=== PATIENT | male | born 1935 | race Caucasian/White ===

== ENCOUNTER 2020-02-27 08:34 | Day surgery (SDC) | payer MEDICARE, SELFPAY ==
[2020-02-21 10:44] VITALS: BMI 18.8
--- NOTE | 2020-02-22 | ECG_ITS ---
Test Reason : HERNIA ING Blood Pressure : / mmHG Vent. Rate : 079 BPM Atrial Rate : 079 BPM P-R Int : 136 ms QRS Dur : 104 ms QT Int : 430 ms P-R-T Axes : 079 001 051 degrees QTc Int : 493 ms Sinus rhythm with frequent , and consecutive Premature ventricular complexes Incomplete right bundle branch block Abnormal ECG When compared with ECG of 08-MAR-2018 10:50, Premature ventricular complexes are now more frequent Referred By: Ariane Esquivel Electronically Signed By:STEWART LANDEROS MD
[2020-02-22 12:48] VITALS: BMI 19.2
[2020-02-22 13:00] VITALS: BP 108/63; PULSE 72; RESP 18; O2SAT 95
--- NOTE | 2020-02-22 13:08 | HO.ANESPROP2 ---
HPI - Anesthesia Eval Consult details Narrative: 84yo for L inguinal hernia PMFSH Past Medical History Medical History Arthritis COPD (chronic obstructive pulmonary disease) Elevated cholesterol History of diverticulosis History of headache Hx of irritable bowel syndrome Hx of Legionnaire's disease Hx of renal calculi Urinary frequency Functional capacity: independent ambulation Family History Family history of problems with anesthesia: No Surgical History Surgical History (Updated 02/21/20 @ 11:05 by Glendy Adames) H/O colonoscopy History of hydrocelectomy Hx of appendectomy Hx of cholecystectomy History of Problems with Anesthesia: No Social History Social History Smoking Status: Current every day smoker Packs Per Day: 0.5 Cigarettes Per Day: 10.0 Years Smoked: 68 Meds Allergies Allergy/AdvReac Type Severity Reaction Status Date / Time No Known Allergies Allergy Verified 02/21/20 11:08 [No Known Allergies*] Home Medications Medication Instructions Recorded Confirmed Type PreserVision AREDS-2 1 tab PO BID 02/21/20 02/21/20 History dicyclomine 40 mg PO BID 02/21/20 02/21/20 History omeprazole 20 mg PO DAILY 02/21/20 02/21/20 History simvastatin 40 mg PO BEDTIME 02/21/20 02/21/20 History Exam Exam Date and Time: February 22, 2020 1308 Height,Weight and Vital Signs: Height 5 ft 9 in Weight 58.967 kg Last Vital Signs Pulse 72 02/22/20 13:00 Resp 18 02/22/20 13:00 BP 108/63 02/22/20 13:00 Pulse Ox 95 02/22/20 13:00 Pertinent Lab Results Pertinent Lab Results: Lab Results 02/22/20 02/22/20 Range/Units 13:49 13:49 WBC 5.3 (4.8-10.8) X10*3/uL RBC 4.37 L (4.60-5.80) X10*6/uL Hgb 14.1 (14.0-18.0) g/dl Hct 43.3 (42-52) % MCV 99.1 H (80-98) fL MCH 32.3 (27.0-33.0) pg MCHC 32.6 (31.0-36.0) g/dl RDW 13.0 (11.0-16.0) % Plt Count 162 (160-400) X10*3/uL MPV 12.5 H (9.4-12.4) fL Absolute Nucleated RBC 0.000 (0.0-0.012) X10*3/uL Nucleated RBC % (auto) 0.0 (0.0-0.2) /100WBC Sodium 139 (135-145) mmol/L Potassium 4.4 (3.3-5.1) mmol/l Chloride 102 (96-108) mmol/L Carbon Dioxide 31 H (22-29) mmol/L Anion Gap 10 L (12-20) BUN 18 H (9-16) mg/dL Creatinine 0.74 (0.5-1.4) mg/dL Estim Creat Clear Calc 63.0 Estimated GFR > 60 Random Glucose 113 (60-115) mg/dL Calcium 8.9 (8.4-10.2) mg/dL Narrative Narrative: EKG 02/22/20: SR with Freq Consectutive PVC, Inc RBBB Sent to PCP (Cardiol specialized) for review - states RSR, Freq PVC in couplets, no RBBB, No Ischemic changes OK to proceed, increased risk for arrhythmia based on freq PVC Airway Mallampati Class: II Neck ROM: Full Denture: Upper Partial: Lower Heart: RRR Lungs: CTAB Assessment and Plan Assessment Anesthesia Assessment: Anesthesia Plan Discussed, Smoking Cess. Discussed and PAT Visit
[2020-02-22 14:58] LABS: Hematocrit 43.3 % (42-52); Hemoglobin 14.1 g/dl (14.0-18.0); Mean Corpuscular HGB Conc 32.6 g/dl (31.0-36.0); Mean Corpuscular Hemoglobin 32.3 pg (27.0-33.0); Mean Corpuscular Volume 99.1 fL (80-98); Mean Platelet Volume 12.5 fL (9.4-12.4); Platelet Count 162 X10*3/uL (160-400); Red Blood Count 4.37 X10*6/uL (4.60-5.80); White Blood Count 5.3 X10*3/uL (4.8-10.8)
[2020-02-22 15:27] LABS: Anion Gap 10 (12-20); Blood Urea Nitrogen 18 mg/dL (9-16); Calcium 8.9 mg/dL (8.4-10.2); Carbon Dioxide 31 mmol/L (22-29); Chloride 102 mmol/L (96-108); Estimated Glomerular Filt Rate > 60; Glucose Random 113 mg/dL (60-115); Potassium 4.4 mmol/l (3.3-5.1); Sodium 139 mmol/L (135-145)
[2020-02-27] VITALS (9 sets, daily range): BP systolic 118–138; BP diastolic 61–74; PULSE 77–89; RESP 14–17; TEMP 36.2–36.8; O2SAT 93–97
[2020-02-27] MEDS: Lactated Ringers 1,000 ML 100 ML IVCONT (09:24)
[2020-02-27] MEDS: ceFAZolin Sodium/Dextrose,Iso 2 GM/50 ML PIGGYBACK IV (09:27)
[2020-02-27] MEDS: Albuterol Sulfate (0.083%) 2.5 MG/3 ML VIAL.NEB INHALE (09:38)
--- NOTE | 2020-02-27 09:45 | MHC.SHP ---
Pre-Procedural Eval Section B Chief Complaint: LEFT INGUINAL HERNIA Allergies: Allergies Allergy/AdvReac Type Severity Reaction Status Date / Time No Known Allergies Allergy Verified 02/21/20 11:08 [No Known Allergies*] Plan Patient has been examined and remains a candidate for the planned procedure
--- NOTE | 2020-02-27 10:52 | PM.OP ---
Brief Operative Note Date of procedure: 02/27/20 Pre-op diagnosis: L inguinal hernia Post-op diagnosis: same Procedure: repair of L ing hernia w/ mesh Implants: mesh Surgeon: Norris Barrera MD Anesthesia: GLMA Classification Inspector: Geovanna Crane Estimated blood loss (mL): 5 Pathology: none sent Condition: stable Disposition: PACU
[2020-02-27] MEDS: Acetaminophen 325 MG TABLET 650 MG PO (11:47)
[2020-02-27] MEDS: oxyCODONE HCl Immed Release 5 MG TABLET PO (11:47)
--- NOTE | 2020-02-27 11:59 | OP_ITS ---
SURGEON: Norris Barrera MD INDICATIONS: The patient is an 84-year-old male, noted to have reducible mass in the left groin consistent with an inguinal hernia. In view of symptoms, he wanted to proceed with repair. He understood the technique of repair with mesh. He was aware of the risks, benefits, and alternatives. PREOPERATIVE DIAGNOSIS: Left inguinal hernia. POSTOPERATIVE DIAGNOSIS: Left inguinal hernia, indirect. PROCEDURE PERFORMED: Repair of the left inguinal hernia with mesh and plug. ESTIMATED BLOOD LOSS: COMPLICATIONS: ANESTHESIA: ASSISTANTS: SPECIMENS: FRUIT AND VEGETABLE PARER: Geovanna Crane PA-C DESCRIPTION OF PROCEDURE: He was brought to the operating room and placed supine on the table under general anesthesia via laryngeal mask airway. The left groin was prepped and draped in usual sterile fashion. A surgical time-out was done. The patient received cefazolin 2 g IV preoperatively. The planned line of incision was infiltrated using lidocaine 1%. A short incision made in the skin along the imaginary line from the anterior iliac spine to the pubic ramus. Using blade #15, it was carried down to full-thickness skin and subcutaneous fat down to the external oblique aponeurosis fascia. We bluntly dissected the external oblique aponeurosis until we were able to clearly define the external ring. I made an incision on the external oblique aponeurosis along its fibers using blade #15 and it was extended inferomedially to connect with the external ring. The inguinal canal was therefore entered at this point. Hemostats were applied on the edges of the external oblique aponeurosis. We bluntly dissected the underside of the aponeurosis to create a plane for the mesh. With blunt dissection, proceeded to then pass my finger around the spermatic cord and its contents. I then was able to pass a [place] drain around this and this was used for traction. I examined the cord contents. The vas deferens along with its vessels were clearly identified. The sac was seen on the anteromedial aspect, which was markedly adherent along with some fat contents. I bluntly dissected this sac off the rest of cord contents very gently with Adson's forceps until I was able to completely reduce this through the internal ring. This was for an indirect hernia. I reinforced the internal ring with the medium-sized Prolene plug. This plug was secured with Prolene 2-0 sutures to shelving edge of the inguinal ligament laterally, the internal oblique superomedially using its inner leaves. I reinforced the floor of the canal with keyhole mesh. The tails of the mesh were passed around the cord at the level of internal ring and were secured together with prolene 2-0 sutures. I secured the mesh with Prolene 2-0 suture to shelving edge of the inguinal ligament laterally and the internal oblique superiorly and medially as well as the pubic ramus inferomedially. We made certain that the ilioinguinal nerve was not caught by the sutures. We irrigated. We observed for hemostasis. Once hemostasis was ensured, proceeded to close the external oblique aponeurosis with running Dexon 2-0 stitch to re-create the external ring. We made sure that the ilioinguinal nerve was not caught between the sutures. The subcutaneous layer was reapposed with Dexon 3-0 sutures. Skin closure achieved with Dexon 4-0 subcuticular stitch. Steri-Strips and dressing were applied. All incisions were infiltrated with Marcaine 0.5% for postop analgesia. The procedure was then completed. The patient tolerated the procedure well. There were no complications noted. Initial and final counts of sponges and instrument correct. Estimated blood loss was minimal. The patient extubated without difficulty and transferred to recovery room with stable vital signs. MD JAMILAH Larson/NICHOLE / [id number] MANSI
--- NOTE | 2020-02-27 12:28 | HO.POSTANES ---
Post Anesthesia Evaluation Post Anesthesia Evaluation Vital Signs: Vital Signs Temp Pulse Resp BP Pulse Ox 02/27/20 12:13 77 17 129/74 96 02/27/20 11:58 78 17 130/67 97 02/27/20 11:43 79 16 131/73 96 02/27/20 11:28 78 16 122/65 95 02/27/20 11:12 79 17 126/66 94 02/27/20 11:07 81 17 120/65 94 02/27/20 11:02 85 14 120/62 94 02/27/20 10:57 97.2 F 79 16 118/61 94 02/27/20 09:10 98.2 F 89 16 138/73 93 Anesthesia: Monitored Mental Status: Awake Pain Control: Satisfactory Nausea/Vomiting: None Hydration: Adequate Anesthesia-Related Issues: No Anes. Related Issues
== END 2020-02-27 13:34 | disposition home or self-care (01) ==
PROVIDERS: Nurse Practitioner; Visit Provider Surgery
PROC: (CPT 49505; principal; 2020-02-27 11:10)
DX: K40.90 Unilateral inguinal hernia, without obstruction or gangrene, not specified as recurrent (principal); I10 Essential (primary) hypertension; K21.00 Gastro-esophageal reflux disease with esophagitis, without bleeding; J44.9 Chronic obstructive pulmonary disease, unspecified; E78.00 Pure hypercholesterolemia, unspecified; F17.210 Nicotine dependence, cigarettes, uncomplicated; K57.30 Diverticulosis of large intestine without perforation or abscess without bleeding; Z79.899 Other long term (current) drug therapy; Z90.49 Acquired absence of other specified parts of digestive tract
CPT/HCPCS: 49505; 36415; 80048; 85027; 93005; 94640; C1781; J0690; J1100; J3010

== ENCOUNTER → 2020-03-11 14:33 | Outpatient (BNVA) | payer MEDICARE, SELFPAY | PROVIDERS: Visit Provider Surgery | DX: Z48.815 Encounter for surgical aftercare following surgery on the digestive system (principal) | CPT/HCPCS: 99212 ==

== ENCOUNTER → 2020-04-10 13:33 | Outpatient (BNVA) | payer MEDICARE, SELFPAY | PROVIDERS: Visit Provider Surgery | DX: K40.90 Unilateral inguinal hernia, without obstruction or gangrene, not specified as recurrent (principal); R22.32 Localized swelling, mass and lump, left upper limb | CPT/HCPCS: 99212 ==

== ENCOUNTER 2020-04-18 | Outpatient (REF) | payer MEDICARE, SELFPAY ==
[2020-04-18 14:35] VITALS: BP 146/87; PULSE 88; RESP 18; TEMP 36.6; O2SAT 96
[2020-04-18 15:12] VITALS: BP 134/70; PULSE 91; RESP 16; O2SAT 97
--- NOTE | 2020-04-18 15:42 | OP_ITS ---
SURGEON: Norris Barrera MD INDICATIONS: The patient is an 84-year-old male with note of well-defined movable mass on the proximal phalanx of the index finger on the left. This was about 1.2 cm in diameter. He wanted to proceed with excision. He understood the technique of excision under local anesthesia. He was aware of the risks, benefits, and alternatives. PREOPERATIVE DIAGNOSIS: Subcutaneous nodule, index finger, left. POSTOPERATIVE DIAGNOSIS: Ganglion cyst, index finger, left. PROCEDURE PERFORMED: Excision of ganglion cyst, index finger, left. ESTIMATED BLOOD LOSS: COMPLICATIONS: ANESTHESIA: ASSISTANTS: SPECIMENS: DESCRIPTION OF PROCEDURE: He was brought to the minor procedure room and placed supine on the table. The area of the ganglion on the left finger was prepped and draped. Lidocaine 1% was used for local anesthesia. A surgical time-out had been done earlier. An incision was made in the skin overlying this mass using blade #15, it was carried down to full-thickness skin. We then encountered a thin cyst and this leaked out some gelatinous material consistent with a ganglion cyst. I sharply dissected the capsule off the rest of the subcutaneous layer down to its pedicle and this was transected. This sent as specimen. I irrigated the area of excision and closed the incision with full-thickness nylon 3-0 interrupted sutures. Dressings were applied. He tolerated procedure well. There were no complications noted. He will be seen in the office for followup in 2 weeks for removal of sutures. MD JAMILAH Larson/MODL / [id number]
--- NOTE | 2020-04-18 16:11 | PM.OP ---
Brief Operative Note Date of Service: 04/18/20 Pre-op diagnosis: Subcutaneous mass index finger Post-op diagnosis: other (Ganglion cyst index finger left) Procedure: Excision of ganglion cyst index finger left Surgeon: Norris Barrera MD Estimated blood loss (mL): 0 Pathology: other (Ganglion cyst) Condition: stable Disposition: other (Home)
== END 2020-04-18 15:00 | disposition home or self-care (01) ==
LOC: HO.MS
PROVIDERS: Visit Provider Surgery
PROC: (CPT 26160; principal; 2020-04-18 14:30)
DX: M67.442 Ganglion, left hand (principal); J44.9 Chronic obstructive pulmonary disease, unspecified
CPT/HCPCS: 26160; 88304

== ENCOUNTER → 2020-05-01 09:56 | Outpatient (BNVA) | payer MEDICARE, SELFPAY | PROVIDERS: Visit Provider Surgery | DX: M67.442 Ganglion, left hand (principal); Z48.02 Encounter for removal of sutures | CPT/HCPCS: 99212 ==

== ENCOUNTER 2023-11-12 13:47 | Emergency (ER) | payer OTHER, SELFPAY ==
[2023-11-12 14:02] VITALS: BP 129/74; PULSE 89; RESP 18; TEMP 36.6; O2SAT 95; BMI 18.7
[2023-11-12 14:48] LABS: MANUAL DIFF FLAG NO
[2023-11-12 14:53] LABS: Basophils Percent Auto 0.4 % (0-2); Eosinophils Percent Auto 0.6 % (0-4); Hematocrit 42.3 % (42.0-52.0); Hemoglobin 13.8 g/dl (14.0-18.0); Imm Gran Abs Auto 0.02 X10*3/uL (0.00-0.03); Imm Gran Pct Auto 0.4 % (0.0-0.4); Lymphocytes Absolute Auto 0.7 X10*3/uL (1.2-4.9); Lymphocytes Percent Auto 13.7 % (20-40); Mean Corpuscular HGB Conc 32.6 g/dl (31.0-36.0); Mean Corpuscular Hemoglobin 32.1 pg (27.0-33.0); Mean Corpuscular Volume 98.4 fL (80.0-98.0); Monocytes Absolute Auto 0.4 X10*3/uL (0.1-1.2); Monocytes Percent Auto 7.9 % (2-11); Platelet Count 190 X10*3/uL (160-400); Red Cell Distribution Width 13.4 % (11.0-16.0); White Blood Count 5.2 X10*3/uL (4.8-10.8)
[2023-11-12 15:04] LABS: Alanine Aminotransferase 29 U/L (0-40); Albumin Level 3.7 g/dL (3.5-5.0); Alkaline Phosphatase 87 U/L (39-117); Anion Gap 12 (12-20); Aspartate Amino Transferase 23 U/L (5-37); Bilirubin Total 1.1 mg/dL (0.0-1.0); Blood Urea Nitrogen 15 mg/dL (9-16); Calcium 9.4 mg/dL (8.4-10.2); Carbon Dioxide 29 mmol/L (22-29); Chloride 106 mmol/L (96-108); Creatinine Clr Calc Pharmacy 52.1; Estimated Glomerular Filt Rate > 60; Glucose Random 147 mg/dL (60-115); Lipase 10 U/L (8-78); Magnesium 2.2 mg/dL (1.6-2.6); Potassium 4.5 mmol/L (3.3-5.1); Sodium 142 mmol/L (135-145)
--- NOTE | 2023-11-12 17:23 | ED.GENADULT ---
HPI - General Adult General Chief complaint: Abdominal Pain Stated complaint: Abd pain Time Seen by Provider: 11/12/23 17:05 History of Present Illness ED Provider: Dr. Peck HPI narrative: 88 y/o M patient; PMH COPD, HLD, IBS, hx DVT on Xarelto; presents from home with report of one month of abdominal pain associated with decreased PO intake over the last three days. The patient was seen on 11/10/2023 at [facility] for this complaint. He had a CTA Abdomen/Pelvis with No evidence of mesenteric/bowel ischemia, active GI bleed, or acute large vessel ischemia. 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 Proximal gastric wall/fold thickening which could indicate gastritis. No significant interval change in left renal mass suspicious for renal cell carcinoma. Small bilateral pleural effusions . He had an unremarkable UA, reassuring CBC, BMP, LFTs, lipase, INR. He then was discharged to follow up with GI out-patient. He was seen by GI Dr. Pineda on 11/09/2023. Plan for EGD in 6 weeks. Family returns with patient today due to his significant abdominal discomfort and decreased PO intake. Patient denies: vomiting, diarrhea, cough/congestion, SOB, chest pain. He is an active smoker. Related Data Home Medications ?Medication ?Instructions ?Recorded ?Confirmed dicyclomine 20 mg tablet 40 mg PO BID 02/21/20 02/21/20 omeprazole 20 mg tablet,delayed 20 mg PO DAILY 02/21/20 02/21/20 release simvastatin 40 mg tablet 40 mg PO BEDTIME 02/21/20 02/21/20 vit C 250 mg-vit E 90 mg-zinc 40 1 tab PO BID 02/21/20 02/21/20 mg-copper 1 [id number] capsule (PreserVision AREDS-2) Previous Rx's ?Medication ?Instructions ?Recorded oxycodone-acetaminophen 5 mg-325 1 - 2 tab PO Q4-6H PRN pain #30 02/27/20 mg tablet (Percocet) tabs famotidine 40 mg tablet 40 mg PO BEDTIME 30 days #30 tabs 11/12/23 Allergies Allergy/AdvReac Type Severity Reaction Status Date / Time No Known Allergies Allergy Verified 11/12/23 14:11 [No Known Allergies*] Review of Systems Review of Systems: Yes all other systems are reviewed and are negative Neurologic: Denies Sensory deficit (Neuro) [facility] Past Medical History Attestation statement: The following information was validated with the patient. Source: old records reviewed Medical History Ganglion cyst of finger Subcutaneous mass of finger of left hand Left inguinal hernia History of headache Arthritis History of diverticulosis Hx of irritable bowel syndrome Hx of renal calculi Urinary frequency Hx of Legionnaire's disease COPD (chronic obstructive pulmonary disease) Elevated cholesterol Surgical History H/O colonoscopy Hx of cholecystectomy Hx of appendectomy History of hydrocelectomy Social History Social History Are you a primary healthcare advisory services manager to a significant other at home: No Do you presently have visiting nurse or other home services: No Cigarette Packs Per Day: 0.5 Cigarettes Per Day: 10.0 Years Smoked: 68 Advance Directives: Yes Advance Directives on File: Yes Advance Directives Date on File: 11/12/23 Do you have a plan to hurt others: No Plan Physical Exam ED Vital Signs: Vital Signs - 24 hr 11/12/23 14:02 11/12/23 17:28 Temperature 97.8 F 97.2 F Pulse Rate 89 84 Respiratory Rate 18 16 Blood Pressure 129/74 125/77 Pulse Oximetry 95 95 Oxygen Delivery Method Room Air Room Air BMI result Body Mass Index 18.7 Patient is afebrile and hemodynamically stable. Const General: cooperative Orientation/consciousness: patient oriented x3 HENMT Head: Yes normal to inspection and Yes atraumatic Eyes General: appearance normal, both eyes and all related structures Pupils: Equal, round and reactive pupils present EOM: EOMs intact bilaterally Neck Neck: Yes normal visual inspection, Yes full ROM, Yes supple and No tender Chest Chest palpation & inspection: normal inspection of the chest and normal palpation of entire chest wall Resp Effort & Inspection: normal respiratory effort, able to speak in complete sentences, no cough and no respiratory distress Auscultation: clear to auscultation bilaterally Cardio Rate: regular rate Peripheral pulses: Peripheral pulses 2+ throughout GI Inspection: Yes normal to inspection, No Abdominal wall edema and No distended Palpation (GI): Soft to palpation, not firm, nontender, no guarding and not rigid Auscultation: normal bowel sounds Back/Spine/Pelvis Back: No back tenderness Neuro General: patient oriented x3 Cranial nerves: Yes Equal, round and reactive pupils present Motor exam (neuro): 5/5 motor strength present throughout Sensory Exam: No Sensory deficit (Neuro) Course Course Course Narrative: Patient is afebrile and hemodynamically stable. Nursing ordered basic labs. Labs reviewed and unremarkable. Discussed with patient and family importance of smoking cessation. Long discussion had with patient and family. Reviewed findings from recent GI visit and [facility] visit. Discussed next step would be EGD to evaluate for gastritis versus PUD. Patient is currently on Pantoprazole 20mg OD. Will add Famotidine to patient's course. Discussed possibility of further work up with patient and family - would prefer to follow up with GI for EGD. Plan: Discharge to home with PCP and GI follow up Return precautions given Medical Decision Making Lab Data 11/12/23 14:43 11/12/23 14:43 Labs: Lab Results 11/12/23 11/12/23 Range/Units 14:43 17:18 WBC 5.2 (4.8-10.8) X10*3/uL RBC 4.30 L (4.60-5.80) X10*6/uL Hgb 13.8 L (14.0-18.0) g/dl Hct 42.3 (42.0-52.0) % MCV 98.4 H (80.0-98.0) fL MCH 32.1 (27.0-33.0) pg MCHC 32.6 (31.0-36.0) g/dl RDW 13.4 (11.0-16.0) % Plt Count 190 (160-400) X10*3/uL MPV 12.0 (9.4-12.4) fL Immature Gran % (Auto) 0.4 (0.0-0.4) % Neut % (Auto) 77.0 H (45-73) % Lymph % (Auto) 13.7 L (20-40) % [place] % (Auto) 7.9 (2-11) % Eos % (Auto) 0.6 (0-4) % Baso % (Auto) 0.4 (0-2) % Lymph # (Auto) 0.7 L (1.2-4.9) X10*3/uL [place] # (Auto) 0.4 (0.1-1.2) X10*3/uL Eos # (Auto) 0.0 (0.0-0.4) X10*3/uL Baso # (Auto) 0.0 (0.0-0.2) X10*3/uL Abs Immat Gran (auto) 0.02 (0.00-0.03) X10*3/uL Absolute Neuts (auto) 4.0 (2.0-8.3) x10*3/uL Absolute Nucleated RBC 0.000 (0.0-0.012) X10*3/uL Nucleated RBC % (auto) 0.0 (0.0-0.2) /100WBC Sodium 142 (135-145) mmol/L Potassium 4.5 (3.3-5.1) mmol/L Chloride 106 (96-108) mmol/L Carbon Dioxide 29 (22-29) mmol/L Anion Gap 12 (12-20) BUN 15 (9-16) mg/dL Creatinine 0.81 (0.5-1.4) mg/dL Estim Creat Clear Calc 52.1 Estimated GFR > 60 Random Glucose 147 H (60-115) mg/dL Calcium 9.4 (8.4-10.2) mg/dL Magnesium 2.2 (1.6-2.6) mg/dL Total Bilirubin 1.1 H (0.0-1.0) mg/dL AST 23 (5-37) U/L ALT 29 (0-40) U/L Alkaline Phosphatase 87 (39-117) U/L Total Protein 6.0 L (6.5-8.0) g/dL Albumin 3.7 (3.5-5.0) g/dL Lipase 10 (8-78) U/L Urine Color Dark Yellow Urine Appearance Clear Urine pH 6.5 (5.0-9.0) Ur Specific [place] 1.015 (1.005-1.025) Urine Protein Negative (Neg-Trace) mg/dL Urine Glucose (UA) Negative (Negative) mg/dL Urine Ketones Trace (Negative) mg/dL Urine Blood Negative (Negative) Urine Nitrite Negative (Negative) Ur Leukocyte Esterase Negative (Negative) Discharge Plan Discharge Clinical Impression: Abdominal pain Patient Disposition: Home, Self-Care Instructions: Famotidine (By mouth), Peptic Ulcer (ED), Gastritis (DC) Additional Instructions: As we discussed, you were seen today for abdominal pain. We reviewed your recent records from the GI doctor on 11/08 and the emergency department at [facility] on 11/09. We discussed the CTA, UA, labs which were completed and largely reassuring other than the finding of potentially gastritis. We discussed that the next step would be to call the GI doctor to schedule an endoscopy to visualized the condition of the esophagus and stomach. In the meantime you are already on Pantoprazole 20mg. I am going to add Famotidine 40mg once a day at night. Other things you can do are follow a bland diet. Stopping smoking will also help to heal the lining of your stomach. Please call you GI doctor within the next 24 hours to schedule an appointment to discuss the endoscopy. Prescriptions: New famotidine 40 mg tablet 40 mg PO BEDTIME 30 Days Qty: 30 0RF No Action simvastatin 40 mg Tablet 40 mg PO BEDTIME dicyclomine 20 mg Tablet 40 mg PO BID omeprazole 20 mg Tablet,Delayed Release (Dr/Ec) 20 mg PO DAILY PreserVision AREDS-2 [id number] Capsule 1 tab PO BID oxycodone-acetaminophen [Percocet] 5-325 mg tablet 1 - 2 tab PO Q4-6H PRN (Reason: pain) Qty: 30 0RF Print Language: Azeri
[2023-11-12 17:28] VITALS: BP 125/77; PULSE 84; RESP 16; TEMP 36.2; O2SAT 95
[2023-11-12 17:33] LABS: Appearance Urine Clear; Color Urine Dark Yellow; Glucose Urine UA Negative (Negative); Leukocyte Esterase Urine Negative (Negative); Nitrite Urine Negative (Negative); PH 6.5 (5.0-9.0); Specific Gravity - Urine 1.015 (1.005-1.025); Urine Blood Negative (Negative); Urine Ketones Trace mg/dL (Negative); Urine Protein Negative (Neg-Trace)
[2023-11-12] MEDS: Famotidine 20 MG TABLET 40 MG PO (17:53)
[2023-11-12 17:58] VITALS: BP 132/74; PULSE 72; RESP 16; TEMP 36.6; O2SAT 98
== END 2023-11-12 18:01 | disposition home or self-care (01) ==
PROVIDERS: Physician Assistant; Emergency Provider Emergency Medicine; PCP Internal Medicine Endocrinology, Diabetes & Metabolism
DX: R10.9 Unspecified abdominal pain (principal); F17.210 Nicotine dependence, cigarettes, uncomplicated
CPT/HCPCS: 36415; 80053; 81003; 83690; 83735; 85025; 99283; 99284

== ENCOUNTER 2024-06-03 10:05 | Emergency (ER) | payer OTHER, SELFPAY ==
--- NOTE | ~2024-06-03 | XR_ITS ---
CLINICAL HISTORY: pain cough 4 view, chest and left ribs Comparison: Chest radiography dated 03/06/2019 Findings: No fractures or dislocations. Mild hazy left more than right atelectasis/scarring +/-infiltrate. IMPRESSION: Mild hazy left more than right atelectasis/scarring +/-infiltrate. No acute rib fracture. This document has been electronically signed by: Brooke Almonte MD on 06/03/2024 11:35:04
--- NOTE | ~2024-06-03 | CT_ITS ---
CLINICAL HISTORY: L sided rib pain side pain ? Infiltrate CT chest without contrast Comparison: CT/REG/SR - CHEST WITHOUT CONTRAST [id number] - 03/17/19 17:28 EST Findings: The heart is normal size. The visualized thyroid and mediastinum are unremarkable. There are linear and bandlike opacities within the lingula. No consolidation, pleural effusion or pneumothorax. Moderate centrilobular pulmonary emphysema. The upper abdomen is unremarkable. No acute displaced fracture. Chronic appearing compression fracture involving the L1 vertebral body. IMPRESSION: Linear and bandlike opacities within the lingula, compatible with atelectasis. This document has been electronically signed by: Marianna Mitchell MD on 06/03/2024 18:53:36
[2024-06-03 10:35] VITALS: BP 133/56; PULSE 91; RESP 20; TEMP 36.6; O2SAT 95; BMI 19.2
[2024-06-03 10:53] LABS: MANUAL DIFF FLAG NO
[2024-06-03 10:56] LABS: Basophils Percent Auto 0.8 % (0-2); Eosinophils Percent Auto 0.8 % (0-4); Hematocrit 40.1 % (42.0-52.0); Hemoglobin 13.3 g/dl (14.0-18.0); Imm Gran Abs Auto 0.01 X10*3/uL (0.00-0.03); Imm Gran Pct Auto 0.3 % (0.0-0.4); Lymphocytes Absolute Auto 0.7 X10*3/uL (1.2-4.9); Lymphocytes Percent Auto 17.8 % (20-40); Mean Corpuscular HGB Conc 33.2 g/dl (31.0-36.0); Mean Corpuscular Volume 93.5 fL (80.0-98.0); Monocytes Absolute Auto 0.4 X10*3/uL (0.1-1.2); Monocytes Percent Auto 9.2 % (2-11); Neutrophils Absolute Auto 2.7 x10*3/uL (2.0-8.3); Neutrophils Percent Auto 71.1 % (45-73); Platelet Count 137 X10*3/uL (160-400); Red Blood Count 4.29 X10*6/uL (4.60-5.80); Red Cell Distribution Width 15.5 % (11.0-16.0); White Blood Count 3.8 X10*3/uL (4.8-10.8)
[2024-06-03 11:08] LABS: Alanine Aminotransferase 9 U/L (0-40); Albumin Level 3.7 g/dL (3.5-5.0); Alkaline Phosphatase 74 U/L (39-117); Anion Gap 10 (12-20); Aspartate Amino Transferase 17 U/L (5-37); Bilirubin Direct 0.1 mg/dL (0.0-0.5); Bilirubin Total 0.3 mg/dL (0.0-1.0); Blood Urea Nitrogen 17 mg/dL (9-16); Calcium 9.4 mg/dL (8.4-10.2); Carbon Dioxide 29 mmol/L (22-29); Chloride 107 mmol/L (96-108); Estimated Glomerular Filt Rate > 60; Glucose Random 255 mg/dL (60-115); Lipase 17 U/L (8-78); Potassium 4.5 mmol/L (3.3-5.1); Sodium 141 mmol/L (135-145); Total Protein 6.4 g/dL (6.5-8.0)
[2024-06-03 12:58] VITALS: BP 136/67; PULSE 88; RESP 20; TEMP 36.6; O2SAT 97
--- OUTSIDE RECORDS SUMMARY | 2024-06-03 17:18 | XMS_ITS ---
Author Name [facility] Organization [facility] Address [address] [place] [id number] Care Team Providers Care Commission Auditor Name Role Phone SAUL JEFFERY Primary Care Provider Unavaila ble Insurance Providers: All historical and current Section Date Range: From patient's date of to the date document was created. This section includes the names of all active insurance providers for the patient. Insurance Provider Type of Coverage Plan Name Start of Policy Coverage End of Policy Coverage Group Number Member ID Insurance Provider's Telephone Number Policy Garcia's Name Patient's Relationship to Policy Garcia MEDICARE (WNR) MEDICARE (M) PART A Jul 08, 2002 PART A [id number] [phone] ALEXIS ALEXANDER PATIENT MEDICARE (WNR) MEDICARE (M) PART B Jul 08, 2002 PART B [id number] [phone] ALEXIS ALEXANDER PATIENT [facility] (WNR) MEDICARE ADVANTAGE [facility] (WNR) Jun 10, 2007 [id number] ALEXIS ALEXANDER PATIENT [facility] (WNR) MEDICARE (M) [facility] (WNR) Jun 10, 2020 [id number] ALEXIS ALEXANDER PATIENT Selected Encounter This section includes the information on record at [place] for the Encounter. Date/Time Encounter Type Encounter Description Reason Pro vider Source Jan 06, 2024 02:51 PM Outpatient Encounter ADMIN PAT ACTIVTIES (MASNONCT) IHE Encounter Template Text not used by [place] Plan of Treatment: Future Appointments (+ 6 months) and Future Tests (+/- 45 days) The Plan of Treatment section includes future care activities for the patient from all [place] treatmentfacilities. This section includes future appointments and future orders which are active, pending or scheduled. Future Appointments This section includes appointments that were scheduled to occur 6 months from the date of the Encounter, up to a maximum of 20 appointments. The data comes from all [place] treatment facilities. Appointment Date/Time Appointment Type Appointme nt Facility Name Jan 14, 2024 10:00 AM AMBULATORY - MEDICINE [facility] ([id number]) Feb 10, 2024 02:30 PM [facility] Feb 14, 2024 01:00 PM AM[facility]ULATORY - MEDICINE [facility] Feb 14, 2024 01:30 PM [facility]UL[facility]ORY [facility]ICINE [facility] Feb 14, 2024 02:00 PM AMBULATORY - NONE [facility] Feb 18, 2024 10:00 AM AM[facility]ULATORY - [facility] ([id number]) Feb 22, 2024 01:00 PM AMBULATORY - REHAB MEDICIN E [facility] Mar 08, 2024 01:00 PM AM[facility]ULATORY - [facility]ICINE [facility] Mar 14, 2024 03:00 PM AM[facility]ULATORY [facility]ICINE [facility] Mar 24, 2024 01:30 PM AM[facility]ULATORY - MEDICINE [facility] Jun 16, 2024 02:00 PM AM[facility]ULATORY - [facility]ICINE [facility] Jun 23, 2024 02:20 PM AMBULATORY - MEDICINE [facility] Social History: Smoking Status (Most current) and Tobacco Use (All prior to encounter date) This section includes the most current, and the historical, smoking and tobacco- related health factors from the [facility] facility where the Encounter took place. Current Smoking Status This section includes the most current smoking, or tobacco-related health factor, from the VA facility where the Encounter took place. Date/Time Current Smoking Status Comment Facil it Aug 16, 2023 01:00 PM VA-TOBACCO USE WI 30 MIN OF WAKEUP [facility] Tobacco Use History This section includes a history of the smoking, or tobacco-related health factors, that were collected on or before the date of the Encounter. The data comes from the [place] facility where the Encounter took place. Date/Time Smoking Status/Tobac co Use Comment Facility Aug 16, 2023 01:00 PM VA-TOBACCO USE ADVICE [facility] Aug 16, 2023 01:00 PM VA-TOBACCO USE SYSTEM SUPPORT ANALYST NO [facility] Aug 16, 2023 01:00 PM VA-TOBACCO USE MED NO [facility] Aug 16, 2023 01:00 PM VA-TOBACCO USE WI 30 MIN OF WAKEUP [facility] Aug 16, 2023 01:00 PM VA-TOBACCO USER EVERY DAY [facility] September 10, 2022 11:30 AM VA-TOBACCO USE 30 YEARS OR MORE [facility] September 10, 2022 11:30 AM VA-TOBACCO USE ADVICE [facility] September 10, 2022 11:30 AM VA-TOBACCO USE SYSTEM SUPPORT ANALYST NO [facility] September 10, 2022 11:30 AM VA-TOBACCO USE MED NO [facility] September 10, 2022 11:30 AM VA-TOBACCO USE [place] 30 MIN OF WAKEUP [facility] September 10, 2022 11:30 AM VA-TOBACCO USER EVERY DAY [facility] Aug 18, 2021 03:00 PM VA-TOBACCO USE 30 YEARS OR MORE [facility] Aug 18, 2021 03:00 PM VA-TOBACCO USE ADVICE [facility] Aug 18, 2021 03:00 PM VA-TOBACCO USE SYSTEM SUPPORT ANALYST NO [facility] Aug 18, 2021 03:00 PM VA-TOBACCO USE MED NO [facility] Aug 18, 2021 03:00 PM VA-TOBACCO USE [place] 30 MIN OF WAKEUP [facility] Aug 18, 2021 03:00 PM VA-TOBACCO USER EVERY DAY [facility] Jun 20, 2020 09:16 AM VA-TOBACCO USE 30 YEARS OR MORE [facility] Jun 20, 2020 09:16 AM VA-TOBACCO USE ADVICE [facility] Jun 20, 2020 09:16 AM VA-TOBACCO USE SYSTEM SUPPORT ANALYST NO [facility] Jun 20, 2020 09:16 AM VA-TOBACCO USE MED NO [facility] Jun 20, 2020 09:16 AM VA-TOBACCO USE [place] 30 MIN OF WAKEUP [facility] Jun 20, 2020 09:16 AM VA-TOBACCO USER EVERY DAY [facility] Jan 05, 2019 10:36 AM VA-TOBACCO USE 30 YEARS OR MORE [facility] Jan 05, 2019 10:36 AM VA-TOBACCO USE ADVICE [facility] Jan 05, 2019 10:36 AM VA-TOBACCO USE SYSTEM SUPPORT ANALYST NO [facility] Jan 05, 2019 10:36 AM VA-TOBACCO USE MED NO [facility] Jan 05, 2019 10:36 AM VA-TOBACCO USE WI 30 MIN OF WAKEUP [facility] Jan 05, 2019 10:36 AM VA-TOBACCO USER EVERY DAY [facility] Jan 17, 2018 12:50 PM CURRENT SMOKER [facility] Jan 17, 2018 12:50 PM V1-PT DECLINES REF TO TOBACCO CESS PRGM [facility] Jan 17, 2018 12:50 PM V1-PT THINKING ABOUT QUIT TOBACCO USE [facility] Jan 17, 2018 12:50 PM V1-TOBACCO CESS MEDS NOT PRESCRIBED Wants to quit on his own [facility] Encounter Notes: All associated encounter notes This section contains the clinical notes associated to the Encounter. Date/Time Encounter Note(s) Provider Source Jan 06, 2024 02:51 PM PHARMACY NOTE: LOCAL TITLE: V1 PHARMACY CUSTOMER CARE MEDICATION RENEWAL STANDARD TITLE: PHARMACY NOTE DATE OF NOTE: JAN 06, 2024@14:51 ENTRY DATE: JAN 06, 2024@14:52:03 AUTHOR: MARGIE LYLE EXP COSIGNER: URGENCY: STATUS: COMPLETED Date: Dec Division: [facility] referred by Pharmacy Call Center for medication renewal: Non-controlled/maintenance medication Medications requested: [id number] NUTRITION SUPL ENSURE PLUS/VANILLA LIQ PLEASE NOTE: This medication is long . Please review as the [facility] has requested to renew it. Defer to primary care provider To be mailed . Please review and renew if appropriate. *This note was generated by [facility]/[place] [facility] Customer Care. If you have any questions or need assistance, do not contact this author. Please refer all questions to your local, on-site pharmacy departments. /jefry/ MARGIE LYLE CPhT [employer], [place]/Pharmacy Customer Care Signed: 01/06/2024 14:53 Receipt Acknowledged By: 01/06/2024 15:07 /jefry/ Saul Jeffery DNP, LUMBER TRIMMER-BC, CNL Primary Care Nurse Practitioner 01/06/2024 15:15 /jefry/ MARY TORRES REGISTERED NURSE for MARGIE DA SILVA [facility]
--- OUTSIDE RECORDS SUMMARY | 2024-06-03 17:19 | XMS_ITS ---
Author Name [facility] [place] [place] Organization [facility] [place] Address [address] [place] [id number] Care Team Providers Care Compounder Flavorings Name Role Phone SAUL LOPEZ Primary Care Provider [facility] [place] Insurance Providers: All historical and current Section [...] Name Patient's Relationship to Policy Garcia MEDICARE (R) MEDICARE () PART A Jul 08, 2002 PART A [id number] [phone] ALEXIS ALEXANDER PATIENT MEDICARE (WNR) MEDICARE (M) PART B Jul 08, 2002 PART B [id number] [phone] ALXEIS ALEXANDER PATIENT SURGERY [facility] (R) MEDICARE ADVANTAGE [facility] ([facility]) Jun 10, 2007 [id number] ALEXIS ALEXANDER PATIENT [facility] (WNR) MEDICARE (M) [facility] ([facility]) Jun 10, 2020 [id number] ALEXIS ALEXANDER PATIENT Selected Encounter This section includes the information on record at CT for the Encounter. Date/Time Encounter Type Encounter Description Reason Provider Source Aug 16, 2023 01:00 PM OFFICE O/P EST LOW 20 MIN PRIMARY CARE/MEDICINE ICD-10-CM R63.4 Abnormal weight loss SULEMA LOPEZ AM [facility] Encounter Template Text not used by CT Assessments - Encounter Diagnoses This section includes the primary and secondary diagnoses documented for the Encounter. Date/Time Primary/Secondary Diagnosis Diagnosis Name Provider Source Aug 16, 2023 01:40 PM PRIMARY Abnormal weight loss SULEMA LOPEZ AM [facility] [place] [facility] Aug 16, 2023 01:40 PM SECONDARY Benign prostatic hyperplasia without lower urinry tract symp SULEMA LOPEZ AM [facility] [place] [facility] Aug 16, 2023 01:40 PM SECONDARY Embolism and thrombosis of arteries of the lower extremities SULEMA LOPEZ AM [facility] [place] [facility] Aug 16, 2023 01:40 PM SECONDARY Gastro-esophageal reflux disease without esophagitis SULEMA LOPZE AM [facility] [place] [facility] Aug 16, 2023 01:40 PM SECONDARY Other specified disorders of kidney and ureter SULEMA LOPEZ AM [facility] [place] [facility] Aug 16, 2023 01:40 PM SECONDARY Peripheral vascular disease, unspecified SULEMA LOPEZ AM [facility] Plan of Treatment: Future Appointments (+ 6 months) and Future Tests (+/- 45 days) The Plan of Treatment section includes future care activities for the patient from all CT treatmentcilities. This section includes future appointments and future orders which are active, pending or scheduled. Future Appointments This section includes appointments that were scheduled to occur 6 months from the date of the Encounter, up to a maximum of 20 appointments. The data comes from all CT treatment facilities. Appointment Date/Time Appointment Type Appointme nt Facility Name September 16, 2023 02:00 PM AMBULATORY - MEDICINE CT [facility] [place] [facility] Nov 04, 2023 09:30 AM AMBULATORY - MEDICINE [facility] [place] [facility] Nov 05, 2023 08:15 AM AMBULATORY - NONE [facility] [place] [facility] Nov 19, 2023 08:30 AM AMBULATORY - MEDICINE CT [facility] [place] [facility] Nov 19, 2023 02:00 PM AMBULATORY - NONE [facility] [place] [facility] Nov 22, 2023 03:00 PM AMBULATORY - MEDICINE CT [facility] [place] [facility] Dec 02, 2023 08:00 AM AMBULATORY - MEDICINE [facility] [place] [facility] Dec 02, 2023 10:00 AM AMBULATORY - MEDICINE [facility] [place] [facility] Jan 14, 2024 10:00 AM AMBULATORY - MEDICINE [id number] Feb 10, 2024 02:30 PM AMBULATORY - MEDICINE [facility] [place] [facility] Feb 14, 2024 01:00 PM AMBULATORY - MEDICINE CT [facility] [place] [facility] Feb 14, 2024 01:30 PM AMBULATORY - MEDICINE CT [facility] [place] [facility] Feb 14, 2024 02:00 PM [facility]BUL[facility]ONE [facility] Lab Results: +/- 30 days of the encounter This section includes the Chemistry and Hematology Lab Results on record with CT for the patient. Radiology Reports and Pathology Reports are provided separately, in subsequent sections. Lab Results This section contains the Chemistry/Hematology Results that were resulted 30 days before or 30 daysafter the date of the Encounter. Date/Time Source Result Type Result - Unit Interpretation Reference Range Comment Aug 16, 2023 01:49 PM [facility] PT & INR (PROTIME) Specimen Type: PLASMA No comment entered. Ordering Provider: SULEMA LOPEZ AM Report Released Date/Time: Aug 16, 2023 01:36 PM Reporting Lab: [facility] [place] [address] [address] Performing Lab: [facility] [address] [id number] INR 1.2 PROTIME 14.0 s H 10.0-13.1 Aug 16, 2023 01:49 PM [facility] CBC AND DIFF (AUTO) Specimen Type: BLOOD No comment entered. Ordering Provider: SULEMA LOPEZ AM Report Released Date/Time: Aug 16, 2023 01:36 PM Reporting Lab: [facility] [place] [address] [place] [address] Performing Lab: [facility] [address] [facility] [address] WBC 5.73 10*3/uL 4.50-11.00 RBC 4.30 10*6/uL 4.23-5.66 HGB 14.2 g/dL 12.8-17 HCT 42.6 39.2-50.4 MCV 99.1 fL H 82-99 MCHC 33.3 g/dL 30.8-35.1 PLT 180 10*3/uL 140-360 RDW-CV 12.8 12.0-16.0 [place], Abs 0.54 10*3/uL 0.30-1.10 MCH 33.0 pg H 26.2-32.6 Neut % 69.7 43.7-75.8 Lymph % 19.4 14.0-42.3 [place] % 9.4 5.1-13.7 Eos % 0.7 0.4-6.8 Baso % 0.3 0.1-2.0 Neut, Abs 3.99 10*3/uL 2.20-7.60 Lymph, Abs 1.11 10*3/uL 1.00-3.20 Eos, Abs 0.04 10*3/uL 0.03-0.44 Baso, Abs 0.02 10*3/uL 0.01-0.13 Immature Gran % 0.5 0.0-0.7 Immature Gran, Abs 0.03 10*3/uL 0.00-0.06 Vital Signs: All taken on the encounter date This section contains inpatient and outpatient Vital Signs collected on the date of the Encounter. Date/Time Temperature Pulse Blood Pressure Respiratory Rate SP02 Pain Height Weight Body Mass Index Source Aug 16, 2023 12:58 PM 97.6 81 121/62 18 96 0 68 131 20 [facility] Social History: Smoking Status (Most current) and Tobacco Use (All prior to encounter date) This section includes the most current, and the historical, smoking and tobacco- related health factors from the CT facility where the Encounter took place. Current Smoking Status This section includes the most current smoking, or tobacco-related health factor, from the [place] facility where the Encounter took place. Date/Time Current Smoking Status Comment Facil ity Aug 16, 2023 01:00 PM VA-TOBACCO USE [place] [address] [facility] [place] [facility] Tobacco Use History This section includes a history of the smoking, or tobacco-related health factors, that were collected on or before the date of the Encounter. The data comes from the [place] facility where the Encounter took place. 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 NO [facility] [place] [facility] Aug 16, 2023 01:00 PM VA-TOBACCO USE MED NO [facility] [place] [facility] Aug 16, 2023 01:00 PM VA-TOBACCO USE WI 30 MIN OF WAKEUP [facility] [place] [facility] Aug 16, 2023 01:00 PM VA-TOBACCO USER EVERY DAY [facility] [place] [facility] September 10, 2022 11:30 AM VA-TOBACCO USE 30 YEARS OR MORE [facility] [place] [facility] September 10, 2022 11:30 AM VA-TOBACCO USE ADVICE [facility] [place] [facility] September 10, 2022 11:30 AM VA-TOBACCO USE 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 NO [facility] [place] [facility] September 10, 2022 11:30 AM VA-TOBACCO USE MED NO [facility] [place] [facility] September 10, 2022 11:30 AM VA-TOBACCO USE WI 30 MIN OF WAKEUP [facility] [place] [facility] September 10, 2022 11:30 AM VA-TOBACCO USER EVERY DAY [facility] [place] [facility] Aug 18, 2021 03:00 PM VA-TOBACCO USE 30 YEARS OR MORE [facility] [place] [facility] Aug 18, 2021 03:00 PM VA-TOBACCO USE ADVICE [facility] [place] [facility] Aug 18, 2021 03:00 PM VA-TOBACCO USE 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 POLISHER HELPER NO [facility] [place] [facility] Aug 18, 2021 03:00 PM VA-TOBACCO USE MED NO [facility] [place] [facility] Aug 18, 2021 03:00 PM VA-TOBACCO USE WI 30 MIN OF WAKEUP [facility] [place] [facility] Aug 18, 2021 03:00 PM VA-TOBACCO USER EVERY DAY [facility] [place] [facility] Jun 20, 2020 09:16 AM VA-TOBACCO USE 30 YEARS OR MORE [facility] [place] [facility] Jun 20, 2020 09:16 AM VA-TOBACCO USE ADVICE [facility] [place] [facility] Jun 20, 2020 09:16 AM VA-TOBACCO USE TERRAZZO POLISHER HELPER NO [facility] [place] [facility] Jun 20, 2020 09:16 AM VA-TOBACCO USE MED NO [facility] [place] [facility] Jun 20, 2020 09:16 AM VA-TOBACCO USE WI [address] [facility] [place] [facility] Jun 20, 2020 09:16 AM VA-TOBACCO USER EVERY DAY [facility] [place] [facility] Jan 05, 2019 10:36 AM VA-TOBACCO USE [address] [facility] [place] [facility] Jan 05, 2019 10:36 AM VA-TOBACCO USE ADVICE [facility] [place] [facility] Jan 05, 2019 10:36 AM VA-TOBACCO USE TERRAZZO POLISHER HELPER NO [facility] [place] [facility] Jan 05, 2019 10:36 AM VA-TOBACCO USE MED NO [facility] [place] [facility] Jan 05, 2019 10:36 AM VA-TOBACCO USE WI [address] [facility] [place] [facility] Jan 05, 2019 10:36 AM VA-TOBACCO USER EVERY DAY [facility] [place] [facility] Jan 17, 2018 12:50 PM CURRENT SMOKER [facility] [place] [facility] Jan 17, 2018 12:50 PM V1-PT DECLINES REF TO TOBACCO CESS PRGM [facility] [place] [facility] Jan 17, 2018 12:50 PM V1-PT THINKING ABOUT QUIT TOBACCO USE [facility] [place] [facility] Jan 17, 2018 12:50 PM V1-TOBACCO CESS MEDS NOT PRESCRIBED Wants to quit on his own [facility] [place] [facility] Encounter Notes: All associated encounter notes This section contains the clinical notes associated to the Encounter. Date/Time Encounter Note(s) Provider Source Aug 16, 2023 01:29 PM PRIMARY CARE NURSE PRACTITIONER OUTPATIENT NOTE: LOCAL TITLE: NURSE PRACTITIONER OUTPATIENT NOTE STANDARD TITLE: PRIMARY CARE NURSE PRACTITIONER OUTPATIENT NOTE DATE OF NOTE: AUG 16, 2023@13:29 ENTRY DATE: AUG 16, 2023@13:30:02 AUTHOR: SAUL LOPEZ COSIGNER: URGENCY: STATUS: COMPLETED Chief complaint: Patient is a 87 year old [place]. HPI: Pleasant male [place] here with his . He is following with vascular - dx with thrombus of the left ileac artery, left deep femoral artery, and ? one in the left SFA. He is now on rivaroxaban 20mg daily. He will be on it for 3 months at which time he will have new imaging. Allergies: Patient has answered NKA The following VA and Non-VA meds were reconciled with patient. The patient was educated on the use of the medications including indication and side effects. Active and Recently Outpatient Medications (excluding Supplies): Active Outpatient Medications Status 1) CHOLECALCIF 50MCG (D3-2,000UNIT) TAB TAKE ONE TABLET ACTIVE BY MOUTH ONCE DAILY FOR VITAMIN SUPPLEMENTATION 2) MULTIVIT/OPHTH AREDS2/LUTE/ZEAX CAP/TAB TAKE 1 ACTIVE CAPSULE BY MOUTH TWICE DAILY IN THE MORNING AND EVENING, WITH FOOD 3) NUTRITION SUPL ENSURE PLUS/VANILLA LIQ DRINK 1 CAN BY ACTIVE MOUTH ONCE DAILY FOR NUTRITIONAL SUPPLEMENTATION 4) PEG 400 0.4%/PROP GLYCOL 0.3% OPH SOLN INSTILL 1 DROP ACTIVE INTO EACH EYE FOUR TIMES A DAY 5) SIMVASTATIN 80MG TAB TAKE ONE-HALF TABLET BY MOUTH ACTIVE ONCE DAILY FOR CHOLESTEROL 6) TAMSULOSIN HCL 0.4MG CAP TAKE ONE CAPSULE BY MOUTH AT ACTIVE BEDTIME Pending Outpatient Medications Status 1) PANTOPRAZOLE NA 20MG EC TAB TAKE ONE TABLET BY MOUTH PENDING TWICE DAILY BEFORE A MEAL Inactive Outpatient Medications Status 1) CYANOCOBALAMIN 500MCG TAB TAKE ONE TABLET BY MOUTH ONCE DAILY FOR VITAMIN SUPPLEMENTATION 2) DICLOFENAC NA 1% TOP GEL APPLY 4 GRAMS TOPICALLY FOUR TIMES A DAY FOR BACK PAIN - USE DOSING CARD PROVIDED IN BOX 9 Total Medications Review of Systems: Constitutional: (-)for Fevers, chills, weakness, nights sweats On examination: 97.6 F [36.4 C] (08/16/2023 12:58)121/62 (08/16/2023 12:58)81 (08/16/2023 12:58) 18 (08/16/2023 12:58)0 (08/16/2023 12:58)BMI: 20.0131 lb [59.42 kg] (08/16/2023 12:58) is alert and oriented X3 Neck: supple without masses, trachea midline, ln not palpable, no thyromegaly Cardiovasc: 2plus carotids without bruits, no JVD Heart Reguler rate and rhythm NL S1S2 no S3 or murmur Respiration: Normal respiratory effort, lungs clear ABD: Benign normal active bowel sounds no HSM no rebound or referred pain EXT: no clubbing, edema, or cyanosis Assessment/plan: Active problems - Computerized Problem List is the source for the followin. Weight loss - wt is stable 2. 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 He is hesitant to pursue bx. Follows Dr. Amaro urology, and Dr. Westbrook, onc. 3. Gastroesophageal reflux disease - stable on PPI 4. Benign Prostatic Hypertrophy Without Outflow Obstruction (SCT [id number]) - frequent urination, nocturia, recently started on flomax. I also suggested changing to decaff coffee Review of medial record = 5mins Time spent with Patient including shared decision making = 20 mins Post visit documentation = 5mins Total time = 30 mins Follow up visit in 6 mos. Alert to PACT RN - Labs as necessary to address clinical status. Depression Screening: Perform PHQ-2 A PHQ-2 screen was performed. The score was 0 which is a negative screen for depression. Over the past two weeks, how often have you been bothered by the following problems? 1. Little interest or pleasure in doing things Not at all 2. Feeling down, depressed, or hopeless Not at all Medication Reconciliation: Outpatient: Has the patient been taking medications as documented in the EMLR? YES: The patient has been taking medications as documented in the EMLR. Essential Medication List for Review used to complete this medication reconciliation. INCLUDED IN THIS LIST: Alphabetical list of active outpatient prescriptions dispensed from this CT (local) and dispensed from another [place] or [facility] facility (remote) as well as inpatient orders (local, pending and active), local clinic medications, locally documented non-VA medications, and local prescriptions that have or been discontinued in the past 90 days. - All changes in medications, including all non-VA/Herbal/OTC medications were entered into CPRS. - If there were any medications the patient should no longer take, they were discontinued. - The patient/caregiver was instructed to update this list, discard old lists, and take this list to the next appointment, whether with a VA or non-VA provider. /jefry/ Saul Lopez DNP, DRENCHER-BC, CNL Primary Care Nurse Practitioner Signed: 08/16/2023 13:[address] [facility] [place] [facility] Aug 16, 2023 01:03 PM PREVENTIVE MEDICINE NURSING NOTE: LOCAL TITLE: CLINICAL REMINDERS/NURSING STANDARD TITLE: PREVENTIVE MEDICINE NURSING NOTE DATE OF NOTE: AUG 16, 2023@13:03 ENTRY DATE: AUG 16, 2023@13:03:14 AUTHOR: MOMO MCMAHON COSIGNER: URGENCY: STATUS: COMPLETED Advance Directive Screen MH AD: Patient does not have a completed advance directive on file at any facility, VA or outside. S/he is not interested in completing one at this time. The patient received education about Advance Directives and written notification of his/her rights. Suicide Screen: C-SSRS Screening Mcintosh-Suicide Severity Rating Scale (C-SSRS Screener) 1. Over the past month, have you wished you were or wished you could go to sleep and not wake up? No 2. Over the past month, have you had any actual thoughts of killing yourself? No 3. Over the past month, have you been thinking about how you might do this? Response not required due to responses to other questions. 4. Over the past month, have you had these thoughts and had some intention of acting on them? Response not required due to responses to other questions. 5. Over the past month, have you started to work out or worked out the details of how to kill yourself? Response not required due to responses to other questions. 6. If yes, at any time in the past month did you intend to carry out this plan? Response not required due to responses to other questions. 7. In your lifetime, have you ever done anything, started to do anything, or prepared to do anything to end your life (for example, collected pills, obtained a gun, gave away valuables, went to the roof but didn't jump)? No 8. If YES, was this within the past 3 months? Response not required due to responses to other questions. Falls & Incontinence Screen: Falls Screen: 4. No falls within the past year. Incontinence Screen No incontinence. Tobacco Use Screening: The patient uses tobacco every day. The patient uses tobacco within 30 minutes of waking up. The patient has been smoking or using tobacco for thirty years or more. Patient was advised to quit smoking and/or using tobacco. Discussion with patient included: - Quitting smoking or tobacco use is one of the most important things you can do to protect and improve your health and [place] has the resources to support you. - Set a quit date when you are ready to quit. - Get support from your family and friends. - Review any past quit attempts- What helped? What didn't? - On the day you plan to quit, get rid of all cigarettes and tobacco products from your home, car or work. - Using a combination of behavioral counseling or other support strategies and FDA-approved cessation medications is the most effective way to ensure success in quitting. Patient was offered Behavioral Counseling and other support strategies to assist with quitting. Discussion with patient included: - Behavioral counseling or other support strategies greatly increases your chances of successfully quitting smoking or tobacco use by helping you develop a quit plan and providing support and other strategies to make behavioral changes to help you quit. - [place] has a number of behavioral counseling options to help you with quitting, including: * Provide information about the facility smoking or tobacco use treatment options or clinics * [place]'s national quitline, 0-734-WWXZ-VET, with counseling available Wednesday-Wednesday The patient was not interested in receiving additional information about how to use the treatment options discussed. Patient was offered FDA-approved cessation medications. Discussion with patient included: - Medications for Nicotine replacement therapy such as the patch, gum or lozenge, and other medications such as varenicline or bupropion, can play an important role in the initial weeks and months after you quit smoking or tobacco use. - Medications help with cravings and withdrawal symptoms and they greatly increase your chances of successfully quitting. The patient was not interested in a prescription for tobacco cessation medications. Alcohol Use Screen (AUDIT-C): Alcohol Screen: SCREEN FOR ALCOHOL (AUDIT-C) An alcohol screening test (AUDIT-C) was negative (score=0). 1. How often did you have a drink containing alcohol in the past year? Consider a drink to be a 12 ounce can or bottle of regular beer, 8 ounces of malt liquor, a 5 ounce glass of table wine, or a 1.5 ounce shot of liquor (like scotch, gin, or vodka). Never 2. How many drinks containing alcohol did you have on a typical day when you were drinking in the past year? Response not required due to responses to other questions. 3. How often did you have six or more drinks on one occasion in the past year? Response not required due to responses to other questions. /jefry/ Momo [facility] Swing Tender COMPOUNDER FLAVORINGS,PRIMARY CARE Signed: 08/16/2023 13:05 MOMO MCMAHON [facility]
--- OUTSIDE RECORDS SUMMARY | 2024-06-03 17:19 | XMS_ITS ---
Author Name [facility] [place] [facility] [place] [facility] [place] Address [address] [place] [address] Care Team Providers Care Chicken Sexer Name Role Phone JEREMY LOPEZ Primary Care Provider Unavaila ble Insurance Providers: [...] PART A Jul 08, 2002 PART A [id number] ALEXIS ALEXANDER PATIENT MEDICARE (WNR) MEDICARE (M) PART B Jul 08, 2002 PART B [id number] ALEXIS ALEXANDER PATIENT [facility] (WNR) MEDICARE ADVANTAGE [facility] (WNR) Jun 10, 2007 [id number] ALEXIS ALEXANDER PATIENT [facility] (WNR) MEDICARE (M) [facility] (WNR) Jun 10, 2020 [id number] [phone] ALEXIS ALEXANDER PATIENT Selected Encounter This section includes the information on record at [place] for the Encounter. Date/Time Encounter Type Encounter Description Reason Pro vider Source Mar 03, 2024 03:07 PM Outpatient Encounter ADMIN PAT ACTIVTIES (MASNONCT) IHE Encounter Template Text not used by [place] Plan of Treatment: Future Appointments (+ 6 months) and Future Tests (+/- 45 days) The Plan of Treatment section includes future care activities for the patient from all [place] treatmentfacilities. This section includes future appointments and future orders which are active, pending or scheduled. Future Appointments This section includes appointments that were scheduled to occur 6 months from the date of the Encounter, up to a maximum of 20 appointments. The data comes from all [place] treatment facilities. Appointment Date/Time Appointment Type Appointme nt Facility Name Mar 08, 2024 01:00 PM AMBULATORY - [place]ICINE [place] [facility] [place] [facility] Mar 14, 2024 03:00 PM AMBULATORY MEDICINE [place] [facility] [place] [facility] Mar 24, 2024 01:30 PM AMBULATORY - MEDICINE [place] [facility] [place] [facility] Jun 16, 2024 02:00 PM AMBULATORY MEDICINE [place] [facility] [place] [facility] Jun 23, 2024 02:20 PM AMBULATORY - MEDICINE [facility] [place] [facility] Aug 04, 2024 10:00 AM AMBULATORY - MEDICINE [facility] ([id number]) Lab Results: +/- 30 days of the encounter This section includes the Chemistry and Hematology Lab Results on record with [place] for the patient. Radiology Reports and Pathology Reports are provided separately, in subsequent sections. Lab Results This section contains the Chemistry/Hematology Results that were resulted 30 days before or 30 daysafter the date of the Encounter. Date/Time Source Result Type Result - Unit Interpretation Reference Range Comment Feb 10, 2024 01:46 PM [facility] PT & INR (PROTIME) Specimen Type: PLASMA No comment entered. Ordering Provider: NADER LOPEZ Report Released Date/Time: Feb 03, 2024 12:02 PM Reporting Lab: [facility] [address] [facility] [address] Performing Lab: [address] [address] INR 1.0 PROTIME 11.8 s 10.0-13.1 Feb 10, 2024 01:46 PM [facility] BASIC METABOLIC PANEL (non-fasting) Specimen Type: SERUM No comment entered. Ordering Provider: NADER LOPEZ Report Released Date/Time: Feb 03, 2024 12:02 PM Reporting Lab: [facility] [address] [facility] [address] Performing Lab: [address] [address] UREA NITROGEN 16 mg/dL 7-25 GLUCOSE 156 mg/dL H 65-100 SODIUM 142 mmol/L 135-145 POTASSIUM 4.4 mmol/L 3.5-5.0 CHLORIDE 103 mmol/L 100-110 CO2 28 meq/L 20-30 CREATININE, Serum 1.17 mg/dL 0.50-1.40 eGFR(CKD-EPI 2020) 60 mL/min >60 Feb 10, 2024 01:46 PM [facility] CBC AND DIFF (AUTO) Specimen Type: BLOOD No comment entered. Ordering Provider: NADER LOPEZ Report Released Date/Time: Feb 03, 2024 12:02 PM Reporting Lab: [address] [address] Performing Lab: [address] [address] WBC 5.81 10*3/uL 4.50-11.00 RBC 4.35 10*6/uL 4.23-5.66 HGB 13.3 g/dL 12.8-17 HCT 40.9 39.2-50.4 MCV 94.0 fL 82-99 MCHC 32.5 g/dL 30.8-35.1 PLT 217 10*3/uL 140-360 RDW-CV 12.6 12.0-16.0 MONO, ABS 0.53 10*3/uL 0.30-1.10 MCH 30.6 pg 26.2-32.6 NEUT % 75.8 43.7-75.8 LYMPH % 13.6 L 14.0-42.3 MONO % 9.1 5.1-13.7 EOS % 0.5 0.4-6.8 BASO % 0.5 0.1-2.0 NEUT, ABS 4.40 10*3/uL 2.20-7.60 LYMPH, ABS 0.79 10*3/uL L 1.00-3.20 EOS, ABS 0.03 10*3/uL 0.03-0.44 BASO, ABS 0.03 10*3/uL 0.01-0.13 IMMATURE GRAN % 0.5 0.0-0.7 IMMATURE GRAN, ABS 0.03 10*3/uL 0.00-0.06 NRBC % 0.0 0.0-0.0 NRBC, ABS 0.00 10*3/uL 0.00-0.00 Social History: Smoking Status (Most current) and Tobacco Use (All prior to encounter date) This section includes the most current, and the historical, smoking and tobacco- related health factors from the [place] facility where the Encounter took place. Current Smoking Status This section includes the most current smoking, or tobacco-related health factor, from the [place] facility where the Encounter took place. Date/Time Current Smoking Status Comment Facil it Aug 16, 2023 01:00 PM VA-TOBACCO USE [place] 30 MIN OF WAKEUP [place] [facility] Tobacco Use History This section includes a history of the smoking, or tobacco-related health factors, that were collected on or before the date of the Encounter. The data comes from the [place] facility where the Encounter took place. Date/Time Smoking Status/Tobac co Use Comment Facility Aug 16, 2023 01:00 PM VA-TOBACCO USE ADVICE [place] [facility] [place] [facility] Aug 16, 2023 01:00 PM VA-TOBACCO USE HOT TAR ROOFER NO [facility] [place] [facility] Aug 16, 2023 01:00 PM VA-TOBACCO USE MED NO [facility] [place] [facility] Aug 16, 2023 01:00 PM VA-TOBACCO USE [place] 30 MIN OF WAKEUP [facility] [place] [facility] Aug 16, 2023 01:00 PM VA-TOBACCO USER EVERY DAY [facility] [place] [facility] September 10, 2022 11:30 AM VA-TOBACCO USE 30 YEARS OR MORE [facility] [place] [facility] September 10, 2022 11:30 AM VA-TOBACCO USE ADVICE [facility] [place] [facility] September 10, 2022 11:30 AM VA-TOBACCO USE HOT TAR ROOFER NO [facility] [place] [facility] September 10, 2022 11:30 AM VA-TOBACCO USE MED NO [facility] [place] [facility] September 10, 2022 11:30 AM VA-TOBACCO USE [place] 30 MIN OF WAKEUP [facility] [place] [facility] September 10, 2022 11:30 AM VA-TOBACCO USER EVERY DAY [facility] [place] [facility] Aug 18, 2021 03:00 PM VA-TOBACCO USE 30 YEARS OR MORE [facility] [place] [facility] Aug 18, 2021 03:00 PM VA-TOBACCO USE ADVICE [facility] [place] [facility] Aug 18, 2021 03:00 PM VA-TOBACCO USE HOT TAR ROOFER NO [facility] [place] [facility] Aug 18, 2021 03:00 PM VA-TOBACCO USE MED NO [facility] [place] [facility] Aug 18, 2021 03:00 PM VA-TOBACCO USE [place] 30 MIN OF WAKEUP [facility] [place] [facility] Aug 18, 2021 03:00 PM VA-TOBACCO USER EVERY DAY [facility] [place] [facility] Jun 20, 2020 09:16 AM VA-TOBACCO USE 30 YEARS OR MORE [facility] [place] [facility] Jun 20, 2020 09:16 AM VA-TOBACCO USE ADVICE [facility] [place] [facility] Jun 20, 2020 09:16 AM VA-TOBACCO USE HOT TAR ROOFER NO [facility] [place] [facility] Jun 20, 2020 09:16 AM VA-TOBACCO USE MED NO [facility] [place] [facility] Jun 20, 2020 09:16 AM VA-TOBACCO USE [place] 30 MIN OF WAKEUP [facility] [place] [facility] Jun 20, 2020 09:16 AM VA-TOBACCO USER EVERY DAY [facility] [place] [facility] Jan 05, 2019 10:36 AM VA-TOBACCO USE 30 YEARS OR MORE [facility] [place] [facility] Jan 05, 2019 10:36 AM VA-TOBACCO USE ADVICE [facility] Jan 05, 2019 10:36 AM VA-TOBACCO USE HOT TAR ROOFER NO [facility] Jan 05, 2019 10:36 AM VA-TOBACCO USE MED NO [facility] Jan 05, 2019 10:36 AM VA-TOBACCO USE [place] 30 MIN OF WAKEUP [facility] Jan 05, 2019 10:36 AM VA-TOBACCO USER EVERY DAY [facility] Jan 17, 2018 12:50 PM CURRENT SMOKER [facility] Jan 17, 2018 12:50 PM V1-PT DECLINES REF TO TOBACCO CESS PRGM [facility] Jan 17, 2018 12:50 PM V1-PT THINKING ABOUT QUIT TOBACCO USE [facility] Jan 17, 2018 12:50 PM V1-TOBACCO CESS MEDS NOT PRESCRIBED Wants to quit on his own [facility] Radiology Reports: +/- 30 days of the encounter Radiology Reports For cases when an order for radiology services may have been completed prior to the date of the Encounter, the report list includes the Radiology Reports that were completed up to 30 days before dateof the Encounter. For cases when an order for radiology services may have been completed after the date of the Encounter, the report list also includes the Radiology Reports that were completed up to30 days after date of the Encounter. The data comes from all [facility] facilities. Date/Time Radiology Report Provider Source Feb 14, 2024 01:[address] HEAD W/O CONT: RACHELL ALEXANDER [id number] -[id number] M Exm Date: FEB 14, 2024@13:38 Req Phys: JEREMY LOPEZ Loc: CWM/NO/PACT 7 (Req'g Loc) Img Loc: NHM/CT Service: Unknown [facility] [address] (Case [id number] COMPLETE) CT HEAD W/O CONT (CT Detailed) CPT:60749 Reason for Study: head injury Clinical History: fell last night, hit his head, on xarelto Report Status: Verified Date Reported: FEB 14, 2024 Date Verified: FEB 14, 2024 Rn Intake E-Sig:/ES/JOVAN BOYER JR Report: Study: Noncontrast CT scan of the head. Comparison: None. Technique: Noncontrast 5 mm contiguous axial images were taken from the skullbase to the vertex. Findings: Mild cerebral volume loss changes with associated ventriculomegaly is present, age-appropriate. Mild periventricular and deep white matter ischemic gliotic changes of aging are present, age-appropriate. There is no evidence of mass, hematoma or shift of the midline structures. There are no intra or extra-axial fluid collections. No calvarial pathology is identified. The paranasal sinuses and mastoid air cells appear normal. Moderate calcific atherosclerotic change is present to the basilar and internal carotid arteries. Impression: No acute intracranial process, as described above. Primary Diagnostic Code: No immediate attention required Primary Interpreting Staff: JOVAN BOYER JR, Radiologist (Rn Intake) /JOVAN MEDINA JR [facility] Encounter Notes: All associated encounter notes This section contains the clinical notes associated to the Encounter. Date/Time Encounter Note(s) Provider Source Mar 03, 2024 03:07 PM PHARMACY NOTE: LOCAL TITLE: V1 PHARMACY CUSTOMER CARE MEDICATION RENEWAL STANDARD TITLE: PHARMACY NOTE DATE OF NOTE: MAR 03, 2024@15:07 ENTRY DATE: MAR 03, 2024@15:07:57 AUTHOR: GABE REED EXP COSIGNER: URGENCY: STATUS: COMPLETED V1 PHARMACY CUSTOMER CARE MEDICATION RENEWAL Has ADDENDA Date: Feb Division: [facility] referred by Pharmacy Call Center for medication renewal: Non-controlled/maintenanc e medication Medications requested: [id number] MULTIVIT/OPHTH AREDS2/LUTE/ZEAX CAP/TAB Defer to specialty clinic To be mailed . Please review and renew if appropriate. *This note was generated by [facility] Pharmacy Customer Care. If you have any questions or need assistance, do not contact this author. Please refer all questions to your local, on-site pharmacy departments. /jefry/ GABE REED CPhT RAND SEWER, MS/PHARMACY CUSTOMER CARE Signed: 03/03/2024 15:08 Receipt Acknowledged By: 03/03/2024 15:23 /jefry/ JASWINDER MCGUIRE OD CAUL DRESSER 03/03/2024 ADDENDUM STATUS: COMPLETED Will renew as Dr. Rivera not on tour today and appt with Dr. Craig is scheduled. /jefry/ JASWINDER MCGUIRE OD CAUL DRESSER Signed: 03/03/2024 15:22 GABE REED [facility]
--- OUTSIDE RECORDS SUMMARY | 2024-06-03 17:19 | XMS_ITS | Patient Health Record ---
Author Organization [facility] Address [address] [place] [id number] Care Team Providers Care Siphon Operator Name Role Phone MELA SERNA Unavailable [phone] ALLERGIES No Known Allergies REASON FOR REFERRAL No Information MEDICATIONS Medication SIG (Take, Route, Frequency, Duration) Notes Start Date End Date Status Cyanocobalamin 500 MCG 1 tablet Orally O nce a day Active Simvastatin 40 MG 1 tablet in the even ing Orally Once a day Active Fluocinonide 0.05 % 1 application Table Games Supervisor ally Twice a day 09/29/2021 Active Omeprazole 20 MG 1 capsule 30 minutes before meal Orally twice a day for 90 days Active Vitamin D3 50 MCG (1999) 1 tablet Ora lly Once a day Active IMMUNIZATIONS Vaccine Route Administration Date Status Comme nts influenza IM Intramuscular 02/09/2022 Administered SOCIAL HISTORY Tobacco Use: Social History Observation Description Date Details (start date - stop date) Current Smoker NA - NA Sex Assigned At : Social History Observation Description Sex Assigned At Unknown Tobacco Use/Smoking Question Answer Notes Are you a current smoker How often do you smoke cigarettes? every day How many cigarettes a day do you smoke? 5 or les s PROBLEMS Problem Type ICD Code Onset Dates Problem Status W/U Status Risk SNOMED Code Notes Problem Essential (primary) hypertension (I10) Active confirmed 99639378 Problem Other abnormal glucose (R73.09) Active confirmed 010547271 Problem Hyperlipidemia, unspecified hyperlipidemia type (E78.5) Active confirmed 63106046 Problem Irritable bowel syndrome, unspecified type (K58.9) Active confirmed 08949301 Problem Vitamin D deficiency (E55.9) Active confirmed Vitamin D deficiency (30593678) Problem Constipation, unspecified constipation type (K59.00) Active confirmed 88031367 Problem Gastroesophageal reflux disease without esophagitis (K21.9) Active confirmed Gastroesophagea l reflux disease without esophagitis (573940777) Problem Body mass index [BMI] 35.0-35.9, adult (Z68.35) Active confirmed 251786508 Encounters Encounter Location Date Provider Diagnosis [address] [facility] [address] [place] [address] 04/12/2024 MELA SERNA PLAN OF TREATMENT Pending Test Test Name Order Date CBC (COMPLETE BLOOD COUNT) 09/23/2020 COMPREHENSIVE METABOLIC PANEL 09/23/2020 HEMOGLOBIN A1C 10/22/2020 LIPID PANEL 10/22/2020 LIPID PANEL 09/23/2020 URINALYSIS, COMPLETE 09/23/2020 LIPID PANEL, STANDARD 09/29/2021 COMPREHENSIVE METABOLIC PANEL 09/29/2021 CBC (INCLUDES DIFF/PLT) 09/29/2021 URINALYSIS, COMPLETE 06/27/2021 Insurance Providers Payer Name Payer Address Payer Phone Subscriber Number Group Number Insured Name Patient Relationship to Insured Coverage Start Date Coverage End Date [employer] Preferred [address] [place] [address] [id number] RACHELL ALEXANDER Self - patient is the insured 1 MEDICAL (GENERAL) HISTORY Medical History History ICD Code hyperlipidemia headache 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
--- OUTSIDE RECORDS SUMMARY | 2024-06-03 17:19 | XMS_ITS | Encounter Summary ---
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 Construction Project Engineer Name Role Phone JEREMY JEFFERY Primary Care Provider [facility] Insurance Providers: All historical and current Section [...] PART A Jul 08, 2002 PART A [id number] [phone] ALEXIS ALEXANDER PATIENT MEDICARE (WNR) MEDICARE (M) PART B Jul 08, 2002 PART B [id number] [phone] ALEXIS ALEXANDER PATIENT [facility] (WNR) MEDICARE ADVANTAGE [employer] ([facility]) Jun 10, 2007 [id number] ALEXIS ALEXANDER PATIENT [facility] (WNR) MEDICARE (M) [employer] ([facility]) Jun 10, 2020 1062 [id number] ALEXIS ALEXANDER PATIENT Selected Encounter This section includes the information on record at [place] for the Encounter. Date/Time Encounter Type Encounter Description Reason Provider Source Dec 31, 2023 10:00 AM OFFICE O/P EST HI 40 MIN HOME TREATMENT SERVICES ICD-10-CM R63.4 Abnormal weight loss [facility] Encounter Template Text not used by [place] Assessments - Encounter Diagnoses This section includes the primary and secondary diagnoses documented for the Encounter. Date/Time Primary/Secondary Diagnosis Diagnosis Name Provider Source Dec 31, 2023 02:08 PM PRIMARY Abnormal weight loss [facility] [place] [facility] Dec 31, 2023 02:08 PM SECONDARY Constipation, unspecified [facility] [place] [facility] Dec 31, 2023 02:08 PM SECONDARY Encounter for palliative care [facility] [place] [facility] Plan of Treatment: Future Appointments (+ 6 months) and Future Tests (+/- 45 days) The Plan of Treatment section includes future care activities for the patient from all [place] treatmentfacilities. This section includes future appointments and future orders which are active, pending or scheduled. Future Appointments This section includes appointments that were scheduled to occur 6 months from the date of the Encounter, up to a maximum of 20 appointments. The data comes from all [place] treatment facilities. Appointment Date/Time Appointment Type Appointme nt Facility Name Jan 14, 2024 10:00 AM AMBULATORY - MEDICINE [facility] ([id number]) Feb 10, 2024 02:30 PM AMBULATORY - MEDICINE [facility] [place] [facility] Feb 14, 2024 01:00 PM AM[facility]UL[facility]ICINE [facility] [place] [facility] Feb 14, 2024 01:30 PM AMBULATORY - MEDICINE [facility] [place] [facility] Feb 14, 2024 02:00 PM AMBULATORY - NONE [facility] [place] [facility] Feb 18, 2024 10:00 AM AMBULATORY - MEDICINE [facility] ([id number]) Feb 22, 2024 01:00 PM AMBULATORY - REHAB MEDICIN E [facility] [place] [facility] Mar 08, 2024 01:00 PM AMBULATORY - MEDICINE [facility] [place] [facility] Mar 14, 2024 03:00 PM AMBULATORY - MEDICINE [facility] [place] [facility] Mar 24, 2024 01:30 PM AMBULATORY - MEDICINE [facility] [place] [facility] Jun 16, 2024 02:00 PM AMBULATORY - MEDICINE [place] [facility] [place] [facility] Jun 23, 2024 02:20 PM AMBULATORY - MEDICINE [place] [facility] [place] [facility] Vital Signs: All taken on the encounter date This section contains inpatient and outpatient Vital Signs collected on the date of the Encounter. Date/Time Temperature Pulse Blood Pressure Respiratory Rate SP02 Pain Height Weight Body Mass Index Source Dec 31, 2023 01:22 PM 96.7 70 100/60 16 97 2 112 16 [place] [facility] Social History: Smoking Status (Most current) and Tobacco Use (All prior to encounter date) This section includes the most current, and the historical, smoking and tobacco- related health factors from the [place] facility where the Encounter took place. Current Smoking Status This section includes the most current smoking, or tobacco-related health factor, from the [place] facility where the Encounter took place. Date/Time Current Smoking Status Comment Facil it Aug 16, 2023 01:00 PM VA-TOBACCO USE WI 30 MIN OF WAKEUP [place] [facility] [place] [facility] Tobacco Use History This section includes a history of the smoking, or tobacco-related health factors, that were collected on or before the date of the Encounter. The data comes from the [place] facility where the Encounter took place. 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 [facility] [place] [facility] Aug 16, 2023 01:00 PM VA-TOBACCO USE MED NO [facility] [place] [facility] Aug 16, 2023 01:00 PM VA-TOBACCO USE WI 30 MIN OF WAKEUP [facility] [place] [facility] Aug 16, 2023 01:00 PM VA-TOBACCO USER EVERY DAY [facility] [place] [facility] September 10, 2022 11:30 AM VA-TOBACCO USE 30 YEARS OR MORE [facility] [place] [facility] September 10, 2022 11:30 AM VA-TOBACCO USE ADVICE [facility] [place] [facility] September 10, 2022 11:30 AM 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 USE 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 [facility] [place] [facility] September 10, 2022 11:30 AM VA-TOBACCO USE MED NO [facility] [place] [facility] September 10, 2022 11:30 AM VA-TOBACCO USE WI 30 MIN OF WAKEUP [facility] [place] [facility] September 10, 2022 11:30 AM VA-TOBACCO USER EVERY DAY [facility] [place] [facility] Aug 18, 2021 03:00 PM VA-TOBACCO USE 30 YEARS OR MORE [facility] [place] [facility] Aug 18, 2021 03:00 PM VA-TOBACCO USE ADVICE [facility] [place] [facility] Aug 18, 2021 03:00 PM VA-TOBACCO USE 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 [facility] [place] [facility] Aug 18, 2021 03:00 PM VA-TOBACCO USE MED NO [facility] [place] [facility] Aug 18, 2021 03:00 PM VA-TOBACCO USE WI 30 MIN OF WAKEUP [facility] [place] [facility] Aug 18, 2021 03:00 PM VA-TOBACCO USER EVERY DAY [facility] [place] [facility] Jun 20, 2020 09:16 AM VA-TOBACCO USE 30 YEARS OR MORE [facility] [place] [facility] Jun 20, 2020 09:16 AM VA-TOBACCO USE ADVICE [facility] [place] [facility] Jun 20, 2020 09:16 AM VA-TOBACCO USE 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 [facility] [place] [facility] Jun 20, 2020 09:16 AM VA-TOBACCO USE MED NO [facility] [place] [facility] Jun 20, 2020 09:16 AM VA-TOBACCO USE WI 30 MIN OF WAKEUP [facility] [place] [facility] Jun 20, 2020 09:16 AM VA-TOBACCO USER EVERY DAY [facility] [place] [facility] Jan 05, 2019 10:36 AM VA-TOBACCO USE 30 YEARS OR MORE [facility] [place] [facility] Jan 05, 2019 10:36 AM VA-TOBACCO USE ADVICE [facility] [place] [facility] Jan 05, 2019 10:36 AM VA-TOBACCO USE 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 [facility] Jan 05, 2019 10:36 AM VA-TOBACCO USE MED NO [facility] Jan 05, 2019 10:36 AM VA-TOBACCO USE WI 30 MIN OF WAKEUP [facility] Jan 05, 2019 10:36 AM VA-TOBACCO USER EVERY DAY [facility] Jan 17, 2018 12:50 PM CURRENT SMOKER [facility] Jan 17, 2018 12:50 PM V1-PT DECLINES REF TO TOBACCO CESS PRGM [facility] Jan 17, 2018 12:50 PM V1-PT THINKING ABOUT QUIT TOBACCO USE [facility] Jan 17, 2018 12:50 PM V1-TOBACCO CESS MEDS NOT PRESCRIBED Wants to quit on his own [facility] Encounter Notes: All associated encounter notes This section contains the clinical notes associated to the Encounter. Date/Time Encounter Note(s) Provider Source Dec 31, 2023 02:13 PM ADDENDUM: LOCAL TITLE: Addendum STANDARD TITLE: ADDENDUM DATE OF NOTE: DEC 31, 2023@14:13:07 ENTRY DATE: DEC 31, 2023@14:13:08 AUTHOR: TRISTIAN AUGUSTE EXP COSIGNER: URGENCY: STATUS: COMPLETED Home Telehealth for close CHF/CAD monitoring, especially with med changes. Vet/spouse think they were told that the [place] was setting them up for this but don't recall the details. I do not see a consult entered and they would like this if PCP is in agreement. /jefry/ TRISTIAN AUGUSTE DO Associate director of analytical development, Geriatrics Signed: 12/31/2023 14:13 Receipt Acknowledged By: 12/31/2023 14:17 /es/ Jeremy Jeffery DNP, ELECTRONIC COILS SUPERVISOR-BC, CNL Primary Care Nurse Practitioner 12/31/2023 14:29 /es/ Chiqui Riley MSN RN CNL Primary Care RN --- Original Document --- 12/31/23 CONSULT REPORT/PALLIATIVE: PALLIATIVE CARE CONSULTATION REASON: REVIEW PALLIATIVE/HOSPICE OPTIONS [place] with multiple recent ER and hospital visits. Recently told by cardiology that he has severe heart disease with medical mgmt approach and overall poor prognosis. 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 Checking weights daily (range 110-114). Also has left renal mass, listed as suspecious for malgnancy (per Urology note) and a small pulmonary nodule - no specific monitoring being done. Met with , spouse Dhaval and son Nader. reports feeling stronger every day since hospitalization. His biggest complaint is fatigue, starting today he has stopped metoprolol and started empag - he is hopeful that will help. He rarely senses chest pain but has daily mid- abdominal pain. He fatigues after 10 mins of very light activity and returns to sit or lie down. He does not complain of shortness o breath. He reports decreasing from weigth 155 to 110 in the past year although [facility] show weight of 124 lbs 1 year ago. Appetite good but has struggled with severe constipation which prompted some of the ER visits and an aggressive bowel regimen. Notes recent upper endoscopy showed gastritis, briefly the PPI was increased to 40 mg twice a day but quickly decreased to 20 mg twice a day as he felt he did not tolerate the higher dose. Sucralfate is on the med list but he is not using. Constant abdominal pain around the belly button midline region - cannot identify anything that makes it better or worse. It is currently 2/10 and about every other day it briefly increased to 6-7/10 then fades back on it's own. He uses 1 TUMS every few days but doesn't notice relief with that. Fam hx: does not recall CV disease or malignancies in family. 5 adult children are healthy Soc hx: quit tobacco ~2 months ago, had smoked <1/2 ppd since his 20s. 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 2. SYMPTOM AND QUALITY OF LIFE ASSESSMENT: Symptom Present? Rating (Y/N) Pain YES [2] Somewhat Shortness of Breath NO Nausea NO Constipation YES, now daily BMs with aggresssive regimen Dry mouth Feeling Drowsy YES Difficulty sleeping YES - trouble falling asleep, naps a few times oer day Difficulty concentrating NO Lack of energy YES Lack of appetite NO Weight loss YES, eats 3 meals/day and drinks 1-2 Ensure per day Worrying NO Feeling sad NO Feeling nervous YES Other: no cognitive concerns Family or staff concerns of symptoms: 3. ACTIVE MEDS: Active Outpatient Medications (including Supplies): Active Outpatient Medications Status 1) CYANOCOBALAMIN 500MCG TAB TAKE ONE TABLET BY MOUTH ACTIVE ONCE DAILY FOR VITAMIN SUPPLEMENTATION 2) EMPAGLIFLOZIN 10MG TAB TAKE ONE TABLET BY MOUTH ONCE ACTIVE DAILY 3) GENTAMICIN SULFATE 0.3% OPH SOLN INSTILL 2 DROPS INTO ACTIVE THE LEFT EYE EVERY 6 HOURS FOR EYE INFECTION CAUSED BY BACTERIA 4) MULTIVIT/OPHTH AREDS2/LUTE/ZEAX CAP/TAB TAKE 1 ACTIVE CAPSULE BY MOUTH TWICE DAILY IN THE MORNING AND EVENING, WITH FOOD 5) PANTOPRAZOLE NA 40MG EC TAB TAKE ONE TABLET BY MOUTH ACTIVE TWICE DAILY BEFORE A MEAL FOR EXCESSIVE PRODUCTION OF STOMACH ACID 6) PEG 400 0.4%/PROP GLYCOL 0.3% OPH SOLN INSTILL 1 DROP ACTIVE INTO EACH EYE FOUR TIMES A DAY 7) RIVAROXABAN 20MG TAB TAKE ONE TABLET BY MOUTH EVERY ACTIVE EVENING - TAKE WITH FOOD 8) SIMVASTATIN 80MG TAB TAKE ONE-HALF TABLET BY MOUTH ACTIVE ONCE DAILY FOR CHOLESTEROL 9) SUCRALFATE 1GM TAB TAKE ONE TABLET BY MOUTH TWICE ACTIVE DAILY NEEDED 10) TAMSULOSIN HCL 0.4MG CAP TAKE ONE CAPSULE BY MOUTH AT ACTIVE BEDTIME 4. KARNOFSKY PERFORMANCE SCALE: 50 Requires considerable assistance and frequent medical care 5. PHYSICAL EXAM: thin, cachectic appearance, NAD, seated on side of bed. Neurosych: A&OX3, alert pleasant & conversant. No tremor noted ENT: conjunctival clear (recently treated for opthalmic infection), MMM, neck supple without JVD or adenopathy, lungs dim but clear b/l, CV distant heart sounds RRR, abd thin soft NT ND +Bs, no clear masses, skin warm and tho, psoriatic mild plaques just proximal to left posterior elbows and distal to left posterior shoulder, ext warm no edema. 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 Due to overall issues and poor performance status, a medical mgmt approach is in place. 7. PROGNOSIS:Poor, although cannot exclude possibility of stability or some level of improvement with med changes 8. GOALS OF CARE: have more energy and be able to do more around the house. stay home as long as hospita. 9. ASSESSMENT/RECOMMENDATIONS: Options reviewed include: Hospice care. Reviewed Hospice philosophy and services. appreciative of info although not in favor of comfort-oriented approach at this time. Also introduced MOLST form and Hunt[place] favors a full resuscitation status at this time. Home Based Primary Care. Could be very helpful for his now complex case mgmt with eventual overlay of Hospice services should his health deteriorate further. He will consider and notify PCP if he would like a referral. Home Telehealth for close CHF/CAD monitoring, especially with med changes. Vet/spouse think they were told that the [place] was setting them up for this but don't recall the details. I do not see a consult entered and they would like this if PCP is in agreement. ADLs: not in need of further support at this time. Cognition: no cognitive concerns 10. DISPOSITION: Other: Palli RN phone call ~2 weeks. I am happy to revisit in the future as needed. Medication Reconciliation: Outpatient: Has the patient been taking medications as documented in the EMLR? No: Discrepencies were identified. See below. Essential Medication List for Review used to complete this medication reconciliation. INCLUDED IN THIS LIST: Alphabetical list of active outpatient prescriptions dispensed from this [place] (local) and dispensed from another [place] or DoD facility (remote) as well as inpatient orders (local, pending and active), local clinic medications, locally documented non-VA medications, and local prescriptions that have or been discontinued in the past 90 days. - Discrepancies were identified, addressed, and discussed with the patient/caregiver at this encounter. Discrepancies: not taking sucralfate, is taking furosemide 20 mg daily - All changes in medications, including all non-VA/Herbal/OTC medications were entered into CPRS. - If there were any medications the patient should no longer take, they were discontinued. - The patient/caregiver was instructed to update this list, discard old lists, and take this list to the next appointment, whether with a VA or non-ND provider. /jefry/ TRISTIAN AUGUSTE DO Associate director of analytical development, Geriatrics Signed: 12/31/2023 14:12 Receipt Acknowledged By: * AWAITING SIGNATURE * TRUPTI CHAVEZ BETH M [place] [facility] [place] [facility] Dec 31, 2023 12:54 PM PALLIATIVE CARE CO NSULT: LOCAL TITLE: CONSULT REPORT/PALLIATIVE STANDARD TITLE: PALLIATIVE CARE CONSULT DATE OF NOTE: DEC 31, 2023@12:54 ENTRY DATE: DEC 31, 2023@12:54:27 AUTHOR: TRISTIAN AUGUSTE EXP COSIGNER: URGENCY: STATUS: COMPLETED CONSULT REPORT/PALLIATIVE Has ADDENDA PALLIATIVE CARE CONSULTATION REASON: REVIEW PALLIATIVE/HOSPICE OPTIONS [place] with multiple recent ER and hospital visits. Recently told by cardiology that he has severe heart disease with medical mgmt approach and overall poor prognosis. 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 Checking weights daily (range 110-114). Also has left renal mass, listed as suspecious for malgnancy (per Urology note) and a small pulmonary nodule - no specific monitoring being done. Met with , spouse Dhaval and son Nader. Huntley reports feeling stronger every day since hospitalization. His biggest complaint is fatigue, starting today he has stopped metoprolol and started empag - he is hopeful that will help. He rarely senses chest pain but has daily mid- abdominal pain. He fatigues after 10 mins of very light activity and returns to sit or lie down. He does not complain of shortness o breath. He reports decreasing from weigth 155 to 110 in the past year although [facility] records show weight of 124 lbs 1 year ago. Appetite good but has struggled with severe constipation which prompted some of the ER visits and an aggressive bowel regimen. Notes recent upper endoscopy showed gastritis, briefly the PPI was increased to 40 mg twice a day but quickly decreased to 20 mg twice a day as he felt he did not tolerate the higher dose. Sucralfate is on the med list but he is not using. Constant abdominal pain around the belly button midline region - cannot identify anything that makes it better or worse. It is currently 2/10 and about every other day it briefly increased to 6-7/10 then fades back on it's own. He uses 1 TUMS every few days but doesn't notice relief with that. Fam hx: does not recall CV disease or malignancies in family. 5 adult children are healthy Soc hx: quit tobacco ~2 months ago, had smoked <1/2 ppd since his 20s. 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 2. SYMPTOM AND QUALITY OF LIFE ASSESSMENT: Symptom Present? Rating (Y/N) Pain YES [2] Somewhat Shortness of Breath NO Nausea NO Constipation YES, now daily BMs with aggresssive regimen Dry mouth Feeling Drowsy YES Difficulty sleeping YES - trouble falling asleep, naps a few times oer day Difficulty concentrating NO Lack of energy YES Lack of appetite NO Weight loss YES, eats 3 meals/day and drinks 1-2 Ensure per day Worrying NO Feeling sad NO Feeling nervous YES Other: no cognitive concerns Family or staff concerns of symptoms: 3. ACTIVE MEDS: Active Outpatient Medications (including Supplies): Active Outpatient Medications Status 1) CYANOCOBALAMIN 500MCG TAB TAKE ONE TABLET BY MOUTH ACTIVE ONCE DAILY FOR VITAMIN SUPPLEMENTATION 2) EMPAGLIFLOZIN 10MG TAB TAKE ONE TABLET BY MOUTH ONCE ACTIVE DAILY 3) GENTAMICIN SULFATE 0.3% OPH SOLN INSTILL 2 DROPS INTO ACTIVE THE LEFT EYE EVERY 6 HOURS FOR EYE INFECTION CAUSED BY BACTERIA 4) MULTIVIT/OPHTH AREDS2/LUTE/ZEAX CAP/TAB TAKE 1 ACTIVE CAPSULE BY MOUTH TWICE DAILY IN THE MORNING AND EVENING, WITH FOOD 5) PANTOPRAZOLE NA 40MG EC TAB TAKE ONE TABLET BY MOUTH ACTIVE TWICE DAILY BEFORE A MEAL FOR EXCESSIVE PRODUCTION OF STOMACH ACID 6) PEG 400 0.4%/PROP GLYCOL 0.3% OPH SOLN INSTILL 1 DROP ACTIVE INTO EACH EYE FOUR TIMES A DAY 7) RIVAROXABAN 20MG TAB TAKE ONE TABLET BY MOUTH EVERY ACTIVE EVENING - TAKE WITH FOOD 8) SIMVASTATIN 80MG TAB TAKE ONE-HALF TABLET BY MOUTH ACTIVE ONCE DAILY FOR CHOLESTEROL 9) SUCRALFATE 1GM TAB TAKE ONE TABLET BY MOUTH TWICE ACTIVE DAILY NEEDED 10) TAMSULOSIN HCL 0.4MG CAP TAKE ONE CAPSULE BY MOUTH AT ACTIVE BEDTIME 4. KARNOFSKY PERFORMANCE SCALE: 50 Requires considerable assistance and frequent medical care 5. PHYSICAL EXAM: thin, cachectic appearance, NAD, seated on side of bed. Neurosych: A&OX3, alert pleasant & conversant. No tremor noted ENT: conjunctival clear (recently treated for opthalmic infection), MMM, neck supple without JVD or adenopathy, lungs dim but clear b/l, CV distant heart sounds RRR, abd thin soft NT ND +Bs, no clear masses, skin warm and tho, psoriatic mild plaques just proximal to left posterior elbows and distal to left posterior shoulder, ext warm no edema. 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 Due to overall issues and poor performance status, a medical mgmt approach is in place. 7. PROGNOSIS:Poor, although cannot exclude possibility of stability or some level of improvement with med changes 8. GOALS OF CARE: have more energy and be able to do more around the house. stay home as long as hospita. 9. ASSESSMENT/RECOMMENDATIONS: Options reviewed include: Hospice care. Reviewed Hospice philosophy and services. [place] appreciative of info although not in favor of comfort-oriented approach at this time. Also introduced MOLST form and favors a full resuscitation status at this time. Home Based Primary Care. Could be very helpful for his now complex case mgmt with eventual overlay of Hospice services should his health deteriorate further. He will consider and notify PCP if he would like a referral. Home Telehealth for close CHF/CAD monitoring, especially with med changes. Vet/spouse think they were told that the [facility] was setting them up for this but don't recall the details. I do not see a consult entered and they would like this if PCP is in agreement. ADLs: not in need of further support at this time. Cognition: no cognitive concerns 10. DISPOSITION: Other: Palli RN phone call ~2 weeks. I am happy to revisit in the future as needed. Medication Reconciliation: Outpatient: Has the patient been taking medications as documented in the EMLR? No: Discrepencies were identified. See below. Essential Medication List for Review used to complete this medication reconciliation. INCLUDED IN THIS LIST: Alphabetical list of active outpatient prescriptions dispensed from this [facility] (local) and dispensed from another [place] or DoD facility (remote) as well as inpatient orders (local, pending and active), local clinic medications, locally documented non-VA medications, and local prescriptions that have or been discontinued in the past 90 days. - Discrepancies were identified, addressed, and discussed with the patient/caregiver at this encounter. Discrepancies: not taking sucralfate, is taking furosemide 20 mg daily - All changes in medications, including all non-VA/Herbal/OTC medications were entered into CPRS. - If there were any medications the patient should no longer take, they were discontinued. - The patient/caregiver was instructed to update this list, discard old lists, and take this list to the next appointment, whether with a VA or non-VA provider. /jefry/ TRISTIAN AUGUSTE DO Associate director of analytical development, Geriatrics Signed: 12/31/2023 14:12 Receipt Acknowledged By: 01/11/2024 12:15 /jefry/ TRUPTI CHAEVZ RN BACK OFFICE MEDICAL ASSISTANT 12/31/2023 ADDENDUM STATUS: COMPLETED Home Telehealth for close CHF/CAD monitoring, especially with med changes. Vet/spouse think they were told that the [place] was setting them up for this but don't recall the details. I do not see a consult entered and they would like this if PCP is in agreement. /jefry/ TRISTIAN AUGUSTE DO Associate director of analytical development, Geriatrics Signed: 12/31/2023 14:13 Receipt Acknowledged By: 12/31/2023 14:17 /es/ Jeremy Jeffery DNP, ELECTRONIC COILS SUPERVISOR-BC, CNL Primary Care Nurse Practitioner 12/31/2023 14:29 /es/ Chiqui Riley MSN RN CNL Primary Care RN [facility]HEL[facility]EH [facility] [facility]
--- OUTSIDE RECORDS SUMMARY | 2024-06-03 17:19 | XMS_ITS ---
Author Name [facility] [place] [facility] [place] Organization [facility] [place] [facility] [place] Address [address] [place] [id number] Care Team Providers Care Chassis Inspector Name Role Phone JEREMY JEFFERY Primary Care Provider Unav[facility] Insurance Providers: All historical and current Section [...] PART A Jul 08, 2002 PART A [id number] ALEXIS ALEXANDER PATIENT MEDICARE (WNR) MEDICARE (M) PART B Jul 08, 2002 PART B [id number] ALEXIS ALEXANDER PATIENT [facility] (R) MEDICARE ADVANTAGE [facility] ([facility]) Jun 10, 2007 [id number] ALEXIS ALEXANDER PATIENT [facility] (WNR) MEDICARE (M) [facility] ([facility]) Jun 10, 2020 [id number] ALEXIS ALEXANDER PATIENT Selected Encounter This section includes the information on record at [place] for the Encounter. Date/Time Encounter Type Encounter Description Reason Provider Source Feb 14, 2024 01:00 PM OFFICE O/P EST MOD 30 MIN PRIMARY CARE/MEDICINE ICD-10-CM R63.4 Abnormal weight loss SULEMA JEFFERY AM Sahil Encounter Template Text not used by [place] Assessments - Encounter Diagnoses This section includes the primary and secondary diagnoses documented for the Encounter. Date/Time Primary/Secondary Diagnosis Diagnosis Name Provider Source Feb 14, 2024 01:35 PM PRIMARY Abnormal weight loss NADER JEFFERY [place] [facility] [place] [facility] Feb 14, 2024 01:35 PM SECONDARY Chronic systolic (congestive) heart failure NADER JEFFERYM J [place] [facility] [place] [facility] Feb 14, 2024 01:35 PM SECONDARY Encounter for immunization RONNY PICKARD [place] [facility] [place] [facility] Feb 14, 2024 01:35 PM SECONDARY Other specified disorders of kidney and ureter [facility] [place] [facility] Plan of Treatment: Future Appointments (+ 6 months) and Future Tests (+/- 45 days) The Plan of Treatment section includes future care activities for the [facility] [place] [facility] This section includes future appointments and future orders which are active, pending or scheduled. Future Appointments This section includes appointments that were scheduled to occur 6 months from the date of the Encounter, up to a maximum of 20 appointments. The data comes from all [place] treatment facilities. Appointment Date/Time Appointment Type Appointme nt Facility Name Feb 18, 2024 10:00 AM AMBULATORY - MEDICINE [facility] ([id number]) Feb 22, 2024 01:00 PM AMBULATORY - REHAB MEDICIN [facility] [place] [facility] Mar 08, 2024 01:00 PM AMBULATORY - MEDICINE [place] [facility] [place] [facility] Mar 14, 2024 03:00 PM AMBULATORY - MEDICINE [place] [facility] [place] [facility] Mar 24, 2024 01:30 PM AMBULATORY - MEDICINE [place] [facility] [place] [facility] Jun 16, 2024 02:00 PM AMBULATORY - MEDICINE [place] [facility] [place] [facility] Jun 23, 2024 02:20 PM AMBULATORY - MEDICINE [place] [facility] [place] [facility] Aug 04, 2024 10:00 AM AMBULATORY - MEDICINE [facility] ([id number]) Lab Results: +/- 30 days of the encounter This section includes the Chemistry and Hematology Lab Results on record with [place] for the patient. Radiology Reports and Pathology Reports are provided separately, in subsequent sections. Lab Results This section contains the Chemistry/Hematology Results that were resulted 30 days before or 30 daysafter the date of the Encounter. Date/Time Source Result Type Result - Unit Interpretation Reference Range Comment Feb 10, 2024 01:46 PM [facility] PT & INR (PROTIME) Specimen Type: PLASMA No comment entered. Ordering Provider: NADER JEFFERY Report Released Date/Time: Feb 03, 2024 12:02 PM Reporting Lab: [address] [address] Performing Lab: [address] [address] INR 1.0 PROTIME 11.8 s 10.0-13.1 Feb 10, 2024 01:46 PM [facility] BASIC METABOLIC PANEL (non-fasting) Specimen Type: SERUM No comment entered. Ordering Provider: NADER JEFFERY Report Released Date/Time: Feb 03, 2024 12:02 PM Reporting Lab: [address] [address] Performing Lab: [address] [address] UREA NITROGEN 16 mg/dL 7-25 GLUCOSE 156 mg/dL H 65-100 SODIUM 142 mmol/L 135-145 POTASSIUM 4.4 mmol/L 3.5-5.0 CHLORIDE 103 mmol/L 100-110 CO2 28 meq/L 20-30 CREATININE, Serum 1.17 mg/dL 0.50-1.40 eGFR(CKD-EPI 2020) 60 mL/min >60 Feb 10, 2024 01:46 PM [facility] CBC AND DIFF (AUTO) Specimen Type: BLOOD No comment entered. Ordering Provider: NADER JEFFERY Report Released Date/Time: Feb 03, 2024 12:02 PM Reporting Lab: [facility] [address] [facility] [address] Performing Lab: [facility] [address] [facility] [address] WBC 5.81 10*3/uL 4.50-11.00 RBC 4.35 10*6/uL [...] 0.0 0.0-0.0 NRBC, ABS 0.00 10*3/uL 0.00-0.00 Vital Signs: All taken on the encounter date This section contains inpatient and outpatient Vital Signs collected on the date of the Encounter. Date/Time Temperature Pulse Blood Pressure Respiratory Rate SP02 Pain Height Weight Body Mass Index Source Feb 14, 2024 12:57 PM 97.5 76 112/75 16 97 0 69.5 120.5 18 [facility] Immunizations: All administered on the encounter date This section contains immunizations associated to the Encounter. Immunization Series Date Issued Reaction Comments INFLUENZA, HIGH-DOSE, TRIVALENT, PF Feb 13 Social History: Smoking Status (Most current) and Tobacco Use (All prior to encounter date) This section includes the most current, and the historical, smoking and tobacco- related health factors from the [place] facility where the Encounter took place. Current Smoking Status This section includes the most current smoking, or tobacco-related health factor, from the [place] facility where the Encounter took place. Date/Time Current Smoking Status Comment Facil it Aug 16, 2023 01:00 PM VA-TOBACCO USE WI 30 MIN OF WAKEUP [place] [facility] [place] [facility] Tobacco Use History This section includes a history of the smoking, or tobacco-related health factors, that were collected on or before the date of the Encounter. The data comes from the [place] facility where the Encounter took place. Date/Time Smoking Status/Tobac co Use Comment Facility Aug 16, 2023 01:00 PM VA-TOBACCO USE ADVICE [facility] [place] [facility] Aug 16, 2023 01:00 PM VA-TOBACCO USE DIRECTOR DIVERSITY NO [facility] [place] [facility] Aug 16, 2023 01:00 PM VA-TOBACCO USE MED NO [facility] [place] [facility] Aug 16, 2023 01:00 PM VA-TOBACCO USE WI 30 MIN OF WAKEUP [facility] [place] [facility] Aug 16, 2023 01:00 PM VA-TOBACCO USER EVERY DAY [facility] [place] [facility] September 10, 2022 11:30 AM VA-TOBACCO USE 30 YEARS OR MORE [facility] [place] [facility] September 10, 2022 11:30 AM VA-TOBACCO USE ADVICE [facility] [place] [facility] September 10, 2022 11:30 AM VA-TOBACCO USE DIRECTOR DIVERSITY NO [facility] [place] [facility] September 10, 2022 11:30 AM VA-TOBACCO USE MED NO [facility] [place] [facility] September 10, 2022 11:30 AM VA-TOBACCO USE WI 30 MIN OF WAKEUP [facility] [place] [facility] September 10, 2022 11:30 AM VA-TOBACCO USER EVERY DAY [facility] [place] [facility] Aug 18, 2021 03:00 PM VA-TOBACCO USE 30 YEARS OR MORE [facility] [place] [facility] Aug 18, 2021 03:00 PM VA-TOBACCO USE ADVICE [facility] [place] [facility] Aug 18, 2021 03:00 PM VA-TOBACCO USE DIRECTOR DIVERSITY NO [facility] [place] [facility] Aug 18, 2021 03:00 PM VA-TOBACCO USE MED NO [facility] [place] [facility] Aug 18, 2021 03:00 PM VA-TOBACCO USE WI 30 MIN OF WAKEUP [facility] [place] [facility] Aug 18, 2021 03:00 PM VA-TOBACCO USER EVERY DAY [facility] [place] [facility] Jun 20, 2020 09:16 AM VA-TOBACCO USE 30 YEARS OR MORE [facility] [place] [facility] Jun 20, 2020 09:16 AM VA-TOBACCO USE ADVICE [facility] [place] [facility] Jun 20, 2020 09:16 AM VA-TOBACCO USE DIRECTOR DIVERSITY NO [facility] [place] [facility] Jun 20, 2020 09:16 AM VA-TOBACCO USE MED NO [facility] [place] [facility] Jun 20, 2020 09:16 AM VA-TOBACCO USE WI 30 MIN OF WAKEUP [facility] [place] [facility] Jun 20, 2020 09:16 AM VA-TOBACCO USER EVERY DAY [facility] [place] [facility] Jan 05, 2019 10:36 AM VA-TOBACCO USE 30 YEARS OR MORE [facility] [place] [facility] Jan 05, 2019 10:36 AM VA-TOBACCO USE ADVICE [facility] [place] [facility] Jan 05, 2019 10:36 AM VA-TOBACCO USE DIRECTOR DIVERSITY NO [facility] [place] [facility] Jan 05, 2019 10:36 AM VA-TOBACCO USE MED NO [facility] [place] [facility] Jan 05, 2019 10:36 AM VA-TOBACCO USE WI 30 MIN OF WAKEUP [facility] [place] [facility] Jan 05, 2019 10:36 AM VA-TOBACCO USER EVERY DAY [facility] [place] [facility] Jan 17, 2018 12:50 PM CURRENT SMOKER [facility] [place] [facility] Jan 17, 2018 12:50 PM V1-PT DECLINES REF TO TOBACCO CESS PRGM [facility] Jan 17, 2018 12:50 PM V1-PT THINKING ABOUT QUIT TOBACCO USE [facility] Jan 17, 2018 12:50 PM V1-TOBACCO CESS MEDS NOT PRESCRIBED Wants to quit on his own [facility] Radiology Reports: +/- 30 days of [...] the Encounter. The data comes from all [place] treatment facilities. Date/Time Radiology Report Provider Source Feb 14, 2024 01:[address] HEAD W/O CONT: RACHELL ALEXANDER [id number] M Exm Date: FEB 14, 2024@13:38 Req Phys: JEREMY JEFFERY Loc: CWM/NO/PACT 7 (Req'g Loc) Img Loc: NHM/CT Service: [place] [address] (Case [id number] COMPLETE) CT HEAD W/O CONT (CT Detailed) CPT:14001 Reason for Study: head injury Clinical History: [place] fell last night, hit his head, on xarelto Report Status: Verified Date Reported: FEB 14, 2024 Date Verified: FEB 14, 2024 Stone Spreader Operator E-Sig:/ES/JOVAN BOYER JR Report: Study: Noncontrast CT [...] Primary Interpreting Staff: JOVAN BOYER JR, Radiologist (Stone Spreader Operator) /JOVAN MEDINA JR [facility] Encounter Notes: All associated encounter notes This section contains the clinical notes associated to the Encounter. Date/Time Encounter Note(s) Provider Source Feb 15, 2024 07:19 AM ADDENDUM: LOCAL TITLE: Addendum STANDARD TITLE: ADDENDUM DATE OF NOTE: FEB 15, 2024@07:19:50 ENTRY DATE: FEB 15, 2024@07:19:50 AUTHOR: JEREMY JEFFERY COSIGNER: URGENCY: STATUS: COMPLETED Alert to PACT RN, please let and his know, head ct looked fine. thank you. /jefry/ Jeremy Jeffery DNP, WEB CONTENT PRODUCER-BC, CNL Primary Care Nurse Practitioner Signed: 02/15/2024 07:20 Receipt Acknowledged By: 02/15/2024 09:25 /es/ Chiqui Riley MSN RN CNL Primary Care RN --- Original Document --- 02/14/24 NURSE PRACTITIONER OUTPATIENT NOTE: Chief complaint: Patient is a 88 year old . HPI: Pleasant male [place] here to follow up, comes with his . He reports he had a fall last night with a strike to his head. He has significant bruising around his right eye, non tender. He is on xarelto, will get head ct today. Intact neuro exam. He says just before the fall he did feel dizzy. I will decrease the dose of furosemide from 20mg to 10mg with instructions to resume 20mg if he develops lower ext edema. Allergies: Patient has answered NKA The following VA and Non-VA meds were reconciled with patient. The patient was educated on the use of the medications including indication and side effects. Active and Recently Outpatient Medications (excluding Supplies): Active Outpatient Medications Status 1) CYANOCOBALAMIN 500MCG TAB TAKE ONE TABLET BY MOUTH ACTIVE ONCE DAILY FOR VITAMIN SUPPLEMENTATION 2) EMPAGLIFLOZIN 10MG TAB TAKE ONE TABLET BY MOUTH ONCE ACTIVE DAILY 3) LACTULOSE 10GM/15ML ORAL SOLN TAKE 30 ML (2 ACTIVE TABLESPOONS) BY MOUTH THREE TIMES A DAY NEEDED FOR CONSTIPATION 4) METOPROLOL TARTRATE 25MG TAB TAKE ONE-HALF TABLET BY ACTIVE MOUTH TWICE DAILY FOR BLOOD PRESSURE/HEART 5) NUTRITION SUPL ENSURE PLUS/VANILLA LIQ DRINK 1 CAN BY ACTIVE MOUTH THREE TIMES A DAY FOR NUTRITIONAL SUPPLEMENTATION 6) PANTOPRAZOLE NA 40MG EC TAB TAKE ONE TABLET BY MOUTH ACTIVE TWICE DAILY BEFORE A MEAL FOR EXCESSIVE PRODUCTION OF STOMACH ACID 7) PEG 400 0.4%/PROP GLYCOL 0.3% OPH SOLN INSTILL 1 DROP ACTIVE INTO EACH EYE FOUR TIMES A DAY 8) RIVAROXABAN 20MG TAB TAKE ONE TABLET BY MOUTH EVERY ACTIVE EVENING - TAKE WITH FOOD 9) SENNOSIDES 8.6MG TAB TAKE TWO TABLETS BY MOUTH TWICE ACTIVE DAILY FOR CONSTIPATION 10) SIMVASTATIN 80MG TAB TAKE ONE-HALF TABLET BY MOUTH ACTIVE ONCE DAILY FOR CHOLESTEROL 11) SUCRALFATE 1GM TAB TAKE ONE TABLET BY MOUTH TWICE ACTIVE DAILY NEEDED 12) TAMSULOSIN HCL 0.4MG CAP TAKE ONE CAPSULE BY MOUTH AT ACTIVE BEDTIME Pending Outpatient Medications Status 1) FLUTICASONE PROP 50MCG 120D NASAL INHL INSTILL 1 PENDING SPRAY INTO EACH NOSTRIL TWICE DAILY 2) FUROSEMIDE 20MG TAB TAKE ONE-HALF TABLET BY MOUTH PENDING ONCE DAILY TO REMOVE FLUID/CONTROL BLOOD PRESSURE 3) LACTULOSE 10GM/15ML ORAL SOLN TAKE 30 ML (2 PENDING TABLESPOONS) BY MOUTH THREE TIMES A DAY NEEDED FOR CONSTIPATION 4) PANTOPRAZOLE NA 40MG EC TAB TAKE ONE TABLET BY MOUTH PENDING TWICE DAILY BEFORE A MEAL Inactive Outpatient Medications Status 1) GENTAMICIN SULFATE 0.3% OPH SOLN INSTILL 2 DROPS INTO THE LEFT EYE EVERY 6 HOURS FOR EYE INFECTION CAUSED BY BACTERIA 2) MULTIVIT/OPHTH AREDS2/LUTE/ZEAX CAP/TAB TAKE 1 CAPSULE BY MOUTH TWICE DAILY IN THE MORNING AND EVENING, WITH FOOD 18 Total Medications Review of Systems: Constitutional: (-)for Fevers, chills, weakness, nights sweats On examination: 97.5 F [36.4 C] (02/14/2024 12:57)112/75 (02/14/2024 12:57)76 (02/14/2024 12:57)16 (02/14/2024 12:57)0 (02/14/2024 12:57)BMI: 17.6120.5 lb [54.66 kg] (02/14/2024 12:57) [place] is alert and oriented X3 Eyes:No scleral icterus, lids normal, Pupils equal,round and reactive to light HEENT: External without scars, lesions or masses, TM's without erythema or perforations, Oropharynx without erythema or exudates or worrisome lesions Neck: supple without masses, trachea midline, ln not palpable, no thyromegaly Cardiovasc: 2plus carotids without bruits, no JVD Heart Reguler rate and rhythm NL S1S2 no S3 or murmur Respiration: Normal respiratory effort, lungs clear ABD: Benign normal active bowel sounds no HSM no rebound or referred pain EXT: no clubbing, edema, or cyanosis All diagnostics from past month were reviewed with patient. Assessment/plan: Active problems - Computerized Problem List is the source for the followin. Weight loss - stablized with supplement 2. CHF - stable, follows non va cardiology 3. renal mass - following non va nephrology, labs stable Health Care Maintenance: flu+ given in clinic Review of medial record = 5mins Time spent with Patient including shared decision making = 20 mins Post visit documentation = 5mins Total time = 30 mins Follow up visit in 3 mos. Medication Reconciliation: Outpatient: Has the patient been taking medications as documented in the EMLR? YES: The patient has been taking medications as documented in the EMLR. Essential Medication List for Review used to complete this medication reconciliation. INCLUDED IN THIS LIST: Alphabetical list of active outpatient prescriptions dispensed from this [place] (local) and dispensed from another VA or DoD facility (remote) as well as [...] with a VA or non-VA provider. /jefry/ Jeremy Jeffery DNP, WEB CONTENT PRODUCER-BC, CNL Primary Care Nurse Practitioner Signed: 02/14/2024 13:34 02/15/2024 ADDENDUM STATUS: UNSIGNED You may not VIEW this UNSIGNED Addendum. JEREMY JEFFERY [place] [facility] [place] [facility] Feb 14, 2024 01:25 PM PRIMARY CARE NURSE PRACTITIONER OUTPATIENT NOTE: LOCAL TITLE: NURSE PRACTITIONER OUTPATIENT NOTE STANDARD TITLE: PRIMARY CARE NURSE PRACTITIONER OUTPATIENT NOTE DATE OF NOTE: FEB 14, 2024@13:25 ENTRY DATE: FEB 14, 2024@13:25:53 AUTHOR: JEREMY JEFFERY EXP COSIGNER: URGENCY: STATUS: COMPLETED NURSE PRACTITIONER OUTPATIENT NOTE Has ADDENDA Chief complaint: Patient is a 88 year old [place]. HPI: Pleasant male here to follow up, comes with his . He reports he had a fall last night with a strike to his head. He has significant bruising around his right eye, non tender. He is on xarelto, will get head ct today. Intact neuro exam. He says just before the fall he did feel dizzy. I will decrease the dose of furosemide from 20mg to 10mg with instructions to resume 20mg if he develops lower ext edema. Allergies: Patient has answered NKA The following VA and Non-VA meds were reconciled with patient. The patient was educated on the use of the medications including indication and side effects. Active and Recently Outpatient Medications (excluding Supplies): Active Outpatient Medications Status 1) CYANOCOBALAMIN 500MCG TAB TAKE ONE TABLET BY MOUTH ACTIVE ONCE DAILY FOR VITAMIN SUPPLEMENTATION 2) EMPAGLIFLOZIN 10MG TAB TAKE ONE TABLET BY MOUTH ONCE ACTIVE DAILY 3) LACTULOSE 10GM/15ML ORAL SOLN TAKE 30 ML (2 ACTIVE TABLESPOONS) BY MOUTH THREE TIMES A DAY NEEDED FOR CONSTIPATION 4) METOPROLOL TARTRATE 25MG TAB TAKE ONE-HALF TABLET BY ACTIVE MOUTH TWICE DAILY FOR BLOOD PRESSURE/HEART 5) NUTRITION SUPL ENSURE PLUS/VANILLA LIQ DRINK 1 CAN BY ACTIVE MOUTH THREE TIMES A DAY FOR NUTRITIONAL SUPPLEMENTATION 6) PANTOPRAZOLE NA 40MG EC TAB TAKE ONE TABLET BY MOUTH ACTIVE TWICE DAILY BEFORE A MEAL FOR EXCESSIVE PRODUCTION OF STOMACH ACID 7) PEG 400 0.4%/PROP GLYCOL 0.3% OPH SOLN INSTILL 1 DROP ACTIVE INTO EACH EYE FOUR TIMES A DAY 8) RIVAROXABAN 20MG TAB TAKE ONE TABLET BY MOUTH EVERY ACTIVE EVENING - TAKE WITH FOOD 9) SENNOSIDES 8.6MG TAB TAKE TWO TABLETS BY MOUTH TWICE ACTIVE DAILY FOR CONSTIPATION 10) SIMVASTATIN 80MG TAB TAKE ONE-HALF TABLET BY MOUTH ACTIVE ONCE DAILY FOR CHOLESTEROL 11) SUCRALFATE 1GM TAB TAKE ONE TABLET BY MOUTH TWICE ACTIVE DAILY NEEDED 12) TAMSULOSIN HCL 0.4MG CAP TAKE ONE CAPSULE BY MOUTH AT ACTIVE BEDTIME Pending Outpatient Medications Status 1) FLUTICASONE PROP 50MCG 120D NASAL INHL INSTILL 1 PENDING SPRAY INTO EACH NOSTRIL TWICE DAILY 2) FUROSEMIDE 20MG TAB TAKE ONE-HALF TABLET BY MOUTH PENDING ONCE DAILY TO REMOVE FLUID/CONTROL BLOOD PRESSURE 3) LACTULOSE 10GM/15ML ORAL SOLN TAKE 30 ML (2 PENDING TABLESPOONS) BY MOUTH THREE TIMES A DAY NEEDED FOR CONSTIPATION 4) PANTOPRAZOLE NA 40MG EC TAB TAKE ONE TABLET BY MOUTH PENDING TWICE DAILY BEFORE A MEAL Inactive Outpatient Medications Status 1) GENTAMICIN SULFATE 0.3% OPH SOLN INSTILL 2 DROPS INTO THE LEFT EYE EVERY 6 HOURS FOR EYE INFECTION CAUSED BY BACTERIA 2) MULTIVIT/OPHTH AREDS2/LUTE/ZEAX CAP/TAB TAKE 1 CAPSULE BY MOUTH TWICE DAILY IN THE MORNING AND EVENING, WITH FOOD 18 Total Medications Review of Systems: Constitutional: (-)for Fevers, chills, weakness, nights sweats On examination: 97.5 F [36.4 C] (02/14/2024 12:57)112/75 (02/14/2024 12:57)76 (02/14/2024 12:57)16 (02/14/2024 12:57)0 (02/14/2024 12:57)BMI: 17.6120.5 lb [54.66 kg] (02/14/2024 12:57) [place] is alert and oriented X3 Eyes:No scleral icterus, lids normal, Pupils equal,round and reactive to light HEENT: External without scars, lesions or masses, TM's without erythema or perforations, Oropharynx without erythema or exudates or worrisome lesions Neck: supple without masses, trachea midline, ln not palpable, no thyromegaly Cardiovasc: 2plus carotids without bruits, no JVD Heart Reguler rate and rhythm NL S1S2 no S3 or murmur Respiration: Normal respiratory effort, lungs clear ABD: Benign normal active bowel sounds no HSM no rebound or referred pain EXT: no clubbing, edema, or cyanosis All diagnostics from past month were reviewed with patient. Assessment/plan: Active problems - Computerized Problem List is the source for the followin. Weight loss - stablized with supplement 2. CHF - stable, follows non va cardiology 3. renal mass - following non va nephrology, labs stable Health Care Maintenance: flu+ given in clinic Review of medial record = 5mins Time spent with Patient including shared decision making = 20 mins Post visit documentation = 5mins Total time = 30 mins Follow up visit in 3 mos. Medication Reconciliation: Outpatient: Has the patient been taking medications as documented in the EMLR? YES: The patient has been taking medications as documented in the EMLR. Essential Medication List for Review used to complete this medication reconciliation. INCLUDED IN THIS LIST: Alphabetical list of active outpatient prescriptions dispensed from this [facility] (local) and dispensed from another [place] or [place] facility (remote) as well as [...] whether with a VA or non-VA provider. /BRONWYN Huston DNP, DUARTE Primary Care Nurse Practitioner Signed: 02/14/2024 13:34 02/15/2024 ADDENDUM STATUS: COMPLETED Alert to PACT RN, please let [place] and his know, head ct looked fine. thank you. /BRONWYN Huston DNP, DUARTE Primary Care Nurse Practitioner Signed: 02/15/2024 07:20 Receipt Acknowledged By: 02/15/2024 09:25 /yael Riley MSN RN CNL Primary Care RN 02/15/2024 ADDENDUM STATUS: COMPLETED Talked with Spouse, relayed results /jefry/ Chiqui Riley MSN RN CNL Primary Care RN Signed: 02/15/2024 09:25 JEREMY JEFFERY [facility] Feb 14, 2024 01:05 PM PREVENTIVE MEDICINE NURSING NOTE: LOCAL TITLE: CLINICAL REMINDERS/NURSING STANDARD TITLE: PREVENTIVE MEDICINE NURSING NOTE DATE OF NOTE: FEB 14, 2024@13:05 ENTRY DATE: FEB 14, 2024@13:05:42 AUTHOR: KILEY PICKARD EXP COSIGNER: URGENCY: STATUS: COMPLETED CLINICAL REMINDERS/NURSING Has ADDENDA Sexual Orientation: The patient thinks of their sexual orientation as: Straight or Heterosexual /jefry/ KILEY PICKARD LPN LPN Signed: 02/14/2024 13:06 02/14/2024 ADDENDUM STATUS: COMPLETED Influenza Immunization: Influenza, High-Dose, Trivalent, Preservative Free (Fluzone-Syringe) Administered: INFLUENZA, HIGH-DOSE, TRIVALENT, PF Date Administered: Feb 14, 2024 13:00 Series: Complete Outplacement Consultant: SANOFI PASTEUR Lot: [id number] Exp Date: Nov 06, 2024 [facility]: [phone] Admin Route/Site: INTRAMUSCULAR/LEFT DELTOID Dosage: 0.5mL Vaccine Information Statement(s): INFLUENZA(FLU) VACC(INACTIVATED OR RECOMBINANT)VIS Dec 13, 2020 (ESTONIAN) Order By: Policy Administered By: Kiley Pickard The Influenza Vaccine Information Statement (VIS) was reviewed with the patient/caregiver which lists the benefits and risks of the vaccine and the risks of not receiving the Influenza vaccine. The patient/caregiver denied any prior severe reaction to this vaccine or its components or a severe allergic reaction, such as anaphylaxis, to any vaccine or any injectable therapy. The patient/caregiver gave verbal consent to receive the vaccine. /yael PICKARD LPN LPN Signed: 02/14/2024 14:22 KILEY PICKARD [facility]
--- OUTSIDE RECORDS SUMMARY | 2024-06-03 17:19 | XMS_ITS | Encounter Summary ---
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 Name Role Phone SAUL JEFFERY Primary Care [...] PART A Jul 08, 2002 PART A [id number] ALEXIS ALEXANDER PATIENT MEDICARE (WNR) MEDICARE (M) PART B Jul 08, 2002 PART B [id number] [phone] ALEXIS ALEXANDER PATIENT [facility] (WNR) MEDICARE ADVANTAGE [facility] (WNR) Jun 10, 2007 [id number] ALEXIS ALEXANDER PATIENT [facility] (WNR) MEDICARE (M) [facility] (WNR) Jun 10, 2020 [id number] ALEXIS ALEXANDER PATIENT Selected Encounter This section includes the information on record at [place] for the Encounter. Date/Time Encounter Type Encounter Description Reason Pro vider Source Jun 03, 2023 06:51 PM Outpatient Encounter ADMIN PAT ACTIVTIES (MASNONCT) IHE Encounter Template Text not used by [place] Plan of Treatment: Future Appointments (+ 6 months) and Future Tests (+/- 45 days) The Plan of Treatment section includes future care activities for the patient from all [place] [facility] [place] [facility]. This section includes future appointments and future orders which are active, pending or scheduled. Future Appointments This section includes appointments that were scheduled to occur 6 months from the date of the Encounter, up to a maximum of 20 appointments. The data comes from all [place] treatment facilities. Appointment Date/Time Appointment Type Appointme nt Facility Name Jun 11, 2023 11:00 AM [place] [facility] Jul 09, 2023 02:50 PM [facility] [place] [facility] Aug 02, 2023 01:40 PM [facility] [place] [facility] Aug 16, 2023 01:00 PM [facility] [place]INE [place] [facility] September 16, 2023 02:00 PM AM[place]UL[facility]ORY [place]ICINE [place] [facility] Nov 04, 2023 09:30 AM [facility] [place] [facility] Nov 05, 2023 08:15 AM AMBULATORY - NONE [facility] Nov 19, 2023 08:30 AM [facility]ORY [place]INE [place] [facility] Nov 19, 2023 02:00 PM AMBULATORY - NONE [facility] Nov 22, 2023 03:00 PM [facility] [place]INE [place] [facility] Dec 02, 2023 08:00 AM [facility] [place] [facility] Dec 02, 2023 10:00 AM [place]ORY [place]INE [place] [facility] Lab Results: +/- 30 days of the encounter This section includes the Chemistry and Hematology Lab Results on record with [place] for the patient. Radiology Reports and Pathology Reports are provided separately, in subsequent sections. Lab Results This section contains the Chemistry/Hematology Results that were resulted 30 days before or 30 daysafter the date of the Encounter. Date/Time Source Result Type Result - Unit Interpretation Reference Range Comment Jun 11, 2023 12:15 PM [facility] LIPID PANEL, NON FASTING Specimen Type: SERUM No comment entered. Ordering Provider: SULEMA JEFFERY AM Report Released Date/Time: Jun 11, 2023 11:48 AM Reporting Lab: [facility] [address] [facility] [address] Performing Lab: [facility] [address] [facility] [address] CHOLESTEROL 179 mg/dL TRIGLYCERIDE 75 mg/dL 0-150 LDL calculated 109 mg/dL 0-129 CHOL/HDL 3.3 HDL CHOLESTEROL 55 mg/dL 40-60 Jun 11, 2023 12:15 PM [facility] FERRITIN Specimen Type: SERUM No comment entered. Ordering Provider: SULEMA JEFFERY AM Report Released Date/Time: Jun 11, 2023 11:48 AM Reporting Lab: [facility] [address] [facility] [address] Performing Lab: [address] [address] FERRITIN 91 ng/mL 20-300 Jun 11, 2023 12:15 PM [facility] LIVER FUNCTION Specimen Type: SERUM No comment entered. Ordering Provider: SULEMA JEFFERY AM Report Released Date/Time: Jun 11, 2023 11:48 AM Reporting Lab: [address] [address] Performing Lab: [address] [address] PROTEIN,TOTAL 6.3 g/dL 6.0-8.3 ALBUMIN 3.9 g/dL 3.5-5.0 ALKALINE PHOSPHATASE 98 U/L 40-150 AST 13 U/L 5-34 ALT 9 U/L BILIRUBIN, TOTAL 0.7 mg/dL 0.2-1.2 Jun 11, 2023 12:15 PM [facility] HEMOGLOBIN A1C PANEL Specimen Type: BLOOD Comment: Values obtained from A1C measurements can vary. For atypical A1C assays, a reported value of 7.0 could actually be between 6.72 and 7.28 if measured by a reference method. A reported value of 9.0 could actually be between 8.73 and 9.27. Ref: http://www.ngs p.org/CAPdata. asp Ordering Provider: SULEMA JEFFERY AM Report Released Date/Time: Jun 11, 2023 11:48 AM Reporting Lab: [facility] [address] [address] Performing Lab: [facility] [address] [address] HEMOGLOBIN A1C 6.2 H 4.0-5.6 Jun 11, 2023 12:15 PM [facility] IRON & TIBC PANEL Specimen Type: SERUM No comment entered. Ordering Provider: SULEMA EJFFERY AM Report Released Date/Time: Jun 11, 2023 11:48 AM Reporting Lab: [facility] [address] Performing Lab: [facility] [address] TIBC 329 ug/dL 204-475 IRON 137 ug/dL 40-160 Transferrin Saturation 41.7 20.0-50.0 Jun 11, 2023 12:15 PM [facility] VITAMIN B12 Specimen Type: SERUM No comment entered. Ordering Provider: SULEMA JEFFERY AM Report Released Date/Time: Jun 11, 2023 11:48 AM Reporting Lab: [facility] [address] [address] Performing Lab: [facility] [address] [address] VITAMIN B12 585 pg/mL 200-900 Jun 11, 2023 12:15 PM [facility] VITAMIN D (25-OH) Specimen Type: SERUM No comment entered. Ordering Provider: SULEMA JEFFERY AM Report Released Date/Time: Jun 11, 2023 11:48 AM Reporting Lab: [facility] [address] [facility] [address] Performing Lab: [facility] [address] [facility] [address] VITAMIN D (25-OH) 24 ng/mL 20-50 Jun 11, 2023 12:15 PM [facility] TSH Specimen Type: SERUM No comment entered. Ordering Provider: SULEMA JEFFERY AM Report Released Date/Time: Jun 11, 2023 11:48 AM Reporting Lab: [facility] [address] [facility] [address] Performing Lab: [address] [address] TSH 2.21 u[IU]/mL 0.35-5.00 Jun 11, 2023 12:15 PM [facility] BASIC METABOLIC PANEL (non-fasting) Specimen Type: SERUM No comment entered. Ordering Provider: SULEMA JEFFERY AM Report Released Date/Time: Jun 11, 2023 11:48 AM Reporting Lab: [facility] [address] [facility] [address] Performing Lab: [address] [address] UREA NITROGEN 20 mg/dL 7-25 GLUCOSE 129 mg/dL H 65-100 SODIUM 143 mmol/L 135-145 POTASSIUM 4.0 mmol/L 3.5-5.0 CHLORIDE 104 mmol/L 100-110 CO2 30 meq/L 20-30 CREATININE, Serum 0.83 mg/dL 0.50-1.40 eGFR(CKD-EPI 2020) 85 mL/min >60 Jun 11, 2023 12:15 PM [facility] URINALYSIS CLEAN CATCH Specimen Type: URINE Comment: If Glucose = >500 and Ketones are positive, please alert the Physician. Ordering Provider: SULEMA JEFFERY AM Report Released Date/Time: Jun 11, 2023 11:48 AM Reporting Lab: [address] [address] Performing Lab: [place] [address] [facility] [address] UA COLOR Light-Yellow Yellow UA APPEARANCE Clear Clear UA GLUCOSE NEGATIVE mg/dL Negative UA KETONES NEGATIVE mg/dL Negative UA BLOOD NEGATIVE mg/dL Negative UA PROTEIN NEGATIVE mg/dL Negative UA NITRITE NEGATIVE mg/dL Negative UA BILIRUBIN NEGATIVE mg/dL Negative UA SPECIFIC GRAVITY 1.014 L 1.016-1.02 2 UA pH 6.5 5.0-9.0 UA UROBILINOGEN <2.0 mg/dL <2.0 UA LEUKOCYTE NEGATIVE Negative Jun 11, 2023 12:15 PM [facility] CBC AND DIFF (AUTO) Specimen Type: BLOOD No comment entered. Ordering Provider: SULEMA JEFFERY AM Report Released Date/Time: Jun 11, 2023 11:48 AM Reporting Lab: [address] [address] Performing Lab: [address] [address] WBC 5.43 10*3/uL 4.50-11.00 RBC 4.41 10*6/uL 4.23-5.66 HGB 14.3 g/dL 12.8-17 HCT 43.8 39.2-50.4 MCV 99.3 fL H 82-99 MCHC 32.6 g/dL 30.8-35.1 PLT 192 10*3/uL 140-360 RDW-CV 12.9 12.0-16.0 [place], Abs 0.51 10*3/uL 0.30-1.10 MCH 32.4 pg 26.2-32.6 Neut % 70.6 43.7-75.8 Lymph % 18.4 14.0-42.3 [place] % 9.4 5.1-13.7 Eos % 0.6 0.4-6.8 Baso % 0.4 0.1-2.0 Neut, Abs 3.84 10*3/uL 2.20-7.60 Lymph, Abs 1.00 10*3/uL 1.00-3.20 Eos, Abs 0.03 10*3/uL 0.03-0.44 Baso, Abs 0.02 10*3/uL 0.01-0.13 Immature Gran % 0.6 0.0-0.7 Immature Gran, Abs 0.03 10*3/uL 0.00-0.06 Social History: Smoking Status (Most current) and Tobacco Use (All prior to encounter date) This section includes the most current, and the historical, smoking and tobacco- related health factors from the [place] facility where the Encounter took place. Current Smoking Status This section includes the most current smoking, or tobacco-related health factor, from the [place] facility where the Encounter took place. Date/Time Current Smoking Status Comment Facil it September 10, 2022 11:30 AM [place]ACCO USE [place] 30 MIN OF WAKEUP [facility] Tobacco Use History This section includes a history of the smoking, or tobacco-related health factors, that were collected on or before the date of the Encounter. The data comes from the [place] facility where the Encounter took place. 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 [facility] September 10, 2022 11:30 AM VA-TOBACCO USE MED NO [facility] September 10, 2022 11:30 AM VA-TOBACCO USE [place] 30 MIN OF WAKEUP [facility] September 10, 2022 11:30 AM VA-TOBACCO USER EVERY DAY [facility] Aug 18, 2021 03:00 PM VA-TOBACCO USE 30 YEARS OR MORE [facility] Aug 18, 2021 03:00 PM VA-TOBACCO USE ADVICE [facility] Aug 18, 2021 03:00 PM 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 [facility] Aug 18, 2021 03:00 PM VA-TOBACCO USE MED NO [facility] Aug 18, 2021 03:00 PM VA-TOBACCO USE [place] 30 MIN OF WAKEUP [facility] Aug 18, 2021 03:00 PM VA-TOBACCO USER EVERY DAY [facility] Jun 20, 2020 09:16 AM VA-TOBACCO USE 30 YEARS OR MORE [facility] Jun 20, 2020 09:16 AM VA-TOBACCO USE ADVICE [facility] Jun 20, 2020 09:16 AM 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 [facility] Jun 20, 2020 09:16 AM VA-TOBACCO USE MED NO [facility] Jun 20, 2020 09:16 AM VA-TOBACCO USE [place] 30 MIN OF WAKEUP [facility] Jun 20, 2020 09:16 AM VA-TOBACCO USER EVERY DAY [facility] Jan 05, 2019 10:36 AM VA-TOBACCO USE 30 YEARS OR MORE [facility] Jan 05, 2019 10:36 AM VA-TOBACCO USE ADVICE [facility] Jan 05, 2019 10:36 AM 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 [facility] Jan 05, 2019 10:36 AM VA-TOBACCO USE MED NO [facility] Jan 05, 2019 10:36 AM VA-TOBACCO USE [place] 30 MIN OF WAKEUP [facility] Jan 05, 2019 10:36 AM VA-TOBACCO USER EVERY DAY [facility] Jan 17, 2018 12:50 PM CURRENT SMOKER [facility] Jan 17, 2018 12:50 PM V1-PT DECLINES REF TO TOBACCO CESS PRGM [facility] Jan 17, 2018 12:50 PM V1-PT THINKING ABOUT QUIT TOBACCO USE [facility] Jan 17, 2018 12:50 PM V1-TOBACCO CESS MEDS NOT PRESCRIBED Wants to quit on his own [facility] Encounter Notes: All associated encounter notes This section contains the clinical notes associated to the Encounter. Date/Time Encounter Note(s) Provider Source Jun 03, 2023 06:51 PM PHARMACY NOTE: LOCAL TITLE: V1 PHARMACY CUSTOMER CARE MEDICATION RENEWAL STANDARD TITLE: PHARMACY NOTE DATE OF NOTE: JUN 03, 2023@18:51 ENTRY DATE: JUN 03, 2023@18:51:46 AUTHOR: YARELY TAVERAS COSIGNER: URGENCY: STATUS: COMPLETED Date: May Division: [facility] referred by Pharmacy Call Center for medication renewal: Non-controlled/maintenanc e medication Medications requested: [id number] SIMVASTATIN 80MG TAB Defer to primary care provider To be mailed . Please review and renew if appropriate. *This note was generated by [facility] Customer [facility]. If you have any questions or need assistance, do not contact this author. Please refer all questions to your local, on-site pharmacy departments. /jefry/ YARELY TAVERAS CPhT Health Policy Nurse, [place]/Pharmacy Customer Care Signed: 06/03/2023 18:52 Receipt Acknowledged By: 06/04/2023 06:42 /es/ Saul Jeffery DNP, PRODUCTION SERVICE MANAGER-BC, CNL Primary Care Nurse Practitioner 06/04/2023 07:25 /es/ Chiqui Riley MSN RN CNL Primary Care RN YARELY TAVERAS [facility]
--- OUTSIDE RECORDS SUMMARY | 2024-06-03 17:19 | XMS_ITS ---
Author Name [facility] [place] Organization [facility] [place] Address [address] [place] [id number] Care Team Providers Care Curtain Fitter Name Role Phone JEREMY LOPEZ Primary Care Provider [facility] Insurance Providers: All historical and current Section [...] PART A Jul 08, 2002 PART A [id number] [phone] ALEXIS ALEXANDER PATIENT MEDICARE (WNR) MEDICARE (M) PART B Jul 08, 2002 PART B [id number] [phone] ALEXIS ALEXANDER PATIENT [facility] (R) MEDICARE ADVANTAGE [facility] ([facility] Jun 10, 2007 [id number] ALEXIS ALEXANDER PATIENT [facility] (WNR) MEDICARE (M) [facility] ([facility]) Jun 10, 2020 1062 [id number] ALEXIS ALEXANDER PATIENT Selected Encounter This section includes the information on record at [place] for the Encounter. Date/Time Encounter Type Encounter Description Reason Provider Source September 16, 2023 02:00 PM OFFICE O/P NEW LOW 30 MIN PODIATRY ICD-10-CM M20.12 Hallux valgus (acquired), left foot REJI SNYDER E Encounter Template Text not used by [place] Assessments - Encounter Diagnoses This section includes the primary and secondary diagnoses documented for the Encounter. Date/Time Primary/Secondary Diagnosis Diagnosis Name Provider Source September 17, 2023 08:39 AM PRIMARY Hallux valgus (acquired), left foot REJI SNYDER [facility] [place] [facility] September 17, 2023 08:39 AM SECONDARY Hallux varus (acquired), right foot REJI SNYDER [facility] [place] [facility] Plan of Treatment: Future Appointments (+ 6 months) and Future Tests (+/- 45 days) The Plan of Treatment section includes future care activities for the patient from [facility] This section includes future appointments and future orders which are active, pending or scheduled. Future Appointments This section includes appointments that were scheduled to occur 6 months from the date of the Encounter, up to a maximum of 20 appointments. The data comes from all [place] treatment facilities. Appointment Date/Time Appointment Type Appointme nt Facility Name Nov 04, 2023 09:30 AM AMBULATORY - MEDICINE [facility] [place] [facility] Nov 05, 2023 08:15 AM AMBULATORY - NONE [facility] [place] [facility] Nov 19, 2023 08:30 AM AMBULATORY - MEDICINE [facility] [place] [facility] Nov 19, 2023 02:00 PM AMBULATORY - NONE [facility] [place] [facility] Nov 22, 2023 03:00 PM AMBULATORY - MEDICINE [facility] [place] [facility] Dec 02, 2023 08:00 AM AMBULATORY - MEDICINE [facility] [place] [facility] Dec 02, 2023 10:00 AM AMBULATORY - MEDICINE [facility] [place] [facility] Jan 14, 2024 10:00 AM AMBULATORY - MEDICINE [facility] ([id number]) Feb 10, 2024 02:30 PM AMBULATORY - MEDICINE [facility] [place] [facility] Feb 14, 2024 01:00 PM AMBULATORY - MEDICINE [facility] [place] [facility] Feb 14, 2024 01:30 PM AMBULATORY - MEDICINE [facility] [place] [facility] Feb 14, 2024 02:00 PM AMBULATORY - NONE [facility] [place] [facility] Feb 18, 2024 10:00 AM AMBULATORY - MEDICINE [facility] ([id number] Feb 22, 2024 01:00 PM AMBULATORY - REHAB MEDICIN E [facility] [place] [facility] Mar 08, 2024 01:00 PM AMBULATORY - MEDICINE [facility] [place] [facility] Mar 14, 2024 03:00 PM AMBULATORY - MEDICINE [facility] [place] [facility] Vital Signs: All taken on the encounter date This section contains inpatient and outpatient Vital Signs collected on the date of the Encounter. Date/Time Temperature Pulse Blood Pressure Respiratory Rate SP02 Pain Height Weight Body Mass Index Source September 16, 2023 02:11 PM 97.2 89 107/68 18 96 0 [facility] [place] [facility] Social History: Smoking Status (Most current) and Tobacco Use (All prior to encounter date) This section includes the most current, and the historical, smoking and tobacco- related health factors from the [place] facility where the Encounter took place. Current Smoking Status This section includes the most current smoking, or tobacco-related health factor, from the [place] facility where the Encounter took place. Date/Time Current Smoking Status Comment [facility] Aug 16, 2023 01:00 PM VA-TOBACCO USE [place] 30 MIN [facility] WAKEUP [facility] Tobacco Use History This section includes a history of the smoking, or tobacco-related health factors, that were collected on or before the date of the Encounter. The data comes from the [place] facility where the Encounter took place. 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 [facility] [place] [facility] Aug 16, 2023 01:00 PM VA-TOBACCO USE MED NO [facility] [place] [facility] Aug 16, 2023 01:00 PM VA-TOBACCO USE WI 30 MIN OF WAKEUP [facility] [place] [facility] Aug 16, 2023 01:00 PM VA-TOBACCO USER EVERY DAY [facility] [place] [facility] September 10, 2022 11:30 AM VA-TOBACCO USE 30 YEARS OR MORE [facility] [place] [facility] September 10, 2022 11:30 AM VA-TOBACCO USE ADVICE [facility] [place] [facility] September 10, 2022 11:30 AM 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 [facility] [place] [facility] September 10, 2022 11:30 AM VA-TOBACCO USE MED NO [facility] [place] [facility] September 10, 2022 11:30 AM VA-TOBACCO USE WI 30 MIN OF WAKEUP [facility] [place] [facility] September 10, 2022 11:30 AM VA-TOBACCO USER EVERY DAY [facility] [place] [facility] Aug 18, 2021 03:00 PM VA-TOBACCO USE 30 YEARS OR MORE [facility] [place] [facility] Aug 18, 2021 03:00 PM VA-TOBACCO USE ADVICE [facility] [place] [facility] Aug 18, 2021 03:00 PM 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 [facility] [place] [facility] Aug 18, 2021 03:00 PM VA-TOBACCO USE MED NO [facility] [place] [facility] Aug 18, 2021 03:00 PM VA-TOBACCO USE WI 30 MIN OF WAKEUP [facility] [place] [facility] Aug 18, 2021 03:00 PM VA-TOBACCO USER EVERY DAY [facility] [place] [facility] Jun 20, 2020 09:16 AM VA-TOBACCO USE 30 YEARS OR MORE [facility] [place] [facility] Jun 20, 2020 09:16 AM VA-TOBACCO USE ADVICE [facility] [place] [facility] Jun 20, 2020 09:16 AM 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 [facility] [place] [facility] Jun 20, 2020 09:16 AM VA-TOBACCO USE MED NO [facility] [place] [facility] Jun 20, 2020 09:16 AM VA-TOBACCO USE [place] 30 MIN OF WAKEUP [facility] [place] [facility] Jun 20, 2020 09:16 AM VA-TOBACCO USER EVERY DAY [facility] Jan 05, 2019 10:36 AM VA-TOBACCO USE 30 YEARS OR MORE [facility] Jan 05, 2019 10:36 AM VA-TOBACCO USE ADVICE [facility] Jan 05, 2019 10:36 AM 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 [facility] Jan 05, 2019 10:36 AM VA-TOBACCO USE MED NO [facility] Jan 05, 2019 10:36 AM VA-TOBACCO USE [place] 30 MIN OF WAKEUP [facility] Jan 05, 2019 10:36 AM VA-TOBACCO USER EVERY DAY [facility] Jan 17, 2018 12:50 PM CURRENT SMOKER [facility] Jan 17, 2018 12:50 PM V1-PT DECLINES REF TO TOBACCO CESS PRGM [facility] Jan 17, 2018 12:50 PM V1-PT THINKING ABOUT QUIT TOBACCO USE [facility] Jan 17, 2018 12:50 PM V1-TOBACCO CESS MEDS NOT PRESCRIBED Wants to quit on his own [facility] Encounter Notes: All associated encounter notes This section contains the clinical notes associated to the Encounter. Date/Time Encounter Note(s) Provider Source September 16, 2023 02:10 PM PODIATRY CONSULT: LOCAL TITLE: CONSULT REPORT/PODIATRY STANDARD TITLE: PODIATRY CONSULT DATE OF NOTE: SEPTEMBER 16, 2023@14:10 ENTRY DATE: SEPTEMBER 16, 2023@14:10:46 AUTHOR: REJI SNYDER EXP COSIGNER: URGENCY: STATUS: COMPLETED Podiatry [place] New Consult Provider: Reji Snyder Date: SEPTEMBER 16, 2023 RACHELL TAMAYO [address] [address] Aug 88 MALE [id number] PATIENT PHONE - [employer] FROM Aug TO Aug Primary Care: JEREMY LOPEZ Consult Concern:Patient referred by JEREMY LOPEZ for hammer toes / 88 y.o. with PVD. anticoagulated. Patient accompanied by his . Subjective: Patient states that he was identified with a clot in the left upper leg for which she is now on anticoagulation medication, however it sounds possibly more like occlusive disease rather than acute thrombosis but difficult to tell patient did not report acute extreme pain and onset there has been gradual. Patient is followed by a vascular provider and will see them in 2 weeks. On exam below patient has pedal hair present but his PT pulses bilaterally are nonpalpable he has a monophasic anterior tibial and dorsalis pedis and both feet with seemingly normal turgor and texture for patient's age. Their main concern is that patient has been using store-bought sneakers and cutting out the area to accommodate his massive bunion[first metatarsal head protrusion bilateral] and in the wintertime this is difficult because his feet get cold and wet. He also complains of pain and discomfort due to distortion in weightbearing bilaterally and has some calluses. He has a callus on the fourth toe of the right foot for which she has used corn removing medication and this has gone a long way to remove discomfort. No other significant complaints but does have some tingling on the left side in the lower leg and has had a vertebral fracture from a fall 1 to 2 years ago. 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 03/18/2018 JEREMY LOPEZ Benign Prostatic Hypertrophy Withou 01/20/2018 RENO DUBON Unilateral excision of hydrocele R6 01/20/2018 RENO DUBON Hyperlipidemia ([facility] [id number]) E78.5 01/20/2018 RENO DUBON Active mediciation: Active Outpatient Medications (including Supplies): Active Outpatient Medications Status 1) CHOLECALCIF 50MCG (D3-2,000UNIT) TAB TAKE ONE TABLET ACTIVE BY MOUTH ONCE DAILY FOR VITAMIN SUPPLEMENTATION 2) MULTIVIT/OPHTH AREDS2/LUTE/ZEAX CAP/TAB TAKE 1 ACTIVE CAPSULE BY MOUTH TWICE DAILY IN THE MORNING AND EVENING, WITH FOOD 3) NUTRITION SUPL ENSURE PLUS/VANILLA LIQ DRINK 1 CAN BY ACTIVE MOUTH ONCE DAILY FOR NUTRITIONAL SUPPLEMENTATION 4) PANTOPRAZOLE NA 20MG EC TAB TAKE ONE TABLET BY MOUTH ACTIVE TWICE DAILY BEFORE A MEAL FOR EXCESSIVE PRODUCTION OF STOMACH ACID 5) PEG 400 0.4%/PROP GLYCOL 0.3% OPH SOLN INSTILL 1 DROP ACTIVE INTO EACH EYE FOUR TIMES A DAY 6) RIVAROXABAN 20MG TAB TAKE ONE TABLET BY MOUTH EVERY ACTIVE EVENING WITH DINNER 7) SIMVASTATIN 80MG TAB TAKE ONE-HALF TABLET BY MOUTH ACTIVE ONCE DAILY FOR CHOLESTEROL 8) TAMSULOSIN HCL 0.4MG CAP TAKE ONE CAPSULE BY MOUTH AT ACTIVE BEDTIME Allergies: Data on this list may not be complete. Please check JLV. FACILITY ALLERGY/ADR -------- No Remote Allergy/ADR Data available for this patient [facility] [place] [facility] No Known Allergies Lab data: CBC TREND Collection DT Spec WBC RBC HGB HCT MCV MCH PLT 08/16/2023 13:49 BLOOD 5.73 4.30 14.2 42.6 99.1 H 33.0 H 180 06/11/2023 12:15 BLOOD 5.43 4.41 14.3 43.8 99.3 H 32.4 192 09/10/2022 12:18 BLOOD 5.54 4.62 14.9 45.5 98.5 32.3 236 05/20/2022 14:20 BLOOD 5.63 4.51 14.6 44.0 97.6 32.4 179 02/26/2022 11:32 BLOOD 5.02 4.24 13.8 41.3 97.4 32.5 183 -- -- PT INR TREND Collection DT Spec INR PT 08/16/2023 13:49 PLASM 1.2 14.0 H -- Imaging Reports: === Include data from 09/16/2022 to 09/16/2023 09/16/2023 14:10 CONFIDENTIAL IMAGING REPORTS SUMMARY pg. 1 RACHELL ALEXANDER [id number] : 1935 II - Imaging Impression (max 1 occurrence) No data available REVIEW OF SYSTEMS: CONSTITUTIONAL: No fever/chills, unintended wgt loss. SKIN: No rashes, pruritis, new/changed skin lesions. ENDOCRINE: No excess thirst, heat/cold intolerance ALLERGY/IMMUNE: No recurrent infections. HEMATOL/LYMPH: No hx of abnl bleeding/bruising, no night sweats. EYES: No change in vision, no eye pain. ENMT: no tinnitus and hearing loss, has had audiology exam. No nasal roxy/rhinorrhea, sore throat/gums/mouth, difficulty swallowing. CARDIOVASCULAR: No chest pain, palpitations, no orthopnea/pnd. RESPIRATORY: No dyspnea at rest or with exertion. No cough, wheezing GI: No n/v, abd pain, change in bowel habits, blood in stool, melena. : No dysuria, hematuria, frequency. No difficulty starting the stream, hesitancy, nocturia. No difficulty achieving or maintaining erection. MSC-SKEL: No arthralgias, myalgias. NEURO: No vertigo, allen, numbness/weakness, unstable balance or falls. PSYCHIATRIC: no depressed mood, racing thought, anxiety, or difficulty sleeping Vital signs: General: Awake alert pleasant cooperative neatly dressed groomed oriented x3 independently ambulatory, able to don shoes and socks independently. Hygiene excellent. LE Exam: Vascular exam reveals: Nonpalpable pulses, warm pink skin normal turgor and texture for patient's age skin is remarkably not significantly atrophic or thin. There is pedal hair present on the dorsum of both feet, toes with good capillary refill Doppler exam: Absent PT bilateral, monophasic AT and DP bilateral. Neurological exam: Grossly sensate to light touch pain and temperature, muscle bulk and tone diminished but commensurate with patient's age. No significant atrophy appreciated. Orthopedic exam: Bilateral severe hallux valgus with near 90 degree deformity of hallux with dislocation bilaterally protrusion of first metatarsal medially Derangement of lesser toes that are hammered but all are flexible. Prominent but diffuse callus submetatarsal 1 and 5 bilaterally Small callus dorsal aspect of right fourth toe without sign of irritation or infection. Resultant pes planus as a consequence of a primus varus, and first ray insufficiency bilateral. Dermatological exam: No abnormal pigmentation lesions no rashes or plaques present no webspace maceration. Calluses as described above. Webspaces clear Heels intact Impression: Severe bilateral hallux valgus hammertoes unable to be shoe to normal footwear. Plan: -Courtesy debridement of nails and calluses With sterile instrumentation without incident -Consult prosthetics for community care request for custom molded shoes with custom trilaminate inserts. Follow-up: FebruaryMarch 2024 /jefry/ REJI SNYDER DPM PODIATRY ATTENDING Signed: 09/17/2023 08:39 REJI SNYDERRRosi [facility]
--- OUTSIDE RECORDS SUMMARY | 2024-06-03 17:19 | XMS_ITS ---
Author Name [facility] ([place]) Organization [facility] ([place]) Address [address] [place] [id number] Care Team Providers Care Flange Turner Name Role Phone JEREMY LOPEZ Primary Care Provider [facility] Insurance Providers: All historical and current Section [...] PART A Jul 08, 2002 PART A [id number] ALEXIS ALEXANDER PATIENT MEDICARE (WNR) MEDICARE (M) PART B Jul 08, 2002 PART B [id number] [id number] [phone] ALEXIS ALEXANDER PATIENT [facility] (WNR) MEDICARE ADVANTAGE [facility] ([facility]) Jun 10, 2007 [id number] ALEXIS ALEXANDER PATIENT [facility] (WNR) MEDICARE (M) [facility] ([facility]) Jun 10, 2020 [id number] ALEXIS ALEXANDER PATIENT Selected Encounter This section includes the information on record at OR for the Encounter. Date/Time Encounter Type Encounter Description Reason Provider Source Jun 11, 2023 11:00 AM OFFICE O/P EST MOD 30 MIN PRIMARY CARE/MEDICINE ICD-10-CM N28.89 Other specified disorders of kidney and ureter SULEMA LOPEZ AM Sahil Encounter Template Text not used by OR Assessments - Encounter Diagnoses This section includes the primary and secondary diagnoses documented for the Encounter. 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 urinry tract symp LOPEZ,WILL [facility] [place] [facility] Jun 11, 2023 12:01 PM SECONDARY Constipation, unspecified LOPEZ,WILL [facility] [place] [facility] Jun 11, 2023 12:01 PM SECONDARY Encounter for immunization [place] [facility] [place] [facility] Jun 11, 2023 12:01 PM SECONDARY Peripheral vascular disease, unspecified LOPEZ,WILL [facility] [place] [facility] Plan of Treatment: Future Appointments (+ 6 months) and Future Tests (+/- 45 days) The Plan of Treatment section includes future care activities for the patient from [facility] This section includes future appointments and future orders which are active, pending or scheduled. Future Appointments This section includes appointments that were scheduled to occur 6 months from the date of the Encounter, up to a maximum of 20 appointments. The data comes from all [place] treatment facilities. Appointment Date/Time Appointment Type Appointme nt Facility Name Jul 09, 2023 02:50 PM AMBULATORY - MEDICINE OR C [facility] [place] [facility] Aug 02, 2023 01:40 PM AMBULATORY - MEDICINE OR C [facility] [place] [facility] Aug 16, 2023 01:00 PM AMBULATORY - MEDICINE OR C [facility] [place] [facility] September 16, 2023 02:00 PM AMBULATORY - MEDICINE OR C [facility] [place] [facility] Nov 04, 2023 09:30 AM AMBULATORY - MEDICINE OR C [facility] [place] [facility] Nov 05, 2023 08:15 AM AMBULATORY - NONE [facility] [place] [facility] Nov 19, 2023 08:30 AM AMBULATORY - MEDICINE OR C [facility] [place] [facility] Nov 19, 2023 02:00 PM AMBULATORY - NONE [facility] [place] [facility] Nov 22, 2023 03:00 PM AMBULATORY - MEDICINE OR C [facility] [place] [facility] Dec 02, 2023 08:00 AM AMBULATORY - MEDICINE OR C [facility] [place] [facility] Dec 02, 2023 10:00 AM AMBULATORY - MEDICINE OR C [facility] Lab Results: +/- 30 days of the encounter This section includes the Chemistry and Hematology Lab Results on record with OR for the patient. Radiology Reports and Pathology Reports are provided separately, in subsequent sections. Lab Results This section contains the Chemistry/Hematology Results that were resulted 30 days before or 30 daysafter the date of the Encounter. Date/Time Source Result Type Result - Unit Interpretation Reference Range Comment Jun 11, 2023 12:15 PM [facility] LIPID PANEL, NON FASTING Specimen Type: SERUM No comment entered. Ordering Provider: SLUEMA LOPEZ AM Report Released Date/Time: Jun 11, 2023 11:48 AM Reporting [facility]: [facility] [address] [address] Performing Lab: [facility] [address] [address] CHOLESTEROL 179 mg/dL TRIGLYCERIDE 75 mg/dL 0-150 LDL calculated 109 mg/dL 0-129 CHOL/HDL 3.3 HDL CHOLESTEROL 55 mg/dL 40-60 Jun 11, 2023 12:15 PM [facility] LIVER FUNCTION Specimen Type: SERUM No comment entered. Ordering Provider: SULEMA LOPEZ AM Report Released Date/Time: Jun 11, 2023 11:48 AM Reporting Lab: [facility] [address] [address] [address] Performing [facility]: [facility] [address] [address] PROTEIN,TOTAL 6.3 g/dL 6.0-8.3 ALBUMIN 3.9 g/dL 3.5-5.0 ALKALINE PHOSPHATASE 98 U/L 40-150 AST 13 U/L 5-34 ALT 9 U/L BILIRUBIN, TOTAL 0.7 mg/dL 0.2-1.2 Jun 11, 2023 12:15 PM [facility] FERRITIN Specimen Type: SERUM No comment entered. Ordering Provider: SULEMA LOPEZ AM Report Released Date/Time: Jun 11, 2023 11:48 AM Reporting Lab: [facility] [address] [address] Performing Lab: [address] [address] FERRITIN 91 ng/mL 20-300 Jun 11, 2023 12:15 PM [facility] HEMOGLOBIN A1C PANEL Specimen Type: BLOOD Comment: Values obtained from A1C measurements can vary. For atypical A1C assays, a reported value of 7.0 could actually be between 6.72 and 7.28 if measured by a reference method. A reported value of 9.0 could actually be between 8.73 and 9.27. Ref: http://www.ngs p.org/CAPdata. asp Ordering Provider: SULEMA LOPEZ AM Report Released Date/Time: Jun 11, 2023 11:48 AM Reporting Lab: [facility] [address] [address] Performing Lab: [address] [address] HEMOGLOBIN A1C 6.2 H 4.0-5.6 Jun 11, 2023 12:15 PM [facility] VITAMIN B12 Specimen Type: SERUM No comment entered. Ordering Provider: SULEMA LOPEZ AM Report Released Date/Time: Jun 11, 2023 11:48 AM Reporting Lab: [address] [address] Performing Lab: [address] [address] VITAMIN B12 585 pg/mL 200-900 Jun 11, 2023 12:15 PM [facility] IRON & TIBC PANEL Specimen Type: SERUM No comment entered. Ordering Provider: SULEMA LOPEZ AM Report Released Date/Time: Jun 11, 2023 11:48 AM Reporting Lab: [facility] [address] [address] Performing Lab: [facility] TRN [facility] [address] [address] TIBC 329 ug/dL 204-475 IRON 137 ug/dL 40-160 Transferrin Saturation 41.7 20.0-50.0 Jun 11, 2023 12:15 PM [facility] VITAMIN D (25-OH) Specimen Type: SERUM No comment entered. Ordering Provider: SULEMA LOPEZ AM Report Released Date/Time: Jun 11, 2023 11:48 AM Reporting Lab: [facility] [address] [address] Performing Lab: [facility] [address] [address] VITAMIN D (25-OH) 24 ng/mL 20-50 Jun 11, 2023 12:15 PM [facility] TSH Specimen Type: SERUM No comment entered. Ordering Provider: SULEMA LOPEZ AM Report Released Date/Time: Jun 11, 2023 11:48 AM Reporting Lab: [facility] DOTHANTRN [facility] [address] [address] Performing Lab: [facility] DOTHANTRN [facility] [address] [address] TSH 2.21 u[IU]/mL 0.35-5.00 Jun 11, 2023 12:15 PM [facility] BASIC METABOLIC PANEL (non-fasting) Specimen Type: SERUM No comment entered. Ordering Provider: SULEMA LOPEZ AM Report Released Date/Time: Jun 11, 2023 11:48 AM Reporting Lab: [facility] DOTHANTRN [facility] [address] [address] Performing Lab: [facility] [address] UREA NITROGEN 20 mg/dL 7-25 GLUCOSE 129 mg/dL H 65-100 SODIUM 143 mmol/L 135-145 POTASSIUM 4.0 mmol/L 3.5-5.0 CHLORIDE 104 mmol/L 100-110 CO2 30 meq/L 20-30 CREATININE, Serum 0.83 mg/dL 0.50-1.40 eGFR(CKD-EPI 2020) 85 mL/min >60 Jun 11, 2023 12:15 PM [facility] URINALYSIS CLEAN CATCH Specimen Type: URINE Comment: If Glucose = >500 and Ketones are positive, please alert the Physician. Ordering Provider: SULEMA LOPEZ AM Report Released Date/Time: Jun 11, 2023 11:48 AM Reporting Lab: [address] [address] Performing Lab: [address] [address] UA COLOR Light-Yellow Yellow UA APPEARANCE Clear Clear UA GLUCOSE NEGATIVE mg/dL Negative UA KETONES NEGATIVE mg/dL Negative UA BLOOD NEGATIVE mg/dL Negative UA PROTEIN NEGATIVE mg/dL Negative UA NITRITE NEGATIVE mg/dL Negative UA BILIRUBIN NEGATIVE mg/dL Negative UA SPECIFIC GRAVITY 1.014 L 1.016-1.02 2 UA pH 6.5 5.0-9.0 UA UROBILINOGEN <2.0 mg/dL <2.0 UA LEUKOCYTE NEGATIVE Negative Jun 11, 2023 12:15 PM [facility] CBC AND DIFF (AUTO) Specimen Type: BLOOD No comment entered. Ordering Provider: SULEMA LOPEZ AM Report Released Date/Time: Jun 11, 2023 11:48 AM Reporting Lab: [address] [address] Performing Lab: [address] [address] WBC 5.43 10*3/uL 4.50-11.00 RBC 4.41 10*6/uL 4.23-5.66 HGB 14.3 g/dL 12.8-17 HCT 43.8 39.2-50.4 MCV 99.3 fL H 82-99 MCHC 32.6 g/dL 30.8-35.1 PLT 192 10*3/uL 140-360 RDW-CV 12.9 12.0-16.0 [place], Abs 0.51 10*3/uL 0.30-1.10 MCH 32.4 pg 26.2-32.6 Neut % 70.6 43.7-75.8 Lymph % 18.4 14.0-42.3 [place] % 9.4 5.1-13.7 Eos % 0.6 0.4-6.8 [...] Pain Height Weight Body Mass Index Source Jun 11, 2023 11:13 AM 97.8 82 145/70 20 97 5 68 128 20 [facility] Immunizations: All administered on the encounter date This section contains immunizations associated to the Encounter. Immunization Series Date Issued Reaction Comments INFLUENZA, HIGH-DOSE, QUADRIVALENT Jun 11, 2023 Social History: Smoking Status (Most current) and Tobacco Use (All prior to encounter date) This section includes the most current, and the historical, smoking and tobacco- related health factors from the OR facility where the Encounter took place. Current Smoking Status This section includes the most current smoking, or tobacco-related health factor, from the OR facility where the Encounter took place. Date/Time Current Smoking Status Comment Frank hearn September 10, 2022 11:30 AM VA-TOBACCO USER EVERY DAY [facility] Tobacco Use History This section includes a history of the smoking, or tobacco-related health factors, that were collected on or before the date of the Encounter. The data comes from the [place] facility where the Encounter took place. Date/Time Smoking Status/Tobac co Use Comment Facility September 10, 2022 11:30 AM VA-TOBACCO USE ADVICE [facility] [place] [facility] September 10, 2022 11:30 AM VA-TOBACCO USE EQUINE INTERNSHIP NO [facility] [place] [facility] September 10, 2022 11:30 AM VA-TOBACCO USE MED NO [facility] [place] [facility] September 10, 2022 11:30 AM VA-TOBACCO USE WI 30 MIN OF WAKEUP [facility] [place] [facility] September 10, 2022 11:30 AM VA-TOBACCO USER EVERY DAY [facility] [place] [facility] Aug 18, 2021 03:00 PM VA-TOBACCO USE 30 YEARS OR MORE [facility] [place] [facility] Aug 18, 2021 03:00 PM VA-TOBACCO USE ADVICE [facility] [place] [facility] Aug 18, 2021 03:00 PM VA-TOBACCO USE EQUINE INTERNSHIP NO [facility] [place] [facility] Aug 18, 2021 03:00 PM VA-TOBACCO USE MED NO [facility] [place] [facility] Aug 18, 2021 03:00 PM VA-TOBACCO USE WI 30 MIN OF WAKEUP [facility] [place] [facility] Aug 18, 2021 03:00 PM VA-TOBACCO USER EVERY DAY [facility] [place] [facility] Jun 20, 2020 09:16 AM VA-TOBACCO USE 30 YEARS OR MORE [facility] [place] [facility] Jun 20, 2020 09:16 AM VA-TOBACCO USE ADVICE [facility] [place] [facility] Jun 20, 2020 09:16 AM VA-TOBACCO USE EQUINE INTERNSHIP NO [facility] [place] [facility] Jun 20, 2020 09:16 AM VA-TOBACCO USE MED NO [facility] [place] [facility] Jun 20, 2020 09:16 AM VA-TOBACCO USE WI 30 MIN OF WAKEUP [facility] [place] [facility] Jun 20, 2020 09:16 AM VA-TOBACCO USER EVERY DAY [facility] [place] [facility] Jan 05, 2019 10:36 AM VA-TOBACCO USE 30 YEARS OR MORE [facility] Jan 05, 2019 10:36 AM VA-TOBACCO USE ADVICE [facility] Jan 05, 2019 10:36 AM VA-TOBACCO USE EQUINE INTERNSHIP NO [facility] Jan 05, 2019 10:36 AM VA-TOBACCO USE MED NO [facility] Jan 05, 2019 10:36 AM VA-TOBACCO USE WI 30 MIN OF WAKEUP [facility] Jan 05, 2019 10:36 AM VA-TOBACCO USER EVERY DAY [facility] Jan 17, 2018 12:50 PM CURRENT SMOKER [facility] Jan 17, 2018 12:50 PM V1-PT DECLINES REF TO TOBACCO CESS PRGM [facility] Jan 17, 2018 12:50 PM V1-PT THINKING ABOUT QUIT TOBACCO USE [facility] Jan 17, 2018 12:50 PM V1-TOBACCO CESS MEDS NOT PRESCRIBED Wants to quit on his own [facility] Encounter Notes: All associated encounter notes This section contains the clinical notes associated to the Encounter. Date/Time Encounter Note(s) Provider Source Jun 11, 2023 01:15 PM PREVENTIVE MEDICINE NURSING NOTE: LOCAL TITLE: CLINICAL REMINDERS/NURSING STANDARD TITLE: PREVENTIVE MEDICINE NURSING NOTE DATE OF NOTE: JUN 11, 2023@13:15 ENTRY DATE: JUN 11, 2023@13:15:15 AUTHOR: MARIAA LAKE EXP COSIGNER: URGENCY: STATUS: COMPLETED Influenza Immunization: The patient was given the influenza VIS which lists the benefits and side effects of the vaccine and which reviews the risks of not receiving the flu vaccine. The VIS was reviewed with the patient and they were given an opportunity to ask questions. The patient was provided education on how to decrease the risk of influenza infection including social distancing and use of good hand hygiene. The patient denied any prior severe reaction to the flu vaccine or its components. The patient gave verbal consent to receive the vaccine. Influenza, High Dose, Quadrivalent (Fluzone - syringe) Administered: INFLUENZA, HIGH-DOSE, QUADRIVALENT Date Administered: Jun 11, 2023 11:00 Series: [employer] Operator: SANOFI PASTEUR Lot: [id number] Exp Date: Nov 07, 2023 [facility]: [phone] Admin Route/Site: INTRAMUSCULAR/LEFT DELTOID Dosage: 0.7mL Vaccine Information Statement(s): INFLUENZA(FLU) VACC(INACTIVATED OR RECOMBINANT)VIS Dec 13, 2020 (OCCITAN) Order By: Policy Administered By: Mariaa Lake /jefry/ MARIAA LAKE LPN Signed: 06/11/2023 13:17 MARIAA LAKE [facility] [place] [facility] Jun 11, 2023 11:55 AM PRIMARY CARE NURSE PRACTITIONER OUTPATIENT NOTE: LOCAL TITLE: NURSE PRACTITIONER OUTPATIENT NOTE STANDARD TITLE: PRIMARY CARE NURSE PRACTITIONER OUTPATIENT NOTE DATE OF NOTE: JUN 11, 2023@11:55 ENTRY DATE: JUN 11, 2023@11:55:45 AUTHOR: JEREMY LOPEZ EXP COSIGNER: URGENCY: STATUS: COMPLETED NURSE PRACTITIONER OUTPATIENT NOTE Has ADDENDA Chief complaint: Patient is a 87 year old . HPI: Pleasant male Belk here with his . Allergies: Patient has answered NKA The following VA and Non-VA meds were reconciled with patient. The patient was educated on the use of the medications including indication and side effects. Active and Recently Outpatient Medications (excluding Supplies): Active Outpatient Medications Status 1) CHOLECALCIF 50MCG (D3-2,000UNIT) TAB TAKE ONE TABLET ACTIVE BY MOUTH ONCE DAILY FOR VITAMIN SUPPLEMENTATION 2) CYANOCOBALAMIN 500MCG TAB TAKE ONE TABLET BY MOUTH ACTIVE ONCE DAILY FOR VITAMIN SUPPLEMENTATION 3) DICLOFENAC NA 1% TOP GEL APPLY 4 GRAMS TOPICALLY FOUR ACTIVE TIMES A DAY FOR BACK PAIN - USE DOSING CARD PROVIDED IN BOX 4) MULTIVIT/OPHTH AREDS2/LUTE/ZEAX CAP/TAB TAKE 1 ACTIVE CAPSULE BY MOUTH TWICE DAILY IN THE MORNING AND EVENING, WITH FOOD 5) NUTRITION SUPL ENSURE PLUS/VANILLA LIQ DRINK 1 CAN BY ACTIVE MOUTH ONCE DAILY FOR NUTRITIONAL SUPPLEMENTATION 6) PEG 400 0.4%/PROP GLYCOL 0.3% OPH SOLN INSTILL 1 DROP ACTIVE INTO EACH EYE FOUR TIMES A DAY 7) SIMVASTATIN 80MG TAB TAKE ONE-HALF TABLET BY MOUTH ACTIVE ONCE DAILY FOR CHOLESTEROL Inactive Outpatient Medications Status 1) PANTOPRAZOLE NA 20MG EC TAB TAKE ONE TABLET BY MOUTH TWICE DAILY BEFORE A MEAL FOR EXCESSIVE PRODUCTION OF STOMACH ACID 2) POLYETHYLENE GLYCOL 3350 ORAL PWDR TAKE 17 GRAMS(FILL CAP TO 17GM LINE) BY MOUTH ONCE DAILY CONSTIPATION [MIX WITH 4 TO 8OZ. OF BEVERAGE] 9 Total Medications Review of Systems: Constitutional: (-)for Fevers, chills, weakness, nights sweats On examination: 97.8 F [36.6 C] (06/11/2023 11:13)145/70 (06/11/2023 11:13)82 (06/11/2023 11:13) 20 (06/11/2023 11:13)5 (06/11/2023 11:13)BMI: 19.5128 lb [58.06 kg] (06/11/2023 11:13) is alert and oriented X3 Cardiovasc: 2plus carotids without bruits, no JVD Heart Reguler rate and rhythm NL S1S2 no S3 or murmur Respiration: Normal respiratory effort, lungs clear ABD: Benign normal active bowel sounds no HSM no rebound or referred pain EXT: no clubbing, edema, or cyanosis Assessment/plan: Active problems - Computerized Problem List is the source for the followin. 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 PAD - Occlusion of the left popliteal artery. The left anterior tibial artery is reconstituted by collaterals with distal diminution. The left posterior tibial artery is not opacified. The left peroneal artery shows areas of focal severe stenosis. The right common femoral, superficial femoral and popliteal arteries are patent right anterior tibial artery is patent with distal diminution. The right posterior tibial artery is not opacified. The peroneal artery is patent with distal diminution. Vascular consult July 2023 3. Constipation (SCT [id number]) - mirlax with benefit 4. Benign Prostatic Hypertrophy Without Outflow Obstruction (SCT [id number]) - having more urinary frequency, will check UA, consult to urology 5. hammer toes, bilateral - consult to [facility] Health Care Maintenance: flu vaccine today Toxic Environmental Exposure Written Fact Sheet Given: YES NO Review of medial record = 5mins Time spent with Patient including shared decision making = 25 mins Post visit documentation = 5mins Total time = 35 mins Follow up visit in 2 mos. Alert to PACT RN - Labs as necessary to address clinical status. Medication Reconciliation: Outpatient: Has the patient been taking medications as documented in the EMLR? YES: The patient has been taking medications as documented in the EMLR. Essential Medication List for Review used to complete this medication reconciliation. INCLUDED IN THIS LIST: Alphabetical list of active outpatient prescriptions dispensed from this [facility] (local) and dispensed from another OR or [facility] facility (remote) as well as inpatient orders [...] with a VA or non-VA provider. /jefry/ BRONWYN Romreo DNP, DUARTE Primary Care Nurse Practitioner Signed: 06/11/2023 12:01 06/11/2023 ADDENDUM STATUS: COMPLETED He does report feeling cold all over No fevers. Onset about a year. Check labs. /BRONWYN Huston DNP, DUARTE Primary Care Nurse Practitioner Signed: 06/11/2023 12:02 JEREMY LOPEZ [facility]
--- OUTSIDE RECORDS SUMMARY | 2024-06-03 17:19 | XMS_ITS ---
Author Name [facility] [place] Organization [facility] [place] Address [address] [place] [id number] Care Team Providers Care Hull And Deck Remover Name Role Phone SAUL LOPEZ Primary Care Provider [facility] Insurance Providers: All historical and current [...] PART A Jul 08, 2002 PART A [id number] [phone] ALEXIS ALEXANDER PATIENT MEDICARE (WNR) MEDICARE (M) PART B Jul 08, 2002 PART B [id number] [phone] ALEXIS ALEXANDER PATIENT [facility] (R) MEDICARE ADVANTAGE [facility] ([facility]) Jun 10, 2007 [id number] ALEXIS ALEXANDER PATIENT [facility] (WNR) MEDICARE (M) [facility] ([facility]) Jun 10, 2020 [id number] [phone] ALEXIS ALEXANDER PATIENT Selected Encounter This section includes the information on record at [place] for the Encounter. Date/Time Encounter Type Encounter Description Reason Provider Source Nov 22, 2023 03:00 PM OFFICE O/P EST LOW 20 MIN PRIMARY CARE/MEDICINE ICD-10-CM N28.89 Other specified disorders of kidney and ureter SULEMA LOPEZ AM [facility] Encounter Template Text not used by [place] Assessments - Encounter Diagnoses This section includes the primary and secondary diagnoses documented for the Encounter. Date/Time Primary/Secondary Diagnosis Diagnosis Name Provider Source Nov 23, 2023 08:30 AM PRIMARY Other specified disorders of kidney and ureter SULEMA LOPEZ AM [place] [facility] [place] [facility] Nov 23, 2023 08:30 AM SECONDARY Epigastric pain SULEMA LOPEZ AM [place] [facility] [place] [facility] Nov 23, 2023 08:30 AM SECONDARY Gastro-esophageal reflux disease without esophagitis SULEMA LOPEZ [facility] [place] [facility] Plan of Treatment: Future Appointments (+ 6 months) and Future Tests (+/- 45 days) The Plan of Treatment section includes future care activities for the patient from all [place] [facility] [place]. This section includes future appointments and future orders which are active, pending or scheduled. Future Appointments This section includes appointments that were scheduled to occur 6 months from the date of the Encounter, up to a maximum of 20 appointments. The data comes from all [place] treatment facilities. Appointment Date/Time Appointment Type Appointme nt Facility Name Dec 02, 2023 08:00 AM AMBULATORY - MEDICINE [place] [facility] [place] [facility] Dec 02, 2023 10:00 AM AMBULATORY - MEDICINE [place] [facility] [place] [facility] Jan 14, 2024 10:00 AM AMBULATORY - MEDICINE [facility] ([id number]) Feb 10, 2024 02:30 PM AMBULATORY - MEDICINE [place] [facility] [place] [facility] Feb 14, 2024 01:00 PM AMBULATORY - MEDICINE [place] [facility] [place] [facility] Feb 14, 2024 01:30 PM AMBULATORY - MEDICINE [place] [facility] [place] [facility] Feb 14, 2024 02:00 PM AMBULATORY - NONE [facility] [place] [facility] Feb 18, 2024 10:00 AM AMBULATORY - MEDICINE [facility] ([id number]) Feb 22, 2024 01:00 PM AMBULATORY - REHAB MEDICIN E [facility] [place] [facility] Mar 08, 2024 01:00 PM AMBULATORY - MEDICINE [place] [facility] [place] [facility] Mar 14, 2024 03:00 PM AMBULATORY - MEDICINE [place] [facility] [place] [facility] Mar 24, 2024 01:30 PM [facility] [place] [facility] Lab Results: +/- 30 days of the encounter This section includes the Chemistry and Hematology Lab Results on record with [place] for the patient. Radiology Reports and Pathology Reports are provided separately, in subsequent sections. Lab Results This section contains the Chemistry/Hematology Results that were resulted 30 days before or 30 daysafter the date of the Encounter. Date/Time Source Result Type Result - Unit Interpretation Reference Range Comment Nov 19, 2023 01:29 PM [facility] CA 19-9 (q) Specimen Type: SERUM Comment: REFERENCE RANGE: <34 U/mL This test was performed using the Siemens chemiluminescent method. Values obtained from different assay methods cannot be used inter- changeably. CA 19-9 levels, regardless of value, should not be interpreted as absolute evidence of the presence or absence of disease. Test Performed by [facility], [address] [place] [address] Grayson Dooley M.D., Ph.D., Director of Laboratories , [facility] [id number] TEST PERFORMED AT: , Ordering Provider: RENO DUBON Report Released Date/Time: Nov 04, 2023 03:38 PM Reporting Lab: [facility] [place] [facility] [address] [facility] [address] Performing Lab: [facility] [place] [facility] [address] [address] CA 19-9 17 SEE BELOW Nov 19, 2023 01:29 PM [facility] BASIC METABOLIC PANEL (non-fasting) Specimen Type: SERUM No comment entered. Ordering Provider: RENO DUBON Report Released Date/Time: Nov 04, 2023 10:06 AM Reporting Lab: [facility] [address] [address] Performing Lab: [facility] [address] [facility] [address] UREA NITROGEN 28 mg/dL H 7-25 GLUCOSE 136 mg/dL H 65-100 SODIUM 145 mmol/L 135-145 POTASSIUM 4.1 mmol/L 3.5-5.0 CHLORIDE 107 mmol/L 100-110 CO2 29 meq/L 20-30 CREATININE, Serum 0.89 mg/dL 0.50-1.40 eGFR(CKD-EPI 2020) 83 mL/min >60 Nov 19, 2023 01:29 PM [facility] LIVER FUNCTION Specimen Type: SERUM No comment entered. Ordering Provider: RENO DUBON Report Released Date/Time: Nov 04, 2023 10:06 AM Reporting Lab: [address] [address] Performing Lab: [address] [address] PROTEIN,TOTA L 6.0 g/dL 6.0-8.3 ALBUMIN 3.7 g/dL 3.5-5.0 ALKALINE PHOSPHATASE 79 U/L 40-150 AST 11 U/L 5-34 ALT 13 U/L BILIRUBIN, TOTAL 0.6 mg/dL 0.2-1.2 Nov 19, 2023 01:29 PM [facility] AMYLASE Specimen Type: SERUM No comment entered. Ordering Provider: RENO DUBON Report Released Date/Time: Nov 04, 2023 10:06 AM Reporting Lab: [address] [address] Performing Lab: [address] [address] AMYLASE 33 U/L 25-125 Nov 19, 2023 01:29 PM [facility] CBC AND DIFF (AUTO) Specimen Type: BLOOD No comment entered. Ordering Provider: RENO DUBON Report Released Date/Time: Nov 04, 2023 10:06 AM Reporting Lab: [address] [place] [address] Performing Lab: [facility] [address] [facility] [address] WBC 4.83 10*3/uL 4.50-11.00 RBC 4.09 10*6/uL L 4.23-5.66 HGB 13.2 g/dL 12.8-17 HCT 40.0 39.2-50.4 MCV 97.8 fL 82-99 MCHC 33.0 g/dL 30.8-35.1 PLT 198 10*3/uL 140-360 RDW-CV 13.4 12.0-16.0 MONO, ABS 0.52 10*3/uL 0.30-1.10 MCH 32.3 pg 26.2-32.6 NEUT % 71.9 43.7-75.8 LYMPH % 15.7 14.0-42.3 MONO % 10.8 5.1-13.7 EOS % 0.8 0.4-6.8 BASO % 0.4 0.1-2.0 NEUT, ABS 3.47 10*3/uL 2.20-7.60 LYMPH, ABS 0.76 10*3/uL L 1.00-3.20 EOS, ABS 0.04 10*3/uL 0.03-0.44 BASO, ABS 0.02 10*3/uL 0.01-0.13 IMMATURE GRAN % 0.4 0.0-0.7 IMMATURE GRAN, ABS 0.02 10*3/uL 0.00-0.06 NRBC % 0.0 0.0-0.0 NRBC, ABS 0.00 10*3/uL 0.00-0.00 Nov 19, 2023 01:29 PM [facility] LIPASE Specimen Type: SERUM No comment entered. Ordering Provider: RENO DUBON Report Released Date/Time: Nov 04, 2023 10:06 AM Reporting Lab: [facility] [address] [address] Performing Lab: [address] [address] LIPASE 14 U/L 8-82 Vital Signs: All taken on the encounter date This section contains inpatient and outpatient Vital Signs collected on the date of the Encounter. Date/Time Temperature Pulse Blood Pressure Respiratory Rate SP02 Pain Height Weight Body Mass Index Source Nov 22, 2023 03:08 PM 97.7 100 118/78 16 94 3 69.5 123 18 [place] [facility] [place] [facility] Social History: Smoking Status (Most current) [...] took place. Date/Time Current Smoking Status Comment [facility] it Aug 16, 2023 01:00 PM VA-TOBACCO USER EVERY DAY [place] [facility] Tobacco Use History This section includes a history of the smoking, or tobacco-related health factors, that were collected on or before the date of the Encounter. The data comes from the [place] facility where the Encounter took place. Date/Time Smoking Status/Tobac co Use Comment Facility Aug 16, 2023 01:00 PM VA-TOBACCO USE ADVICE [facility] [place] [facility] Aug 16, 2023 01:00 PM VA-TOBACCO USE MAIL ORDER BILLER NO [facility] [place] [facility] Aug 16, 2023 01:00 PM VA-TOBACCO USE MED NO [facility] [place] [facility] Aug 16, 2023 01:00 PM VA-TOBACCO USE WI 30 MIN OF WAKEUP [facility] [place] [facility] Aug 16, 2023 01:00 PM VA-TOBACCO USER EVERY DAY [facility] [place] [facility] September 10, 2022 11:30 AM VA-TOBACCO USE 30 YEARS OR MORE [facility] [place] [facility] September 10, 2022 11:30 AM VA-TOBACCO USE ADVICE [facility] [place] [facility] September 10, 2022 11:30 AM VA-TOBACCO USE MAIL ORDER BILLER NO [facility] [place] [facility] September 10, 2022 11:30 AM VA-TOBACCO USE MED NO [facility] [place] [facility] September 10, 2022 11:30 AM VA-TOBACCO USE WI 30 MIN OF WAKEUP [facility] [place] [facility] September 10, 2022 11:30 AM VA-TOBACCO USER EVERY DAY [facility] [place] [facility] Aug 18, 2021 03:00 PM VA-TOBACCO USE 30 YEARS OR MORE [facility] [place] [facility] Aug 18, 2021 03:00 PM VA-TOBACCO USE ADVICE [facility] [place] [facility] Aug 18, 2021 03:00 PM VA-TOBACCO USE MAIL ORDER BILLER NO [facility] [place] [facility] Aug 18, 2021 03:00 PM VA-TOBACCO USE MED NO [facility] [place] [facility] Aug 18, 2021 03:00 PM VA-TOBACCO USE [place] 30 MIN OF WAKEUP [facility] [place] [facility] Aug 18, 2021 03:00 PM VA-TOBACCO USER EVERY DAY [facility] [place] [facility] Jun 20, 2020 09:16 AM VA-TOBACCO USE 30 YEARS OR MORE [facility] [place] [facility] Jun 20, 2020 09:16 AM VA-TOBACCO USE ADVICE [facility] [place] [facility] Jun 20, 2020 09:16 AM VA-TOBACCO USE MAIL ORDER BILLER NO [facility] [place] [facility] Jun 20, 2020 09:16 AM VA-TOBACCO USE MED NO [facility] [place] [facility] Jun 20, 2020 09:16 AM VA-TOBACCO USE WI 30 MIN OF WAKEUP [facility] [place] [facility] Jun 20, 2020 09:16 AM VA-TOBACCO USER EVERY DAY [facility] [place] [facility] Jan 05, 2019 10:36 AM VA-TOBACCO USE 30 YEARS OR MORE [facility] [place] [facility] Jan 05, 2019 10:36 AM VA-TOBACCO USE ADVICE [facility] [place] [facility] Jan 05, 2019 10:36 AM VA-TOBACCO USE MAIL ORDER BILLER NO [facility] [place] [facility] Jan 05, 2019 10:36 AM VA-TOBACCO USE MED NO [facility] [place] [facility] Jan 05, 2019 10:36 AM VA-TOBACCO USE [place] 30 MIN OF WAKEUP [facility] Jan 05, 2019 10:36 AM VA-TOBACCO USER EVERY DAY [facility] Jan 17, 2018 12:50 PM CURRENT SMOKER [facility] Jan 17, 2018 12:50 PM V1-PT DECLINES REF TO TOBACCO CESS PRGM [facility] Jan 17, 2018 12:50 PM V1-PT THINKING ABOUT QUIT TOBACCO USE [facility] Jan 17, 2018 12:50 PM V1-TOBACCO CESS MEDS NOT PRESCRIBED Wants to quit on his own [facility] Radiology Reports: +/- 30 days of [...] the Encounter. The data comes from all [place] treatment facilities. Date/Time Radiology Report Provider Source Nov 19, 2023 01:27 PM ABDOMINAL ULTRASOU [place]: RACHELL ALEXANDER [id number] -[phone] M Exm Date: NOV 19, 2023@13:27 Req Phys: RENO DUBON Loc: CWM/NO/PACT 7 (Req'g Loc) Img Loc: ULTRASOUND Service: Unknown [facility] , (Case [id number] COMPLETE) ULTRASOUND ABDOMEN (US Detailed) CPT:80734 Reason for Study: upper -mid abdominal pain x 3 weeks Clinical History: Report Status: Verified Date Reported: NOV 19, 2023 Date Verified: NOV 19, 2023 [employer] E-Sig:/ES/JOVAN BOYER JR Report: Study: Complete abdominal ultrasound. Comparison: CT scan of the abdomen and pelvis from May 26, 2022. Findings: The liver is normal in size and echogenicity without focal abnormality. No intrahepatic bile duct dilatation is seen. No hepatic mass is seen. The portal vein is patent with normal hepatopedal flow. The common hepatic duct measures 0.32 cm, which is normal. The gallbladder is normal. No gallstones are identified. There is a negative sonographic Miller sign present. The visualized pancreas is normal. The spleen is normal and measures 9.7 cm in length. The abdominal aorta is patent and normal in course and caliber. The right kidney measures 10.5 cm cephalocaudad and appears sonographically normal. The left kidney measures 8.0 cm cephalocaudad and again demonstrates an exophytic interpolar solid renal mass measuring 2.9 cm in greatest dimension, similar to the 2022 CT examination findings. 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 No hydronephrotic changes or nephrolithiasis is identified to the left kidney. No ascites is identified. 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 Urology consultation is recommended, if not early performed. Primary Diagnostic Code: Significant Abnormality Attention Needed Secondary Diagnostic Codes: POSSIBLE MALIGNANCY Primary Interpreting Staff: JOVAN BOYER JR, Radiologist ([employer]) /JOVAN MEDINA JR [facility] Encounter Notes: All associated encounter notes This section contains the clinical notes associated to the Encounter. Date/Time Encounter Note(s) Provider Source Nov 22, 2023 03:53 PM PRIMARY CARE NURSE PRACTITIONER OUTPATIENT NOTE: LOCAL TITLE: NURSE PRACTITIONER OUTPATIENT NOTE STANDARD TITLE: PRIMARY CARE NURSE PRACTITIONER OUTPATIENT NOTE DATE OF NOTE: NOV 22, 2023@15:53 ENTRY DATE: NOV 22, 2023@15:53:43 AUTHOR: SAUL LOPEZ COSIGNER: URGENCY: STATUS: COMPLETED Chief complaint: Patient is a 88 year old Rohwer. HPI: Pleasant male here with his . Primary concern is epigastric pain that seems most bothersome in the evening. He did have a recent ER visit and famotadine was started with not much improvement. He was seen here and an U/S was ordered with GI referral. He was seen by GI on Wednesday and an EGD is scheduled 11/24. I will add sucralafate, they were educated on use. He did have an u/s today, noted known renal mass. He has been seen by Oncology, Dr Lange in the past and is currently following with Dr. Amaro Urology. The plan is observation at this point. I did offer to refer him back to oncology and for now he prefers not to do this, understanding the current approach is focused more on palliative vs. cure. Allergies: Patient has answered NKA The following [...] ACTIVE ONCE DAILY FOR VITAMIN SUPPLEMENTATION 3) MULTIVIT/OPHTH AREDS2/LUTE/ZEAX CAP/TAB TAKE 1 ACTIVE CAPSULE BY MOUTH TWICE DAILY IN THE MORNING AND EVENING, WITH FOOD 4) PANTOPRAZOLE NA 20MG EC TAB TAKE ONE TABLET BY MOUTH ACTIVE (S) TWICE DAILY BEFORE A MEAL FOR EXCESSIVE PRODUCTION OF STOMACH ACID 5) PEG 400 0.4%/PROP GLYCOL 0.3% OPH SOLN INSTILL 1 DROP ACTIVE INTO EACH EYE FOUR TIMES A DAY 6) RIVAROXABAN 20MG TAB TAKE ONE TABLET BY MOUTH EVERY ACTIVE EVENING - TAKE WITH FOOD 7) SIMVASTATIN 80MG TAB TAKE ONE-HALF TABLET BY MOUTH ACTIVE (S) ONCE DAILY FOR CHOLESTEROL 8) TAMSULOSIN HCL 0.4MG CAP TAKE ONE CAPSULE BY MOUTH AT ACTIVE BEDTIME Pending Outpatient Medications Status 1) SUCRALFATE 1GM TAB TAKE ONE TABLET BY MOUTH TWICE PENDING DAILY NEEDED Inactive Outpatient Medications Status 1) RIVAROXABAN 20MG TAB TAKE ONE TABLET BY MOUTH EVERY EVENING WITH DINNER 10 Total Medications Review of Systems: Constitutional: (-)for Fevers, chills, weakness, nights sweats On examination: 97.7 F [36.5 C] (11/22/2023 15:08)118/78 (11/22/2023 15:08)100 (11/22/2023 15:08)16 (11/22/2023 15:08)3 (11/22/2023 15:08)BMI: 17.9123 lb [55.79 kg] (11/22/2023 15:08) Rohwer is alert and oriented X3 Neck: supple [...] List is the source for the followin. epigastric pain - see above, will maintain close follow up with him in December. 2. renal mass - see above Review of medial record = 5mins Time spent with Patient including shared decision making = 20 mins Post visit documentation = 5mins Total time = 30 mins Follow up visit in December Alert to PACT RN - Labs as [...] this VA (local) and dispensed from another VA or [...] or non-VA provider. /jefry/ Saul Lopez DNP, NUCLEAR MEDICINE CHIEF TECHNOLOGIST-BC, CNL Primary Care Nurse Practitioner Signed: 11/23/2023 08:24 SAUL LOPEZ [place] [facility]
--- OUTSIDE RECORDS SUMMARY | 2024-06-03 17:19 | XMS_ITS ---
Author Name [facility] [place] [facility] [place] [facility] [place] Address [address] [place] [address] Care Team Providers Care Oyster Grader Name Role Phone JEREMY LOPEZ Primary Care [...] PART A Jul 08, 2002 PART A [id number] ALEXIS ALEXANDER PATIENT MEDICARE (WNR) MEDICARE (M) PART B Jul 08, 2002 PART B [id number] ALEXIS ALEXANDER PATIENT [facility] (WNR) MEDICARE ADVANTAGE [facility] (WNR) Jun 10, 2007 [id number] ALEXIS ALEXANDER PATIENT [facility] (WNR) MEDICARE (M) [facility] (WNR) Jun 10, 2020 [id number] ALEXIS ALEXANDER PATIENT Selected Encounter This section includes the information on record at [place] for the Encounter. Date/Time Encounter Type Encounter Description Reason Provider Source Mar 08, 2024 01:00 PM OFF/OP EST MAY X REQ PHY/QHP PRIMARY CARE/MEDICINE ICD-10-CM H61.23 Impacted cerumen, bilateral ALDO TORRES SA IHE Encounter Template Text not used by [place] Assessments - Encounter Diagnoses This section includes the primary and secondary diagnoses documented for the Encounter. Date/Time Primary/Secondary Diagnosis Diagnosis Name Provider Source Mar 08, 2024 02:55 PM PRIMARY Impacted cerumen, bilateral ALDO TORRES SA H [facility] Plan of Treatment: Future Appointments (+ 6 months) and Future Tests (+/- 45 days) The Plan of Treatment section includes future care activities for the patient from all [place] treatment[facility]. This section includes future appointments and future orders which are active, pending or scheduled. Future Appointments This section includes appointments that were scheduled to occur 6 months from the date of the Encounter, up to a maximum of 20 appointments. The data comes from all [place] treatment facilities. Appointment Date/Time Appointment Type Appointme nt Facility Name Mar 14, 2024 03:00 PM AMBULATORY - MEDICINE [facility] Mar 24, 2024 01:30 PM [facility]ULAT[facility] - MEDICINE [facility] [place] [facility] Jun 16, 2024 02:00 PM AMBULATORY MEDICINE [facility] [place] [facility] Jun 23, 2024 02:20 PM AMBULATORY MEDICINE [facility] [place] [facility] Aug 04, 2024 10:00 AM AMBULATORY - MEDICINE [facility] ([id number]) Lab Results: +/- 30 days of the encounter This section includes the Chemistry and Hematology Lab Results on record with [place] for the patient. Radiology Reports and Pathology Reports are provided separately, in subsequent sections. Lab Results This section contains the Chemistry/Hematology Results that were resulted 30 days before or 30 daysafter the date of the Encounter. Date/Time Source Result Type Result - Unit Interpretation Reference Range Comment Feb 10, 2024 01:46 PM [facility] PT & INR (PROTIME) Specimen Type: PLASMA No comment entered. Ordering Provider: NADER LOPEZ Report Released Date/Time: Feb 03, 2024 12:02 PM Reporting Lab: [facility] [address] [facility] [address] Performing Lab: [address] [address] INR 1.0 PROTIME 11.8 s 10.0-13.1 Feb 10, 2024 01:46 PM [facility] BASIC METABOLIC PANEL (non-fasting) Specimen Type: SERUM No comment entered. Ordering Provider: NADER LOPEZ Report Released Date/Time: Feb 03, 2024 12:02 PM Reporting Lab: [address] [address] Performing Lab: [address] [address] UREA NITROGEN 16 mg/dL 7-25 GLUCOSE 156 mg/dL H 65-100 SODIUM 142 mmol/L 135-145 POTASSIUM 4.4 mmol/L 3.5-5.0 CHLORIDE 103 mmol/L 100-110 CO2 28 meq/L 20-30 CREATININE, Serum 1.17 mg/dL 0.50-1.40 eGFR(CKD-EPI 2020) 60 mL/min >60 Feb 10, 2024 01:46 PM [facility] CBC AND DIFF (AUTO) Specimen Type: BLOOD No comment entered. Ordering Provider: NADER LOPEZ Report Released Date/Time: Feb 03, 2024 12:02 PM Reporting Lab: [address] [address] Performing Lab: [address] [address] WBC 5.81 10*3/uL 4.50-11.00 RBC 4.35 10*6/uL [...] and tobacco- related health factors from the [place] facility where the Encounter took place. Current Smoking Status This section includes the most current smoking, or tobacco-related health factor, from the [place] facility where the Encounter took place. Date/Time Current Smoking Status Comment [facility] Aug 16, 2023 01:00 PM VA-TOBACCO USE [place] 30 MIN OF WAKEUP [facility] Tobacco Use History This section includes a history of the smoking, or tobacco-related health factors, that were collected on or before the date of the Encounter. The data comes from the [place] facility where the Encounter took place. Date/Time Smoking Status/Tobac co Use Comment Facility Aug 16, 2023 01:00 PM VA-TOBACCO USE ADVICE [place] 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 BLOCK ROLLER NO [facility] [place] [facility] September 10, 2022 11:30 AM VA-TOBACCO USE MED NO [facility] [place] [facility] September 10, 2022 11:30 AM VA-TOBACCO USE [place] 30 MIN OF WAKEUP [facility] [place] [facility] September 10, 2022 11:30 AM VA-TOBACCO USER EVERY DAY [facility] [place] [facility] Aug 18, 2021 03:00 PM VA-TOBACCO USE 30 YEARS OR MORE [facility] [place] [facility] Aug 18, 2021 03:00 PM VA-TOBACCO USE ADVICE [facility] [place] [facility] Aug 18, 2021 03:00 PM VA-TOBACCO USE 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 BLOCK ROLLER NO [facility] [place] [facility] Aug 18, 2021 03:00 PM VA-TOBACCO USE MED NO [facility] [place] [facility] Aug 18, 2021 03:00 PM VA-TOBACCO USE [place] 30 MIN [place]KEUP [place] [facility] [place] [facility] Aug 18, 2021 03:00 PM VA-TOBACCO USER EVERY DAY [facility] [place] [facility] Jun 20, 2020 09:16 AM VA-TOBACCO USE 30 YEARS OR MORE [facility] [place] [facility] Jun 20, 2020 09:16 AM VA-TOBACCO USE ADVICE [facility] [place] [facility] Jun 20, 2020 09:16 AM VA-TOBACCO USE 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 BLOCK ROLLER NO [facility] [place] [facility] Jun 20, 2020 09:16 AM VA-TOBACCO USE MED NO [facility] [place] [facility] Jun 20, 2020 09:16 AM VA-TOBACCO USE [place] 30 MIN OF WAKEUP [place] [facility] Jun 20, 2020 09:16 AM VA-TOBACCO USER EVERY DAY [facility] Jan 05, 2019 10:36 AM VA-TOBACCO USE 30 YEARS OR MORE [facility] Jan 05, 2019 10:36 AM VA-TOBACCO USE ADVICE [facility] Jan 05, 2019 10:36 AM VA-TOBACCO USE STAVE BLOCK ROLLER NO [facility] Jan 05, 2019 10:36 AM VA-TOBACCO USE MED NO [facility] Jan 05, 2019 10:36 AM VA-TOBACCO USE [place] 30 MIN OF WAKEUP [facility] Jan 05, 2019 10:36 AM VA-TOBACCO USER EVERY DAY [facility] Jan 17, 2018 12:50 PM CURRENT SMOKER [facility] Jan 17, 2018 12:50 PM V1-PT DECLINES REF TO TOBACCO CESS PRGM [facility] Jan 17, 2018 12:50 PM V1-PT THINKING ABOUT QUIT TOBACCO USE [facility] Jan 17, 2018 12:50 PM V1-TOBACCO CESS MEDS NOT PRESCRIBED Wants to quit on his own [facility] Radiology Reports: +/- 30 days of [...] the Encounter. The data comes from all [place] treatment facilities. Date/Time Radiology Report Provider Source Feb 14, 2024 01:[address] HEAD W/O CONT: RACHELL ALEXANDER [id number] -[id number] M Exm Date: FEB 14, 2024@13:38 Req Phys: JEREMY LOPEZ Loc: CWM/NO/PACT 7 (Req'g Loc) Img Loc: NHM/CT Service: Unknown [place] [address] (Case [id number] COMPLETE) CT HEAD W/O CONT (CT Detailed) CPT:48035 Reason for Study: head injury Clinical History: [place] fell last night, hit his head, on xarelto Report Status: Verified Date Reported: FEB 14, 2024 Date Verified: FEB 14, 2024 Folder Stitcher Operator E-Sig:/ES/JOVAN BOYER JR Report: Study: Noncontrast [...] Primary Interpreting Staff: JOVAN BOYER JR, Radiologist (Folder Stitcher Operator) /JOVAN MEDINA JR [facility] Encounter Notes: All associated encounter notes This section contains the clinical notes associated to the Encounter. Date/Time Encounter Note(s) Provider Source Mar 08, 2024 01:37 PM NURSING NOTE: LOCAL TITLE: PRIMARY CARE NURSE NOTE STANDARD TITLE: NURSING NOTE DATE OF NOTE: MAR 08, 2024@13:37 ENTRY DATE: MAR 08, 2024@13:37:53 AUTHOR: MARY TORRES COSIGNER: URGENCY: STATUS: COMPLETED F: Nursing Visit: Ear Irrigation D:[place] is here for Bilateral ear irrigation per PCP. has been using ear drops as recommended by Provider. Pre-Procedure Assessment: Verified the correct patient using two identifiers. Assessed the patient for specific contraindications. Reviewed the patients record for a history of a ruptured tympanic membrane, trauma of the auditory canal, surgery, the presence of tubes, and diabetes. dnies the above. Upon examination of both ears, a noticeable amount of soft cerumen noted on Bilateral and a complete impaction of cerumen noted in ear. Procedure: Irrigation procedure explained. verbally consented to obtained for irrigation for cerumen removal. Performed hand hygiene before patient contact, donned appropriate PPE, draped towel placed over. [place], instructed to tilt the head toward the affected ear and position a basin to collect the fluid as it drains. Used lukewarm water to prevent dizziness, nystagmus, and nausea. Directed the flow of water toward the side of the ear canal in the usual fashion away from the tympanic membrane, visualized draining of cerumen into basin. Post-procedure Assessment: After irrigation,Bilateral ear/s still have significant amount of cerumen impacted and was unable to clear. Vet educated and advised to schedule a second RN visit and to continue using drops as prescribed. A:Vet tolerated procedure well and denies feeling any dizziness, pain or irritation after the lavage. Vet excorted to the [facility] to schedule a follow- up visit with RN. R: As Above /jefry/ MARY TORRES REGISTERED NURSE Signed: 03/08/2024 14:56 MARY TORRES [place] [facility]
--- OUTSIDE RECORDS SUMMARY | 2024-06-03 17:19 | XMS_ITS | Encounter Summary ---
Author Name [facility] [place] [facility] [place] [facility] [place] [facility] [place] Address [address] [place] [id number] Care Team Providers Care Spa Therapist Name Role Phone JEREMY LOPEZ Primary Care [...] Relationship to Policy Garcia MEDICARE (WNR) MEDICARE () PART A Jul 08, 2002 PART A [id number] [phone] ALEXIS ALEXANDER PATIENT MEDICARE (WNR) MEDICARE (M) PART B Jul 08, 2002 PART B [id number] [phone] ALEXIS ALEXANDER PATIENT [facility] (WNR) MEDICARE ADVANTAGE [facility] (WNR) Jun 10, 2007 [id number] ALEXIS ALEXANDER PATIENT [facility] (WNR) MEDICARE (M) [facility] (WNR) Jun 10, 2020 [id number] ALEXIS ALEXANDER PATIENT Selected Encounter This section includes the information on record at [place] for the Encounter. Date/Time Encounter Type Encounter Description Reason Provider Source Mar 14, 2024 03:00 PM COMPRE OPH EXAM EST PT 1/> OPTOMETRY ICD-10-CM H35.3111 Nexdtve age-related mclr degn, right eye, early dry stage SCARLETDEAN SANDSDUANE Baxter Sahil Encounter Template Text not used by [facility] Assessments - Encounter Diagnoses This section includes the primary and secondary diagnoses documented for the Encounter. Date/Time Primary/Secondary Diagnosis Diagnosis Name Provider Source Mar 15, 2024 04:01 PM PRIMARY Nexdtve age-related mclr degn, right eye, early dry stage ELIEZER NOVAK [place] [facility] [place] [facility] Mar 15, 2024 04:01 PM SECONDARY Combined forms of age-related cataract, bilateral ELIEZER NOVAK [place] [facility] [place] [facility] Mar 15, 2024 04:01 PM SECONDARY Exudative age-rel mclr degn, right eye, with inactive scar ELIEZER NOVAK [place] [facility] [place] [facility] Mar 15, 2024 04:01 PM SECONDARY Oth disorders of optic nerve, NEC, bilateral ELIEZER NOVAK [place] [facility] [place] [facility] Plan of Treatment: Future Appointments (+ 6 months) and Future Tests (+/- 45 days) The Plan of Treatment section includes future care activities for the patient from all [place] treatmentfacilities. This section includes future appointments and future orders which are active, pending or scheduled. Future Appointments This section includes appointments that were scheduled to occur 6 months from the date of the Encounter, up to a maximum of 20 appointments. The data comes from all [place] treatment facilities. Appointment Date/Time Appointment Type Appointme nt Facility Name Mar 24, 2024 01:30 PM AMBULATORY - MEDICINE [facility] [place] [facility] Jun 16, 2024 02:00 PM AMBULATORY - MEDICINE [facility] [place] [facility] Jun 23, 2024 02:20 PM AMBULATORY - MEDICINE [facility] [place] [facility] Aug 04, 2024 10:00 AM AMBULATORY - MEDICINE [facility] ([facility]) Social History: Smoking Status (Most current) and Tobacco Use (All prior to encounter date) This section includes the most current, and the historical, smoking and tobacco- related health factors from the [place] facility where the Encounter took place. Current Smoking Status This section includes the most current smoking, or tobacco-related health factor, from the [place] facility where the Encounter took place. Date/Time Current Smoking Status Comment Frank it Aug 16, 2023 01:00 PM [place]-TO[place]ACCO USE [place] 30 MIN OF WAKEUP [place] [facility] [place] [facility] Tobacco Use History This section includes a history of the smoking, or tobacco-related health factors, that were collected on or before the date of the Encounter. The data comes from the [place] facility where the Encounter took place. Date/Time Smoking Status/Tobac co Use Comment Facility Aug 16, 2023 01:00 PM VA-TOBACCO USE ADVICE [facility] [place] [facility] Aug 16, 2023 01:00 PM VA-TOBACCO USE LOAN SUPERVISOR NO [facility] [place] [facility] Aug 16, 2023 01:00 PM VA-TOBACCO USE MED NO [facility] [place] [facility] Aug 16, 2023 01:00 PM VA-TOBACCO USE [place] 30 MIN OF WAKEUP [facility] [place] [facility] Aug 16, 2023 01:00 PM VA-TOBACCO USER EVERY DAY [facility] [place] [facility] September 10, 2022 11:30 AM VA-TOBACCO USE 30 YEARS OR MORE [facility] [place] [facility] September 10, 2022 11:30 AM VA-TOBACCO USE ADVICE [facility] [place] [facility] September 10, 2022 11:30 AM VA-TOBACCO USE LOAN SUPERVISOR NO [facility] [place] [facility] September 10, 2022 11:30 AM VA-TOBACCO USE MED NO [facility] [place] [facility] September 10, 2022 11:30 AM VA-TOBACCO USE [place] 30 MIN OF WAKEUP [facility] [place] [facility] September 10, 2022 11:30 AM VA-TOBACCO USER EVERY DAY [facility] [place] [facility] Aug 18, 2021 03:00 PM VA-TOBACCO USE 30 YEARS OR MORE [facility] [place] [facility] Aug 18, 2021 03:00 PM VA-TOBACCO USE ADVICE [facility] [place] [facility] Aug 18, 2021 03:00 PM VA-TOBACCO USE LOAN SUPERVISOR NO [facility] [place] [facility] Aug 18, 2021 03:00 PM VA-TOBACCO USE MED NO [facility] [place] [facility] Aug 18, 2021 03:00 PM VA-TOBACCO USE [place] 30 MIN OF WAKEUP [facility] [place] [facility] Aug 18, 2021 03:00 PM VA-TOBACCO USER EVERY DAY [facility] [place] [facility] Jun 20, 2020 09:16 AM VA-TOBACCO USE 30 YEARS OR MORE [facility] [place] [facility] Jun 20, 2020 09:16 AM VA-TOBACCO USE ADVICE [facility] [place] [facility] Jun 20, 2020 09:16 AM VA-TOBACCO USE LOAN SUPERVISOR NO [facility] [place] [facility] Jun 20, 2020 09:16 AM VA-TOBACCO USE MED NO [facility] [place] [facility] Jun 20, 2020 09:16 AM VA-TOBACCO USE [place] 30 MIN OF WAKEUP [facility] [place] [facility] Jun 20, 2020 09:16 AM VA-TOBACCO USER EVERY DAY [facility] [place] [facility] Jan 05, 2019 10:36 AM VA-TOBACCO USE 30 YEARS OR MORE [facility] [place] [facility] Jan 05, 2019 10:36 AM VA-TOBACCO USE ADVICE [facility] [place] [facility] Jan 05, 2019 10:36 AM VA-TOBACCO USE LOAN SUPERVISOR NO [facility] [place] [facility] Jan 05, 2019 10:36 AM VA-TOBACCO USE MED NO [facility] [place] [facility] Jan 05, 2019 10:36 AM VA-TOBACCO USE [place] 30 MIN OF WAKEUP [facility] [place] [facility] Jan 05, 2019 10:36 AM VA-TOBACCO USER EVERY DAY [facility] [place] [facility] Jan 17, 2018 12:50 PM CURRENT SMOKER [facility] [place] [facility] Jan 17, 2018 12:50 PM V1-PT DECLINES REF TO TOBACCO CESS PRGM [facility] [place] [facility] Jan 17, 2018 12:50 PM V1-PT THINKING ABOUT QUIT TOBACCO USE [facility] [place] [facility] Jan 17, 2018 12:50 PM V1-TOBACCO CESS MEDS NOT PRESCRIBED Wants to quit on his own [facility] Radiology Reports: +/- 30 days of the [...] the Encounter. The data comes from all [place] treatment facilities. Date/Time Radiology Report Provider Source Feb 14, 2024 01:[address] HEAD W/O CONT: RACHELL ALEXANDER [id number] -[id number] M Exm Date: FEB 14, 2024@13:38 Req Phys: JEREMY LOPEZ Loc: CWM/NO/PACT 7 (Req'g Loc) Img Loc: NHM/CT Service: Unknown [facility] [place] [address] (Case 104 COMPLETE) CT HEAD W/O CONT (CT Detailed) CPT:41500 Reason for Study: head injury Clinical History: fell last night, hit his head, on xarelto Report Status: Verified Date Reported: FEB 14, 2024 Date Verified: FEB 14, 2024 Superintendent Horticulture E-Sig:/ES/JOVAN BOYER JR Report: Study: Noncontrast CT [...] No immediate attention required Primary Interpreting Staff: EDWARD A BOYER JR, Radiologist (Superintendent Horticulture) /JOVAN MEDINA JR [place] [facility] Encounter Notes: All associated encounter notes This section contains the clinical notes associated to the Encounter. Date/Time Encounter Note(s) Provider Source Mar 14, 2024 10:26 AM OPTOMETRY NOTE: LOCAL TITLE: OPTOMETRY NOTE STANDARD TITLE: OPTOMETRY NOTE DATE OF NOTE: MAR 14, 2024@10:26 ENTRY DATE: MAR 14, 2024@10:26:03 AUTHOR: ERICA MALDONADO [facility] EXP COSIGNER: URGENCY: STATUS: COMPLETED OPTOMETRY NOTE Has ADDENDA Active problems - Computerized Problem List is the source for the followin. Chronic congestive heart failure 2. Epigastric pain 3. Long-term current use of anticoagulant 4. Peripheral vascular disease 5. Thrombosis 6. Weight loss 7. Wedge fracture of lumbar vertebra 8. Solitary nodule of lung 9. Renal mass 10. Constipation ([facility] [id number]) 11. Dizziness 12. Lipoma 13. Nephropathy 14. Gastroesophageal reflux disease 15. Diverticulitis 16. Legionella infection 17. Benign Prostatic Hypertrophy Without Outflow Obstruction ([facility] [id number]) 18. Unilateral excision of hydrocele 19. Hyperlipidemia ([facility] [id number]) Active Outpatient Medications (including Supplies): Active Outpatient Medications Status 1) CARBAMIDE PEROXIDE 6.5% OTIC SOLN INSTILL 5 DROPS ACTIVE INTO EACH EAR ONCE DAILY FOR EAR WAX BLOCKAGE 2) CYANOCOBALAMIN 500MCG TAB TAKE ONE TABLET BY MOUTH ACTIVE ONCE DAILY FOR VITAMIN SUPPLEMENTATION 3) EMPAGLIFLOZIN 10MG TAB TAKE ONE TABLET BY MOUTH ONCE ACTIVE DAILY 4) FLUTICASONE PROP 50MCG 120D NASAL INHL INSTILL 1 ACTIVE SPRAY INTO EACH NOSTRIL TWICE DAILY FOR NASAL IRRITATION/INFLAMMATION 5) FUROSEMIDE 20MG TAB TAKE ONE-HALF TABLET BY MOUTH ACTIVE ONCE DAILY TO REMOVE FLUID/CONTROL BLOOD PRESSURE 6) LACTULOSE 10GM/15ML ORAL SOLN TAKE 30 ML (2 HOLD TABLESPOONS) BY MOUTH THREE TIMES A DAY NEEDED FOR CONSTIPATION 7) METOPROLOL TARTRATE 25MG TAB TAKE ONE-HALF TABLET BY ACTIVE MOUTH TWICE DAILY FOR BLOOD PRESSURE/HEART 8) MULTIVIT/OPHTH AREDS2/LUTE/ZEAX CAP/TAB TAKE 1 ACTIVE CAPSULE BY MOUTH TWICE DAILY IN THE MORNING AND EVENING, WITH FOOD 9) NUTRITION SUPL ENSURE PLUS/VANILLA LIQ DRINK 1 CAN BY ACTIVE MOUTH THREE TIMES A DAY FOR NUTRITIONAL SUPPLEMENTATION 10) PANTOPRAZOLE NA 20MG EC TAB TAKE ONE TABLET BY MOUTH ACTIVE TWICE DAILY BEFORE A MEAL FOR EXCESSIVE PRODUCTION OF STOMACH ACID 11) PEG 400 0.4%/PROP GLYCOL 0.3% OPH SOLN INSTILL 1 DROP ACTIVE INTO EACH EYE FOUR TIMES A DAY 12) RIVAROXABAN 20MG TAB TAKE ONE TABLET BY MOUTH EVERY ACTIVE EVENING - TAKE WITH FOOD 13) SENNOSIDES 8.6MG TAB TAKE TWO TABLETS BY MOUTH TWICE ACTIVE DAILY FOR CONSTIPATION 14) SIMVASTATIN 80MG TAB TAKE ONE-HALF TABLET BY MOUTH ACTIVE ONCE DAILY FOR CHOLESTEROL 15) SUCRALFATE 1GM TAB TAKE ONE TABLET BY MOUTH TWICE ACTIVE DAILY NEEDED 16) TABLET CUTTER (PILL SPLITTER) USE CUTTER DIRECTED ACTIVE NEEDED TO SPLIT TABLETS 17) TAMSULOSIN HCL 0.4MG CAP TAKE ONE CAPSULE BY MOUTH AT ACTIVE BEDTIME Pending Outpatient Medications Status 1) CARBAMIDE PEROXIDE 6.5% OTIC SOLN INSTILL 5 DROPS PENDING INTO EACH EAR ONCE DAILY 18 Total Medications Allergies: Patient has answered NKA All medications including those prescribed by outside VA's, community providers, and all OTC meds were reviewed and reconciled with patient to the best of their abilities. This 88 year old MALE is seen today for CEE Optometry Author Agent Attending Provider Note: Date of Last Exam: Mar 2023 Location: [facility] Chief Complaint: Patient states my vision is fair, not 100% good. Notes he was hospitalized for his heart about a month ago, and his heart is not doing well. Ever since then feels vision is not doing well either. Feels vison is blurry for distance mostly, has to keep adjusting his head to see well. Using ATs PRN when eyes are tearing. HISTORY AND REVIEW OF SYSTEMS: OHx: 1. 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 Low risk suspect for open angle glaucoma OU 3. Combined cataracts OU 4. Ectropion OU 5. Refractive error and presbyopia OU (-) Pain: (-) IBARRA: (-) Diplopia: (-) Flashes: (-) Floaters: (-) Amaurosis Fugax/Tia's: (-) Eye Injury: (-) Eye Surgery: (-) TBI FOHx: (-) Glaucoma/ARMD/Blindness Social Hx: (+) Smoker/Length of Time/PPD: less than shirin;f a pack a day. DIABEIC: No NEW ALLERGIES TO REPORT: No EYE MEDICATION(S): ATs PRN CURRENT RX WITH BCVA: OD: +4.50 -3.25 x085 20/20-2 OS: +2.00 -0.50 x100 20/400- EV Add:+2.50 DVA: ( )SC ( )CC (x)Phoropter ( )CL OD: 20/40+2 OS: 20/400 EV NVA OU: 20/20 MANIFEST REFRACTION(MRx): OD: NI OS: NI ADD: 20/20 OU CVF: Appear FTFC OU EOMS: Appear Full OU PUPILS: Appear ERRL(-)APD INTRAOCULAR PRESSURE (IOP) METHOD: Goldmann Time: 3:13PM OD: 12 OS: 11 ANTERIOR CHAMBER (AC): Penlight or slit lamp (if available) exam appears unremarkable. Pupils are dilated. Dilation and driving precautions reviewed with patient and patient expresses understanding. Medication: 1% Tropicamide, 2.5% Phenylephrine OU Time: 3:16PM Visual Imaging Performed Today: Additional Comments: /jefry/ Erica Maldonado [facility] Author Agent Signed: 03/14/2024 15:17 03/14/2024 ADDENDUM STATUS: COMPLETED Active problems - Computerized Problem List is the source for the followin. Chronic congestive heart failure 2. Epigastric pain 3. Long-term current use of anticoagulant 4. Peripheral vascular disease 5. Thrombosis 6. Weight loss 7. Wedge fracture of lumbar vertebra 8. Solitary nodule of lung 9. Renal mass 10. Constipation ([facility] [id number]) 11. Dizziness 12. Lipoma 13. Nephropathy 14. Gastroesophageal reflux disease 15. Diverticulitis 16. Legionella infection 17. Benign Prostatic Hypertrophy Without Outflow Obstruction ([facility] [id number]) 18. Unilateral excision of hydrocele 19. Hyperlipidemia ([facility] [id number]) Active Outpatient Medications (including Supplies): Active Outpatient Medications Status 1) CARBAMIDE PEROXIDE 6.5% OTIC SOLN INSTILL 5 DROPS ACTIVE (S) INTO EACH EAR ONCE DAILY FOR EAR WAX BLOCKAGE 2) CYANOCOBALAMIN 500MCG TAB TAKE ONE TABLET BY MOUTH ACTIVE ONCE DAILY FOR VITAMIN SUPPLEMENTATION 3) EMPAGLIFLOZIN 10MG TAB TAKE ONE TABLET BY MOUTH ONCE ACTIVE DAILY 4) FLUTICASONE PROP 50MCG 120D NASAL INHL INSTILL 1 ACTIVE SPRAY INTO EACH NOSTRIL TWICE DAILY FOR NASAL IRRITATION/INFLAMMATION 5) FUROSEMIDE 20MG TAB TAKE ONE-HALF TABLET BY MOUTH ACTIVE ONCE DAILY TO REMOVE FLUID/CONTROL BLOOD PRESSURE 6) LACTULOSE 10GM/15ML ORAL SOLN TAKE 30 ML (2 HOLD TABLESPOONS) BY MOUTH THREE TIMES A DAY NEEDED FOR CONSTIPATION 7) METOPROLOL TARTRATE 25MG TAB TAKE ONE-HALF TABLET BY ACTIVE MOUTH TWICE DAILY FOR BLOOD PRESSURE/HEART 8) MULTIVIT/OPHTH AREDS2/LUTE/ZEAX CAP/TAB TAKE 1 ACTIVE CAPSULE BY MOUTH TWICE DAILY IN THE MORNING AND EVENING, WITH FOOD 9) NUTRITION SUPL ENSURE PLUS/VANILLA LIQ DRINK 1 CAN BY ACTIVE MOUTH THREE TIMES A DAY FOR NUTRITIONAL SUPPLEMENTATION 10) PANTOPRAZOLE NA 20MG EC TAB TAKE ONE TABLET BY MOUTH ACTIVE TWICE DAILY BEFORE A MEAL FOR EXCESSIVE PRODUCTION OF STOMACH ACID 11) PEG 400 0.4%/PROP GLYCOL 0.3% OPH SOLN INSTILL 1 DROP ACTIVE INTO EACH EYE FOUR TIMES A DAY 12) RIVAROXABAN 20MG TAB TAKE ONE TABLET BY MOUTH EVERY ACTIVE EVENING - TAKE WITH FOOD 13) SENNOSIDES 8.6MG TAB TAKE TWO TABLETS BY MOUTH TWICE ACTIVE DAILY FOR CONSTIPATION 14) SIMVASTATIN 80MG TAB TAKE ONE-HALF TABLET BY MOUTH ACTIVE ONCE DAILY FOR CHOLESTEROL 15) SUCRALFATE 1GM TAB TAKE ONE TABLET BY MOUTH TWICE ACTIVE DAILY NEEDED 16) TABLET CUTTER (PILL SPLITTER) USE CUTTER DIRECTED ACTIVE NEEDED TO SPLIT TABLETS 17) TAMSULOSIN HCL 0.4MG CAP TAKE ONE CAPSULE BY MOUTH AT ACTIVE BEDTIME Allergies: Patient has answered NKA All medications including those prescribed by outside VA's, community providers, and all OTC meds were reviewed and reconciled with patient to the best of their abilities. This 88 year old MALE is seen today for for comprehensive eye examination. 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 He also has a history of bilateral lower ectropion and previously has been followed as low risk glaucoma suspect secondary to optic nerve cupping. Reports good compliance with use of ocular supplements for macular degeneration ++++++++++++++++++++++++++ ++++++++++++++++++++++++++ ++++++++++++++++++++++++++ ++ ++++++++++++++++++++++++++ ++++++++++++++++++++++++++ ++++++++++++++++++++++++++ ++ Patient history, visual acuity, entrance testing, refraction and tonometry all performed by endoscopic technician and reviewed by attending provider. Dilation drops instilled by endoscopic technician after angle assessment with dilation warning given and verbal consent obtained. 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 Conj: Mild chronic injection each eye Cornea: Trace SPK each eye no mack epiphora AC: 3+ and quiet each eye Iris: Normal each eye Lens: 3 nuclear sclerosis with vacuoles right eye 3 nuclear sclerosis with cortical spokes left eye Vit: Clear each eye Fundus exam: Dilated: xxx Non dilated: C/D: somewhat larger disc size right greater than left eye 0.60 right eye 0.50 left eye Macula: RPE changes with drusen right eye large chorioretinal scar but no evidence of subretinal fluid, subretinal blood, exudate or thickening either eye A/V: 1/2 each eye Vessels: Normal each eye Periphery:No holes, tears, detachments each eye Impression: Early stage macular degeneration right eye with RPE mottling and drusen without evidence of subretinal fluid, subretinal blood, exudate or thickening and stable visual acuity. 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 Continue AREDS 2 twice a day by mouth. Reviewed use of home Amsler grid testing. Nuclear sclerotic and cortical cataracts overall functioning well visually. He understands cataract surgery will not improve his vision left eye and overall he is still seeing quite well with this right eye. Reorder glasses today. Moderate optic nerve cupping previously followed as low risk glaucoma suspect. Previous pachymetry is somewhat thinner than average but with stable and healthy disc appearance with intact rim tissue and good color. There is no evidence of pseudoexfoliation or pigment dispersion either eye. Larger disc size with moderate cupping appears consistent with prior exams and OCT. Will follow as bilateral disorders of the optic nerve not classified elsewhere and plan for repeat optic nerve OCT at his return exam in 12 months. Plan: Patient education as noted above. Reviewed all exam findings now. He complains of watery eyes which he understands is related to bilateral lower lid ectropion but is not interested in surgical referral at this time. Continue ocular supplements AREDS 2 twice a day by mouth for macular degeneration. Reorder glasses today. Return in 12 months or sooner if need be. Education: Diabetes: Patient was educated regarding diabetes and related ocular complications including retinopathy and cataract formation as well as other related systemic complications. The importance of good blood sugar control, blood sugar testing as recommended by their PCP and the importance of timely follow up were all emphasized. Return to Clinic 12 months or sooner if need be. Ophthalmic medication reconciliation: AREDS 2 twice a day by mouth. Medication Reconciliation: Outpatient: Has the patient been taking medications as documented in the EMLR? YES: The patient has been taking medications as documented in the EMLR. Essential Medication List for Review used to complete this medication reconciliation. INCLUDED IN THIS LIST: Alphabetical list of active outpatient prescriptions dispensed from this VA (local) and dispensed from another [place] or [facility] facility (remote) as well as [...] whether with a VA or non-VA provider. JLV Link Data on this list may not be complete. Please check Innoz. Allergies/ADRs (Tool #5) FACILITY ALLERGY/ADR -------- No Remote Allergy/ADR Data available for this patient [place] [facility] [place] [facility] No Known Allergies Med Recon NoGlossary (Tool #1) INCLUDED IN THIS LIST: Alphabetical list of active outpatient prescriptions dispensed from this VA (local) and dispensed from another [place] or [facility] facility (remote) as well as inpatient orders (local pending and active), local clinic medications, locally documented non-VA medications, and local prescriptions that have or been discontinued in the past 90 days. Non-VA Meds Last Documented On: Data not found NOTE The display of VA prescriptions dispensed from another [place] or [facility] facility (remote) is limited to active outpatient prescription entries matched to National Drug File at the originating site and may not include some items such as investigational drugs, compounds, etc. NOT INCLUDED IN THIS LIST: Medications self-entered by the patient into personal health records (i.e. StartSampling) are NOT included in this list. Non-VA medications documented outside this [place], remote inpatient orders (regardless of status) and remote clinic medications are NOT included in this list. The patient and provider must always discuss medications the patient is taking, regardless of where the medication was dispensed or obtained. OUTPT CARBAMIDE PEROXIDE 6.5% OTIC SOLN (Status = Discontinued) INSTILL 5 DROPS INTO EACH EAR ONCE DAILY FOR EAR WAX BLOCKAGE Rx# [id number] Last Released: 02/26/24 Qty/Days Supply: 21/09 Rx Expiration Date: 03/24/24 Refills Remainin Indication: FOR EAR WAX BLOCKAGE OUTPT CARBAMIDE PEROXIDE 6.5% OTIC SOLN (Status = Active) INSTILL 5 DROPS INTO EACH EAR ONCE DAILY FOR EAR WAX BLOCKAGE Rx# [id number] Last Released: Qty/Days Supply: 21/09 Rx Expiration Date: 04/13/24 Refills Remainin Indication: FOR EAR WAX BLOCKAGE OUTPT CHOLECALCIF 50MCG (D3-2,000UNIT) TAB (Status = ) TAKE ONE TABLET BY MOUTH ONCE DAILY FOR VITAMIN SUPPLEMENTATION Rx# [id number] Last Released: 12/24/22 Qty/Days Supply: 100/90 Rx Expiration Date: 12/18/23 Refills Remainin OUTPT CYANOCOBALAMIN 500MCG TAB (Status = Active) TAKE ONE TABLET BY MOUTH ONCE DAILY FOR VITAMIN SUPPLEMENTATION Rx# [id number] Last Released: 03/09/24 Qty/Days Supply: 100/ Rx Expiration Date: 11/20/24 Refills Remainin OUTPT EMPAGLIFLOZIN 10MG TAB (Status = Active) TAKE ONE TABLET BY MOUTH ONCE DAILY Rx# [id number] Last Released: 02/18/24 Qty/Days Supply: 90/ Rx Expiration Date: 12/23/24 Refills Remainin OUTPT FLUTICASONE PROP 50MCG 120D NASAL INHL (Status = Active) INSTILL 1 SPRAY INTO EACH NOSTRIL TWICE DAILY FOR NASAL IRRITATION/INFLAMMATION Rx# [id number] Last Released: 02/15/24 Qty/Days Supply: 06/08 Rx Expiration Date: 02/14/25 Refills Remainin Indication: FOR NASAL IRRITATION/INFLAMMATION OUTPT FUROSEMIDE 20MG TAB (Status = Discontinued) TAKE ONE TABLET BY MOUTH ONCE DAILY TO REMOVE FLUID/CONTROL BLOOD PRESSURE Rx# [id number] Last Released: 02/02/24 Qty/Days Supply: 6060 Rx Expiration Date: 01/31/25 Refills Remainin OUTPT FUROSEMIDE 20MG TAB (Status = Active) TAKE ONE-HALF TABLET BY MOUTH ONCE DAILY TO REMOVE FLUID/CONTROL BLOOD PRESSURE Rx# [id number] Last Released: 02/17/24 Qty/Days Supply: 30 Rx Expiration Date: 02/14/25 Refills Remainin Indication: FOR HIGH BLOOD PRESSURE OUTPT GENTAMICIN SULFATE 0.3% OPH SOLN (Status = ) INSTILL 2 DROPS INTO THE LEFT EYE EVERY 6 HOURS FOR EYE INFECTION CAUSED BY BACTERIA Rx# [id number] Last Released: 12/22/23 Qty/Days Supply: 09/11 Rx Expiration Date: 01/21/24 Refills Remainin Indication: FOR EYE INFECTION CAUSED BY BACTERIA OUTPT LACTULOSE 10GM/15ML ORAL SOLN (Status = Discontinued) TAKE 30 ML (2 TABLESPOONS) BY MOUTH THREE TIMES A DAY NEEDED FOR CONSTIPATION Rx# [id number] Last Released: 02/02/24 Qty/Days Supply: 473/5 Rx Expiration Date: 03/01/24 Refills Remainin OUTPT LACTULOSE 10GM/15ML ORAL SOLN (Status = On Hold) TAKE 30 ML (2 TABLESPOONS) BY MOUTH THREE TIMES A DAY NEEDED FOR CONSTIPATION Rx# [id number] Last Released: 02/15/24 Qty/Days Supply: 473/5 Rx Expiration Date: 02/14/25 Refills Remainin OUTPT METOPROLOL TARTRATE 25MG TAB (Status = Active) TAKE ONE-HALF TABLET BY MOUTH TWICE DAILY FOR BLOOD PRESSURE/HEART Rx# [id number] Last Released: 02/02/24 Qty/Days Supply: 60/60 Rx Expiration Date: 01/31/25 Refills Remainin OUTPT MULTIVIT/OPHTH AREDS2/LUTE/ZEAX CAP/TAB (Status = Discontinued) TAKE 1 CAPSULE BY MOUTH TWICE DAILY IN THE MORNING AND EVENING, WITH FOOD Rx# [id number] Last Released: 01/11/24 Qty/Days Supply: 120/60 Rx Expiration Date: 02/06/24 Refills Remainin OUTPT MULTIVIT/OPHTH AREDS2/LUTE/ZEAX CAP/TAB (Status = Active) TAKE 1 CAPSULE BY MOUTH TWICE DAILY IN THE MORNING AND EVENING, WITH FOOD Rx# [id number] Last Released: 03/09/24 Qty/Days Supply: 120/60 Rx Expiration Date: 03/04/25 Refills Remainin OUTPT NUTRITION SUPL ENSURE PLUS/VANILLA LIQ (Status = Discontinued) DRINK 1 CAN BY MOUTH ONCE DAILY FOR NUTRITIONAL SUPPLEMENTATION Rx# [id number] Last Released: 01/12/24 Qty/Days Supply: 48/48 Rx Expiration Date: 01/11/25 Refills Remainin Indication: FOR NUTRITIONAL SUPPLEMENTATION OUTPT NUTRITION SUPL ENSURE PLUS/VANILLA LIQ (Status = Active) DRINK 1 CAN BY MOUTH THREE TIMES A DAY FOR NUTRITIONAL SUPPLEMENTATION Rx# [id number] Last Released: 02/19/24 Qty/Days Supply: 96/30 Rx Expiration Date: 01/19/25 Refills Remainin Indication: FOR NUTRITIONAL SUPPLEMENTATION OUTPT PANTOPRAZOLE NA 20MG EC TAB (Status = Active) TAKE ONE TABLET BY MOUTH TWICE DAILY BEFORE A MEAL FOR EXCESSIVE PRODUCTION OF STOMACH ACID Rx# [id number] Last Released: 02/18/24 Qty/Days Supply: 180/90 Rx Expiration Date: 02/17/25 Refills Remainin Indication: FOR EXCESSIVE PRODUCTION OF STOMACH ACID OUTPT PANTOPRAZOLE NA 40MG EC TAB (Status = Discontinued) TAKE ONE TABLET BY MOUTH TWICE DAILY BEFORE A MEAL FOR EXCESSIVE PRODUCTION OF STOMACH ACID Rx# [id number] Last Released: 12/02/23 Qty/Days Supply: 180 Rx Expiration Date: 02/29/24 Refills Remainin Indication: FOR EXCESSIVE PRODUCTION OF STOMACH ACID OUTPT PANTOPRAZOLE NA 40MG EC TAB (Status = Discontinued) TAKE ONE TABLET BY MOUTH TWICE DAILY BEFORE A MEAL FOR EXCESSIVE PRODUCTION OF STOMACH ACID Rx# [id number] Last Released: 02/15/24 Qty/Days Supply: 180 Rx Expiration Date: 02/14/25 Refills Remainin Indication: FOR EXCESSIVE PRODUCTION OF STOMACH ACID OUTPT PEG 400 0.4%/PROP GLYCOL 0.3% OPH SOLN (Status = Discontinued) INSTILL 1 DROP INTO EACH EYE FOUR TIMES A DAY Rx# [id number] Last Released: 03/29/23 Qty/Days Supply: 60 Rx Expiration Date: 03/22/24 Refills Remainin OUTPT PEG 400 0.4%/PROP GLYCOL 0.3% OPH SOLN (Status = Active/Suspended) INSTILL 1 DROP INTO EACH EYE THREE TIMES A DAY FOR DRY EYE Rx# [id number] Last Released: Qty/Days Supply: Rx Expiration Date: 03/15/25 Refills Remainin Indication: FOR DRY EYE OUTPT RIVAROXABAN 20MG TAB (Status = Active) TAKE ONE TABLET BY MOUTH EVERY EVENING - TAKE WITH FOOD Rx# [id number] Last Released: 11/22/23 Qty/Days Supply: 90 Rx Expiration Date: 11/19/24 Refills Remainin OUTPT SENNOSIDES 8.6MG TAB (Status = Active) TAKE TWO TABLETS BY MOUTH TWICE DAILY FOR CONSTIPATION Rx# [id number] Last Released: 01/11/24 Qty/Days Supply: 400/90 Rx Expiration Date: 01/03/25 Refills Remainin Indication: FOR CONSTIPATION OUTPT SIMVASTATIN 80MG TAB (Status = Active) TAKE ONE-HALF TABLET BY MOUTH ONCE DAILY FOR CHOLESTEROL Rx# [id number] Last Released: 03/09/24 Qty/Days Supply: 45 Rx Expiration Date: 06/04/24 Refills Remainin Indication: FOR HIGH CHOLESTEROL OUTPT SUCRALFATE 1GM TAB (Status = Active) TAKE ONE TABLET BY MOUTH TWICE DAILY NEEDED Rx# [id number] Last Released: 11/26/23 Qty/Days Supply: Rx Expiration Date: 11/22/24 Refills Remainin Indication: FOR ULCER OUTPT TAMSULOSIN HCL 0.4MG CAP (Status = Active) TAKE ONE CAPSULE BY MOUTH AT BEDTIME Rx# [id number] Last Released: 08/09/23 Qty/Days Supply: Rx Expiration Date: 07/09/24 Refills Remainin SUPPLIES OUTPT TABLET CUTTER (PILL SPLITTER) (Status = Active) USE CUTTER DIRECTED NEEDED TO SPLIT TABLETS Rx# [id number] Last Released: 02/24/24 Qty/Days Supply: Rx Expiration Date: 05/23/24 Refills Remainin Declines printed copy of medication list daisy /jefry/ Romel Novak OD CHIEF OF OPTOMETRY Signed: 03/15/2024 16:01 [facility]
--- OUTSIDE RECORDS SUMMARY | 2024-06-03 17:19 | XMS_ITS ---
Author Organization [employer] [facility] Address [address] [place] [address] Care Team Providers Care Injection Molding Machine Operator Name Role Phone MELA SERNA Unavailable [phone] REASON FOR VISIT CCM Encounters Encounter Location Date Provider Diagnosis [facility] [phone] [address] 04/12/2024 MELA SERNA PLAN OF TREATMENT No Information Progress Notes * RACHELL ALEXANDER TDOB:1935 (88 yo M)Acc No.[id number]:04/12/2024 Patient:??RACHELL ALEXANDER :1935?Age:88 Y?Sex:Deniz gustavo Address:[place] [address] * true * Date:??
--- OUTSIDE RECORDS SUMMARY | 2024-06-03 17:19 | XMS_ITS | Encounter Summary ---
Author Name [facility] Organization [facility] Address [address] [place] [id number] Care Team Providers Care [place] Man Name Role Phone JEREMY LOPEZ Primary Care [...] PART A Jul 08, 2002 PART A [id number] ALEXIS ALEXANDER PATIENT MEDICARE (WNR) MEDICARE (M) PART B Jul 08, 2002 PART B [id number] [id number] [phone] ALEXIS ALEXANDER PATIENT [facility] (WNR) MEDICARE ADVANTAGE [facility] (WNR) Jun 10, 2007 [id number] ALEXIS ALEXANDER PATIENT [facility] (WNR) MEDICARE (M) [facility] (WNR) Jun 10, 2020 [id number] [phone] ALEXIS ALEXANDER PATIENT Selected Encounter This section includes the information on record at [place] for the Encounter. Date/Time Encounter Type Encounter Description Reason Pro vider Source Dec 31, 2023 03:00 PM Outpatient Encounter PRIMARY CARE/MEDICINE IHE Encounter Template Text not used by [place] Plan of Treatment: Future Appointments (+ 6 months) and Future Tests (+/- 45 days) The Plan of Treatment section includes future care activities for the patient from all [place] [facility]. This section includes future appointments and future [...] 10:00 AM AMBULATORY - MEDICINE [facility] ([id number]) Feb 10, 2024 02:30 PM AMBULATORY - MEDICINE [place] [facility] Feb 14, 2024 01:00 PM AMBULATORY - MEDICINE [place] [facility] Feb 14, 2024 01:30 PM [facility]INE [facility] Feb 14, 2024 02:00 PM AMBULATORY - NONE [facility] Feb 18, 2024 10:00 AM AMBULATORY - [facility]IC[facility] ([id number]) Feb 22, 2024 01:00 PM AMBULATORY - REHAB MEDICIN E [facility] Mar 08, 2024 01:00 PM AMBULATORY - MEDICINE [place] [facility] Mar 14, 2024 03:00 PM AMBULATORY - MEDICINE [place] [facility] Mar 24, 2024 01:30 PM AMBULATORY - MEDICINE [facility] Jun 16, 2024 02:00 PM AMBULATORY - MEDICINE [place] [facility] Jun 23, 2024 02:20 PM AMBULATORY - MEDICINE [place] [facility] Vital Signs: All taken on the encounter date This section contains inpatient and outpatient Vital Signs collected on the date of the Encounter. Date/Time Temperature Pulse Blood Pressure Respiratory Rate SP02 Pain Height Weight Body Mass Index Source Dec 31, 2023 01:22 PM 96.7 70 100/60 16 97 2 112 16 [facility] Social History: Smoking Status (Most current) [...] took place. Date/Time Current Smoking Status Comment [facility] it Aug 16, 2023 01:00 PM VA-TOBACCO USER EVERY DAY [facility] Tobacco Use History This section includes a history of the smoking, or tobacco-related health factors, that were collected on or before the date of the Encounter. The data comes from the [place] facility where the Encounter took place. Date/Time Smoking Status/Tobac co Use Comment Facility Aug 16, 2023 01:00 PM VA-TOBACCO USE ADVICE [facility] Aug 16, 2023 01:00 PM VA-TOBACCO USE PHARMACY SALES ASSISTANT NO [facility] Aug 16, 2023 01:00 PM VA-TOBACCO USE MED NO [facility] Aug 16, 2023 01:00 PM VA-TOBACCO USE WI 30 MIN OF WAKEUP [facility] Aug 16, 2023 01:00 PM VA-TOBACCO USER EVERY DAY [facility] September 10, 2022 11:30 AM VA-TOBACCO USE 30 YEARS OR MORE [facility] September 10, 2022 11:30 AM VA-TOBACCO USE ADVICE [facility] September 10, 2022 11:30 AM VA-TOBACCO USE PHARMACY SALES ASSISTANT NO [facility] September 10, 2022 11:30 AM VA-TOBACCO USE MED NO [facility] September 10, 2022 11:30 AM VA-TOBACCO USE [place] 30 MIN OF WAKEUP [facility] September 10, 2022 11:30 AM VA-TOBACCO USER EVERY DAY [facility] Aug 18, 2021 03:00 PM VA-TOBACCO USE 30 YEARS OR MORE [facility] Aug 18, 2021 03:00 PM VA-TOBACCO USE ADVICE [facility] Aug 18, 2021 03:00 PM VA-TOBACCO USE PHARMACY SALES ASSISTANT NO [facility] Aug 18, 2021 03:00 PM VA-TOBACCO USE MED NO [facility] Aug 18, 2021 03:00 PM VA-TOBACCO USE WI 30 MIN OF WAKEUP [facility] Aug 18, 2021 03:00 PM VA-TOBACCO USER EVERY DAY [facility] Jun 20, 2020 09:16 AM VA-TOBACCO USE 30 YEARS OR MORE [facility] Jun 20, 2020 09:16 AM VA-TOBACCO USE ADVICE [facility] Jun 20, 2020 09:16 AM VA-TOBACCO USE PHARMACY SALES ASSISTANT NO [facility] Jun 20, 2020 09:16 AM VA-TOBACCO USE MED NO [facility] Jun 20, 2020 09:16 AM VA-TOBACCO USE [place] 30 MIN OF WAKEUP [facility] Jun 20, 2020 09:16 AM VA-TOBACCO USER EVERY DAY [facility] Jan 05, 2019 10:36 AM VA-TOBACCO USE 30 YEARS OR MORE [facility] Jan 05, 2019 10:36 AM VA-TOBACCO USE ADVICE [facility] Jan 05, 2019 10:36 AM VA-TOBACCO USE PHARMACY SALES ASSISTANT NO [facility] Jan 05, 2019 10:36 AM VA-TOBACCO USE MED NO [facility] Jan 05, 2019 10:36 AM VA-TOBACCO USE WI 30 MIN OF WAKEUP [facility] Jan 05, 2019 10:36 AM VA-TOBACCO USER EVERY DAY [facility] Jan 17, 2018 12:50 PM CURRENT SMOKER [facility] Jan 17, 2018 12:50 PM V1-PT DECLINES REF TO TOBACCO CESS PRGM [facility] Jan 17, 2018 12:50 PM V1-PT THINKING ABOUT QUIT TOBACCO USE [facility] Jan 17, 2018 12:50 PM V1-TOBACCO CESS MEDS NOT PRESCRIBED Wants to quit on his own [facility] Encounter Notes: All associated encounter notes This section contains the clinical notes associated to the Encounter. Date/Time Encounter Note(s) Provider Source Dec 01, 2023 03:52 PM PRIMARY CARE TELEP NICOL ENCOUNTER NOTE: LOCAL TITLE: TELEPHONE NOTE/PRIMARY CARE STANDARD TITLE: PRIMARY CARE TELEPHONE ENCOUNTER NOTE DATE OF NOTE: DEC 01, 2023@15:52 ENTRY DATE: DEC 01, 2023@15:52:52 AUTHOR: MARY DOW COSIGNER: URGENCY: STATUS: COMPLETED F: Condition Update D/A: Contacted by Kevin's son Nader Alexander ([phone]) who requests assistance in Vet's home. Reports Vet and spouse live alone and since Vet's increased decline due to GI issues and renal cancer Vet needs more assistance. Reports spouse Dhaval is supportive but limited in what she can manage. Nader is requesting assistance with VNA and PUMP STITCHER. He reports Radhat is unable to bathe independently, he is concerned with his ability to ambulate safely. He would like an in-home OT evaluation to ensure maximum safety with tasks they perform. He also asks about PT to help preserve Vet's function. Nader also provided with local information regarding meals on wheels, will also add SW to see if additional community services are available. R: Consults entered HFS by PCP /es/ Mary Dow MSN RN CNL Primary Care RN Signed: 12/01/2023 15:57 Receipt Acknowledged By: 12/02/2023 08:33 /jefry/ LAURO GRACE LICENSED INDEPENDENT CLINICAL KETTLE GIRL 12/01/2023 16:01 /jefry/ LAURIE YUSUF, MS,PA-C PHYSICIAN DATA OPERATIONS DIRECTOR for MARY MALHOTRA [facility]
--- OUTSIDE RECORDS SUMMARY | 2024-06-03 17:19 | XMS_ITS ---
Author Name [facility] (MD) Organization [facility] (MD) Address [address] [place] [id number] Care Team Providers Care Prison Officer Name Role Phone SAUL JEFFERY Primary Care [...] PART A Jul 08, 2002 PART A [id number] ALEXIS ALEXANDER PATIENT MEDICARE (WNR) MEDICARE (M) PART B Jul 08, 2002 PART B [id number] [id number] [phone] ALEXIS ALEXANDER PATIENT [facility] (WNR) MEDICARE ADVANTAGE [facility] (WNR) Jun 10, 2007 [id number] ALEXIS ALEXANDER PATIENT [facility] (WNR) MEDICARE (M) [facility] (WNR) Jun 10, 2020 [id number] ALEXIS ALEXANDER PATIENT Selected Encounter This section includes the information on record at MD for the Encounter. Date/Time Encounter Type Encounter Description Reason Pro vider Source Nov 19, 2023 03:29 PM Outpatient Encounter ADMIN PAT ACTIVTIES (MASNONCT) IHE Encounter Template Text not used by MD Plan of Treatment: Future Appointments (+ 6 months) and Future Tests (+/- 45 days) The Plan of Treatment section includes future care activities for the patient from all [facility]. This section includes future appointments and future orders which are active, pending or scheduled. Future Appointments This section includes appointments that were scheduled to occur 6 months from the date of the Encounter, up to a maximum of 20 appointments. The data comes from all MD treatment facilities. Appointment Date/Time Appointment Type Appointme nt Facility Name Nov 22, 2023 03:00 PM AM[facility]ULATORY [facility]ICINE [facility] [place] [facility] Dec 02, 2023 08:00 AM AMBULATORY - MEDICINE [facility] [place] [facility] Dec 02, 2023 10:00 AM AMBULATORY - MEDICINE [facility] [place] [facility] Jan 14, 2024 10:00 AM AMBULATORY - MEDICINE [facility] ([id number]) Feb 10, 2024 02:30 PM AMBULATORY - MEDICINE [facility] [place] [facility] Feb 14, 2024 01:00 PM AMBULATORY - MEDICINE [facility] [place] [facility] Feb 14, 2024 01:30 PM AMBULATORY - MEDICINE [facility] [place] [facility] Feb 14, 2024 02:00 PM AMBULATORY - NONE [facility] [place] [facility] Feb 18, 2024 10:00 AM AMBULATORY - MEDICINE [facility] ([id number]) Feb 22, 2024 01:00 PM AMBULATORY - REHAB MEDICIN E [facility] [place] [facility] Mar 08, 2024 01:00 PM AMBULATORY - MEDICINE [facility] [place] [facility] Mar 14, 2024 03:00 PM AMBULATORY - MEDICINE [facility] [place] [facility] Mar 24, 2024 01:30 PM AMBULATORY - MEDICINE [facility] [place] [facility] Lab Results: +/- 30 days of the encounter This section includes the Chemistry and Hematology Lab Results on record with MD for the patient. Radiology Reports and Pathology Reports are provided separately, in subsequent sections. Lab Results This section contains the Chemistry/Hematology Results that were resulted 30 days before or 30 daysafter the date of the Encounter. Date/Time Source Result Type Result - Unit Interpretation Reference Range Comment Nov 19, 2023 01:29 PM [facility] CA 19-9 (q) Specimen Type: SERUM Comment: REFERENCE RANGE: <34 U/mL This test was performed using the Siemens chemiluminescent method. Values obtained from different assay methods cannot be used inter- changeably. CA 19-9 levels, regardless of value, should not be interpreted as absolute evidence of the presence or absence of disease. Test Performed by [facility], [facility], [address] [place] [address] Grayson Dooley M.D., Ph.D., Director of Laboratories , CLIA [id number] TEST PERFORMED AT: , Ordering Provider: RENO DUBON Report Released Date/Time: Nov 04, 2023 03:38 PM Reporting Lab: [facility] [address] [facility] [address] Performing Lab: [facility] [address] [address] CA 19-9 17 SEE BELOW Nov 19, 2023 01:29 PM [facility] BASIC METABOLIC PANEL (non-fasting) Specimen Type: SERUM No comment entered. Ordering Provider: RENO DUBON Report Released Date/Time: Nov 04, 2023 10:06 AM Reporting Lab: [facility] [address] [facility] [address] Performing Lab: [facility] [address] [facility] [address] UREA NITROGEN 28 mg/dL H 7-25 GLUCOSE 136 mg/dL H 65-100 SODIUM 145 mmol/L 135-145 POTASSIUM 4.1 mmol/L 3.5-5.0 CHLORIDE 107 mmol/L 100-110 CO2 29 meq/L 20-30 CREATININE, Serum 0.89 mg/dL 0.50-1.40 eGFR(CKD-EPI 2020) 83 mL/min >60 Nov 19, 2023 01:29 PM [facility] LIVER FUNCTION Specimen Type: SERUM No comment entered. Ordering Provider: RENO DUBON Report Released Date/Time: Nov 04, 2023 10:06 AM Reporting Lab: [facility] [address] [facility] [address] Performing Lab: [facility] [address] [facility] [address] PROTEIN,TOTA L 6.0 g/dL 6.0-8.3 ALBUMIN 3.7 g/dL 3.5-5.0 ALKALINE PHOSPHATASE 79 U/L 40-150 AST 11 U/L 5-34 ALT 13 U/L BILIRUBIN, TOTAL 0.6 mg/dL 0.2-1.2 Nov 19, 2023 01:29 PM [facility] AMYLASE Specimen Type: SERUM No comment entered. Ordering Provider: RENO DUBON Report Released Date/Time: Nov 04, 2023 10:06 AM Reporting Lab: [facility] [address] [facility] [address] Performing Lab: [facility] [address] [facility] [address] AMYLASE 33 U/L 25-125 Nov 19, 2023 01:29 PM [facility] LIPASE Specimen Type: SERUM No comment entered. Ordering Provider: RENO DUBON Report Released Date/Time: Nov 04, 2023 10:06 AM Reporting Lab: [facility] [address] [facility] [address] Performing Lab: [facility] [address] [address] LIPASE 14 U/L 8-82 Nov 19, 2023 01:29 PM [facility] CBC AND DIFF (AUTO) Specimen Type: BLOOD No comment entered. Ordering Provider: RENO DUBON Report Released Date/Time: Nov 04, 2023 10:06 AM Reporting Lab: [facility] [address] [facility] [address] Performing Lab: [facility] [address] [facility] [address] WBC 4.83 10*3/uL 4.50-11.00 RBC 4.09 10*6/uL [...] and tobacco- related health factors from the MD facility where the Encounter took place. Current Smoking Status This section includes the most current smoking, or tobacco-related health factor, from the MD facility where the Encounter took place. Date/Time Current Smoking Status Comment Facil ity Aug 16, 2023 01:00 PM VA-TOBACCO USE WI 30 MIN OF WAKEUP [facility] Tobacco Use History This section includes a history of the smoking, or tobacco-related health factors, that were collected on or before the date of the Encounter. The data comes from the MD facility where the Encounter took place. Date/Time Smoking Status/Tobac co Use Comment Facility Aug 16, 2023 01:00 PM VA-TOBACCO USE ADVICE [facility] [place] [facility] Aug 16, 2023 01:00 PM VA-TOBACCO USE BELT PRESS OPERATOR NO [facility] [place] [facility] Aug 16, 2023 01:00 PM VA-TOBACCO USE MED NO [facility] [place] [facility] Aug 16, 2023 01:00 PM VA-TOBACCO USE [place] 30 MIN OF WAKEUP [facility] [place] [facility] Aug 16, 2023 01:00 PM VA-TOBACCO USER EVERY DAY [facility] [place] [facility] September 10, 2022 11:30 AM VA-TOBACCO USE 30 YEARS OR MORE [facility] [place] [facility] September 10, 2022 11:30 AM VA-TOBACCO USE ADVICE [facility] [place] [facility] September 10, 2022 11:30 AM VA-TOBACCO USE BELT PRESS OPERATOR NO [facility] [place] [facility] September 10, 2022 11:30 AM VA-TOBACCO USE MED NO [facility] [place] [facility] September 10, 2022 11:30 AM VA-TOBACCO USE [place] 30 MIN OF WAKEUP [facility] [place] [facility] September 10, 2022 11:30 AM VA-TOBACCO USER EVERY DAY [facility] [place] [facility] Aug 18, 2021 03:00 PM VA-TOBACCO USE 30 YEARS OR MORE [facility] [place] [facility] Aug 18, 2021 03:00 PM VA-TOBACCO USE ADVICE [facility] [place] [facility] Aug 18, 2021 03:00 PM VA-TOBACCO USE BELT PRESS OPERATOR NO [facility] [place] [facility] Aug 18, 2021 03:00 PM VA-TOBACCO USE MED NO [facility] [place] [facility] Aug 18, 2021 03:00 PM VA-TOBACCO USE [place] 30 MIN OF WAKEUP [facility] [place] [facility] Aug 18, 2021 03:00 PM VA-TOBACCO USER EVERY DAY [facility] [place] [facility] Jun 20, 2020 09:16 AM VA-TOBACCO USE 30 YEARS OR MORE [facility] [place] [facility] Jun 20, 2020 09:16 AM VA-TOBACCO USE ADVICE [facility] [place] [facility] Jun 20, 2020 09:16 AM VA-TOBACCO USE BELT PRESS OPERATOR NO [facility] [place] [facility] Jun 20, 2020 09:16 AM VA-TOBACCO USE MED NO [facility] [place] [facility] Jun 20, 2020 09:16 AM VA-TOBACCO USE [place] 30 MIN OF WAKEUP [facility] [place] [facility] Jun 20, 2020 09:16 AM VA-TOBACCO USER EVERY DAY [facility] [place] [facility] Jan 05, 2019 10:36 AM VA-TOBACCO USE 30 YEARS OR MORE [facility] [place] [facility] Jan 05, 2019 10:36 AM VA-TOBACCO USE ADVICE [facility] [place] [facility] Jan 05, 2019 10:36 AM VA-TOBACCO USE BELT PRESS OPERATOR NO [facility] [place] [facility] Jan 05, 2019 10:36 AM VA-TOBACCO USE MED NO [facility] [place] [facility] Jan 05, 2019 10:36 AM VA-TOBACCO USE [place] 30 MIN OF WAKEUP [facility] [place] [facility] Jan 05, 2019 10:36 AM VA-TOBACCO USER EVERY DAY [facility] [place] [facility] Jan 17, 2018 12:50 PM CURRENT SMOKER [facility] [place] [facility] Jan 17, 2018 12:50 PM V1-PT DECLINES REF TO TOBACCO CESS PRGM [facility] [place] [facility] Jan 17, 2018 12:50 PM V1-PT THINKING ABOUT QUIT TOBACCO USE [facility] [place] [facility] Jan 17, 2018 12:50 PM V1-TOBACCO CESS MEDS NOT PRESCRIBED Wants to quit on his own [facility] [place] [facility] Radiology Reports: +/- 30 days of the [...] the Encounter. The data comes from all MD treatment facilities. Date/Time Radiology Report Provider Source Nov 19, 2023 01:27 PM ABDOMINAL ULTRASOU ND: RACHELL ALEXANDER [id number] -[id number] M Exm Date: NOV 19, 2023@13:27 Req Phys: RENO DUBON Loc: CWM/NO/PACT 7 (Req'g Loc) Img Loc: ULTRASOUND Service: [facility] , (Case [id number] COMPLETE) ULTRASOUND ABDOMEN (US Detailed) CPT:85706 Reason for Study: upper -mid abdominal pain x 3 weeks Clinical History: Report Status: Verified Date Reported: NOV 19, 2023 Date Verified: NOV 19, 2023 Boilermaker Helper E-Sig:/ES/JOVAN BOYER JR Report: Study: Complete abdominal [...] Primary Interpreting Staff: JOVAN BOYER JR, Radiologist (Boilermaker Helper) /JOVAN MEDINA JR [facility] Encounter Notes: All associated encounter notes This section contains the clinical notes associated to the Encounter. Date/Time Encounter Note(s) Provider Source Nov 19, 2023 03:29 PM PHARMACY NOTE: LOCAL TITLE: V1 PHARMACY CUSTOMER CARE MEDICATION RENEWAL STANDARD TITLE: PHARMACY NOTE DATE OF NOTE: NOV 19, 2023@15:29 ENTRY DATE: NOV 19, 2023@15:29:33 AUTHOR: CHIQUI MO EXP COSIGNER: URGENCY: STATUS: COMPLETED V1 PHARMACY CUSTOMER CARE MEDICATION RENEWAL Has ADDENDA Date: Nov Division: [facility] referred by Pharmacy Call Center for medication renewal: Non-controlled/maintenanc e medication Medications requested: [id number]$ CYANOCOBALAMIN 500MCG TABLET To be mailed . Please review and renew if appropriate. *This note was generated by [facility] Pharm[facility] Customer Care. If you have any questions or need assistance, do not contact this author. Please refer all questions to your local, on-site pharmacy departments. /jefry/ Jon MO CPhT [employer], [place]/Pharmacy Customer Care Signed: 11/19/2023 15:29 Receipt Acknowledged By: 11/22/2023 06:46 /jefry/ Saul Jeffery DNP, QUANTITATIVE STRATEGY ANALYST-BC, CNL Primary Care Nurse Practitioner 11/19/2023 15:49 /jefry/ Chiqui Riley MSN RN CNL Primary Care RN 11/19/2023 ADDENDUM STATUS: COMPLETED Defer to PCP for requested renewal /jefry/ Chiqui Riley MSN RN CNL Primary Care RN Signed: 11/19/2023 15:50 CHIQUI MO [facility]
--- OUTSIDE RECORDS SUMMARY | 2024-06-03 17:19 | XMS_ITS | Encounter Summary ---
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 Name Role Phone JEREMY LOPEZ Primary Care Provider [facility] Insurance Providers: All historical and current [...] PART A Jul 08, 2002 PART A [id number] ALEXIS ALEXANDER PATIENT MEDICARE (WNR) MEDICARE (M) PART B Jul 08, 2002 PART B [id number] [phone] ALEXIS ALEXANDER PATIENT [facility] (R) MEDICARE ADVANTAGE [facility] ([facility]) Jun 10, 2007 [id number] ALEXIS ALEXANDER PATIENT [facility] (WNR) MEDICARE (M) [facility] ([facility]) Jun 10, 2020 [id number] [phone] ALEXIS ALEXANDER PATIENT Selected Encounter This section includes the information on record at [place] for the Encounter. Date/Time Encounter Type Encounter Description Reason Provider Source Feb 14, 2024 01:30 PM OFFICE O/P EST SF 10 MIN PODIATRY ICD-10-CM M21.612 Bunion of left foot REJI SNYDER [facility] Encounter Template Text not used by [place] Assessments - Encounter Diagnoses This section includes the primary and secondary diagnoses documented for the Encounter. Date/Time Primary/Secondary Diagnosis Diagnosis Name Provider Source Feb 16, 2024 03:41 PM PRIMARY Bunion of left foot REJI SNYDER [place] [facility] [place] [facility] Plan of Treatment: Future Appointments (+ 6 months) and Future Tests (+/- 45 days) The Plan of Treatment section includes future care activities for the [facility] [place] [facility] This section includes future appointments and future orders which are active, pending or scheduled. Future Appointments This section includes appointments that were scheduled to occur 6 months from the date of the Encounter, up to a maximum of 20 appointments. The data comes from all [place] treatment facilities. Appointment Date/Time Appointment Type Appointme nt Facility Name Feb 18, 2024 10:00 AM AMBULATORY - MEDICINE [facility] ([id number]) Feb 22, 2024 01:00 PM AMBULATORY - REHAB MEDICIN [facility] [place] [facility] Mar 08, 2024 01:00 PM AMBULATORY - MEDICINE [facility] [place] [facility] Mar 14, 2024 03:00 PM AMBULATORY - MEDICINE [facility] [place] [facility] Mar 24, 2024 01:30 PM AMBULATORY - MEDICINE [facility] [place] [facility] Jun 16, 2024 02:00 PM AMBULATORY - MEDICINE [facility] [place] [facility] Jun 23, 2024 02:20 PM AMBULATORY - MEDICINE [facility] [place] [facility] Aug 04, 2024 10:00 AM AMBULATORY - MEDICINE [facility] ([id number]) Lab Results: +/- 30 days of the encounter This section includes the Chemistry and Hematology Lab Results on record with [place] for the patient. Radiology Reports and Pathology Reports are provided separately, in subsequent sections. Lab Results This section contains the Chemistry/Hematology Results that were resulted 30 days before or 30 daysafter the date of the Encounter. Date/Time Source Result Type Result - Unit Interpretation Reference Range Comment Feb 10, 2024 01:46 PM [facility] PT & INR (PROTIME) Specimen Type: PLASMA No comment entered. Ordering Provider: NADER LOPEZ Report Released Date/Time: Feb 03, 2024 12:02 PM Reporting Lab: [facility] [address] [facility] [address] Performing Lab: [address] [address] INR 1.0 PROTIME 11.8 s 10.0-13.1 Feb 10, 2024 01:46 PM [facility] BASIC METABOLIC PANEL (non-fasting) Specimen Type: SERUM No comment entered. Ordering Provider: NADER LOPEZ Report Released Date/Time: Feb 03, 2024 12:02 PM Reporting Lab: [address] [address] Performing Lab: [address] [address] UREA NITROGEN 16 mg/dL 7-25 GLUCOSE 156 mg/dL H 65-100 SODIUM 142 mmol/L 135-145 POTASSIUM 4.4 mmol/L 3.5-5.0 CHLORIDE 103 mmol/L 100-110 CO2 28 meq/L 20-30 CREATININE, Serum 1.17 mg/dL 0.50-1.40 eGFR(CKD-EPI 2020) 60 mL/min >60 Feb 10, 2024 01:46 PM [facility] CBC AND DIFF (AUTO) Specimen Type: BLOOD No comment entered. Ordering Provider: NADER LOPEZ Report Released Date/Time: Feb 03, 2024 12:02 PM Reporting Lab: [address] [address] Performing Lab: [address] [address] WBC 5.81 10*3/uL 4.50-11.00 RBC 4.35 10*6/uL [...] 112/75 16 97 0 69.5 120.5 18 [facility] Social History: Smoking Status (Most current) and Tobacco Use (All prior to encounter date) This section includes the most current, and the historical, smoking and tobacco- related health factors from the [place] facility where the Encounter took place. Current Smoking Status This section includes the most current smoking, or tobacco-related health factor, from the [place] facility where the Encounter took place. Date/Time Current Smoking Status Comment Facil ity Aug 16, 2023 01:00 PM VA-TOBACCO USER EVERY DAY [facility] Tobacco Use History This section includes a history of the smoking, or tobacco-related health factors, that were collected on or before the date of the Encounter. The data comes from the [place] facility where the Encounter took place. Date/Time Smoking Status/Tobac co Use Comment Facility Aug 16, 2023 01:00 PM VA-TOBACCO USE ADVICE [facility] [place] [facility] Aug 16, 2023 01:00 PM VA-TOBACCO USE MANAGER E LEARNING NO [facility] [place] [facility] Aug 16, 2023 01:00 PM VA-TOBACCO USE MED NO [facility] [place] [facility] Aug 16, 2023 01:00 PM VA-TOBACCO USE WI 30 MIN OF WAKEUP [facility] [place] [facility] Aug 16, 2023 01:00 PM VA-TOBACCO USER EVERY DAY [facility] [place] [facility] September 10, 2022 11:30 AM VA-TOBACCO USE 30 YEARS OR MORE [facility] [place] [facility] September 10, 2022 11:30 AM VA-TOBACCO USE ADVICE [facility] [place] [facility] September 10, 2022 11:30 AM VA-TOBACCO USE MANAGER E LEARNING NO [facility] [place] [facility] September 10, 2022 11:30 AM VA-TOBACCO USE MED NO [facility] [place] [facility] September 10, 2022 11:30 AM VA-TOBACCO USE WI 30 MIN OF WAKEUP [facility] [place] [facility] September 10, 2022 11:30 AM VA-TOBACCO USER EVERY DAY [facility] [place] [facility] Aug 18, 2021 03:00 PM VA-TOBACCO USE 30 YEARS OR MORE [facility] [place] [facility] Aug 18, 2021 03:00 PM VA-TOBACCO USE ADVICE [facility] [place] [facility] Aug 18, 2021 03:00 PM VA-TOBACCO USE MANAGER E LEARNING NO [facility] [place] [facility] Aug 18, 2021 03:00 PM VA-TOBACCO USE MED NO [facility] [place] [facility] Aug 18, 2021 03:00 PM VA-TOBACCO USE WI 30 MIN OF WAKEUP [facility] [place] [facility] Aug 18, 2021 03:00 PM VA-TOBACCO USER EVERY DAY [facility] [place] [facility] Jun 20, 2020 09:16 AM VA-TOBACCO USE 30 YEARS OR MORE [facility] [place] [facility] Jun 20, 2020 09:16 AM VA-TOBACCO USE ADVICE [facility] [place] [facility] Jun 20, 2020 09:16 AM VA-TOBACCO USE MANAGER E LEARNING NO [facility] [place] [facility] Jun 20, 2020 09:16 AM VA-TOBACCO USE MED NO [facility] [place] [facility] Jun 20, 2020 09:16 AM VA-TOBACCO USE WI 30 MIN OF WAKEUP [facility] [place] [facility] Jun 20, 2020 09:16 AM VA-TOBACCO USER EVERY DAY [facility] [place] [facility] Jan 05, 2019 10:36 AM VA-TOBACCO USE 30 YEARS OR MORE [facility] [place] [facility] Jan 05, 2019 10:36 AM VA-TOBACCO USE ADVICE [facility] [place] [facility] Jan 05, 2019 10:36 AM VA-TOBACCO USE MANAGER E LEARNING NO [facility] [place] [facility] Jan 05, 2019 10:36 AM VA-TOBACCO USE MED NO [facility] [place] [facility] Jan 05, 2019 10:36 AM VA-TOBACCO USE WI 30 MIN OF WAKEUP [facility] [place] [facility] Jan 05, 2019 10:36 AM VA-TOBACCO USER EVERY DAY [facility] [place] [facility] Jan 17, 2018 12:50 PM CURRENT SMOKER [facility] [place] [facility] Jan 17, 2018 12:50 PM V1-PT DECLINES REF TO TOBACCO CESS PRGM [facility] [place] [facility] Jan 17, 2018 12:50 PM V1-PT THINKING ABOUT QUIT TOBACCO USE [facility] [place] [facility] Jan 17, 2018 12:50 PM V1-TOBACCO CESS MEDS NOT PRESCRIBED Wants to quit on his own [facility] [place] [facility] Radiology Reports: +/- 30 days of [...] the Encounter. The data comes from all [place] treatment facilities. Date/Time Radiology Report Provider Source Feb 14, 2024 01:[address] HEAD W/O CONT: RACHELL ALEXANDER [id number] -[id number] M Exm Date: FEB 14, 2024@13:38 Req Phys: JEREMY LOPEZ Loc: CWM/NO/PACT 7 (Req'g Loc) Img Loc: NHM/CT Service: [place] [address] (Case [id number] COMPLETE) CT HEAD W/O CONT (CT Detailed) CPT:18067 Reason for Study: head injury Clinical History: fell last night, hit his head, on xarelto Report Status: Verified Date Reported: FEB 14, 2024 Date Verified: FEB 14, 2024 [employer] E-Sig:/ES/JOVAN BOYER JR Report: Study: Noncontrast CT [...] Primary Interpreting Staff: JOVAN BOYER JR, Radiologist ([employer]) /JOVAN MEDINA JR [facility] Encounter Notes: All associated encounter notes This section contains the clinical notes associated to the Encounter. Date/Time Encounter Note(s) Provider Source Feb 14, 2024 02:44 PM PODIATRY NOTE: LOCAL TITLE: PODIATRY NOTE STANDARD TITLE: PODIATRY NOTE DATE OF NOTE: FEB 14, 2024@14:44 ENTRY DATE: FEB 14, 2024@14:44:07 AUTHOR: REJI SNYDER EXP COSIGNER: URGENCY: STATUS: COMPLETED Podiatry [facility] Follow up Provider: Reji Snyder Date: FEB 14, 2024 [address] T[address]O [address] [address] Aug 88 MALE [id number] PATIENT PHONE - Primary Care: JEREMY LOPEZ Follow up Visit Concern: Follow-up on elderly 88-year-old male with severe bilateral bunion deformities skin irritation on left bunion seen last week. Purpose of today's visit was to check left bunion and also to evaluate prescription footwear that was purchased and provided to patient from [facility]. Additionally to consider nighttime foot protection. Since last visit patient had a fall and bumped his head resulting in ecchymosis around his eye he was evaluated at urgent care and is overall stable. There were no lacerations. Subjective: Regarding left bunion not complaining of any open wound or drainage or irritation caregiver and patient both think area looks somewhat better. In he has been wearing his sneakers which are cut out. Hx:RVX FROM Aug TO Aug Service connections:Service Connected Disabilities with % Eligibility: NSC VERIFIED Medical problems active: Active Problem Chronic congestive heart failure I5 02/14/2024 JEREMY LOPEZ Epigastric pain R10.13 11/23/2023 JEREMY LOPEZ Long-term current use of anticoagul 08/27/2023 SELVIN WEBSTER Peripheral vascular disease I73.9 08/16/2023 JEREMY LOPEZ Thrombosis I74.3 08/16/2023 JEREMY LOPEZ Weight loss R63.4 09/11/2022 JEREMY LOPEZ Wedge fracture of lumbar vertebra S 07/30/2022 LAURIE GARCIA Solitary nodule of lung R91.1 05/29/2022 JEREMY LOPEZ Renal mass N28.89 05/29/2022 JEREMY LOPEZ Constipation (SCT [id number]) K59.00 05/29/2022 JEREMY LOPEZ Dizziness R42. 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 03/18/2018 JEREMY LOPEZ Benign Prostatic Hypertrophy Withou 01/20/2018 RENO DUBON Unilateral excision of hydrocele R6 01/20/2018 RENO DUBON Hyperlipidemia ([facility] [id number]) E78.5 01/20/2018 RENO DUBON Active mediciation: Active Outpatient Medications (including Supplies): Active Outpatient Medications Status 1) CYANOCOBALAMIN 500MCG TAB TAKE ONE TABLET BY MOUTH ACTIVE ONCE DAILY FOR VITAMIN SUPPLEMENTATION 2) EMPAGLIFLOZIN 10MG TAB TAKE ONE TABLET BY MOUTH ONCE ACTIVE DAILY 3) FLUTICASONE PROP 50MCG 120D NASAL INHL INSTILL 1 ACTIVE (S) SPRAY INTO EACH NOSTRIL TWICE DAILY FOR NASAL IRRITATION/INFLAMMATION 4) FUROSEMIDE 20MG TAB TAKE ONE-HALF TABLET BY MOUTH ACTIVE (S) ONCE DAILY TO REMOVE FLUID/CONTROL BLOOD PRESSURE 5) LACTULOSE 10GM/15ML ORAL SOLN TAKE 30 ML (2 ACTIVE (S) TABLESPOONS) BY MOUTH THREE TIMES A DAY NEEDED FOR CONSTIPATION 6) METOPROLOL TARTRATE 25MG TAB TAKE ONE-HALF TABLET BY ACTIVE MOUTH TWICE DAILY FOR BLOOD PRESSURE/HEART 7) NUTRITION SUPL ENSURE PLUS/VANILLA LIQ DRINK 1 CAN BY ACTIVE MOUTH THREE TIMES A DAY FOR NUTRITIONAL SUPPLEMENTATION 8) PANTOPRAZOLE NA 40MG EC TAB TAKE ONE TABLET BY MOUTH ACTIVE (S) TWICE DAILY BEFORE A MEAL FOR EXCESSIVE PRODUCTION OF STOMACH ACID 9) PEG 400 0.4%/PROP GLYCOL 0.3% OPH SOLN INSTILL 1 DROP ACTIVE INTO EACH EYE FOUR TIMES A DAY 10) RIVAROXABAN 20MG TAB TAKE ONE TABLET BY MOUTH EVERY ACTIVE EVENING - TAKE WITH FOOD 11) SENNOSIDES 8.6MG TAB TAKE TWO TABLETS BY MOUTH TWICE ACTIVE DAILY FOR CONSTIPATION 12) SIMVASTATIN 80MG TAB TAKE ONE-HALF TABLET BY MOUTH ACTIVE ONCE DAILY FOR CHOLESTEROL 13) SUCRALFATE 1GM TAB TAKE ONE TABLET BY MOUTH TWICE ACTIVE DAILY NEEDED 14) TAMSULOSIN HCL 0.4MG CAP TAKE ONE CAPSULE BY MOUTH AT ACTIVE BEDTIME Allergies: Data on this list may not be complete. Please check JLV. FACILITY ALLERGY/ADR -------- No Remote Allergy/ADR Data available for this patient [facility] [place] [facility] No Known Allergies Problem focused exam Left severe bunion deformity area of prior thin skin and irritation looks more durable and stable today with no clinical sign of infection present. No eminent worry for skin breakdown at this point Impression: 88-year-old frail male with severe bunion deformity left foot Currently stable Plan: -Will benefit from bunny boots that can be worn at bedtime to protect bunion area -Will benefit from a blowout patch to modify prescription footwear on the left side to accommodate bunion -Consult placed for this work to be done at [facility] in [place]. Follow-up:3 mons Return sooner if any fever chills nausea, vomiting increased redness, swelling, drianage, pain, or flu like symptoms, or go to nearest emergency room / urgent care for evaluation. -all sharpes cleared, processed and or disposed of according to SOP/MCP. -As part of the service the pertinent primary care, specialty care and urgent care notes have been reviewed as well as the patient's medication list, problem list, and current imaging as well as past imaging, laboratory data and other pertinent contributory consults. -All new and discontinued medications have been discussed in detail with the patient and or caregiver, including indications for additions and deletions, as well as possible side effects, interactions as foreseen, and risk of not taking as prescribed If applicable, the patient was advised clearly on application of wound care agents how to apply and when to apply. The patient was able to recitethis information back to the prescriber with good understanding and agreed to the plan of care as indicated above. -Plan of care discuss with the patient and or caregiver, including medical decision making which includes discussion of abnormal lab results, imaging and other diagnostic modalities as well as results of the physical exam and healthcare economics consultant opinions and recommendations as sought. Alternatives to surgery or outlined care above as appropriate have also been discussed. -The patient/ caregiver has displayed good understanding of above and with no further questions at this time. Patient is aware of next appointment and agrees to follow-up interval. Patient agrees to seek sooner follow up if any irregular events occur in between such as cardinal signs of infection, increased pain or deformity. -The on this visit was given information Spoke service and encouraged to enroll if not already having done so. /jefry/ REJI SNYDER DPM PODIATRY ATTENDING Signed: 02/16/2024 15:41 REJI SNYDER [facility]
--- OUTSIDE RECORDS SUMMARY | 2024-06-03 17:19 | XMS_ITS | Encounter Summary ---
Author Name [place] Address [address] [place] [address] Care Team Providers Care Fabric And Accessories Estimator Name Role Phone JEREMY LOPEZ Primary Care [...] PART A Jul 08, 2002 PART A [id number] ALEXIS ALEXANDER PATIENT MEDICARE (WNR) MEDICARE (M) PART B Jul 08, 2002 PART B [id number] [phone] ALEXIS ALEXANDER PATIENT [facility] (WNR) MEDICARE ADVANTAGE [employer] (WNR) Jun 10, 2007 [id number] ALEXIS ALEXANDER PATIENT [facility] (WNR) MEDICARE (M) [employer] (WNR) Jun 10, 2020 [id number] ALEXIS ALEXANDER PATIENT Selected Encounter This section includes the information on record at [place] for the Encounter. Date/Time Encounter Type Encounter Description Reason Provider Source Feb 22, 2024 01:00 PM HEARING AID REPAIR/MODIFYING AUDIOLOGY ICD-10-CM H61.21 Impacted cerumen, right ear [facility] Encounter Template Text not used by [place] Assessments - Encounter Diagnoses This section includes the primary and secondary diagnoses documented for the Encounter. Date/Time Primary/Secondary Diagnosis Diagnosis Name Provider Source Feb 22, 2024 01:49 PM PRIMARY Impacted cerumen, right ear MARIAMAJASPREET GILBERT Rosi [facility] Plan of Treatment: Future Appointments (+ 6 months) and Future Tests (+/- 45 days) The Plan of Treatment section includes future care activities for the patient from all [place] treatmentfaqu[facility] healthities. This section includes future appointments and future orders which are active, pending or scheduled. Future Appointments This section includes appointments that were scheduled to occur 6 months from the date of the Encounter, up to a maximum of 20 appointments. The data comes from all [place] treatment facilities. Appointment Date/Time Appointment Type Appointme nt Facility Name Mar 08, 2024 01:00 PM AMBULATORY - MEDICINE [facility] [place] [facility] Mar 14, 2024 03:00 PM AMBULATORY - MEDICINE [facility] [place] [facility] Mar 24, 2024 01:[address] [facility] [place] [facility] Jun 16, 2024 02:[address] [facility] [place] [facility] Jun 23, 2024 02:[address] [facility] [place] [facility] Aug 04, 2024 10:00 AM AMBULATORY - MEDICINE [facility] (6[facility]) Lab Results: +/- 30 days of the encounter This section includes the Chemistry and Hematology Lab Results on record with [place] for the patient. Radiology Reports and Pathology Reports are provided separately, in subsequent sections. Lab Results This section contains the Chemistry/Hematology Results that were resulted 30 days before or 30 daysafter the date of the Encounter. Date/Time Source Result Type Result - Unit Interpretation Reference Range Comment Feb 10, 2024 01:46 PM [facility] PT & INR (PROTIME) Specimen Type: PLASMA No comment entered. Ordering Provider: NADER LOPEZ Report Released Date/Time: Feb 03, 2024 12:02 PM Reporting Lab: [facility] [address] [id number] Performing Lab: [address] [address] INR 1.0 PROTIME 11.8 s 10.0-13.1 Feb 10, 2024 01:46 PM [facility] BASIC METABOLIC PANEL (non-fasting) Specimen Type: SERUM No comment entered. Ordering Provider: NADER LOPEZ Report Released Date/Time: Feb 03, 2024 12:02 PM Reporting Lab: [address] [address] Performing Lab: [address] [address] UREA NITROGEN 16 mg/dL 7-25 GLUCOSE 156 mg/dL H 65-100 SODIUM 142 mmol/L 135-145 POTASSIUM 4.4 mmol/L 3.5-5.0 CHLORIDE 103 mmol/L 100-110 CO2 28 meq/L 20-30 CREATININE, Serum 1.17 mg/dL 0.50-1.40 eGFR(CKD-EPI 2020) 60 mL/min >60 Feb 10, 2024 01:46 PM [facility] CBC AND DIFF (AUTO) Specimen Type: BLOOD No comment entered. Ordering Provider: NADER LOPEZ Report Released Date/Time: Feb 03, 2024 12:02 PM Reporting Lab: [address] [address] Performing Lab: [address] [address] WBC 5.81 10*3/uL 4.50-11.00 RBC 4.35 10*6/uL [...] and tobacco- related health factors from the [place] facility where the Encounter took place. Current Smoking Status This section includes the most current smoking, or tobacco-related health factor, from the [place] facility where the Encounter took place. Date/Time Current Smoking Status Comment [facility] Aug 16, 2023 01:00 PM VA-TOBACCO USER EVERY DAY [facility] Tobacco Use History This section includes a history of the smoking, or tobacco-related health factors, that were collected on or before the date of the Encounter. The data comes from the [place] facility where the Encounter took place. Date/Time Smoking Status/Tobac co Use Comment Facility Aug 16, 2023 01:00 PM [facility] Aug 16, 2023 01:00 PM VA-TOBACCO USE RESIDENTIAL PROPERTY CONSULTANT NO [place] [facility] Aug 16, 2023 01:00 PM VA-TOBACCO USE MED NO [facility] [place] [facility] Aug 16, 2023 01:00 PM VA-TOBACCO USE [place] 30 MIN OF WAKEUP [place] [facility] Aug 16, 2023 01:00 PM VA-TOBACCO USER EVERY DAY [facility] [place] [facility] September 10, 2022 11:30 AM VA-TOBACCO USE 30 YEARS OR MORE [facility] [place] [facility] September 10, 2022 11:30 AM VA-TOBACCO USE ADVICE [facility] [place] [facility] September 10, 2022 11:30 AM VA-TOBACCO USE RESIDENTIAL PROPERTY CONSULTANT NO [facility] [place] [facility] September 10, 2022 11:30 AM VA-TOBACCO USE MED NO [facility] [place] [facility] September 10, 2022 11:30 AM VA-TOBACCO USE [place] 30 MIN OF WAKEUP [facility] [place] [facility] September 10, 2022 11:30 AM VA-TOBACCO USER EVERY DAY [facility] [place] [facility] Aug 18, 2021 03:00 PM VA-TOBACCO USE 30 YEARS OR MORE [facility] [place] [facility] Aug 18, 2021 03:00 PM VA-TOBACCO USE ADVICE [facility] [place] [facility] Aug 18, 2021 03:00 PM VA-TOBACCO USE RESIDENTIAL PROPERTY CONSULTANT NO [facility] [place] [facility] Aug 18, 2021 03:00 PM VA-TOBACCO USE MED NO [facility] [place] [facility] Aug 18, 2021 03:00 PM VA-TOBACCO USE [place] 30 MIN OF WAKEUP [facility] [place] [facility] Aug 18, 2021 03:00 PM VA-TOBACCO USER EVERY DAY [facility] [place] [facility] Jun 20, 2020 09:16 AM VA-TOBACCO USE 30 YEARS OR MORE [facility] [place] [facility] Jun 20, 2020 09:16 AM VA-TOBACCO USE ADVICE [facility] [place] [facility] Jun 20, 2020 09:16 AM VA-TOBACCO USE RESIDENTIAL PROPERTY CONSULTANT NO [facility] [place] [facility] Jun 20, 2020 09:16 AM VA-TOBACCO USE MED NO [facility] [place] [facility] Jun 20, 2020 09:16 AM VA-TOBACCO USE [place] 30 MIN OF WAKEUP [facility] [place] [facility] Jun 20, 2020 09:16 AM VA-TOBACCO USER EVERY DAY [facility] Jan 05, 2019 10:36 AM VA-TOBACCO USE 30 YEARS OR MORE [facility] Jan 05, 2019 10:36 AM VA-TOBACCO USE ADVICE [facility] Jan 05, 2019 10:36 AM VA-TOBACCO USE RESIDENTIAL PROPERTY CONSULTANT NO [facility] Jan 05, 2019 10:36 AM VA-TOBACCO USE MED NO [facility] Jan 05, 2019 10:36 AM VA-TOBACCO USE [place] 30 MIN OF WAKEUP [facility] Jan 05, 2019 10:36 AM VA-TOBACCO USER EVERY DAY [facility] Jan 17, 2018 12:50 PM CURRENT SMOKER [facility] Jan 17, 2018 12:50 PM V1-PT DECLINES REF TO TOBACCO CESS PRGM [facility] Jan 17, 2018 12:50 PM V1-PT THINKING ABOUT QUIT TOBACCO USE [facility] Jan 17, 2018 12:50 PM V1-TOBACCO CESS MEDS NOT PRESCRIBED Wants to quit on his own [facility] Radiology Reports: +/- 30 days of [...] the Encounter. The data comes from all [facility] facilities. Date/Time Radiology Report Provider Source Feb 14, 2024 01:[address] HEAD W/O CONT: RACHELL ALEXANDER [id number] -1935 M Exm Date: FEB 14, 2024@13:38 Req Phys: JEREMY LOPEZ Loc: CWM/NO/PACT 7 (Req'g Loc) Img Loc: NHM/CT Service: Unknown [facility] [address] (Case [id number] COMPLETE) CT HEAD W/O CONT (CT Detailed) CPT:07662 Reason for Study: head injury Clinical History: fell last night, hit his head, on xarelto Report Status: Verified Date Reported: FEB 14, 2024 Date Verified: FEB 14, 2024 Safety Assistant E-Sig:/ES/JOVAN BOYER JR Report: Study: Noncontrast CT [...] Primary Interpreting Staff: JOVAN BOYER JR, Radiologist (Safety Assistant) /EAJOVAN [facility] Encounter Notes: All associated encounter notes This section contains the clinical notes associated to the Encounter. Date/Time Encounter Note(s) Provider Source Feb 22, 2024 01:45 PM AUDIOLOGY E & M NO TE: LOCAL TITLE: AUDIOLOGY CLINIC STANDARD TITLE: AUDIOLOGY E & M NOTE DATE OF NOTE: FEB 22, 2024@13:45 ENTRY DATE: FEB 22, 2024@13:45:38 AUTHOR: JASPREET SHAFFER COSIGNER: URGENCY: STATUS: COMPLETED Dx: Sensorineural hearing loss, bilateral was scheduled for hearing re-evaluation today. Otoscopy revealed occluding cerumen in the right ear, and nearly-occluding cerumen in the left ear. Tympanometry revealed a type As tympanogram for the right ear, and a type A tympanogram for the left ear. was issued bilateral Cell[employer]us Evolv AI BTEs on 08/26/22. Visual inspection of 's hearing aids revealed very hardened tubes full of cerumen. Maintenance was performed on 's hearing aids today. Initial listening check revealed both aids were weak. All debris was removed from the microphones, and the microphone covers, tone hooks, tubes, and batteries were replaced. Listening check post maintenance was positive for both hearing aids. Hearing re-evaluation could not be completed today due to occluding cerumen in the right ear. [place] was advised to contact his PCP to schedule an appointment for cerumen management. He was advised to reschedule his hearing evaluation if he continues to feel his hearing is diminished even after cerumen removal. Routine hearing aid maintenance was recommended in 6 months. /jefry/ Cuong Hanley, [facility]-A Data Governance Consultant Signed: 02/22/2024 13:51 JASPREET SHAFFER [place] [facility] [facility]
--- OUTSIDE RECORDS SUMMARY | 2024-06-03 17:19 | XMS_ITS ---
Author Name [facility] [place] Organization [place] Address [address] [place] [address] Care Team Providers Care Finance Clerk Name Role Phone JEREMY LOPEZ Primary Care [...] PART A Jul 08, 2002 PART A [id number] [phone] ALEXIS ALEXANDER PATIENT MEDICARE (WNR) MEDICARE (M) PART B Jul 08, 2002 PART B [id number] [id number] ALEXIS ALEXANDER PATIENT [facility] (WNR) MEDICARE ADVANTAGE [facility] (WNR) Jun 10, 2007 [id number] ALEXIS ALEXANDER PATIENT [facility] (WNR) MEDICARE (M) [facility] (WNR) Jun 10, 2020 1062 [id number] ALEXIS ALEXANDER PATIENT Selected Encounter This section includes the information on record at [place] for the Encounter. Date/Time Encounter Type Encounter Description Reason Pro vider Source May 22, 2024 11:08 AM Outpatient Encounter ADMIN PAT ACTIVTIES (MASNONCT) IHE Encounter Template Text not used by [place] Plan of Treatment: Future Appointments (+ 6 months) and Future Tests (+/- 45 days) The Plan of Treatment section includes future care activities for the patient from all [place] [facility]. This section includes future appointments and future orders which are active, pending or scheduled. Future Appointments This section includes appointments that were scheduled to occur 6 months from the date of the Encounter, up to a maximum of 20 appointments. The data comes from all [facility]. Appointment Date/Time Appointment Type Appointme nt Facility Name Jun 16, 2024 02:00 PM AMBULATORY - MEDICINE [facility] Jun 23, 2024 02:20 PM AMBULATORY MEDICINE [facility] Aug 04, 2024 10:00 AM AMBULATORY - MEDICINE [facility] (6[facility]) Active, Pending, and Scheduled Orders This section includes a listing of several types of active, pending, and scheduled orders, including clinic medications orders, diagnostic test orders, procedure orders and consult orders; where the start date of the order is 45 days before the date of the Encounter or 45 days after the date of theEncounter. The data comes from all [facility]. Test Date/Time Test Type Test Details Facility Name May 15, 2024 06:55 AM Consult Order COMMUNITY CARE-UROLOGY Cons Surface Grinder Tender's Choice [facility] May 22, 2024 12:00 AM Laboratory - Chemi stry Order CBC BLOOD (LAV-BLOOD) [facility] May 22, 2024 12:00 AM Laboratory - Chemi stry Order BASIC METABOLIC PANEL (non-fasting) BLOOD (SST-SERUM) [facility] May 22, 2024 12:00 AM Laboratory - Chemi stry Order LIPID PANEL, NON FASTING BLOOD (SST-SERUM) [facility] May 22, 2024 12:00 AM Laboratory - Chemi stry Order LIVER FUNCTION BLOOD (SST-SERUM) [facility] May 22, 2024 12:00 AM Laboratory - Chemi stry Order PT & INR (PROTIME) BLOOD (BLUE-PLASMA) SP [place] [facility] Social History: Smoking Status (Most current) and [...] VA-TOBACCO USE [place] 30 MIN OF WAKEUP [place] [facility] Tobacco Use History This section includes a history of the smoking, or tobacco-related health factors, that were collected on or before the date of the Encounter. The data comes from the [place] facility where the Encounter took place. Date/Time Smoking Status/Tobac co Use Comment Facility Aug 16, 2023 01:00 PM VA-TOBACCO USE ADVICE [place] [facility] Aug 16, 2023 01:00 PM VA-TOBACCO USE SHADE CLASSIFIER NO [place] [facility] [place] [facility] Aug 16, 2023 01:00 PM VA-TOBACCO USE MED NO [place] [place] [facility] Aug 16, 2023 01:00 PM VA-TOBACCO USE [place] 30 MIN OF WAKEUP [facility] [place] [facility] Aug 16, 2023 01:00 PM VA-TOBACCO USER EVERY DAY [facility] [place] [facility] September 10, 2022 11:30 AM VA-TOBACCO USE 30 YEARS OR MORE [facility] [place] [facility] September 10, 2022 11:30 AM VA-TOBACCO USE ADVICE [facility] [place] [facility] September 10, 2022 11:30 AM VA-TOBACCO USE SHADE CLASSIFIER NO [facility] [place] [facility] September 10, 2022 11:30 AM VA-TOBACCO USE MED NO [facility] [place] [facility] September 10, 2022 11:30 AM VA-TOBACCO USE [place] 30 MIN OF WAKEUP [facility] [place] [facility] September 10, 2022 11:30 AM VA-TOBACCO USER EVERY DAY [facility] [place] [facility] Aug 18, 2021 03:00 PM VA-TOBACCO USE 30 YEARS OR MORE [facility] [place] [facility] Aug 18, 2021 03:00 PM VA-TOBACCO USE ADVICE [facility] [place] [facility] Aug 18, 2021 03:00 PM VA-TOBACCO USE SHADE CLASSIFIER NO [facility] [place] [facility] Aug 18, 2021 03:00 PM VA-TOBACCO USE MED NO [facility] [place] [facility] Aug 18, 2021 03:00 PM VA-TOBACCO USE [place] 30 MIN OF WAKEUP [facility] [place] [facility] Aug 18, 2021 03:00 PM VA-TOBACCO USER EVERY DAY [facility] [place] [facility] Jun 20, 2020 09:16 AM VA-TOBACCO USE 30 YEARS OR MORE [facility] [place] [facility] Jun 20, 2020 09:16 AM VA-TOBACCO USE ADVICE [facility] [place] [facility] Jun 20, 2020 09:16 AM VA-TOBACCO USE SHADE CLASSIFIER NO [facility] [place] [facility] Jun 20, 2020 09:16 AM VA-TOBACCO USE MED NO [facility] [place] [facility] Jun 20, 2020 09:16 AM VA-TOBACCO USE [place] 30 MIN OF WAKEUP [facility] [place] [facility] Jun 20, 2020 09:16 AM VA-TOBACCO USER EVERY DAY [facility] [place] [facility] Jan 05, 2019 10:36 AM VA-TOBACCO USE 30 YEARS OR MORE [facility] [place] [facility] Jan 05, 2019 10:36 AM VA-TOBACCO USE ADVICE [facility] [place] [facility] Jan 05, 2019 10:36 AM VA-TOBACCO USE SHADE CLASSIFIER NO [facility] [place] [facility] Jan 05, 2019 10:36 AM VA-TOBACCO USE MED NO [facility] [place] [facility] Jan 05, 2019 10:36 AM VA-TOBACCO USE [place] 30 MIN OF WAKEUP [facility] [place] [facility] Jan 05, 2019 10:36 AM VA-TOBACCO USER EVERY DAY [facility] [place] [facility] Jan 17, 2018 12:50 PM CURRENT SMOKER [facility] Jan 17, 2018 12:50 PM V1-PT DECLINES REF TO TOBACCO CESS [facility] Jan 17, 2018 12:50 PM V1-PT THINKING ABOUT QUIT TOBACCO USE [facility] Jan 17, 2018 12:50 PM V1-TOBACCO CESS MEDS NOT PRESCRIBED Wants to quit on his own [facility] Encounter Notes: All associated encounter notes This section contains the clinical notes associated to the Encounter. Date/Time Encounter Note(s) Provider Source May 22, 2024 11:08 AM ADMINISTRATIVE NOTE: LOCAL TITLE: CCC: SCHEDULING ADMINISTRATION STANDARD TITLE: ADMINISTRATIVE NOTE DATE OF NOTE: MAY 22, 2024@11:08:30 ENTRY DATE: MAY 22, 2024@11:08:30 AUTHOR: RICK MOTTA EXP COSIGNER: URGENCY: STATUS: COMPLETED CCC: SCHEDULING ADMINISTRATION Has ADDENDA Patient Demographics Patient Name: RACHELL ALEXANDER Patient Primary Phone: [phone] Patient Primary Address: [address] [place] [address] Patient : 1935 Patient Age: 88 Call Back Number: [phone] Caller/Recipient Relation to Patient: Self Caller Name: RACHELL ALEXANDER Administrative Administrative Note Reason: Other Administrative Note Comments: is scheduled for PCP appt on 06/16/24. RTC states non fasting labs prior. This functional tester typewriters did not see any lab orders posted. IMPORTANT: This note was created by [facility] staff. Please do not alert the staff member by adding them as a signer for future communications. Alerts are not monitored by this user. /jefry/ RICK WEEMS 1 [facility] AMSA Signed: 05/22/2024 11:08 Receipt Acknowledged By: 05/23/2024 14:56 /es/ Momo Carcamo, Health Policy Officer FLUID PUMP OPERATOR,PRIMARY CARE 05/22/2024 11:32 /es/ Chiqui Riley MSN RN CNL Primary Care RN 05/22/2024 ADDENDUM STATUS: COMPLETED Non fasting labs ordered /es/ Chiqui Riley MSN RN CNL Primary Care RN Signed: 05/22/2024 11:32 RICK MOTTA [facility]L [facility]
--- OUTSIDE RECORDS SUMMARY | 2024-06-03 17:19 | XMS_ITS ---
Author Name [facility] Organization [facility] [place] Address [address] [place] [id number] Care Team Providers Care Credit Control Manager Name Role Phone SAUL JEFFERY Primary Care [...] PART A Jul 08, 2002 PART A [id number] [phone] ALEXIS ALEXANDER PATIENT MEDICARE (WNR) MEDICARE (M) PART B Jul 08, 2002 PART B [id number] [phone] ALEXIS ALEXANDER PATIENT [facility] (WNR) MEDICARE ADVANTAGE [facility] (WNR) Jun 10, 2007 [id number] ALEXIS ALEXANDER PATIENT [facility] (WNR) MEDICARE (M) [facility] (WNR) Jun 10, 2020 [id number] ALEXIS ALEXANDER PATIENT Selected Encounter This section includes the information on record at [place] for the Encounter. Date/Time Encounter Type Encounter Description Reason Pro vider Source May 27, 2024 12:10 PM Outpatient Encounter ADMIN PAT ACTIVTIES (MASNONCT) IHE Encounter Template Text not used by [place] Plan of Treatment: Future Appointments (+ 6 months) and Future Tests (+/- 45 days) The Plan of Treatment section includes future care activities for the patient [facility] all [place] [facility] This section includes future appointments and future orders which are active, pending or scheduled. Future Appointments This section includes appointments that were scheduled to occur 6 months from the date of the Encounter, up to a maximum of 20 appointments. The data comes from all [facility]. Appointment Date/Time Appointment Type Appointme nt Facility Name Jun 16, 2024 02:00 PM AMBULATORY - MEDICINE [facility] Jun 23, 2024 02:20 PM AMBULATORY - MEDICINE [facility] Aug 04, 2024 10:00 AM AMBULATORY - MEDICINE [facility] ([id number]) Active, Pending, and Scheduled Orders This section includes a listing of several types of active, pending, and scheduled orders, including clinic medications orders, diagnostic test orders, procedure orders and consult orders; where the start date of the order is 45 days before the date of the Encounter or 45 days after the date of theEncounter. The data comes from all [facility]. Test Date/Time Test Type Test Details Facility Name May 15, 2024 06:55 AM Consult Order COMMUNITY CARE-UROLOGY Cons Electrical Engineering Technologist's Choice [facility] May 22, 2024 12:00 AM Laboratory - Chemi stry Order BASIC METABOLIC PANEL (non-fasting) BLOOD (SST-SERUM) [facility] May 22, 2024 12:00 AM Laboratory - Chemi stry Order CBC BLOOD (LAV-BLOOD) [facility] May 22, 2024 12:00 AM Laboratory - Chemi stry Order LIPID PANEL, NON FASTING BLOOD (SST-SERUM) [facility] May 22, 2024 12:00 AM Laboratory - Chemi stry Order LIVER FUNCTION BLOOD (SST-SERUM) [facility] May 22, 2024 12:00 AM Laboratory - Chemi stry Order PT & INR (PROTIME) BLOOD (BLUE-PLASMA) [facility] [place] [facility] Social History: Smoking Status (Most current) and Tobacco Use (All prior to encounter date) This section includes the most current, and the historical, smoking and tobacco- related health factors from the [place] facility where the Encounter took place. Current Smoking Status This section includes the most current smoking, or tobacco-related health factor, from the [place] facility where the Encounter took place. Date/Time Current Smoking Status Comment Facil ity Aug 16, 2023 01:00 PM VA[facility]TOBACCO USER EVERY [facility] Tobacco Use History This section includes a history of the smoking, or tobacco-related health factors, that were collected on or before the date of the Encounter. The data comes from the [place] facility where the Encounter took place. Date/Time Smoking Status/Tobac co Use Comment Facility Aug 16, 2023 01:00 PM VA-TOBACCO USE ADVICE [facility] [place] [facility] Aug 16, 2023 01:00 PM VA-TOBACCO USE CLAM BED WORKER NO [facility] [place] [facility] Aug 16, 2023 01:00 PM VA-TOBACCO USE MED NO [facility] [place] [facility] Aug 16, 2023 01:00 PM VA-TOBACCO USE WI 30 MIN OF WAKEUP [facility] [place] [facility] Aug 16, 2023 01:00 PM VA-TOBACCO USER EVERY DAY [facility] [place] [facility] September 10, 2022 11:30 AM VA-TOBACCO USE 30 YEARS OR MORE [facility] [place] [facility] September 10, 2022 11:30 AM VA-TOBACCO USE ADVICE [facility] [place] [facility] September 10, 2022 11:30 AM VA-TOBACCO USE CLAM BED WORKER NO [facility] [place] [facility] September 10, 2022 11:30 AM VA-TOBACCO USE MED NO [facility] [place] [facility] September 10, 2022 11:30 AM VA-TOBACCO USE WI 30 MIN OF WAKEUP [facility] [place] [facility] September 10, 2022 11:30 AM VA-TOBACCO USER EVERY DAY [facility] [place] [facility] Aug 18, 2021 03:00 PM VA-TOBACCO USE 30 YEARS OR MORE [facility] [place] [facility] Aug 18, 2021 03:00 PM VA-TOBACCO USE ADVICE [facility] [place] [facility] Aug 18, 2021 03:00 PM VA-TOBACCO USE CLAM BED WORKER NO [facility] [place] [facility] Aug 18, 2021 03:00 PM VA-TOBACCO USE MED NO [facility] [place] [facility] Aug 18, 2021 03:00 PM VA-TOBACCO USE [place] 30 MIN OF WAKEUP [facility] [place] [facility] Aug 18, 2021 03:00 PM VA-TOBACCO USER EVERY DAY [facility] [place] [facility] Jun 20, 2020 09:16 AM VA-TOBACCO USE 30 YEARS OR MORE [facility] [place] [facility] Jun 20, 2020 09:16 AM VA-TOBACCO USE ADVICE [facility] [place] [facility] Jun 20, 2020 09:16 AM VA-TOBACCO USE CLAM BED WORKER NO [facility] [place] [facility] Jun 20, 2020 09:16 AM VA-TOBACCO USE MED NO [facility] [place] [facility] Jun 20, 2020 09:16 AM VA-TOBACCO USE [place] 30 MIN OF WAKEUP [facility] [place] [facility] Jun 20, 2020 09:16 AM VA-TOBACCO USER EVERY DAY [facility] [place] [facility] Jan 05, 2019 10:36 AM VA-TOBACCO USE 30 YEARS OR MORE [facility] [place] [facility] Jan 05, 2019 10:36 AM VA-TOBACCO USE ADVICE [facility] [place] [facility] Jan 05, 2019 10:36 AM VA-TOBACCO USE CLAM BED WORKER NO [facility] [place] [facility] Jan 05, 2019 10:36 AM VA-TOBACCO USE MED NO [facility] [place] [facility] Jan 05, 2019 10:36 AM VA-TOBACCO USE [place] 30 MIN OF WAKEUP [facility] [place] [facility] Jan 05, 2019 10:36 AM VA-TOBACCO USER EVERY DAY [facility] [place] [facility] Jan 17, 2018 12:50 PM CURRENT SMOKER [facility] Jan 17, 2018 12:50 PM V1-PT DECLINES REF TO TOBACCO CESS PRGM [facility] Jan 17, 2018 12:50 PM V1-PT THINKING ABOUT QUIT TOBACCO USE [facility] Jan 17, 2018 12:50 PM V1-TOBACCO CESS MEDS NOT PRESCRIBED Wants to quit on his own [facility] Encounter Notes: All associated encounter notes This section contains the clinical notes associated to the Encounter. Date/Time Encounter Note(s) Provider Source May 27, 2024 12:10 PM ADMINISTRATIVE NOT E: LOCAL TITLE: [facility]: SCHEDULING ADMINISTRATION STANDARD TITLE: ADMINISTRATIVE NOTE DATE OF NOTE: MAY 27, 2024@12:10 ENTRY DATE: MAY 27, 2024@12:10:35 AUTHOR: RONALD QUINTANILLA EXP COSIGNER: URGENCY: STATUS: COMPLETED Verify Patient Demographics Successfully verified patient demographics Transfer Patient to Other Services Action(s) Completed: Provided patient with general administrative information called the [facility] requesting to receive a new prescription for SIMVASTIN 80MG. /jefry/ RONALD WEEMS 2 [facility] AMSA Signed: 05/27/2024 12:12 Receipt Acknowledged By: 05/30/2024 14:58 /jefry/ Saul Jeffery DNP, PLATE CLEANER-BC, CNL Primary Care Nurse Practitioner RONALD QUINTANILLA [facility]
--- OUTSIDE RECORDS SUMMARY | 2024-06-03 17:19 | XMS_ITS ---
Author Name [facility] [place] [facility] [place] Address [address] [place] [id number] Care Team Providers Care Employment Director Name Role Phone JEREMY LOPEZ Primary Care Provider [facility] Insurance Providers: All historical and current [...] PART A Jul 08, 2002 PART A [id number] ALEXIS ALEXANDER PATIENT MEDICARE (WNR) MEDICARE (M) PART B Jul 08, 2002 PART B [id number] ALEXIS ALEXANDER PATIENT [facility] (R) MEDICARE ADVANTAGE [facility] ([facility]) Jun 10, 2007 [id number] ALEXIS ALEXANDER PATIENT [facility] (WNR) MEDICARE (M) [facility] ([facility]) Jun 10, 2020 [id number] [phone] ALEXIS ALEXANDER PATIENT Selected Encounter This section includes the information on record at [place] for the Encounter. Date/Time Encounter Type Encounter Description Reason Provider Source Feb 10, 2024 02:30 PM OFFICE O/P EST MOD 30 MIN PODIATRY ICD-10-CM M20.12 Hallux valgus (acquired), left foot CLAUDIO,REJI Alegria Sahil Encounter Template Text not used by [place] Assessments - Encounter Diagnoses This section includes the primary and secondary diagnoses documented for the Encounter. Date/Time Primary/Secondary Diagnosis Diagnosis Name Provider Source Feb 10, 2024 05:42 PM PRIMARY Hallux valgus (acquired), left foot CLAUDIO,REJI Alegria [place] [facility] [place] [facility] Feb 10, 2024 05:42 PM SECONDARY Bunion of left foot CLAUDIO,REJI Alegria [place] [facility] [place] [facility] Feb 10, 2024 05:42 PM SECONDARY Bunion of right foot CLAUDIO,REJI Alegria [place] [facility] [place] [facility] Feb 10, 2024 05:42 PM SECONDARY Hallux valgus (acquired), right foot CLAUDIO,REJI [place]legria [place] [facility] [place] [facility] Feb 10, 2024 05:42 PM SECONDARY Nail dystrophy CLAUDIO,REJI Alegria [place] [facility] [place] [facility] Feb 10, 2024 05:42 PM SECONDARY Other hammer toe(s) (acquired), left foot CLAUDIO,REJI Alegria [place] [facility] [place] [facility] Feb 10, 2024 05:42 PM SECONDARY Other hammer toe(s) (acquired), right foot CLAUDIO,REJI Alegria [place] [facility] [place] [facility] Plan of Treatment: Future Appointments (+ 6 months) and Future Tests (+/- 45 days) The Plan of Treatment section includes future care activities for the patient from all [place] treatmentfacilities. This section includes future appointments and future orders which are active, pending or scheduled. Future Appointments This section includes appointments that were scheduled to occur 6 months from the date of the Encounter, up to a maximum of 20 appointments. The data comes from all [place] treatment facilities. Appointment Date/Time Appointment Type Appointme nt Facility Name Feb 14, 2024 01:00 PM [place] [facility] [place] [facility] Feb 14, 2024 01:30 PM [place] [facility] [place] [facility] Feb 14, 2024 02:00 PM AMBUL[place] - NONE [place] [facility] [place] [facility] Feb 18, 2024 10:00 AM AMBULATORY - MEDICINE [facility] ([id number] Feb 22, 2024 01:00 PM AMBULATORY - [facility]HAB [facility]ICIN [facility] [place] [facility] Mar 08, 2024 01:00 PM [place] [facility] [place] [facility] Mar 14, 2024 03:00 PM [place] [facility] [place] [facility] Mar 24, 2024 01:30 PM [place] [facility] [place] [facility] Jun 16, 2024 02:00 PM [place] [facility] [place] [facility] Jun 23, 2024 02:20 PM [place] [facility] [place] [facility] Aug 04, 2024 10:00 AM AMBULATORY - MEDICINE [facility] ([id number]) Lab Results: +/- 30 days of [...] Range Comment Feb 10, 2024 01:[address] [facility] PT & INR (PROTIME) Specimen Type: PLASMA No comment entered. Ordering Provider: NADER LOPEZ Report Released Date/Time: Feb 03, 2024 12:02 PM Reporting [facility] [address] [address] Performing Lab: [facility] [address] [address] INR 1.0 PROTIME 11.8 s 10.0-13.1 Feb 10, 2024 01:[address] [facility] BASIC METABOLIC PANEL (non-fasting) Specimen Type: SERUM No comment entered. Ordering Provider: NADER LOPEZ Report Released Date/Time: Feb 03, 2024 12:02 PM Reporting Lab: [facility] [address] [address] Performing Lab: [facility] [address] [facility] [address] UREA NITROGEN 16 mg/dL 7-25 GLUCOSE 156 mg/dL H 65-100 SODIUM 142 mmol/L 135-145 POTASSIUM 4.4 mmol/L 3.5-5.0 CHLORIDE 103 mmol/L 100-110 CO2 28 meq/L 20-30 CREATININE, Serum 1.17 mg/dL 0.50-1.40 eGFR(CKD-EPI 2020) 60 mL/min >60 Feb 10, 2024 01:46 PM [facility] CBC AND DIFF (AUTO) Specimen Type: BLOOD No comment entered. Ordering Provider: NADER LOPEZ Report Released Date/Time: Feb 03, 2024 12:02 PM Reporting Lab: [facility] [address] [facility] [address] Performing Lab: [facility] [address] [facility] [address] WBC 5.81 10*3/uL 4.50-11.00 RBC 4.35 10*6/uL [...] took place. Date/Time Current Smoking Status Comment [facility] it Aug 16, 2023 01:00 PM VA-TOBACCO USE [place] 30 MIN OF WAKEUP [place] [facility] [place] [facility] Tobacco Use History This section includes a history of the smoking, or tobacco-related health factors, that were collected on or before the date of the Encounter. The data comes from the [place] facility where the Encounter took place. Date/Time Smoking Status/Tobac co Use Comment Facility Aug 16, 2023 01:00 PM VA-TOBACCO USE ADVICE [facility] [place] [facility] Aug 16, 2023 01:00 PM VA-TOBACCO USE OYSTER GROWER NO [facility] [place] [facility] Aug 16, 2023 01:00 PM VA-TOBACCO USE MED NO [facility] [place] [facility] Aug 16, 2023 01:00 PM VA-TOBACCO USE [place] 30 MIN OF WAKEUP [facility] [place] [facility] Aug 16, 2023 01:00 PM VA-TOBACCO USER EVERY DAY [facility] [place] [facility] September 10, 2022 11:30 AM VA-TOBACCO USE 30 YEARS OR MORE [facility] [place] [facility] September 10, 2022 11:30 AM VA-TOBACCO USE ADVICE [facility] [place] [facility] September 10, 2022 11:30 AM VA-TOBACCO USE OYSTER GROWER NO [facility] [place] [facility] September 10, 2022 11:30 AM VA-TOBACCO USE MED NO [facility] [place] [facility] September 10, 2022 11:30 AM VA-TOBACCO USE [place] 30 MIN OF WAKEUP [facility] [place] [facility] September 10, 2022 11:30 AM VA-TOBACCO USER EVERY DAY [facility] [place] [facility] Aug 18, 2021 03:00 PM VA-TOBACCO USE 30 YEARS OR MORE [facility] [place] [facility] Aug 18, 2021 03:00 PM VA-TOBACCO USE ADVICE [facility] [place] [facility] Aug 18, 2021 03:00 PM VA-TOBACCO USE OYSTER GROWER NO [facility] [place] [facility] Aug 18, 2021 03:00 PM VA-TOBACCO USE MED NO [facility] [place] [facility] Aug 18, 2021 03:00 PM VA-TOBACCO USE [place] 30 MIN OF WAKEUP [facility] [place] [facility] Aug 18, 2021 03:00 PM VA-TOBACCO USER EVERY DAY [facility] [place] [facility] Jun 20, 2020 09:16 AM VA-TOBACCO USE 30 YEARS OR MORE [facility] [place] [facility] Jun 20, 2020 09:16 AM VA-TOBACCO USE ADVICE [facility] [place] [facility] Jun 20, 2020 09:16 AM VA-TOBACCO USE OYSTER GROWER NO [facility] [place] [facility] Jun 20, 2020 09:16 AM VA-TOBACCO USE MED NO [facility] [place] [facility] Jun 20, 2020 09:16 AM VA-TOBACCO USE [place] 30 MIN OF WAKEUP [facility] [place] [facility] Jun 20, 2020 09:16 AM VA-TOBACCO USER EVERY DAY [facility] [place] [facility] Jan 05, 2019 10:36 AM VA-TOBACCO USE 30 YEARS OR MORE [facility] [place] [facility] Jan 05, 2019 10:36 AM VA-TOBACCO USE ADVICE [facility] [place] [facility] Jan 05, 2019 10:36 AM VA-TOBACCO USE OYSTER GROWER NO [facility] [place] [facility] Jan 05, 2019 10:36 AM VA-TOBACCO USE MED NO [facility] [place] [facility] Jan 05, 2019 10:36 AM VA-TOBACCO USE [place] 30 MIN OF WAKEUP [facility] [place] Jan 05, 2019 10:36 AM VA-TOBACCO USER EVERY DAY [facility] Jan 17, 2018 12:50 PM CURRENT SMOKER [facility] Jan 17, 2018 12:50 PM V1-PT DECLINES REF TO TOBACCO CESS PRGM [facility] Jan 17, 2018 12:50 PM V1-PT THINKING ABOUT QUIT TOBACCO USE [facility] Jan 17, 2018 12:50 PM V1-TOBACCO CESS MEDS NOT PRESCRIBED Wants to quit on his own [facility] Radiology Reports: +/- 30 days [...] the Encounter. The data comes from all [facility] facilities. Date/Time Radiology Report Provider Source Feb 14, 2024 01:[address] HEAD W/O CONT: RACHELL ALEXANDER [id number] -[id number] M Exm Date: FEB 14, 2024@13:38 Req Phys: JEREMY LOPEZ Loc: CWM/NO/PACT 7 (Req'g Loc) Img Loc: NHM/CT Service: [place] [address] (Case [id number] COMPLETE) CT HEAD W/O CONT (CT Detailed) CPT:32087 Reason for Study: head injury Clinical History: fell last night, hit his head, on xarelto Report Status: Verified Date Reported: FEB 14, 2024 Date Verified: FEB 14, 2024 Heel Cover Splitter E-Sig:/ES/JOVAN BOYER JR Report: Study: Noncontrast CT [...] Primary Interpreting Staff: JOVAN BOYER JR, Radiologist (Heel Cover Splitter) /JOVAN MEDINA JR [place] [facility] Encounter Notes: All associated encounter notes This section contains the clinical notes associated to the Encounter. Date/Time Encounter Note(s) Provider Source Feb 10, 2024 03:08 PM PODIATRY NOTE: LOCAL TITLE: PODIATRY NOTE STANDARD TITLE: PODIATRY NOTE DATE OF NOTE: FEB 10, 2024@15:08 ENTRY DATE: FEB 10, 2024@15:08:41 AUTHOR: REJI SNYDER EXP COSIGNER: URGENCY: STATUS: COMPLETED Podiatry [facility] Follow up Provider: Reji Snyder Date: FEB 10, 2024 RACHELL TAMAYO [place] [id number] Aug 88 MALE [id number] PATIENT PHONE - Primary Care: JEREMY LOPEZ Follow up Visit Concern: left bunion irritation Hx:[employer] FROM Aug TO Aug Interval history: Since last visit patient has been admitted to [facility] where he apparently was found on echocardiogram prior to a possible cardiac catheterization procedure to have an ejection fraction of 20. He was told that he had limited time to live and should go on hospice. Patient comes in today with his he is ambulatory to some extent around the house he uses a walker he is not on oxygen. 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 Able to bend over and put shoes and socks on himself. No reported fevers chills nausea or vomiting but still dealing with stomach issues. Possible diverticulitis. Service connections:Service Connected Disabilities with % Eligibility: NSC VERIFIED Medical problems active: Active Problem Epigastric pain R10.13 11/23/2023 JEREMY LOPEZ Long-term current use of anticoagul 08/27/2023 SELVIN WEBSTER Peripheral vascular disease I73.9 08/16/2023 JEREMY LOPEZ Thrombosis I74.3 08/16/2023 JEREMY LOPEZ Weight loss R63.4 09/11/2022 JEREMY LOPEZ Wedge fracture of lumbar vertebra S 07/30/2022 LAURIE GARCIAH Solitary nodule of lung R91.1 05/29/2022 JEREMY LOPEZ Renal mass N28.89 05/29/2022 JEREMY LOPEZ Constipation ([facility] [id number]) K59.00 05/29/2022 JEREMY LOPEZ Dizziness R42. 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 03/18/2018 JEREMY LOPEZ Benign Prostatic Hypertrophy Withou 01/20/2018 RENO DUBON Unilateral excision of hydrocele R6 01/20/2018 RENO DUBON Hyperlipidemia ([facility] [id number]) E78.5 01/20/2018 RENO DUBON Active mediciation: Active Outpatient Medications (including Supplies): Active Outpatient Medications Status 1) CYANOCOBALAMIN 500MCG TAB TAKE ONE TABLET BY MOUTH ACTIVE ONCE DAILY FOR VITAMIN SUPPLEMENTATION 2) EMPAGLIFLOZIN 10MG TAB TAKE ONE TABLET BY MOUTH ONCE ACTIVE DAILY 3) FUROSEMIDE 20MG TAB TAKE ONE TABLET BY MOUTH ONCE ACTIVE DAILY TO REMOVE FLUID/CONTROL BLOOD PRESSURE 4) LACTULOSE 10GM/15ML ORAL SOLN TAKE 30 ML (2 ACTIVE TABLESPOONS) BY MOUTH THREE TIMES A DAY NEEDED FOR CONSTIPATION 5) METOPROLOL TARTRATE 25MG TAB TAKE ONE-HALF TABLET BY ACTIVE MOUTH TWICE DAILY FOR BLOOD PRESSURE/HEART 6) NUTRITION SUPL ENSURE PLUS/VANILLA LIQ DRINK 1 CAN BY ACTIVE MOUTH THREE TIMES A DAY FOR NUTRITIONAL SUPPLEMENTATION 7) PANTOPRAZOLE NA 40MG EC TAB TAKE ONE TABLET BY MOUTH ACTIVE TWICE DAILY BEFORE A MEAL FOR EXCESSIVE PRODUCTION OF STOMACH ACID 8) PEG 400 0.4%/PROP GLYCOL 0.3% OPH SOLN INSTILL 1 DROP ACTIVE INTO EACH EYE FOUR TIMES A DAY 9) RIVAROXABAN 20MG TAB TAKE ONE TABLET BY MOUTH EVERY ACTIVE EVENING - TAKE WITH FOOD 10) SENNOSIDES 8.6MG TAB TAKE TWO TABLETS BY MOUTH TWICE ACTIVE DAILY FOR CONSTIPATION 11) SIMVASTATIN 80MG TAB TAKE ONE-HALF TABLET BY MOUTH ACTIVE ONCE DAILY FOR CHOLESTEROL 12) SUCRALFATE 1GM TAB TAKE ONE TABLET BY MOUTH TWICE ACTIVE DAILY NEEDED 13) TAMSULOSIN HCL 0.4MG CAP TAKE ONE CAPSULE BY MOUTH AT ACTIVE BEDTIME Allergies: Data on this list may not be complete. Please check [facility]. FACILITY ALLERGY/ADR -------- No Remote Allergy/ADR Data available for this patient [facility] No Known Allergies PE: Frail but stable appearing 88-year-old male with good steady eye contact able to speak in full sentences without gasping breathing without dyspnea, able to bend over and put socks on himself, and take shoes off himself. Able to stand and walk 10 to 20 feet without assistance. Physical exam lower extremity: Nonpalpable DP PT pulses Today pulses are dopplerable the anterior tibial pulses is biphasic the posterior tibial pulses weak monophasic dorsalis pedis pulses stable strong monophasic There is no edema present in either extremity No evidence of venous stasis or lymphatic disease bilaterally There is pedal hair on the hallux and some lesser toes bilaterally Skin is thin however and atrophic especially in the area of the left severe bunion. Structural exam with pes planus severe hallux valgus with prominent bunion[representing the head of the first metatarsal dislocated] There are laterally deviated and hammered digits bilaterally 2 through 5 There is a small dorsal callus on the right fourth toe debrided down to normal tissue The medial bunion on the left foot is erythematous but not warm or hot this tissues are thin. Plantar skin is intact heels are intact No other areas of potential breakdown or concern Nails Are elongated but minimally dystrophic Impression: -Patient does not appear to have the constitution of a patient with a ejection fraction of 20%. Pulses are quite strong on the Doppler also. -He has a severe hallux valgus deformity in the left bunion is covered with quite thin skin but is not eminent in terms of breakdown. -There is no acute evidence of PVD tier ischemia- Plan:\ -From interview with the patient and the patient's it appears that patient spends more of his time sleeping with his left foot potentially in the bed surface and possibly causing this seemingly unilateral skin breakdown or irritation. A foam booty may help -I have also given them tube foam which can be worn with a sock to help cushion the area at nighttime -They have sneakers which are cut out to protect his foot from the bunion and this is appropriate -We have ordered them and they have received custom molded shoes from [facility] but there are some issues with fitting which they would like me to address and therefore they will bring them back on Wednesday. -Nails were trimmed today -Patient and are reassured Follow-up on Wednesday wound clinic with shoes for evaluation and further decision making Return sooner if any fever chills nausea, [...] as results of the physical exam and sales development consultant opinions and recommendations as sought. Alternatives [...] -The on this visit was given information [employer] service and encouraged to enroll if not already having done so. /jefry/ REJI SNYDER DPM PODIATRY ATTENDING Signed: 02/10/2024 17:42 REJI SNYDER [place] [facility]
--- OUTSIDE RECORDS SUMMARY | 2024-06-03 17:19 | XMS_ITS ---
Author Name [facility] [place] [facility] [place] Organization [facility] [place] Address [address] [place] [id number] Care Team Providers Care End Polisher Name Role Phone JEREMY LOPEZ Primary Care Provider [facility] [place] Insurance Providers: All historical and current Section [...] PART A Jul 08, 2002 PART A [id number] ALEXIS ALEXANDER PATIENT MEDICARE (WNR) MEDICARE (M) PART B Jul 08, 2002 PART B [id number] [id number] [phone] ALEXIS ALEXANDER PATIENT [facility] (WNR) MEDICARE ADVANTAGE [facility] ([facility]) Jun 10, 2007 [id number] ALEXIS ALEXANDER PATIENT [facility] (WNR) MEDICARE (M) [facility] ([facility]) Jun 10, 2020 [id number] [phone] ALEXIS ALEXANDER PATIENT Selected Encounter This section includes the information on record at [place] for the Encounter. Date/Time Encounter Type Encounter Description Reason Provider Source Nov 04, 2023 09:30 AM OFFICE O/P EST MOD 30 MIN PRIMARY CARE/MEDICINE ICD-10-CM R10.10 Upper abdominal pain, unspecified RAD DUBON Sahil Encounter Template Text not used by [place] Assessments - Encounter Diagnoses This section includes the primary and secondary diagnoses documented for the Encounter. Date/Time Primary/Secondary Diagnosis Diagnosis Name Provider Source Nov 04, 2023 10:22 AM PRIMARY Upper abdominal pain, unspecified RAD DUBON [place] [facility] [place] [facility] Plan of Treatment: Future Appointments (+ 6 months) and Future Tests (+/- 45 days) The Plan of Treatment section includes future care activities for the patient from all [place] [facility] This section includes future appointments and future orders which are active, pending or scheduled. Future Appointments This section includes appointments that were scheduled to occur 6 months from the date of the Encounter, up to a maximum of 20 appointments. The data comes from all [place] treatment facilities. Appointment Date/Time Appointment Type Appointme nt Facility Name Nov 05, 2023 08:15 AM AMBULATORY - NONE [facility] [place] [facility] Nov 19, 2023 08:30 AM AMBULATORY - MEDICINE [place] [facility] [facility] Nov 19, 2023 02:00 PM AMBULATORY - NONE [facility] [place] [facility] Nov 22, 2023 03:00 PM AMBULATORY - MEDICINE [facility] [facility] Dec 02, 2023 08:00 AM AMBULATORY - MEDICINE [place] [facility] [facility] Dec 02, 2023 10:00 AM AMBULATORY - MEDICINE [place] [facility] [facility] Jan 14, 2024 10:00 AM AMBULATORY - MEDICINE [facility] ([id number] Feb 10, 2024 02:30 PM AMBULATORY - MEDICINE [place] [facility] [place] [facility] Feb 14, 2024 01:00 PM AMBULATORY - MEDICINE [facility] [facility] Feb 14, 2024 01:30 PM AMBULATORY - MEDICINE [facility] [place] [facility] Feb 14, 2024 02:00 PM AMBULATORY - NONE [facility] [facility] Feb 18, 2024 10:00 AM AMBULATORY - MEDICINE [facility] ([id number]) Feb 22, 2024 01:00 PM AMBULATORY - REHAB MEDICIN E [facility] [place] [facility] Mar 08, 2024 01:00 PM AMBULATORY - MEDICINE [facility] [place] [facility] Mar 14, 2024 03:00 PM AMBULATORY - MEDICINE [place] [facility] [place] [facility] Mar 24, 2024 01:30 PM AMBULATORY - MEDICINE [place] [facility] [place] [facility] Lab Results: +/- 30 days of the [...] Range Comment Nov 19, 2023 01:29 PM [facility] CA 19-9 (q) Specimen Type: SERUM Comment: REFERENCE RANGE: <34 U/mL This test was performed using the Siemens chemiluminescent method. Values obtained from different assay methods cannot be used inter- changeably. CA 19-9 levels, regardless of value, should not be interpreted as absolute evidence of the presence or absence of disease. Test Performed by Email Data [facility], [employer] [facility], [address] [place] [address] Grayson Dooley M.D., Ph.D., Director of Laboratories , [place] [id number] TEST PERFORMED AT: , Ordering Provider: RENO DUBON Report Released Date/Time: Nov 04, 2023 03:38 PM Reporting Lab: [place] [facility] [facility] [address] [facility] [address] Performing Lab: [place] [facility] [facility] [address] [address] CA 19-9 17 SEE BELOW Nov 19, 2023 01:29 PM [place] [facility] [facility] BASIC METABOLIC PANEL (non-fasting) Specimen Type: SERUM No comment entered. Ordering Provider: RENO DUBON Report Released Date/Time: Nov 04, 2023 10:06 AM Reporting Lab: [facility] [address] [facility] [address] Performing Lab: [facility] [address] [facility] [address] UREA NITROGEN 28 mg/dL H 7-25 GLUCOSE 136 mg/dL H 65-100 SODIUM 145 mmol/L 135-145 POTASSIUM 4.1 mmol/L 3.5-5.0 CHLORIDE 107 mmol/L 100-110 CO2 29 meq/L 20-30 CREATININE, Serum 0.89 mg/dL 0.50-1.40 eGFR(CKD-EPI 2020) 83 mL/min >60 Nov 19, 2023 01:29 PM [facility] LIVER FUNCTION Specimen Type: SERUM No comment entered. Ordering Provider: RENO DUBON Report Released Date/Time: Nov 04, 2023 10:06 AM Reporting Lab: [facility] [address] [facility] [address] Performing Lab: [address] [address] PROTEIN,TOTA L 6.0 g/dL 6.0-8.3 ALBUMIN 3.7 g/dL 3.5-5.0 ALKALINE PHOSPHATASE 79 U/L 40-150 AST 11 U/L 5-34 ALT 13 U/L BILIRUBIN, TOTAL 0.6 mg/dL 0.2-1.2 Nov 19, 2023 01:29 PM [facility] AMYLASE Specimen Type: SERUM No comment entered. Ordering Provider: RENO DUBON Report Released Date/Time: Nov 04, 2023 10:06 AM Reporting Lab: [facility] [address] [facility] [address] Performing Lab: [facility] [address] AMYLASE 33 U/L 25-125 Nov 19, 2023 01:29 PM [facility] LIPASE Specimen Type: SERUM No comment entered. Ordering Provider: RENO DUBON Report Released Date/Time: Nov 04, 2023 10:06 AM Reporting Lab: [facility] [address] [facility] [address] Performing Lab: [facility] [address] [facility] [address] LIPASE 14 U/L 8-82 Nov 19, 2023 01:29 PM [facility] CBC AND DIFF (AUTO) Specimen Type: BLOOD No comment entered. Ordering Provider: RENO DUBON Report Released Date/Time: Nov 04, 2023 10:06 AM Reporting Lab: [facility] [address] [facility] [address] Performing Lab: [facility] [address] [facility] [address] WBC 4.83 10*3/uL 4.50-11.00 RBC 4.09 10*6/uL [...] Height Weight Body Mass Index Source Nov 04, 2023 09:37 AM 98.2 95 119/70 20 98 0 68 124 19 [place] [facility] [facility] Social History: Smoking Status (Most [...] place. Date/Time Current Smoking Status Comment [facility] Aug 16, 2023 01:00 PM VA-TOBACCO USER EVERY DAY [facility] Tobacco Use History This section includes a history of the smoking, or tobacco-related health factors, that were collected on or before the date of the Encounter. The data comes from the [place] facility where the Encounter took place. Date/Time Smoking Status/Tobac co Use Comment Facility Aug 16, 2023 01:00 PM VA-TOBACCO USE ADVICE [place] [facility] [facility] Aug 16, 2023 01:00 PM VA-TOBACCO USE CARDIAC SONOGRAPHER NO [place] [facility] [facility] Aug 16, 2023 01:00 PM VA-TOBACCO USE MED NO [place] [facility] [facility] Aug 16, 2023 01:00 PM VA-TOBACCO USE WI 30 MIN OF WAKEUP [place] [facility] [facility] Aug 16, 2023 01:00 PM VA-TOBACCO USER EVERY DAY [facility] [facility] September 10, 2022 11:30 AM VA-TOBACCO USE 30 YEARS OR MORE [facility] [facility] September 10, 2022 11:30 AM VA-TOBACCO USE ADVICE [place] [facility] [place] [facility] September 10, 2022 11:30 AM VA-TOBACCO USE CARDIAC SONOGRAPHER NO [place] [facility] [place] [facility] September 10, 2022 11:30 AM VA-TOBACCO USE MED NO [facility] [facility] September 10, 2022 11:30 AM VA-TOBACCO USE WI 30 MIN OF WAKEUP [facility] [place] [facility] September 10, 2022 11:30 AM VA-TOBACCO USER EVERY DAY [facility] [place] [facility] Aug 18, 2021 03:00 PM VA-TOBACCO USE 30 YEARS OR MORE [facility] [place] [facility] Aug 18, 2021 03:00 PM VA-TOBACCO USE ADVICE [facility] [facility] Aug 18, 2021 03:00 PM VA-TOBACCO USE CARDIAC SONOGRAPHER NO [facility] [facility] Aug 18, 2021 03:00 PM VA-TOBACCO USE MED NO [facility] [place] [facility] Aug 18, 2021 03:00 PM VA-TOBACCO USE WI 30 MIN OF WAKEUP [facility] [place] [facility] Aug 18, 2021 03:00 PM VA-TOBACCO USER EVERY DAY [facility] [facility] Jun 20, 2020 09:16 AM VA-TOBACCO USE 30 YEARS OR MORE [facility] [facility] Jun 20, 2020 09:16 AM VA-TOBACCO USE ADVICE [facility] [place] [facility] Jun 20, 2020 09:16 AM VA-TOBACCO USE CARDIAC SONOGRAPHER NO [facility] [place] [facility] Jun 20, 2020 09:16 AM VA-TOBACCO USE MED NO [facility] [place] [facility] Jun 20, 2020 09:16 AM VA-TOBACCO USE WI 30 MIN OF WAKEUP [facility] [place] [facility] Jun 20, 2020 09:16 AM VA-TOBACCO USER EVERY DAY [facility] [facility] Jan 05, 2019 10:36 AM VA-TOBACCO USE 30 YEARS OR MORE [facility] [facility] Jan 05, 2019 10:36 AM VA-TOBACCO USE ADVICE [facility] [facility] Jan 05, 2019 10:36 AM VA-TOBACCO USE CARDIAC SONOGRAPHER NO [facility] [facility] Jan 05, 2019 10:36 AM VA-TOBACCO USE MED NO [facility] Jan 05, 2019 10:36 AM VA-TOBACCO USE WI 30 MIN OF WAKEUP [facility] Jan 05, 2019 10:36 AM VA-TOBACCO USER EVERY DAY [facility] Jan 17, 2018 12:50 PM CURRENT SMOKER [facility] Jan 17, 2018 12:50 PM V1-PT DECLINES REF TO TOBACCO CESS PRGM [facility] Jan 17, 2018 12:50 PM V1-PT THINKING ABOUT QUIT TOBACCO USE [facility] Jan 17, 2018 12:50 PM V1-TOBACCO CESS MEDS NOT PRESCRIBED Wants to quit on his own [facility] Radiology Reports: +/- 30 days of the [...] 01:27 PM ABDOMINAL ULTRASOU [place]: RACHELL ALEXANDER [id number] -[id number] M Exm Date: NOV 19, 2023@13:27 Req Phys: RENO DUBON Pat Loc: CWM/NO/PACT 7 (Req'g Loc) Img Loc: ULTRASOUND Service: Unknown [facility] , (Case [id number] COMPLETE) ULTRASOUND ABDOMEN (US Detailed) CPT:79391 Reason for Study: upper -mid abdominal pain x 3 weeks Clinical History: Report Status: Verified Date Reported: NOV 19, 2023 Date Verified: NOV 19, 2023 Chain Person E-Sig:/ES/JOVAN BOYER JR Report: Study: Complete abdominal [...] Primary Interpreting Staff: JOVAN BOYER JR, Radiologist (Chain Person) /JOVAN MEDINA JR [facility] Encounter Notes: All associated encounter notes This section contains the clinical notes associated to the Encounter. Date/Time Encounter Note(s) Provider Source Nov 05, 2023 09:00 AM ADDENDUM: LOCAL TITLE: Addendum STANDARD TITLE: ADDENDUM DATE OF NOTE: NOV 05, 2023@09:00:52 ENTRY DATE: NOV 05, 2023@09:00:52 AUTHOR: CARLITOS ROBLERO EXP COSIGNER: URGENCY: STATUS: COMPLETED Mr. Alexander failed to report for his ultrasound appointment today. Please F/U with patient and cancel this order if no longer needed. Patient can call radiology at ext [phone] if he wishes to r/s. /jefry/ CARLITOS ROBLERO CRIME SPECIALIST Signed: 11/05/2023 09:02 Receipt Acknowledged By: 11/06/2023 14:18 /jefry/ RENO DUBON NP NURSE PRACTITIONER --- Original Document --- 11/04/23 NURSE PRACTITIONER OUTPATIENT NOTE: CC Presents today for abd pain x 3 weeks HPI This is an 88 y/o male with history of Denies any recent fever, chills, cough, chest pain, sob, dizziness. Seen in ED 10/12/23 for left flank pain. That has now resolved unless with specific movement. Vet reports a few days after ED visit, developed abdominal pain, upper mid abdominal. Right in the pit of my stomach. No nausea or vomiting, + decreaed appetite, no bloating. No change in bowel habits. NO dark stools or blood in stool. No reflux symptoms. +Increased fatigue. Abdominal pain is not stabbing in nature, feels like a dull ache. No change in symptoms with food. 7 pounds unexplained weight loss since August. No fever, chills, joint pain or rashes. No increased belching or flatus. Seen in [facility] ED 10/12/23: A/P: 88-year-old male with medical history significant for DVT on Xarelto, BPH, diverticulitis, JOSIAH, hyperlipidemia and renal mass who presents to the emergency department for evaluation of right flank pain since last night. He is afebrile with stable vitals and well-appearing. History and physical as stated above. Labs, UA were obtained from triage. Given a dose of Tylenol with good relief of his discomfort. Will obtain CT of the abdomen pelvis to further evaluate for ureterolithiasis, spontaneous retroperitoneal hematoma given his Xarelto use, vs lower rib fractures. Labs are grossly unremarkable. CBC reveals no leukocytosis, no left shift, no signs of anemia. BMP is without any electrolyte abnormalities and baseline kidney function. LFTs are within normal limits no signs of hepatobiliary disease. Lipase is within normal is no signs of pancreatitis. Urine is clean with no signs of infection. CT of the abdomen pelvis shows no acute abnormality. Does show the known right renal mass. This discussed with patient and he is already aware of it. MEDICATIONS: Active and Recently Outpatient Medications (excluding Supplies): Active Outpatient Medications Status 1) CHOLECALCIF 50MCG (D3-2,000UNIT) TAB TAKE ONE TABLET ACTIVE BY MOUTH ONCE DAILY FOR VITAMIN SUPPLEMENTATION 2) MULTIVIT/OPHTH AREDS2/LUTE/ZEAX CAP/TAB TAKE 1 ACTIVE CAPSULE BY MOUTH TWICE DAILY IN THE MORNING AND EVENING, WITH FOOD 3) PANTOPRAZOLE NA 20MG EC TAB TAKE ONE TABLET BY MOUTH ACTIVE TWICE DAILY BEFORE A MEAL FOR EXCESSIVE PRODUCTION OF STOMACH ACID 4) PEG 400 0.4%/PROP GLYCOL 0.3% OPH SOLN INSTILL 1 DROP ACTIVE INTO EACH EYE FOUR TIMES A DAY 5) RIVAROXABAN 20MG TAB TAKE ONE TABLET BY MOUTH EVERY ACTIVE EVENING WITH DINNER 6) SIMVASTATIN 80MG TAB TAKE ONE-HALF TABLET BY MOUTH ACTIVE ONCE DAILY FOR CHOLESTEROL 7) TAMSULOSIN HCL 0.4MG CAP TAKE ONE CAPSULE BY MOUTH AT ACTIVE BEDTIME ROS See HPI PE General: Very thin male, moist mucous membranes HEENT PERRLA, EOMIs, B/L intact TMs,no lymphadenopathy, no lesions/exudate of posterior pharynx, tongue midline without lesions RESP clear to auscultation bilaterally CV RR S1 S2 (-) Pedal Edema GI BS + x 4, soft, nontender, nondistended, no rebound or guarding NEURO CN II-XII without focal deficit, gait steady without shuffle, MENTAL A&Ox3 Appropriate, Pleasant, Cooperative VITALS 98.2 F [36.8 C] (11/04/2023 09:37) 95 (11/04/2023 09:37) 20 (11/04/2023 09:37) 119/70 (11/04/2023 09:37) 0 (11/04/2023 09:37) 68 in [172.7 cm] (11/04/2023 09:37) 124 lb [56.25 kg] (11/04/2023 09:37) BMI: 18.9 A/P Mid-upper abdominal pain x 3 weeks -CT abd and pelvis from [facility] without acute findings, ordered for [facility] US-- scheduled for tomorrow -vet is on pantoprazole 20mg BID, consult to GI-- declines VA due to distance. -abd not acute on exam, no tenderness elicited -rest, maintain good hydration -ordered for labs -adv if worsening or new sx, go to nearest ED. Vet verbalized understanding and agrees. Vet was offered US today at 1:30, declines, aggress to tomorrwow at 8:15am. Medication Reconciliation: Outpatient: Has the patient been [...] whether with a VA or non-VA provider. /yael DUBON NP NURSE PRACTITIONER Signed: 11/04/2023 10:24 11/04/2023 ADDENDUM STATUS: COMPLETED Vet is active smoker, smokes 1/2 pack per week, denies ETOH. /yael DUBON NP NURSE PRACTITIONER Signed: 11/04/2023 10:26 11/04/2023 ADDENDUM STATUS: COMPLETED Order Ca19-9 as well. /yael DUBON NP NURSE PRACTITIONER Signed: 11/04/2023 15:40 [facility]OS ROBLERO [facility] Nov 04, 2023 09:49 AM PRIMARY CARE NURSE PRACTITIONER OUTPATIENT NOTE: LOCAL TITLE: NURSE PRACTITIONER OUTPATIENT NOTE STANDARD TITLE: PRIMARY CARE NURSE PRACTITIONER OUTPATIENT NOTE DATE OF NOTE: NOV 04, 2023@09:49 ENTRY DATE: NOV 04, 2023@09:50:03 AUTHOR: RENO DUBON COSIGNER: URGENCY: STATUS: COMPLETED NURSE PRACTITIONER OUTPATIENT NOTE Has ADDENDA CC Presents today for abd pain x 3 weeks HPI This is an 88 y/o male with history of Denies any recent fever, chills, cough, chest pain, sob, dizziness. Seen in ED 10/12/23 for left flank pain. That has now resolved unless with specific movement. Vet reports a few days after ED visit, developed abdominal pain, upper mid abdominal. Right in the pit of my stomach. No nausea or vomiting, + decreaed appetite, no bloating. No change in bowel habits. NO dark stools or blood in stool. No reflux symptoms. +Increased fatigue. Abdominal pain is not stabbing in nature, feels like a dull ache. No change in symptoms with food. 7 pounds unexplained weight loss since August. No fever, chills, joint pain or rashes. No increased belching or flatus. Seen in [facility] ED 10/12/23: A/P: 88-year-old male with medical history significant for DVT on Xarelto, BPH, diverticulitis, JOSIAH, hyperlipidemia and renal mass who presents to the emergency department for evaluation of right flank pain since last night. He is afebrile with stable vitals and well-appearing. History and physical as stated above. Labs, UA were obtained from triage. Given a dose of Tylenol with good relief of his discomfort. Will obtain CT of the abdomen pelvis to further evaluate for ureterolithiasis, spontaneous retroperitoneal hematoma given his Xarelto use, vs lower rib fractures. Labs are grossly unremarkable. CBC reveals no leukocytosis, no left shift, no signs of anemia. BMP is without any electrolyte abnormalities and baseline kidney function. LFTs are within normal limits no signs of hepatobiliary disease. Lipase is within normal is no signs of pancreatitis. Urine is clean with no signs of infection. CT of the abdomen pelvis shows no acute abnormality. Does show the known right renal mass. This discussed with patient and he is already aware of it. MEDICATIONS: Active and Recently Outpatient Medications (excluding Supplies): Active Outpatient Medications Status 1) CHOLECALCIF 50MCG (D3-2,000UNIT) TAB TAKE ONE TABLET ACTIVE BY MOUTH ONCE DAILY FOR VITAMIN SUPPLEMENTATION 2) MULTIVIT/OPHTH AREDS2/LUTE/ZEAX CAP/TAB TAKE 1 ACTIVE CAPSULE BY MOUTH TWICE DAILY IN THE MORNING AND EVENING, WITH FOOD 3) PANTOPRAZOLE NA 20MG EC TAB TAKE ONE TABLET BY MOUTH ACTIVE TWICE DAILY BEFORE A MEAL FOR EXCESSIVE PRODUCTION OF STOMACH ACID 4) PEG 400 0.4%/PROP GLYCOL 0.3% OPH SOLN INSTILL 1 DROP ACTIVE INTO EACH EYE FOUR TIMES A DAY 5) RIVAROXABAN 20MG TAB TAKE ONE TABLET BY MOUTH EVERY ACTIVE EVENING WITH DINNER 6) SIMVASTATIN 80MG TAB TAKE ONE-HALF TABLET BY MOUTH ACTIVE ONCE DAILY FOR CHOLESTEROL 7) TAMSULOSIN HCL 0.4MG CAP TAKE ONE CAPSULE BY MOUTH AT ACTIVE BEDTIME ROS See HPI PE General: Very thin male, moist mucous membranes HEENT PERRLA, EOMIs, B/L intact TMs,no lymphadenopathy, no lesions/exudate of posterior pharynx, tongue midline without lesions RESP clear to auscultation bilaterally CV RR S1 S2 (-) Pedal Edema GI BS + x 4, soft, nontender, nondistended, no rebound or guarding NEURO CN II-XII without focal deficit, gait steady without shuffle, MENTAL A&Ox3 Appropriate, Pleasant, Cooperative VITALS 98.2 F [36.8 C] (11/04/2023 09:37) 95 (11/04/2023 09:37) 20 (11/04/2023 09:37) 119/70 (11/04/2023 09:37) 0 (11/04/2023 09:37) 68 in [172.7 cm] (11/04/2023 09:37) 124 lb [56.25 kg] (11/04/2023 09:37) BMI: 18.9 A/P Mid-upper abdominal pain x 3 weeks -CT abd and pelvis from [facility] without acute findings, ordered for [facility] US-- scheduled for tomorrow -vet is on pantoprazole 20mg BID, consult to GI-- declines VA due to distance. -abd not acute on exam, no tenderness elicited -rest, maintain good hydration -ordered for labs -adv if worsening or new sx, go to nearest ED. Vet verbalized understanding and agrees. Vet was offered US today at 1:30, declines, aggress to tomorrwow at 8:15am. Medication Reconciliation: Outpatient: Has the patient been [...] whether with a VA or non-VA provider. /yael DUBON NP NURSE PRACTITIONER Signed: 11/04/2023 10:24 11/04/2023 ADDENDUM STATUS: COMPLETED Vet is active smoker, smokes 1/2 pack per week, denies ETOH. /yael DUBON NP NURSE PRACTITIONER Signed: 11/04/2023 10:26 11/04/2023 ADDENDUM STATUS: COMPLETED Order Ca19-9 as well. /yael DUBON NP NURSE PRACTITIONER Signed: 11/04/2023 15:40 11/05/2023 ADDENDUM STATUS: COMPLETED Mr. Alexander failed to report for his ultrasound appointment today. Please F/U with patient and cancel this order if no longer needed. Patient can call radiology at ext [phone] if he wishes to r/s. /jefry/ CARLITOS ROBLERO CRIME SPECIALIST Signed: 11/05/2023 09:02 Receipt Acknowledged By: * AWAITING SIGNATURE * RENO DUBON [facility] Nov 04, 2023 09:39 AM PREVENTIVE MEDICINE NURSING NOTE: LOCAL TITLE: CLINICAL REMINDERS/NURSING STANDARD TITLE: PREVENTIVE MEDICINE NURSING NOTE DATE OF NOTE: NOV 04, 2023@09:39 ENTRY DATE: NOV 04, 2023@09:39:13 AUTHOR: MOMO MCMAHON EXP COSIGNER: URGENCY: STATUS: COMPLETED Homelessness/Food Insecurity Screen: In the past 2 months, have you been living in stable housing that you own, rent, or stay in as part of a household? Yes - Living in stable housing. Are you worried or concerned that in the next 2 months you may NOT have stable housing that you own, rent, or stay in as part of a household? No - Not worried about housing near future The reports the following: Within the past 12 months, you worried whether your food would run out before you got money to buy more. Never true Within the past 12 months, the food you bought just didn't last and you didn't have money to get more. Never true /jefry/ Momo Mcmahon [facility] [employer] Operator SENIOR JAVA WEB DEVELOPER,PRIMARY CARE Signed: 11/04/2023 09:42 MOMO MCMAHON [facility]
--- OUTSIDE RECORDS SUMMARY | 2024-06-03 17:19 | XMS_ITS | Continuity of Care Document ---
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 It does not include entries that were removed or entered in error. Problem Status Onset Date Problem Type Date of Resolution Comments Source Unilateral excision of hydrocele Active 05/10/19 18 Condition [facility] Benign Prostatic Hypertrophy Without Outflow Obstruction (SCT 905038091) Active Condition [facility] Chronic congestive heart failure Active Condition [facility] Constipation (SCT 74388192) Active Condition [facility] Divert[facility]itis [facility] D[facility]iness [facility] Ep[facility]astric [facility] Gastroesophageal reflux disease Active [facility] Hyperlipidemia (SCT 05777511) Active Condition [facility] Legionella infection Active Condition [facility] Lipoma Active Condition [facility] Long-term current use of anticoagulant Active Condition [facility] ([facility]) Nephropathy Active Condition [facility] Peripheral vascular disease Active Condition [facility] Renal mass Active Condition May 29, 2022 Entered By: LETICIA LOPEZ Comment: ct scan 05/26/2022 3.1cm mass left kidney. Consult to urology. [facility] Solitary nodule of lung Active Condition May 29, 2022 Entered By: LETICIA LOPEZ Comment: 05/2022 3mm nod left lower lobe. 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12 Hallux valgus (acquired), left foot Active Diagnosis [facility] Diagnosis: ICD-10-CM I50.9 Heart failure, unspecified Active Diagnosis [facility] Diagnosis: ICD-10-CM Z71.9 Counseling, unspecified Active Diagnosis [facility] Diagnosis: ICD-10-CM R91.1 Solitary pulmonary nodule Active Diagnosis [facility] Diagnosis: ICD-10-CM N28.89 Other specified disorders of kidney and ureter Active Diagnosis [facility] Diagnosis: ICD-10-CM 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 Active Diagnosis [facility] Diagnosis: ICD-10-CM R10.10 Upper abdominal pain, unspecified Active Diagnosis [facility] Diagnosis: ICD-10-CM Z79.01 detention (current) use of anticoagulants Active Diagnosis [facility] (6[facility]) Diagnosis: ICD-10-CM I73.9 Peripheral vascular disease, unspecified Active Diagnosis [facility] Diagnosis: ICD-10-CM R93.89 Abnormal findings on dx imaging of oth body structures [facility] Diagnosis: ICD-10-CM 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 Medication Details Route Status Patient Instructions Prescription Expires Prescription Number Last Dispense Date Ordering Provider Order Date Order Qty Source CARBAMIDE PEROXIDE 6.5%/GLYCER IN SOLN,OTIC INSTILL 5 DROPS INTO EACH EAR ONCE DAILY FOR EAR WAX BLOCKAGE [facility] LAR (OTIC) DISCONT INUED 03/24/2024 [id number] JEREMY LOPEZ 2023 15 [facility] CARBAMIDE PEROXIDE 6.5%/GLYCER IN SOLN,OTIC INSTILL 5 DROPS INTO EACH EAR ONCE DAILY FOR EAR WAX BLOCKAGE AURICU LAR (OTIC) 04/13/2024 [id number] 4 JEREMY LOPEZ 2023 15 [facility] CYANOCOBALA MIN 500MCG TAB TAKE ONE TABLET BY MOUTH ONCE DAILY FOR VITAMIN SUPPLEME NTATION ORAL ACTIVE 11/20/2024 [id number] 5 JEREMY TALLEY 2023 100 [facility] CYANOCOBALA MIN 500MCG TAB TAKE ONE TABLET BY MOUTH ONCE DAILY FOR VITAMIN SUPPLEME NTATION ORAL 08/13/2023 [id number] 4 JEREMY LOPEZ 2022 100 [facility] EMPAGLIFLOZ IN 10MG TAB TAKE ONE TABLET BY MOUTH ONCE DAILY ORAL ACTIVE 12/23/2024 [id number] 4 MARGARITO GATES 2023 90 [facility] ENSURE PLUS LIQUID VANILLA DRINK 1 CAN BY MOUTH THREE TIMES A DAY FOR NUTRITIO NAL SUPPLEME NTATION ORAL ACTIVE 01/19/2025 [id number] 4 JEREMY LOPEZ 2023 96 [facility] ENSURE PLUS LIQUID VANILLA DRINK 1 CAN BY MOUTH ONCE DAILY FOR NUTRITIO NAL SUPPLEME NTATION ORAL DISCONT INUED (EDIT) 01/11/2025 [id number] 4 JEREMY LOPEZ 2023 48 [facility] ENSURE PLUS LIQUID VANILLA DRINK 1 CAN BY MOUTH ONCE DAILY FOR NUTRITIO NAL SUPPLEME NTATION ORAL DISCONT INUED 09/19/2023 [id number] JEREMY LOPEZ 2022 48 [facility] FLUTICASONE PROPIONATE 50MCG/SPRAY SOLN,NASAL, 16GM INSTILL 1 SPRAY INTO EACH NOSTRIL TWICE DAILY FOR NASAL IRRITATI ON/INFLA MMATION NASAL ACTIVE 02/14/2025 [id number] 4 JEREMY LOPEZ 2023 1 [facility] FUROSEMIDE 20MG TAB TAKE ONE-HALF TABLET BY MOUTH ONCE DAILY TO REMOVE FLUID/CO NTROL BLOOD PRESSURE ORAL ACTIVE 02/14/2025 [id number] 4 JEREMY LOPEZ 2023 30 [facility] FUROSEMIDE 20MG TAB TAKE ONE TABLET BY MOUTH ONCE DAILY TO REMOVE FLUID/CO NTROL BLOOD PRESSURE ORAL DISCONT INUED (EDIT) 01/31/2025 [id number] [facility] 2023 60 [facility] GENTAMICIN SO4 0.3% SOLN,OPH INSTILL 2 DROPS INTO THE LEFT EYE EVERY 6 HOURS FOR EYE INFECTIO N CAUSED BY BACTERIA OPHTHA LMIC 01/21/2024 [id number] 4 JEREMY LOPEZ 2023 5 [facility] LACTULOSE 10GM/15ML SOLN,ORAL TAKE 30 ML (2 TABLESPO ONS) BY MOUTH THREE TIMES A DAY NEEDED FOR CONSTIPA TION ORAL ACTIVE 02/14/2025 [id number] 5 JEREMY LOPEZ 2023 473 [facility] LACTULOSE 10GM/15ML SOLN,ORAL TAKE 30 ML (2 TABLESPO ONS) BY MOUTH THREE TIMES A DAY NEEDED FOR CONSTIPA TION ORAL DISCONT INUED 03/01/2024 [id number] 4 [facility] 2023 473 [facility] METOPROLOL TARTRATE 25MG TAB TAKE ONE-HALF TABLET BY MOUTH TWICE DAILY FOR BLOOD PRESSURE /HEART ORAL ACTIVE 01/31/2025 [id number] 4 [facility] 2023 60 [facility] MULTIVIT/OP HTH AREDS2/LUTE IN/ZEAXANTH IN CAP/TAB TAKE 1 CAPSULE BY MOUTH TWICE DAILY IN THE MORNING AND EVENING, WITH FOOD ORAL ACTIVE 03/04/2025 [id number] 4 MCGUIRE,LAC EY J 2023 120 [facility] MULTIVIT/OP HTH AREDS2/LUTE IN/ZEAXANTH IN CAP/TAB TAKE 1 CAPSULE BY MOUTH TWICE DAILY IN THE MORNING AND EVENING, WITH FOOD ORAL DISCONT INUED 02/06/2024 [id number] 4 MCGUIRE,LAC EY J 2022 120 [facility] PANTOPRAZOL E NA 20MG TAB,EC TAKE ONE TABLET BY MOUTH TWICE DAILY BEFORE A MEAL FOR EXCESSIV E PRODUCTI ON OF STOMACH ACID ORAL ACTIVE 02/17/2025 [id number] JEREMY LOPEZ 2023 180 [facility] PANTOPRAZOL E NA 20MG TAB,EC TAKE ONE TABLET BY MOUTH TWICE DAILY BEFORE A MEAL FOR EXCESSIV E PRODUCTI ON OF STOMACH ACID ORAL DISCONT INUED (EDIT) 08/16/2024 [id number] 4 JEREMY LOPEZ 2023 180 [facility] PANTOPRAZOL E NA 40MG TAB,EC TAKE ONE TABLET BY MOUTH TWICE DAILY BEFORE A MEAL FOR EXCESSIV E PRODUCTI ON OF STOMACH ACID ORAL DISCONT INUED (EDIT) 02/14/2025 [id number] 4 JEREMY LOPEZ 2023 180 [facility] PANTOPRAZOL E NA 40MG TAB,EC TAKE ONE TABLET BY MOUTH TWICE DAILY BEFORE A MEAL FOR EXCESSIV E PRODUCTI ON OF STOMACH ACID ORAL DISCONT INUED 02/29/2024 [id number] NATE GARCIA 2023 180 [facility] PEG-400 0.4%/PROPYL BRINA GLYCOL 0.3% SOLN,OPH INSTILL 1 DROP INTO EACH EYE THREE TIMES A DAY FOR DRY EYE OPHTHA LMIC ACTIVE 03/15/2025 [id number] Jon NOVAK 2023 30 [facility] PEG-400 0.4%/PROPYL BRINA GLYCOL 0.3% SOLN,OPH INSTILL 1 DROP INTO EACH EYE FOUR TIMES A DAY OPHTHA LMIC DISCONT INUED 03/22/2024 [id number] 3 Jon NOVAK 2022 60 [facility] RIVAROXABAN 20MG TAB TAKE ONE TABLET BY MOUTH EVERY EVENING - TAKE WITH FOOD ORAL ACTIVE 11/19/2024 [id number] 4 MARGARITO GATES 2023 90 [facility] RIVAROXABAN 20MG TAB TAKE ONE TABLET BY MOUTH EVERY EVENING WITH DINNER ORAL 11/17/2023 [id number] 4 MARGARITO GATES 2023 90 [facility] SENNOSIDES 8.6MG TAB TAKE TWO TABLETS BY MOUTH TWICE DAILY FOR CONSTIPA TION ORAL ACTIVE 01/03/2025 [id number] 4 JEREMY LOPEZ 2023 400 [facility] SIMVASTATIN 80MG TAB TAKE ONE-HALF TABLET BY MOUTH ONCE DAILY FOR CHOLESTE ROL ORAL SUSPEND ED 05/31/2025 [id number] 5 JEREMY LOPEZ 2024 45 [facility] SIMVASTATIN 80MG TAB TAKE ONE-HALF TABLET BY MOUTH ONCE DAILY FOR CHOLESTE ROL ORAL DISCONT INUED 06/04/2024 [id number] 5 JEREMY LOPEZ 2023 45 [facility] SUCRALFATE 1GM TAB TAKE ONE TABLET BY MOUTH TWICE DAILY NEEDED ORAL ACTIVE 11/22/2024 [id number] 4 JEREMY LOPEZ 2023 60 [facility] TAMSULOSIN HCL 0.4MG CAP TAKE ONE CAPSULE BY MOUTH AT BEDTIME ORAL ACTIVE 07/09/2024 [id number] COYNE,WILL NINA 2023 90 [facility] Immunizations Combined list of available immunizations from the Department of Defense and Veterans Affairs facilities. Immunization Series Date Given Administered By Site Reaction Lot Number CVX Code Drug Associate Scientist Status Comments Source INFLUENZA, HIGH-DOSE, TRIVALENT, PF 2023 RONNY KHOURY LEFT DELTO ID [id number] A 135 complet ed [facility] INFLUENZA, HIGH-DOSE, QUADRIVALENT 2023 [place] LEFT DELTO ID [id number] A 197 complet ed [facility] INFLUENZA, UNSPECIFIED FORMULATION 2021 88 complet ed [facility] COVID-19 (MODERNA), MRNA, LNP-S, PF, 100 MCG/0.5ML DOSE OR 50 MCG/0.25ML DOSE 3 2021 207 complet ed MOD; [id number]; 2 [facility] INFLUENZA VACCINE, QUADRIVALENT, ADJUVANTED 2020 205 complet ed [facility] TDAP 2020 115 complet ed [facility] ZOSTER RECOMBINANT 1 2020 187 complet ed [facility] PNEUMOCOCCAL POLYSACCHARID E PPV23 2020 33 complet ed [facility] COVID-19 (MODERNA), MRNA, LNP-S, PF, 100 MCG/0.5 ML DOSE 2 2020 207 complet ed MOD; [id number]; 1 [facility] COVID-19 (MODERNA), MRNA, LNP-S, PF, 100 MCG/0.5 ML DOSE 1 2020 207 complet ed MOD; [id number]; 1 [facility] INFLUENZA, SEASONAL, INJECTABLE 2017 141 complet ed [facility] Results Combined list of recent chemistry, hematology and other laboratory results from Department of Defense and Veterans Affairs, ranging from 15 months to all on record, depending upon the facility. Order Name Results Value Reference Range Date Interpretation Specimen Comments Source PT & INR (PROTIME) INR IN PLATELET POOR PLASMA BY COAGULATION ASSAY 1.0 02/09 Specimen Type: PLASMA No comment entered. Ordering Provider: LETICIA LOPEZ Report Released Date/Time: Feb 03, 2024 12:02 PM Reporting Lab: [facility] [address] [facility] [address] Performing Lab: [facility] [address] [facility] PT & INR (PROTIME) PROTHROMBIN TIME (PT) 11.8 s 10.0 - 13.1 02/09 Specimen Type: PLASMA No comment entered. Ordering Provider: LETICIA LOPEZ Report Released Date/Time: Feb 03, 2024 12:02 PM Reporting Lab: [address] [address] Performing Lab: [address] [address] [facility] BASIC METABOLIC PANEL (non-fast ing) UREA NITROGEN [MASS/VOLUM E] IN SERUM OR PLASMA 16 mg/dL 7 - 25 02/09 Specimen Type: SERUM No comment entered. Ordering Provider: LETICIA LOPEZ Report Released Date/Time: Feb 03, 2024 12:02 PM Reporting Lab: [address] [address] Performing Lab: [address] [address] [facility] BASIC METABOLIC PANEL (non-fast ing) GLUCOSE [MASS/VOLUM E] IN SERUM OR PLASMA 156 mg/dL 65 - 100 02/09 H Specimen Type: SERUM No comment entered. Ordering Provider: LETICIA LOPEZ Report Released Date/Time: Feb 03, 2024 12:02 PM Reporting Lab: [address] [address] Performing Lab: [address] [address] [facility] BASIC METABOLIC PANEL (non-fast ing) SODIUM [MOLES/VOLU ME] IN SERUM OR PLASMA 142 mmol/L 135 - 145 02/09 Specimen Type: SERUM No comment entered. Ordering Provider: LETICIA LOPEZ Report Released Date/Time: Feb 03, 2024 12:02 PM Reporting Lab: [address] [address] Performing Lab: [facility] [address] [facility] [address] [facility] BASIC METABOLIC PANEL (non-fast ing) POTASSIUM [MOLES/VOLU ME] IN SERUM OR PLASMA 4.4 mmol/L 3.5 - 5.0 02/09 Specimen Type: SERUM No comment entered. Ordering Provider: LETICIA LOPEZ Report Released Date/Time: Feb 03, 2024 12:02 PM Reporting Lab: [facility] [address] [facility] [address] Performing Lab: [facility] [address] [facility] [address] [facility] BASIC METABOLIC PANEL (non-fast ing) CHLORIDE [MOLES/VOLU ME] IN SERUM OR PLASMA 103 mmol/L 100 - 110 02/09 Specimen Type: SERUM No comment entered. Ordering Provider: LETICIA LOPEZ Report Released Date/Time: Feb 03, 2024 12:02 PM Reporting Lab: [facility] [address] [facility] [address] Performing Lab: [facility] [address] [facility] [address] [facility] BASIC METABOLIC PANEL (non-fast ing) CARBON DIOXIDE, TOTAL [MOLES/VOLU ME] IN SERUM OR PLASMA 28 meq/L 20 - 30 02/09 Specimen Type: SERUM No comment entered. Ordering Provider: LETICIA LOPEZ Report Released Date/Time: Feb 03, 2024 12:02 PM Reporting Lab: [facility] [address] [facility] [address] Performing Lab: [facility] [address] [facility] [address] [facility] BASIC METABOLIC PANEL (non-fast ing) CREATININE [MASS/VOLUM E] IN SERUM OR PLASMA 1.17 mg/dL 0.50 - 1.40 02/09 Specimen Type: SERUM No comment entered. Ordering Provider: LETICIA LOPEZ Report Released Date/Time: Feb 03, 2024 12:02 PM Reporting Lab: [facility] [place] [address] [address] Performing Lab: [facility] [place] [address] [address] [facility] BASIC METABOLIC PANEL (non-fast ing) GLOMERULAR FILTRATION RATE/1.73 SQ M.PREDICTED [VOLUME RATE/AREA] IN SERUM, PLASMA OR BLOOD BY CREATININE- BASED FORMULA (CKD-EPI 2020) 60 mL/min 60 02/09 Specimen Type: SERUM No comment entered. Ordering Provider: LETICIA LOPEZ Report Released Date/Time: Feb 03, 2024 12:02 PM Reporting Lab: [facility] [place] [address] [address] Performing Lab: [facility] [place] [address] [address] [facility] CBC AND DIFF (AUTO) LEUKOCYTES [#/VOLUME] IN BLOOD BY AUTOMATED COUNT 5.81 10*3/u L 4.50 - 11.00 02/09 Specimen Type: BLOOD No comment entered. Ordering Provider: LETICIA LOPEZ Report Released Date/Time: Feb 03, 2024 12:02 PM Reporting Lab: [facility] [place] [address] [address] Performing Lab: [facility] [place] [address] [address] [facility] CBC AND DIFF (AUTO) ERYTHROCYTE S [#/VOLUME] IN BLOOD BY AUTOMATED COUNT 4.35 10*6/u L 4.23 - 5.66 02/09 Specimen Type: BLOOD No comment entered. Ordering Provider: LETICIA LOPEZ Report Released Date/Time: Feb 03, 2024 12:02 PM Reporting Lab: [facility] [place] [address] [address] Performing Lab: [facility] [place] [facility] [address] [facility] [address] [facility] CBC AND DIFF (AUTO) HEMOGLOBIN [MASS/VOLUM E] IN BLOOD 13.3 g/dL 12.8 - 17 02/09 Specimen Type: BLOOD No comment entered. Ordering Provider: LETICIA LOPEZ Report Released Date/Time: Feb 03, 2024 12:02 PM Reporting Lab: [facility] [place] [facility] [address] [facility] [address] Performing Lab: [facility] [place] [facility] [address] [facility] [address] [facility] CBC AND DIFF (AUTO) HEMATOCRIT [VOLUME FRACTION] OF BLOOD BY AUTOMATED COUNT 40.9 39.2 - 50.4 02/09 Specimen Type: BLOOD No comment entered. Ordering Provider: LETICIA LOPEZ Report Released Date/Time: Feb 03, 2024 12:02 PM Reporting Lab: [facility] [place] [facility] [address] [facility] [address] Performing Lab: [facility] [place] [facility] [address] [facility] [address] [facility] CBC AND DIFF (AUTO) MCV [ENTITIC VOLUME] BY AUTOMATED COUNT 94.0 fL 82 - 99 02/09 Specimen Type: BLOOD No comment entered. Ordering Provider: LETICIA LOPEZ Report Released Date/Time: Feb 03, 2024 12:02 PM Reporting Lab: [facility] [place] [facility] [address] [facility] [address] Performing Lab: [facility] [place] [facility] [address] [facility] [address] [facility] CBC AND DIFF (AUTO) MCHC [MASS/VOLUM E] BY AUTOMATED COUNT 32.5 g/dL 30.8 - 35.1 02/09 Specimen Type: BLOOD No comment entered. Ordering Provider: LETICIA LOPEZ Report Released Date/Time: Feb 03, 2024 12:02 PM Reporting Lab: [facility] [place] [facility] [address] [facility] [address] Performing Lab: [facility] [place] [facility] [address] [facility] [address] [facility] CBC AND DIFF (AUTO) PLATELETS [#/VOLUME] IN BLOOD BY AUTOMATED COUNT 217 10*3/u L 140 - 360 02/09 Specimen Type: BLOOD No comment entered. Ordering Provider: LETICIA LOPEZ Report Released Date/Time: Feb 03, 2024 12:02 PM Reporting Lab: [facility] [place] [facility] [address] [facility] [address] Performing Lab: [facility] [place] [facility] [address] [facility] [address] [facility] CBC AND DIFF (AUTO) ERYTHROCYTE DISTRIBUTIO N WIDTH [RATIO] BY AUTOMATED COUNT 12.6 12.0 - 16.0 02/09 Specimen Type: BLOOD No comment entered. Ordering Provider: LETICIA LOPEZ Report Released Date/Time: Feb 03, 2024 12:02 PM Reporting Lab: [facility] [place] [facility] [address] [facility] [address] Performing Lab: [facility] [place] [facility] [address] [facility] [address] [facility] CBC AND DIFF (AUTO) MONOCYTES [#/VOLUME] IN BLOOD BY AUTOMATED COUNT 0.53 10*3/u L 0.30 - 1.10 02/09 Specimen Type: BLOOD No comment entered. Ordering Provider: LETICIA LOPEZ Report Released Date/Time: Feb 03, 2024 12:02 PM Reporting Lab: [facility] [place] [facility] [address] [facility] [address] Performing Lab: [facility] [place] [facility] [address] [facility] [address] [facility] CBC AND DIFF (AUTO) MCH [ENTITIC MASS] BY AUTOMATED COUNT 30.6 pg 26.2 - 32.6 02/09 Specimen Type: BLOOD No comment entered. Ordering Provider: LETICIA LOPEZ Report Released Date/Time: Feb 03, 2024 12:02 PM Reporting Lab: [facility] [address] [facility] [address] Performing Lab: [facility] [address] [facility] [address] [facility] CBC AND DIFF (AUTO) NEUTROPHILS /100 LEUKOCYTES IN BLOOD BY AUTOMATED COUNT 75.8 43.7 - 75.8 02/09 Specimen Type: BLOOD No comment entered. Ordering Provider: LETICIA LOPEZ Report Released Date/Time: Feb 03, 2024 12:02 PM Reporting Lab: [facility] [address] [facility] [address] Performing Lab: [facility] [address] [place] [address] [facility] CBC AND DIFF (AUTO) LYMPHOCYTES /100 LEUKOCYTES IN BLOOD BY AUTOMATED COUNT 13.6 14.0 - 42.3 02/09 L Specimen Type: BLOOD No comment entered. Ordering Provider: LETICIA LOPEZ Report Released Date/Time: Feb 03, 2024 12:02 PM Reporting Lab: [facility] [address] [facility] [phone] Performing Lab: [facility] [address] [facility] [address] [facility] CBC AND DIFF (AUTO) MONOCYTES/1 00 LEUKOCYTES IN BLOOD BY AUTOMATED COUNT 9.1 5.1 - 13.7 02/09 Specimen Type: BLOOD No comment entered. Ordering Provider: LETICIA LOPEZ Report Released Date/Time: Feb 03, 2024 12:02 PM Reporting Lab: [facility] [address] [facility] [address] Performing Lab: [facility] [address] [place] [phone] [facility] CBC AND DIFF (AUTO) EOSINOPHILS /100 LEUKOCYTES IN BLOOD BY AUTOMATED COUNT 0.5 0.4 - 6.8 02/09 Specimen Type: BLOOD No comment entered. Ordering Provider: LETICIA LOPEZ Report Released Date/Time: Feb 03, 2024 12:02 PM Reporting Lab: [facility] [place] [id number] Performing Lab: [facility] [place] [address] [phone] [facility] CBC AND DIFF (AUTO) BASOPHILS/1 00 LEUKOCYTES IN BLOOD BY AUTOMATED COUNT 0.5 0.1 - 2.0 02/09 Specimen Type: BLOOD No comment entered. Ordering Provider: LETICIA LOPEZ Report Released Date/Time: Feb 03, 2024 12:02 PM Reporting [facility] [place] [id number] Performing Lab: [facility] [place] [address] [facility] [facility] CBC AND DIFF (AUTO) NEUTROPHILS [#/VOLUME] IN BLOOD BY AUTOMATED COUNT 4.40 10*3/u L 2.20 - 7.60 02/09 Specimen Type: BLOOD No comment entered. Ordering Provider: LETICIA LOPEZ Report Released Date/Time: Feb 03, 2024 12:02 PM Reporting Lab: [facility] [place] [address] [address] Performing Lab: [facility] [place] [address] [address] [place], [place] [address] [facility] CBC AND DIFF (AUTO) LYMPHOCYTES [#/VOLUME] IN BLOOD BY AUTOMATED COUNT 0.79 10*3/u L 1.00 - 3.20 02/09 L Specimen Type: BLOOD No comment entered. Ordering Provider: LETICIA LOPEZ Report Released Date/Time: Feb 03, 2024 12:02 PM Reporting Lab: [facility] [place] [address] Performing Lab: [facility] [place] [facility] [address] [facility] [address] [facility] [place] [facility] CBC AND DIFF (AUTO) EOSINOPHILS [#/VOLUME] IN BLOOD BY AUTOMATED COUNT 0.03 10*3/u L 0.03 - 0.44 02/09 Specimen Type: BLOOD No comment entered. Ordering Provider: LETICIA LOPEZ Report Released Date/Time: Feb 03, 2024 12:02 PM Reporting Lab: [facility] [place] [facility] [address] [facility] [address] Performing Lab: [facility] [place] [address] [address] [facility] [place] [facility] CBC AND DIFF (AUTO) BASOPHILS [#/VOLUME] IN BLOOD BY AUTOMATED COUNT 0.03 10*3/u L 0.01 - 0.13 02/09 Specimen Type: BLOOD No comment entered. Ordering Provider: LETICIA LOPEZ Report Released Date/Time: Feb 03, 2024 12:02 PM Reporting Lab: [facility] [place] [address] [address] Performing Lab: [facility] [place] [address] [address] [facility] [place] [facility] CBC AND DIFF (AUTO) IMMATURE GRANULOCYTE S/100 LEUKOCYTES IN BLOOD BY AUTOMATED COUNT 0.5 0.0 - 0.7 02/09 Specimen Type: BLOOD No comment entered. Ordering Provider: LETICIA LOPEZ Report Released Date/Time: Feb 03, 2024 12:02 PM Reporting Lab: [facility] [place] [address] [address] Performing Lab: [facility] [place] [address] [address] [facility] [place] [facility] CBC AND DIFF (AUTO) IMMATURE GRANULOCYTE S [#/VOLUME] IN BLOOD 0.03 10*3/u L 0.00 - 0.06 02/09 Specimen Type: BLOOD No comment entered. Ordering Provider: LETICIA LOPEZ Report Released Date/Time: Feb 03, 2024 12:02 PM Reporting Lab: [facility] [address] [address] Performing Lab: [facility] [address] [facility] CBC AND DIFF (AUTO) NRBC % 0.0 0.0 - 0.0 02/09 Specimen Type: BLOOD No comment entered. Ordering Provider: LETICIA LOPEZ Report Released Date/Time: Feb 03, 2024 12:02 PM Reporting Lab: [facility] [address] [address] Performing Lab: [facility] [address] [place], [place] [address] [facility] CBC AND DIFF (AUTO) NRBC, ABS 0.00 10*3/u L 0.00 - 0.00 02/09 Specimen Type: BLOOD No comment entered. Ordering Provider: LETICIA LOPEZ Report Released Date/Time: Feb 03, 2024 12:02 PM Reporting Lab: [facility] [address] [address] Performing Lab: [facility] [address] [address] [place], [place] [address] [facility] CA 19-9 (q) CANCER AG 19-9 [UNITS/VOLU ME] IN SERUM OR PLASMA 17 11/18 Specimen Type: SERUM Comment: REFERENCE RANGE: <34 U/mL This test was performed using the Siemens chemilumine scent method. Values obtained from different assay methods cannot be used inter- changeably. CA 19-9 levels, regardless of value, should not be interpreted as absolute evidence of the presence or absence of disease. Test Performed by [facility], [address] [place] [address] Grayson Dooley M.D., Ph.D., Director of Laboratorie s , CLIA [id number] TEST PERFORMED AT: , Ordering Provider: TRAN DUBON Report Released Date/Time: Nov 04, 2023 03:38 PM Reporting Lab: [facility] [address] [facility] [address] Performing Lab: [facility] [address] [address] [facility] BASIC METABOLIC PANEL (non-fast ing) UREA NITROGEN [MASS/VOLUM E] IN SERUM OR PLASMA 28 mg/dL 7 - 25 11/18 H Specimen Type: SERUM No comment entered. Ordering Provider: TRAN DUBON Report Released Date/Time: Nov 04, 2023 10:06 AM Reporting Lab: [address] [address] Performing Lab: [address] [address] [facility] BASIC METABOLIC PANEL (non-fast ing) GLUCOSE [MASS/VOLUM E] IN SERUM OR PLASMA 136 mg/dL 65 - 100 11/18 H Specimen Type: SERUM No comment entered. Ordering Provider: TRAN DUBON Report Released Date/Time: Nov 04, 2023 10:06 AM Reporting Lab: [address] [address] Performing Lab: [address] [address] [facility] BASIC METABOLIC PANEL (non-fast ing) SODIUM [MOLES/VOLU ME] IN SERUM OR PLASMA 145 mmol/L 135 - 145 11/18 Specimen Type: SERUM No comment entered. Ordering Provider: TRAN DUBON Report Released Date/Time: Nov 04, 2023 10:06 AM Reporting Lab: [address] [address] Performing Lab: [facility] [address] [facility] [address] [facility] BASIC METABOLIC PANEL (non-fast ing) POTASSIUM [MOLES/VOLU ME] IN SERUM OR PLASMA 4.1 mmol/L 3.5 - 5.0 11/18 Specimen Type: SERUM No comment entered. Ordering Provider: TRAN DUBON Report Released Date/Time: Nov 04, 2023 10:06 AM Reporting Lab: [facility] [address] [facility] [address] Performing Lab: [facility] [address] [facility] [address] [facility] BASIC METABOLIC PANEL (non-fast ing) CHLORIDE [MOLES/VOLU ME] IN SERUM OR PLASMA 107 mmol/L 100 - 110 11/18 Specimen Type: SERUM No comment entered. Ordering Provider: TRAN DUBON Report Released Date/Time: Nov 04, 2023 10:06 AM Reporting Lab: [facility] [address] [facility] [address] Performing Lab: [facility] [address] [facility] [address] [facility] BASIC METABOLIC PANEL (non-fast ing) CARBON DIOXIDE, TOTAL [MOLES/VOLU ME] IN SERUM OR PLASMA 29 meq/L 20 - 30 11/18 Specimen Type: SERUM No comment entered. Ordering Provider: TRAN DUBON Report Released Date/Time: Nov 04, 2023 10:06 AM Reporting Lab: [facility] [address] [facility] [address] Performing Lab: [facility] [address] [facility] [address] [facility] BASIC METABOLIC PANEL (non-fast ing) CREATININE [MASS/VOLUM E] IN SERUM OR PLASMA 0.89 mg/dL 0.50 - 1.40 11/18 Specimen Type: SERUM No comment entered. Ordering Provider: TRAN DUBON Report Released Date/Time: Nov 04, 2023 10:06 AM Reporting Lab: [facility] [place] [facility] [address] [facility] [address] Performing Lab: [facility] [place] [facility] [address] [facility] [address] [facility] [place] [facility] BASIC METABOLIC PANEL (non-fast ing) GLOMERULAR FILTRATION RATE/1.73 SQ M.PREDICTED [VOLUME RATE/AREA] IN SERUM, PLASMA OR BLOOD BY CREATININE- BASED FORMULA (CKD-EPI 2020) 83 mL/min 60 11/18 Specimen Type: SERUM No comment entered. Ordering Provider: TRAN DUBON Report Released Date/Time: Nov 04, 2023 10:06 AM Reporting Lab: [facility] [place] [facility] [address] [facility] [address] Performing Lab: [facility] [place] [facility] [address] [facility] [address] [facility] [place] [facility] LIVER FUNCTION PROTEIN [MASS/VOLUM E] IN SERUM OR PLASMA 6.0 g/dL 6.0 - 8.3 11/18 Specimen Type: SERUM No comment entered. Ordering Provider: TRAN DUBON Report Released Date/Time: Nov 04, 2023 10:06 AM Reporting Lab: [facility] [place] [facility] [address] [facility] [address] Performing Lab: [facility] [place] [facility] [address] [facility] [address] [facility] [place] [facility] LIVER FUNCTION ALBUMIN [MASS/VOLUM E] IN SERUM OR PLASMA 3.7 g/dL 3.5 - 5.0 11/18 Specimen Type: SERUM No comment entered. Ordering Provider: TRAN DUBON Report Released Date/Time: Nov 04, 2023 10:06 AM Reporting Lab: [facility] [place] [facility] [address] [facility] [address] Performing Lab: [facility] [place] [facility] [address] [facility] [address] [facility] [place] [facility] LIVER FUNCTION ALKALINE PHOSPHATASE [ENZYMATIC ACTIVITY/VO LUME] IN SERUM OR PLASMA 79 U/L 40 - 150 11/18 Specimen Type: SERUM No comment entered. Ordering Provider: TRAN DUBON Report Released Date/Time: Nov 04, 2023 10:06 AM Reporting Lab: [facility] [place] [facility] [address] [facility] [address] Performing Lab: [facility] [place] [facility] [address] [facility] [address] [facility] [place] [facility] LIVER FUNCTION ASPARTATE AMINOTRANSF ERASE [ENZYMATIC ACTIVITY/VO LUME] IN SERUM OR PLASMA 11 U/L 5 - 34 11/18 Specimen Type: SERUM No comment entered. Ordering Provider: TRAN DUBON Report Released Date/Time: Nov 04, 2023 10:06 AM Reporting Lab: [facility] [place] [facility] [address] [facility] [address] Performing Lab: [facility] [place] [facility] [address] [facility] [address] [facility] [place] [facility] LIVER FUNCTION ALANINE AMINOTRANSF ERASE [ENZYMATIC ACTIVITY/VO LUME] IN SERUM OR PLASMA 13 U/L 11/18 Specimen Type: SERUM No comment entered. Ordering Provider: TRAN DUBON Report Released Date/Time: Nov 04, 2023 10:06 AM Reporting Lab: [facility] [place] [facility] [address] [facility] [address] Performing Lab: [facility] [place] [facility] [address] [facility] [address] [facility] [place] [facility] LIVER FUNCTION BILIRUBIN.T OTAL [MASS/VOLUM E] IN SERUM OR PLASMA 0.6 mg/dL 0.2 - 1.2 11/18 Specimen Type: SERUM No comment entered. Ordering Provider: TRAN DUBON Report Released Date/Time: Nov 04, 2023 10:06 AM Reporting Lab: [facility] [place] [facility] [address] [facility] [address] Performing Lab: [facility] [place] [facility] [address] [facility] [address] [facility] [place] [facility] AMYLASE AMYLASE [ENZYMATIC ACTIVITY/VO LUME] IN SERUM OR PLASMA 33 U/L 25 - 125 11/18 Specimen Type: SERUM No comment entered. Ordering Provider: TRAN DUBON Report Released Date/Time: Nov 04, 2023 10:06 AM Reporting Lab: [facility] [place] [facility] [address] [facility] [address] Performing Lab: [facility] [facility] [address] [facility] [address] [facility] [place] [facility] LIPASE LIPASE [ENZYMATIC ACTIVITY/VO LUME] IN SERUM OR PLASMA 14 U/L 8 - 82 11/18 Specimen Type: SERUM No comment entered. Ordering Provider: TRAN DUBON Report Released Date/Time: Nov 04, 2023 10:06 AM Reporting Lab: [facility] [place] [facility] [address] [facility] [address] Performing Lab: [facility] [place] [facility] [address] [facility] [address] [facility] [place] [facility] CBC AND DIFF (AUTO) LEUKOCYTES [#/VOLUME] IN BLOOD BY AUTOMATED COUNT 4.83 10*3/u L 4.50 - 11.00 11/18 Specimen Type: BLOOD No comment entered. Ordering Provider: TRAN DUBON Report Released Date/Time: Nov 04, 2023 10:06 AM Reporting Lab: [facility] [place] [facility] [address] [facility] [address] Performing Lab: [facility] [place] [facility] [address] [facility] [address] [facility] [place] [facility] CBC AND DIFF (AUTO) ERYTHROCYTE S [#/VOLUME] IN BLOOD BY AUTOMATED COUNT 4.09 10*6/u L 4.23 - 5.66 11/18 L Specimen Type: BLOOD No comment entered. Ordering Provider: TRAN DUBON Report Released Date/Time: Nov 04, 2023 10:06 AM Reporting Lab: [facility] [place] [facility] [address] [facility] [address] Performing Lab: [facility] [place] [facility] [address] [facility] [address] [facility] [place] [facility] CBC AND DIFF (AUTO) HEMOGLOBIN [MASS/VOLUM E] IN BLOOD 13.2 g/dL 12.8 - 17 11/18 Specimen Type: BLOOD No comment entered. Ordering Provider: TRAN DUBON Report Released Date/Time: Nov 04, 2023 10:06 AM Reporting Lab: [facility] [place] [facility] [address] [facility] [address] Performing Lab: [facility] [place] [facility] [address] [facility] [address] [facility] [place] [facility] CBC AND DIFF (AUTO) HEMATOCRIT [VOLUME FRACTION] OF BLOOD BY AUTOMATED COUNT 40.0 39.2 - 50.4 11/18 Specimen Type: BLOOD No comment entered. Ordering Provider: TRAN DUBON Report Released Date/Time: Nov 04, 2023 10:06 AM Reporting Lab: [facility] [place] [facility] [address] [facility] [address] Performing Lab: [facility] [place] [facility] [address] [facility] [address] [facility] [place] [facility] CBC AND DIFF (AUTO) MCV [ENTITIC VOLUME] BY AUTOMATED COUNT 97.8 fL 82 - 99 11/18 Specimen Type: BLOOD No comment entered. Ordering Provider: TRAN DUBON Report Released Date/Time: Nov 04, 2023 10:06 AM Reporting Lab: [facility] [place] [facility] [address] [facility] [address] Performing Lab: [facility] [place] [facility] [address] [facility] [address] [facility] [place] [facility] CBC AND DIFF (AUTO) MCHC [MASS/VOLUM E] BY AUTOMATED COUNT 33.0 g/dL 30.8 - 35.1 11/18 Specimen Type: BLOOD No comment entered. Ordering Provider: TRAN DUBON Report Released Date/Time: Nov 04, 2023 10:06 AM Reporting Lab: [facility] [place] [address] [address] Performing Lab: [facility] [place] [facility] [address] [facility] [address] [facility] [place] [facility] CBC AND DIFF (AUTO) PLATELETS [#/VOLUME] IN BLOOD BY AUTOMATED COUNT 198 10*3/u L 140 - 360 11/18 Specimen Type: BLOOD No comment entered. Ordering Provider: TRAN DUBON Report Released Date/Time: Nov 04, 2023 10:06 AM Reporting Lab: [facility] [place] [address] [address] Performing Lab: [facility] [place] [address] [address] [facility] [place] [facility] CBC AND DIFF (AUTO) ERYTHROCYTE DISTRIBUTIO N WIDTH [RATIO] BY AUTOMATED COUNT 13.4 12.0 - 16.0 11/18 Specimen Type: BLOOD No comment entered. Ordering Provider: TRAN DUBON Report Released Date/Time: Nov 04, 2023 10:06 AM Reporting Lab: [facility] [place] [address] [address] Performing Lab: [facility] [place] [address] [address] [facility] [place] [facility] CBC AND DIFF (AUTO) MONOCYTES [#/VOLUME] IN BLOOD BY AUTOMATED COUNT 0.52 10*3/u L 0.30 - 1.10 11/18 Specimen Type: BLOOD No comment entered. Ordering Provider: TRAN DUBON Report Released Date/Time: Nov 04, 2023 10:06 AM Reporting Lab: [facility] [place] [address] [address] Performing Lab: [facility] [place] [facility] [address] [facility] [address] [facility] [place] CBC AND DIFF (AUTO) MCH [ENTITIC MASS] BY AUTOMATED COUNT 32.3 pg 26.2 - 32.6 11/18 Specimen Type: BLOOD No comment entered. Ordering Provider: TRAN DUBON Report Released Date/Time: Nov 04, 2023 10:06 AM Reporting Lab: [facility] [place] [facility] [address] [facility] [address] Performing Lab: [facility] [place] [facility] [address] [facility] [address] [facility] [place] [facility] CBC AND DIFF (AUTO) NEUTROPHILS /100 LEUKOCYTES IN BLOOD BY AUTOMATED COUNT 71.9 43.7 - 75.8 11/18 Specimen Type: BLOOD No comment entered. Ordering Provider: TRAN DUBON Report Released Date/Time: Nov 04, 2023 10:06 AM Reporting Lab: [facility] [place] [facility] [address] [facility] [address] Performing Lab: [facility] [place] [facility] [address] [facility] [address] [facility] [place] [facility] CBC AND DIFF (AUTO) LYMPHOCYTES /100 LEUKOCYTES IN BLOOD BY AUTOMATED COUNT 15.7 14.0 - 42.3 11/18 Specimen Type: BLOOD No comment entered. Ordering Provider: TRAN DUBON Report Released Date/Time: Nov 04, 2023 10:06 AM Reporting Lab: [facility] [place] [facility] [address] [facility] [address] Performing Lab: [facility] [place] [facility] [address] [facility] [address] [facility] [place] [facility] CBC AND DIFF (AUTO) MONOCYTES/1 00 LEUKOCYTES IN BLOOD BY AUTOMATED COUNT 10.8 5.1 - 13.7 11/18 Specimen Type: BLOOD No comment entered. Ordering Provider: TRAN DUBON Report Released Date/Time: Nov 04, 2023 10:06 AM Reporting Lab: [facility] [place] [facility] [address] [facility] [address] Performing Lab: [facility] [place] [facility] [address] [facility] [address] [facility] [place] [facility] CBC AND DIFF (AUTO) EOSINOPHILS /100 LEUKOCYTES IN BLOOD BY AUTOMATED COUNT 0.8 0.4 - 6.8 11/18 Specimen Type: BLOOD No comment entered. Ordering Provider: TRAN DUBON Report Released Date/Time: Nov 04, 2023 10:06 AM Reporting Lab: [facility] [place] [facility] [address] [facility] [address] Performing Lab: [facility] [place] [facility] [address] [facility] [address] [facility] [place] [facility] CBC AND DIFF (AUTO) BASOPHILS/1 00 LEUKOCYTES IN BLOOD BY AUTOMATED COUNT 0.4 0.1 - 2.0 11/18 Specimen Type: BLOOD No comment entered. Ordering Provider: TRAN DUBON Report Released Date/Time: Nov 04, 2023 10:06 AM Reporting Lab: [facility] [place] [facility] [address] [facility] [address] Performing Lab: [facility] [place] [facility] [address] [facility] [address] [facility] [place] CBC AND DIFF (AUTO) NEUTROPHILS [#/VOLUME] IN BLOOD BY AUTOMATED COUNT 3.47 10*3/u L 2.20 - 7.60 11/18 Specimen Type: BLOOD No comment entered. Ordering Provider: TRAN DUBON Report Released Date/Time: Nov 04, 2023 10:06 AM Reporting Lab: [facility] [place] [facility] [address] [facility] [address] Performing Lab: [facility] [place] [facility] [address] [facility] [address] [facility] [place] CBC AND DIFF (AUTO) LYMPHOCYTES [#/VOLUME] IN BLOOD BY AUTOMATED COUNT 0.76 10*3/u L 1.00 - 3.20 11/18 L Specimen Type: BLOOD No comment entered. Ordering Provider: TRAN DUBON Report Released Date/Time: Nov 04, 2023 10:06 AM Reporting Lab: [facility] [place] [facility] [address] [facility] H61.21 Impacte d cerumen , right ear<br/ > TANYA SHAFFER L 02/21 [facility] [place] [facility] Outpatient Encounter [id number] 02/22 [facility] [place] [facility] Outpatient Encounter [id number] 03/03 [facility] [place] [facility] OFF/OP EST SEPTEMBER X REQ PHY/QHP [id number] Diagnos is: ICD-10- CM H61.23 Impacte d cerumen , bilater al
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, right eye, early dry stage<b r/> PEGGY NOVAK 03/14 [facility] [place] [facility] FIT SPECTACLES BIFOCAL [id number] Diagnos is: ICD-10- CM Z46.0 Encount er for fit/adj st of spectac les and contact lenses< br/> SCARLET,SD DIANELYS 03/14 [facility] [place] [facility] [place] [facility] Outpatient Encounter [id number] 05/22 [facility] [place] [facility] [place] [facility] Outpatient Encounter [id number] 05/27 [facility] [place] [facility] Social History Combined list of available smoking, tobacco, and other social history from Department of Defense and Veterans Affairs facilities. Social History Type Response Date Comment Source Tobacco smoking status MNIS VA-TOBACCO USE [place] 30 MIN OF WAKEUP 08/16/2023 [facility] [facility] History of tobacco use VA-TOBACCO USE 30 YEARS OR MORE 08/16/2023 [facility] [place] [facility] History of tobacco use VA-TOBACCO USER EVERY DAY 09/10/2022 [facility] [place] [facility] History of tobacco use VA-TOBACCO USE [place] 30 MIN OF WAKEUP 08/18/2021 [facility] [place] [facility] History of tobacco use VA-TOBACCO USER EVERY DAY 06/20/2020 [facility] [facility] History of tobacco use VA-TOBACCO USE BEEF LUGGER NO 01/05/2019 [facility] [place] [facility] History of tobacco use V1-TOBACCO CESS MEDS NOT PRESCRIBED 01/17/2018 Wants to quit on his own [facility] [place] [facility] Plan of Care List of future care activities from [facility] facilities. Additional future care activities may be listed in the Assessment and Plan section. Date/Time Care Activity Care Activity Detail Facili ty 06/16/2024 AMBULATORY - MEDICINE AMBULATORY - MEDICI NE [facility] [place] [facility] 06/23/2024 AMBULATORY - MEDICINE AMBULATORY - MEDICI NE [facility] [place] [facility] 08/04/2024 AMBULATORY - MEDICINE AMBULATORY - MEDICI NE [facility] ([id number]) 05/15/2024 Consult Order COMMUNITY CARE-U ROLOGY Cons Rn Critical Care's Choice [facility] [place] [facility] 05/22/2024 Laboratory - Educational Technician ry Order BASIC METABOLIC PANEL (non-fasting) BLOOD (SST-SERUM) SP [facility] [place] [facility] 05/22/2024 Laboratory - Educational Technician ry Order CBC BLOOD (LAV-BLOOD) SP [facility] [place] [facility] 05/22/2024 Laboratory - Educational Technician ry Order LIPID PANEL, NON FASTING BLOOD (SST-SERUM) SP [facility] [place] [facility] 05/22/2024 Laboratory - Educational Technician ry Order LIVER FUNCTION BLOOD (SST-SERUM) SP [facility] [place] [facility] 05/22/2024 Laboratory - Educational Technician ry Order PT and INR (PROTIME) BLOOD (BLUE-PLASMA) [facility] [place] [facility] [id number] Performing Lab: [facility] [address] [address] [facility] CBC AND DIFF (AUTO) EOSINOPHILS [#/VOLUME] IN BLOOD BY AUTOMATED COUNT 0.04 10*3/u L 0.03 - 0.44 11/18 Specimen Type: BLOOD No comment entered. Ordering Provider: TRAN DUBON Report Released Date/Time: Nov 04, 2023 10:06 AM Reporting Lab: [facility] [address] Performing Lab: [facility] [phone] [facility] CBC AND DIFF (AUTO) BASOPHILS [#/VOLUME] IN BLOOD BY AUTOMATED COUNT 0.02 10*3/u L 0.01 - 0.13 11/18 Specimen Type: BLOOD No comment entered. Ordering Provider: TRAN DUBON Report Released Date/Time: Nov 04, 2023 10:06 AM Reporting Lab: [facility] [address] Performing Lab: [facility] [address] [facility] CBC AND DIFF (AUTO) IMMATURE GRANULOCYTE S/100 LEUKOCYTES IN BLOOD BY AUTOMATED COUNT 0.4 0.0 - 0.7 11/18 Specimen Type: BLOOD No comment entered. Ordering Provider: TRAN DUBON Report Released Date/Time: Nov 04, 2023 10:06 AM Reporting Lab: [facility] [address] [address] Performing Lab: [facility] [address] [facility] [address] [facility] CBC AND DIFF (AUTO) IMMATURE GRANULOCYTE S [#/VOLUME] IN BLOOD 0.02 10*3/u L 0.00 - 0.06 11/18 Specimen Type: BLOOD No comment entered. Ordering Provider: TRAN DUBON Report Released Date/Time: Nov 04, 2023 10:06 AM Reporting Lab: [facility] [address] [address] Performing Lab: [facility] [address] [address] [facility] CBC AND DIFF (AUTO) NRBC % 0.0 0.0 - 0.0 11/18 Specimen Type: BLOOD No comment entered. Ordering Provider: TRAN DUBON Report Released Date/Time: Nov 04, 2023 10:06 AM Reporting Lab: [facility] [address] [address] Performing Lab: [facility] [address] [address] [facility] CBC AND DIFF (AUTO) NRBC, ABS 0.00 10*3/u L 0.00 - 0.00 11/18 Specimen Type: BLOOD No comment entered. Ordering Provider: TRAN DUBON Report Released Date/Time: Nov 04, 2023 10:06 AM Reporting Lab: [facility] [address] [facility] [address] Performing Lab: [facility] [address] [facility] [address] [facility] PT & INR (PROTIME) INR IN PLATELET POOR PLASMA BY COAGULATION ASSAY 1.2 08/15 Specimen Type: PLASMA No comment entered. Ordering Provider: LETICIA LOPEZ Report Released Date/Time: Aug 16, 2023 01:36 PM Reporting Lab: [facility] [address] [facility] [address] Performing Lab: [facility] [address] [facility] [address] [facility] PT & INR (PROTIME) PROTHROMBIN TIME (PT) 14.0 s 10.0 - 13.1 08/15 H Specimen Type: PLASMA No comment entered. Ordering Provider: LETICIA LOPEZ Report Released Date/Time: Aug 16, 2023 01:36 PM Reporting Lab: [facility] [address] [facility] [address] Performing Lab: [facility] [address] [facility] [address] [facility] Vital Signs Combined list of inpatient and outpatient Vital Signs from Department of Defense and Veterans Affairs, ranging from 12 months to all on record, depending upon the facility. Vital Sign Value Date Comments Source SYSTOLIC BLOOD PRESSURE 112 02/14/20 24 12:57:05 [facility] DIASTOLIC BLOOD PRESSURE 75 024 12:57:05 [facility] PULSE OXIMETRY 97 02/14/2024 12:57:05 [facility] WEIGHT 120.5 02/14/2024 12[facility]57:05 [facility] BMI 18kg/m2 02/14/2024 12:57:05 [facility] PAIN 0 02/14/2024 12:57:05 [facility] HEIGHT 69.5 02/14/2024 12:57:05 [facility] TEMPERATURE 97.5 02/14/2024 12:57:05 [facility] PULSE 76 02/14/2024 12:57:05 [facility] RESPIRATION 16 02/14/2024 12:57:05 [facility] SYSTOLIC BLOOD PRESSURE 100 12/31/19 24 13:22:34 [facility] DIASTOLIC BLOOD PRESSURE 60 024 13:22:34 [facility] PULSE OXIMETRY 97 12/31/2023 13:22:34 [facility] WEIGHT 112 12/31/2023 13:22:34 [facility] BMI 16kg/m2 12/31/2023 13:22:34 [facility] PAIN 2 12/31/2023 13:22:34 [facility] TEMPERATURE 96.7 12/31/2023 13:22:34 [facility] PULSE 70 12/31/2023 13:22:34 [facility] RESPIRATION 16 12/31/2023 13:22:34 [facility] SYSTOLIC BLOOD PRESSURE 118 11/22/19 24 15:08:48 [facility] DIASTOLIC BLOOD PRESSURE 78 024 15:08:48 [facility] PULSE OXIMETRY 94 11/22/2023 15:08:48 [facility] WEIGHT 123 11/22/2023 15:08:48 [facility] BMI 18kg/m2 11/22/2023 15:08:48 [facility] PAIN 3 11/22/2023 15:08:48 [facility] HEIGHT 69.5 11/22/2023 15:08:48 [facility] TEMPERATURE 97.7 11/22/2023 15:08:48 [facility] PULSE 100 11/22/2023 15:08:48 [facility] RESPIRATION 16 11/22/2023 15:08:48 [facility] SYSTOLIC BLOOD PRESSURE 119 11/04/19 24 09:37:03 [facility] DIASTOLIC BLOOD PRESSURE 70 024 09:37:03 [facility] PULSE OXIMETRY 98 11/04/2023 09:37:03 [facility] WEIGHT 124 11/04/2023 09:37:03 [facility] BMI 19kg/m2 11/04/2023 09:37:03 [facility] PAIN 0 11/04/2023 09:37:03 [facility] HEIGHT 68 11/04/2023 09:37:03 [facility] TEMPERATURE 98.2 11/04/2023 09:37:03 [facility] PULSE 95 11/04/2023 09:37:03 [facility] RESPIRATION 20 11/04/2023 09:37:03 [facility] SYSTOLIC BLOOD PRESSURE 107 09/16/19 14:11:32 [facility] DIASTOLIC BLOOD PRESSURE 68 024 14:11:32 [facility] PULSE OXIMETRY 96 09/16/2023 14:11:32 [facility] PAIN 0 09/16/2023 14:11:32 [facility] TEMPERATURE 97.2 09/16/2023 14:11:32 [facility] PULSE 89 09/16/2023 14:11:32 [facility] RESPIRATION 18 09/16/2023 14:11:32 [facility] Encounters Combined list of: 1) Encounters from Department of Veterans Affairs facilities going back up to thelast 18 months. 2) Encounters from the Department of Defense facilities going back up to 280 months. Location Location Details Encounter Type Encounter Number Reason For Visit Attending Provider ADM Date DC Date Status Disposition Source [facility] Out[facility] Encounter [id number] 12/01 [facility] Out[facility]counter [id number] 12/17 [facility] Out[facility]counter [id number] 12/25 [facility] Out[facility] Encounter [id number] 12/29 [facility] OFFICE O/P EST LOW 20-29 MIN [id number] Diagnos is: ICD-10- CM R63.4 Abnorma l weight loss
Kati LOPEZ 01/01 [facility] Out[facility]counter [id number] 01/23 [facility] Out[facility] Encounter [id number] 02/05 [facility] Out[facility] Encounter [id number] 02/17 [facility] Out[facility] Encounter [id number] 02/17 [facility] HEARING AID REPAIR/MOD IFYING [id number] Diagnos is: ICD-10- CM Z46.1 Encount er for fitting and adjustm ent of hearing aid<br/ > BONCZEK,LA UREN L 02/24 [facility] Out[facility] Encounter [id number] 03/03 [facility] Out[facility] Encounter [id number] 03/03 [facility] Out[facility] Encounter [id number] 03/04 [facility] UNLISTED MISC PROSTHETIC SER [id number] Diagnos is: ICD-10- CM Z46.1 Encount er for fitting and adjustm ent of hearing aid<br/ > DEENA,LA UREN L 03/09 [facility] Out[facility] Encounter [id number] 03/17 [facility] VISUAL FIELD EXAMINATIO N(S) [id number] Diagnos is: ICD-10- CM H40.013 Open angle with borderl ine finding s, low risk, bilater al
PEGGY NOVAK 03/22 [facility] CMPTR OPHTH IMG OPTIC NERVE [id number] Diagnos is: ICD-10- CM H40.013 Open angle with borderl ine finding s, low risk, bilater al
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< br/> PEGGY NOVAK 03/22 [facility] Outpatient Encounter [id number] 03/25 [facility] Outpatient Encounter [id number] 03/25 [facility] Outpatient [facility]counter [id number] 04/06 [facility] Out[facility] Encounter [id number] 04/09 [facility] Outpatient Encounter [id number] 04/16 [facility] Outpatient Encounter [id number] 04/16 [facility] Out[facility] Encounter [id number] 04/16 [facility] Outpatient Encounter [id number] XOCHITL MANI,MARCO FERREIRA Derek 05/17 [facility] Out[facility] Encounter [id number] 05/19 [facility] Out[facility] Encounter [id number] 05/20 [facility] Out[facility] Encounter [id number] 05/20 [facility] Out[facility] Encounter [id number] 05/21 [facility] Outpatient Encounter [id number] 05/21 [facility] Out[facility] Encounter [id number] 05/26 [facility] Out[facility] Encounter [id number] NEVIN CASTRO 05/26 [facility] Out[facility] Encounter [id number] Diagnos is: ICD-10- CM R93.89 Abnorma l finding s on dx imaging of oth body structu res<br/ > Kati LOPEZ 05/26 [facility] Out[facility] Encounter [id number] 06/01 [facility] Out[facility] Encounter [id number] 06/03 [facility] OFFICE O/P EST MOD 30 MIN [id number] 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< br/> Kati LOPEZ 06/11 [facility] Out[facility] Encounter [id number] 06/14 [facility] Out[facility] Encounter [id number] 06/15 [facility] Out[facility] Encounter [id number] 06/18 [facility] Out[facility] Encounter [id number] 06/21 [facility] Out[facility] Encounter [id number] 06/21 [facility] FIT SPECTACLES BIFOCAL [id number] Diagnos is: ICD-10- CM Z46.0 Encount er for fit/adj st of spectac les and contact lenses< br/> BERENICE DE LOS SANTOS 06/22 [facility] Out[facility] Encounter [id number] 07/08 [facility] Out[facility] Encounter [id number] 07/08 [facility] Out[facility] Encounter [id number] 08/01 [facility] Out[facility] Encounter [id number] 08/03 [facility] OFFICE O/P EST LOW 20 MIN [id number] Diagnos is: ICD-10- CM R63.4 Abnorma l weight loss
Kati LOPEZ 08/15 [facility] MTMS BY PHARM EST 15 MIN [id number] Diagnos is: ICD-10- CM I73.9 Periphe ral vascula r disease , 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
DARIN,ALB ERT KEVIN 08/26 [facility] ([facility]GE) [facility] OFFICE O/P NEW LOW 30 MIN [id number] Diagnos is: ICD-10- CM M20.12 Hallux valgus (acquir ed), left foot
DEEPTHI SNYDER 09/15 [facility] Out[facility] En[facility] [id number] 10/11 [facility] Outpatient Encounter [id number] 10/12 [facility] Out[facility] Encounter [id number] 11/01 [facility] OFFICE O/P EST MOD 30 MIN [id number] Diagnos is: ICD-10- CM R10.10 Upper abdomin al pain, 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
RICARDO DUBON 11/03 [facility] Encounter [id number] 11/04 [facility] Out[facility] Encounter [id number] 11/04 [facility] Outpatient [facility]counter [id number] 11/05 [facility] Outpatient Encounter [id number] 11/09 [facility] Outpatient Encounter [id number] 11/11 [facility] Out[facility]counter [id number] 11[facility]17 [facility] Outpatient Encounter [id number] 11/18 [facility] OFFICE O/P EST LOW 20 MIN [id number] 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< br/> Kati LOPEZ 11/21 [facility] Out[facility] Encounter [id number] 11/22 [facility] Out[facility] Encounter [id number] [facility] Outpatient Encounter [id number] 11/24 [facility] Outpatient Encounter [id number] 11[facility]25 [facility] Out[facility]counter [id number] 11/25 [facility] Out[facility] Encounter [id number] 11/29 [facility] HC PRO PHONE CALL 21-30 MIN [id number] Diagnos is: ICD-10- CM 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
BETANCOURT, CANDIS 12/01 [facility]counter [id number] 12/02 [facility] Out[facility] Encounter [id number]/09 [facility] Outpatient Encounter [id number] 12/09 [facility] Outpatient Encounter [id number] 12/14 [facility] Outpatient [facility]counter [id number] 12/14 [facility] Outpatient [facility]counter [id number] 12/15 [facility] HC PRO PHONE CALL 11-20 MIN [id number] 1. 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
LOUIS CHAVEZ 12/16 [facility] Encounter [id number] 12/18 [facility] Out[facility] Encounter [id number] 12/19 [facility] Outpatient Encounter [id number] 12/21 [facility] Out[facility] Encounter [id number]/21 [facility] Out[facility] Encounter [id number] 1.12/21 [facility]counter [id number] [facility] Outpatient Encounter [id number] 1.12/21 [facility] Out[facility] Encounter [id number] 1.12/22 [facility] HC PRO PHONE CALL 5-10 MIN [id number] 1. 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< br/> LOUIS CHAVEZ ISTINE E 12/22 [facility] HC PRO PHONE CALL 5-10 MIN [id number] Diagnos is: ICD-10- CM R91.1 Solitar y pulmona ry nodule< br/> LOUIS CHAVEZ ISTINE E 12/22 [facility] Out[facility] Encounter [id number] 1.12/25 [facility] Out[facility] Encounter [id number] 1.12/29 [facility] OFFICE O/P EST HI 40 MIN [id number] Diagnos is: ICD-10- CM R63.4 Abnorma l weight loss
MICHELLE AUGUSTE 12/30 [facility] Out[facility] Encounter [id number] 12[facility]30 [facility] Outpatient Encounter [id number] 1.12/30 [facility] Encounter [id number] 1[facility]12/30 [facility] [id number] 1.01/02 [facility] Encounter [id number] 1.01/02 [facility] En[facility] [id number] 1.01/05 [facility] Encounter [id number] 1.01/05 [facility] En[facility] [id number] 1.01/05 [facility] [id number] 01/06 [facility] [id number] 01/10 [facility] Encounter [id number] 1.01/11 [facility] [id number] [facility] En[facility] [id number] 1.01/12 [facility] PRO PHONE CALL 5-10 MIN [id number] Diagnos is: ICD-10- CM 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
Jon TORRES 01/12 [facility] En[facility] [id number] 01/13 [facility] (6[facility]) HC PRO PHONE CALL 21-30 MIN [id number] Diagnos is: ICD-10- CM R63.6 Underwe ight
Deven HAMILTON 01/13 [facility] En[facility] [id number] [facility] [id number] [facility] Encounter [id number] [facility] PRO PHONE CALL 5-10 MIN [id number] 1. Diagnos is: ICD-10- CM I50.9 Heart failure , 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
NICO PETERSON 01/31 [facility] Outpatient [facility]counter [id number] 02/02 [facility] Outpatient Encounter [id number] 02/03 [facility] OFFICE O/P EST MOD 30 MIN [id number] 1. Diagnos is: ICD-10- CM M20.12 Hallux valgus (acquir ed), left foot
DEEPTHI SNYDER RLES D 02/09 [facility] Outpatient [facility]counter [id number] [facility] OFFICE O/P EST MOD 30 MIN [id number] 1. Diagnos is: ICD-10- CM R63.4 Abnorma l weight loss
Kati LOPEZ 02/13 [facility] OFFICE O/P EST SF 10 MIN [id number] Diagnos is: ICD-10- CM M21.612 Bunion of left foot
DEEPTHI SNYDER RLES D 02/13 [facility] Outpatient Encounter [id number] 02/16 [facility] (6[facility]GE) PRO PHONE CALL 5-10 MIN [id number] Diagnos is: ICD-10- CM R63.6 Underwe ight
Deven HAMILTON 02/17 [facility] (6[facility]GE) [facility] [place] [facility] HEARING AID REPAIR/MOD IFYING [id number] Diagnos is: ICD-10- CM
--- NOTE | 2024-06-03 17:58 | ED.GENADULT ---
HPI - General Adult General Chief complaint: General Medical Stated complaint: pain L side rib cage Time Seen by Provider: 06/03/24 16:57 Source: patient, family, RN notes reviewed and old records reviewed Mode of arrival: ambulatory Limitations: no limitations History of Present Illness ED Provider: Maribeth BYRNES narrative: 88-year-old male presents for evaluation of left-sided chest pain. Patient points to his lower lives in the left flank and states that he has had pain to this area for 3 days. He denies any nausea or vomiting. He has a cough but states that he always has a cough. His states his cough has been worse than usual with phlegm. The patient denies any trauma or fall He is a smoker Related Data Home Medications ?Medication ?Instructions ?Recorded ?Confirmed dicyclomine 20 mg tablet 40 mg PO BID 02/21/20 02/21/20 omeprazole 20 mg tablet,delayed 20 mg PO DAILY 02/21/20 02/21/20 release simvastatin 40 mg tablet 40 mg PO BEDTIME 02/21/20 02/21/20 vit C 250 mg-vit E 90 mg-zinc 40 1 tab PO BID 02/21/20 02/21/20 mg-copper 1 [id number] capsule (PreserVision AREDS-2) Previous Rx's ?Medication ?Instructions ?Recorded oxycodone-acetaminophen 5 mg-325 1 - 2 tab PO Q4-6H PRN pain #30 02/26/ mg tablet (Percocet) tabs famotidine 40 mg tablet 40 mg PO BEDTIME 30 days #30 tabs 11/12/23 codeine 10 mg-guaifenesin 100 mg/5 5 ml PO Q4-6H PRN cough #120 mL 06/03/24 mL oral liquid lidocaine 5 % topical patch 1 patch topical DAILY #15 ea 06/03/24 Allergies Allergy/AdvReac Type Severity Reaction Status Date / Time No Known Allergies Allergy Verified 06/03/24 10:38 [No Known Allergies*] Review of Systems Constitutional: Constitutional: Denies body ache(s), Denies chills and Denies headache(s) Eyes: Eyes: Denies blurry vision ENT: Denies vertigo, Denies dizziness and Denies headache(s) Cardiovascular: Cardiovascular: Reports chest pain, Denies chest pain at rest, Reports chest pain with activity and Denies dyspnea Respiratory: Respiratory: Denies cough and Denies dyspnea Gastrointestinal: Gastrointestinal: Denies abdominal pain, Denies nausea and Denies vomiting Musculoskeletal: Musculoskeletal: Denies back pain Integumentary/Breasts: Skin/Breast: Denies rash Neurologic: Denies vertigo, Denies dizziness and Denies headache(s) [facility] Past Medical History Medical History Ganglion cyst of finger Subcutaneous mass of finger of left hand Left inguinal hernia History of headache Arthritis History of diverticulosis Hx of irritable bowel syndrome Hx of renal calculi Urinary frequency Hx of Legionnaire's disease COPD (chronic obstructive pulmonary disease) Elevated cholesterol Surgical History H/O colonoscopy Hx of cholecystectomy Hx of appendectomy History of hydrocelectomy Social History Social History Are you a primary career center director to a significant other at home: No Do you presently have visiting nurse or other home services: No Cigarette Packs Per Day: 0.5 Cigarettes Per Day: 10.0 Years Smoked: 68 Advance Directives: Yes Advance Directives Information Provided: No Advance Directives on File: No Advance Directives Date on File: 11/12/23 Do you have a plan to hurt others: No Plan Physical Exam ED Vital Signs: Vital Signs - 24 hr 06/03/24 10:35 06/03/24 12:58 Temperature 97.8 F 97.9 F Pulse Rate 91 88 Respiratory Rate 20 20 Blood Pressure 133/56 L 136/67 Pulse Oximetry 95 97 Oxygen Delivery Method Room Air Room Air BMI result Body Mass Index 19.2 Const General: healthy appearing, comfortable, no acute distress, alert and awake Nutritional Appearance: well nourished Orientation/consciousness: patient oriented x3 HENMT Head: Yes normocephalic and Yes atraumatic Eyes Eyelids: Yes eyelids normal Conjunctivae: conjunctivae normal Sclerae: sclerae normal Corneas: corneas normal Pupils: Equal, round and reactive pupils present EOM: EOMs intact bilaterally Neck Neck: Yes full ROM Chest Other: Tenderness in the left anterior axillary line at the level of the 10th through 12th ribs. Chest palpation & inspection: normal inspection of the chest and no crepitus Resp Effort & Inspection: normal respiratory effort, able to speak in complete sentences, no audible wheezes and not labored Auscultation: clear to auscultation bilaterally Cardio Rate: regular rate Rhythm: regular rhythm GI Other: No abdominal distention or tenderness. Inspection: No distended Palpation (GI): Soft to palpation, not firm, nontender, no guarding and not rigid Back/Spine/Pelvis Other: There was no tenderness with palpation of the Thoracic, lumbar spine or paraspinous muscles. Skin General skin exam: elasticity normal Neuro General: patient oriented x3 Cranial nerves: Yes Equal, round and reactive pupils present and Yes Bilaterally intact EOM present Cognition (Neuro): normal cognition Extrem Other: Moving all extremities well without any obvious deformities Course Reevaluation(s) Reevaluation #1: Patient's workup is largely unremarkable. The patient did sit up in bed and had worsening pain to the left flank/lower chest wall. I discussed that his workup was largely unremarkable, he likely has a muscle spasm: We will treat with lidocaine patches and given his cough that exacerbates his pain we will treat with guaifenesin with codeine. There is no pneumonia on CT scan and the patient is afebrile with no leukocytosis Time: 19:19 Medications Administered Discontinued Medications Generic Name Dose Route Start Last Admin Trade Name Freq PRN Reason Stop Dose Admin Oxycodone HCl 5 mg 06/03/24 17:51 06/03/24 18:06 Oxycodone Hcl Immed Release 5 Mg Tablet PO 06/03/24 17:52 5 mg ONCE ONE Administration Medical Decision Making Medical Decision Making [facility] Narrative: 88-year-old male presents for evaluation of chest wall pain. His pain is worse with movement, in his worse with palpation. Is with with deep inspiration. His lungs are clear to auscultation. He has no abdominal pain or tenderness. This is not consistent with a coronary artery disease picture. His chest x-ray shows haziness in the lower lobe that could reflect pneumonia. A CT scan of the chest was ordered without contrast to evaluate for lung pathology or rib fracture. The patient's vital signs are stable. Differential Diagnosis Differential Diagnoses: The differential diagnosis associated with the presentation includes Chest wall strain Contusion Rib fracture Pneumothorax Pneumonia Pleural effusion Lab Data [facility] Lab Attestation statement: I reviewed the patient's lab results. Mild leukopenia with a white count of 3.8, he has a mild anemia with a hemoglobin of 13.3 and hematocrit of 40.1, this is just below his baseline is recent labs from November of last year. No obvious active bleeding. Patient's chemistries significant for a random glucose of 255, no evidence of DKA. Normal renal function. 06/03/24 10:49 06/03/24 10:49 Labs: Lab Results 06/03/24 Range/Units 10:49 WBC 3.8 L (4.8-10.8) X10*3/uL RBC 4.29 L (4.60-5.80) X10*6/uL Hgb 13.3 L (14.0-18.0) g/dl Hct 40.1 L (42.0-52.0) % MCV 93.5 (80.0-98.0) fL MCH 31.0 (27.0-33.0) pg MCHC 33.2 (31.0-36.0) g/dl RDW 15.5 (11.0-16.0) % Plt Count 137 L D (160-400) X10*3/uL MPV 12.0 (9.4-12.4) fL Immature Gran % (Auto) 0.3 (0.0-0.4) % Neut % (Auto) 71.1 (45-73) % Lymph % (Auto) 17.8 L (20-40) % Fergus % (Auto) 9.2 (2-11) % Eos % (Auto) 0.8 (0-4) % Baso % (Auto) 0.8 (0-2) % Lymph # (Auto) 0.7 L (1.2-4.9) X10*3/uL Fergus # (Auto) 0.4 (0.1-1.2) X10*3/uL Eos # (Auto) 0.0 (0.0-0.4) X10*3/uL Baso # (Auto) 0.0 (0.0-0.2) X10*3/uL Abs Immat Gran (auto) 0.01 (0.00-0.03) X10*3/uL Absolute Neuts (auto) 2.7 (2.0-8.3) x10*3/uL Absolute Nucleated RBC 0.000 (0.0-0.012) X10*3/uL Nucleated RBC % (auto) 0.0 (0.0-0.2) /100WBC Sodium 141 (135-145) mmol/L Potassium 4.5 (3.3-5.1) mmol/L Chloride 107 (96-108) mmol/L Carbon Dioxide 29 (22-29) mmol/L Anion Gap 10 L (12-20) BUN 17 H (9-16) mg/dL Creatinine 0.79 (0.5-1.4) mg/dL Estim Creat Clear Calc 55.0 Estimated GFR > 60 Random Glucose 255 H (60-115) mg/dL Calcium 9.4 (8.4-10.2) mg/dL Total Bilirubin 0.3 (0.0-1.0) mg/dL Direct Bilirubin 0.1 (0.0-0.5) mg/dL AST 17 (5-37) U/L ALT 9 (0-40) U/L Alkaline Phosphatase 74 (39-117) U/L Total Protein 6.4 L (6.5-8.0) g/dL Albumin 3.7 (3.5-5.0) g/dL Lipase 17 (8-78) U/L Independent Interpretation I performed an independent interpretation of an: Plain X-Ray (No focal infiltrates) Radiology Impression Discussion of test interpretation with radiology: I have reviewed the radiologist's reading. Radiologist Impression: Findings: The heart is normal size. The visualized thyroid and mediastinum are unremarkable. There are linear and bandlike opacities within the lingula. No consolidation, pleural effusion or pneumothorax. Moderate centrilobular pulmonary emphysema. The upper abdomen is unremarkable. No acute displaced fracture. Chronic appearing compression fracture involving the L1 vertebral body. IMPRESSION: Linear and bandlike opacities within the lingula, compatible with atelectasis. This document has been electronically signed by: Marianna Mitchell MD on 06/03/2024 18:53:36 Tests considered The following testing was considered but not selected: Consider EKG but the patient's pain is quite low and lateral and almost the left flank area, his pain is only with movement or palpation. Not consistent with cardiac disease Discharge Plan Discharge Clinical Impression: Acute chest wall pain Patient Disposition: Home, Self-Care Instructions: Chest Wall Pain (ED) Additional Instructions: Your workup in the ER today was reassuring. I think your pain is most likely related to a muscle spasm You may use guaifenesin with codeine to help with your cough as well as your pain. Apply lidocaine patches once daily Follow-up with your primary doctor, return for new or worsening symptoms Prescriptions: New codeine-guaifenesin 10-100 mg/5 mL liquid 5 ml PO Q4-6H PRN (Reason: cough) Qty: 120 0RF lidocaine 5 % adhesive patch,medicated 1 patch topical DAILY Qty: 15 0RF Rx Instructions: leave on most painful area for up to 12 hrs No Action simvastatin 40 mg Tablet 40 mg PO BEDTIME dicyclomine 20 mg Tablet 40 mg PO BID omeprazole 20 mg Tablet,Delayed Release (Dr/Ec) 20 mg PO DAILY PreserVision AREDS-2 [id number] Capsule 1 tab PO BID oxycodone-acetaminophen [Percocet] 5-325 mg tablet 1 - 2 tab PO Q4-6H PRN (Reason: pain) Qty: 30 0RF famotidine 40 mg tablet 40 mg PO BEDTIME 30 Days Qty: 30 0RF Print Language: Martiniquais
[2024-06-03] MEDS: oxyCODONE HCl Immed Release 5 MG TABLET PO (18:06)
[2024-06-03 19:26] VITALS: BP 136/67; PULSE 88; RESP 20; TEMP 36.6; O2SAT 97
[2024-06-03] MEDS: Lidocaine 4 % Patch ADH..PATCH 1 PATCH TRANSDERMA (19:33)
== END 2024-06-03 19:35 | disposition home or self-care (01) ==
PROVIDERS: Emergency Provider Emergency Medicine Emergency Medical Services; PCP Nurse Practitioner Family
DX: R07.89 Other chest pain (principal); R05.9 Cough, unspecified; J44.9 Chronic obstructive pulmonary disease, unspecified; F17.210 Nicotine dependence, cigarettes, uncomplicated; Z79.899 Other long term (current) drug therapy
CPT/HCPCS: 36415; 71101; 71250; 80048; 80076; 83690; 85025; 99283; 99284